=== PATIENT | male | born 1950 | race Caucasian/White ===

== ENCOUNTER 2023-02-01 02:55 | Inpatient (IN) | payer MEDICARE, OTHER ==
[~2023-02-01] VITALS: Ht 152.4 cm; Wt 50.4 kg
[2023-02-01] VITALS (51 sets, daily range): BP systolic 108–169; BP diastolic 21–77
[2023-02-01 03:33] LABS: Hematocrit 33.1 % (41.0-53.0); Hemoglobin 10.7 g/dL (13.5-17.5); Mean Corpuscular Hemoglobin 28.5 pg (28.0-32.0); Mean Corpuscular Hgb Conc. 32.4 g/dL (32.0-36.0); Mean Corpuscular Volume 87.8 fL (80.0-100.0); Red Blood Cells 3.78 10^6/uL (4.5-5.90); Red Cell Distribution Width 13.5 % (11.8-14.3); White Blood Cell 25.1 10^3/uL (4.4-10.8)
[2023-02-01 03:34] LABS: Basophils % (manual) 0 (0.0-2.0); Eosinophils % (manual) 0 (0-7); Metamyelocytes % 0; Myelocytes % 0
[2023-02-01 03:35] LABS: Blast Cells 0; Promyelocytes % 0; Reactive Lymphocytes 0
[2023-02-01 03:50] LABS: Potassium 3.4 mmol/L (3.5-5.1)
[2023-02-01 03:59] LABS: BUN/Creatinine Ratio 18.9 (10.0-20.0); Bilirubin, Total 0.9 mg/dL (0.2-1.0); Total Protein 6.8 g/dL (6.4-8.2)
[2023-02-01 04:11] LABS: Band Neutrophils % (manual) 7; Lymphocytes % (manual) 4 (10.0-50.0); Monocytes % (manual) 4 (0-12)
[2023-02-01] MEDS ORDERED: HYDROmorphone HCL 2 MG/ML VL/or syr IV ONE (04:30)
[2023-02-01] MEDS ORDERED: InsuLIN R (HUMAN) 100 UNITS in SODIUM CHL 0.9% 99 ML IV SCH ×2 (04:30→09:30)
[2023-02-01] MEDS ORDERED: cefTRIAXone 1GM/50ML D5W 50 ML IV ONE ×2 (04:30→04:45)
[2023-02-01] MEDS ORDERED: POTASSIUM CHL 20MEQ/100ML 100 ML IV PRN (04:30)
[2023-02-01] MEDS ORDERED: DEXTROSE (50%) 50ML SYRG IV PRN (04:30)
[2023-02-01] MEDS ORDERED: INSULIN LANTUS (GLARGINE) 1 /0.01ml (100units/ml) SC ONE ×2 (04:30→13:45)
[2023-02-01] MEDS ORDERED: ONDANSETRON HCL 4 MG/2 ML VIAL IV ONE (04:45)
[2023-02-01] MEDS: ACCU-CHEK COMFORT CURVE STRIP VI SCH ×11 (05:00→20:02)
[2023-02-01] MEDS ORDERED: InsuLIN REG 1unit/0.01ml Soln (100units/ml) IV ONE (05:00)
[2023-02-01] MEDS ORDERED: InsuLIN REG 1unit/0.01ml Soln (100units/ml) ONE (05:08)
[2023-02-01 05:13] LABS: BUN/Creatinine Ratio 19.2 (10.0-20.0); Calcium 11.3 mg/dL (8.5-10.1); Potassium 3.4 mmol/L (3.5-5.1)
[2023-02-01] MEDS: SODIUM CHLORIDE 0.9% 1,000 ML IV SCH ×2 (05:25→07:16)
[2023-02-01] MEDS ORDERED: ONDANSETRON HCL 4 MG/2 ML VIAL IV PRN (07:00)
[2023-02-01] MEDS ORDERED: NITROGLYCERIN 0.4 MG SL TAB SL PRN (07:00)
[2023-02-01] MEDS ORDERED: MORPHINE SULFATE INJ 2 MG/ml SYRG IV PRN (07:00)
[2023-02-01] MEDS ORDERED: SODIUM CHLORIDE 0.9% 1,000 ML IV SCH ×2 (08:30→10:30)
[2023-02-01] MEDS ORDERED: POTASSIUM CHL 20MEQ/100ML 100 ML IV ONE (09:00)
[2023-02-01] MEDS: MORPHINE SULFATE INJ 2 MG/ml SYRG IV PRN ×4 (09:43→22:11)
[2023-02-01] MEDS ORDERED: PANTOPRAZOLE 40 MG/10 ML VIAL INJ IV SCH (10:00)
[2023-02-01] MEDS ORDERED: SOD CHL 0.45% 1,000 ML IV SCH (11:15)
[2023-02-01 12:14] LABS: Calcium 10.5 mg/dL (8.5-10.1); Potassium 3.3 mmol/L (3.5-5.1)
[2023-02-01 12:19] LABS: Albumin 2.9 g/dL (3.4-5.0); Bilirubin, Total 0.6 mg/dL (0.2-1.0); Total Protein 6.9 g/dL (6.4-8.2)
[2023-02-01 12:50] LABS: Urine Bacteria NONE SEEN /hpf (None Seen); Urine Blood Negative /uL (Negative); Urine Mucus FEW (None Seen); Urine Specific Gravity 1.014 (1.001-1.035); Urine WBC 8 /hpf (0 - 3)
[2023-02-01] MEDS: POTASSIUM CHL 20MEQ/100ML 100 ML IV SCH ×2 (14:02→16:13)
[2023-02-01] MEDS: InsuLIN REG 1unit/0.01ml Soln (100units/ml) SC SCH ×2 (16:13→20:03)
[2023-02-01] MEDS: SOD CHL 0.45% 1,000 ML IV SCH (17:13)
[2023-02-01 17:23] LABS: Calcium 10.2 mg/dL (8.5-10.1); Potassium 3.8 mmol/L (3.5-5.1)
[2023-02-01 17:32] LABS: BUN/Creatinine Ratio 18.3 (10.0-20.0)
[2023-02-01 22:45] LABS: BUN/Creatinine Ratio 18.6 (10.0-20.0); Calcium 10.1 mg/dL (8.5-10.1); Potassium 3.8 mmol/L (3.5-5.1)
[2023-02-02] VITALS (46 sets, daily range): BP systolic 113–180; BP diastolic 47–94
[2023-02-02] MEDS: ACCU-CHEK COMFORT CURVE STRIP VI SCH ×6 (00:33→20:00)
[2023-02-02] MEDS: InsuLIN REG 1unit/0.01ml Soln (100units/ml) SC SCH ×6 (04:00→20:35)
[2023-02-02 04:17] LABS: Basophils # (auto) 0.1 10 ^3/uL (0-0.2); Basophils % (auto) 0.5 % (0.0-2.0); Eosinophils # (auto) 0.4 10 ^3/uL (0-0.8); Eosinophils % (auto) 2.3 % (0.0-7.0); Hematocrit 28.8 % (41.0-53.0); Hemoglobin 10.2 g/dL (13.5-17.5); Lymphocytes # (auto) 1.4 10 ^3/uL (0.4-5.4); Lymphocytes % (auto) 8.2 % (10.0-50.0); Mean Corpuscular Hemoglobin 28.8 pg (28.0-32.0); Mean Corpuscular Hgb Conc. 35.6 g/dL (32.0-36.0); Monocytes # (auto) 1.1 10 ^3/uL (0-1.3); Monocytes % (auto) 6.7 % (0.0-12.0); Neutrophils # (auto) 14.2 10 ^3/uL (1.6-8.6); Neutrophils % (auto) 82.3 % (37.0-80.0); Red Blood Cells 3.55 10^6/uL (4.5-5.90); Red Cell Distribution Width 13.8 % (11.8-14.3); White Blood Cell 17.2 10^3/uL (4.4-10.8)
[2023-02-02 04:29] LABS: Albumin 2.7 g/dL (3.4-5.0); BUN/Creatinine Ratio 19.3 (10.0-20.0); Calcium 9.9 mg/dL (8.5-10.1); Potassium 3.8 mmol/L (3.5-5.1)
[2023-02-02 04:32] LABS: Bilirubin, Total 0.5 mg/dL (0.2-1.0); Total Protein 5.9 g/dL (6.4-8.2)
[2023-02-02] MEDS: MORPHINE SULFATE INJ 2 MG/ml SYRG IV PRN ×3 (05:16→22:02)
[2023-02-02] MEDS: SOD CHL 0.45% 1,000 ML IV SCH ×2 (05:50→18:43)
[2023-02-02] MEDS: INSULIN LANTUS (GLARGINE) 1 /0.01ml (100units/ml) SC SCH (10:06)
[2023-02-02] MEDS ORDERED: ASPirin 81 mg TAB PO ONE (14:00)
[2023-02-02] MEDS ORDERED: METOPROLOL SUCCINATE XL 50 MG TAB PO ONE (14:00)
[2023-02-02] MEDS: hydrALAZINE HCL 20 MG/ML VL IV PRN (14:28)
[2023-02-02] MEDS: ATORVASTATIN 20 MG TAB PO SCH (21:55)
[2023-02-02] MEDS: HEPARIN SODIUM (PORCINE) 5000 UNITS/ML 1ML VIAL SC SCH (21:58)
[2023-02-03] VITALS (39 sets, daily range): BP systolic 84–186; BP diastolic 35–139
[2023-02-03] MEDS: ACCU-CHEK COMFORT CURVE STRIP VI SCH ×7 (00:05→23:43)
[2023-02-03] MEDS: InsuLIN REG 1unit/0.01ml Soln (100units/ml) SC SCH ×7 (04:00→23:43)
[2023-02-03 04:08] LABS: Basophils # (auto) 0.1 10 ^3/uL (0-0.2); Basophils % (auto) 0.6 % (0.0-2.0); Eosinophils # (auto) 0.4 10 ^3/uL (0-0.8); Eosinophils % (auto) 4.7 % (0.0-7.0); Hematocrit 26.7 % (41.0-53.0); Hemoglobin 9.5 g/dL (13.5-17.5); Lymphocytes # (auto) 1.2 10 ^3/uL (0.4-5.4); Lymphocytes % (auto) 15.3 % (10.0-50.0); Mean Corpuscular Hemoglobin 29.8 pg (28.0-32.0); Mean Corpuscular Hgb Conc. 35.7 g/dL (32.0-36.0); Mean Corpuscular Volume 83.6 fL (80.0-100.0); Monocytes # (auto) 0.7 10 ^3/uL (0-1.3); Monocytes % (auto) 8.7 % (0.0-12.0); Neutrophils # (auto) 5.7 10 ^3/uL (1.6-8.6); Neutrophils % (auto) 70.7 % (37.0-80.0); Red Blood Cells 3.19 10^6/uL (4.5-5.90); Red Cell Distribution Width 13.9 % (11.8-14.3); White Blood Cell 8.1 10^3/uL (4.4-10.8)
[2023-02-03 04:27] LABS: BUN/Creatinine Ratio 18.4 (10.0-20.0); Calcium 9.3 mg/dL (8.5-10.1); Potassium 3.2 mmol/L (3.5-5.1)
[2023-02-03] MEDS: SOD CHL 0.45% 1,000 ML IV SCH (09:24)
[2023-02-03] MEDS: ASPirin 81 mg TAB PO SCH (09:25)
[2023-02-03] MEDS: MORPHINE SULFATE INJ 2 MG/ml SYRG IV PRN ×3 (09:26→23:34)
[2023-02-03] MEDS: HEPARIN SODIUM (PORCINE) 5000 UNITS/ML 1ML VIAL SC SCH ×2 (09:30→21:53)
[2023-02-03] MEDS ORDERED: METOPROLOL SUCCINATE XL 50 MG TAB PO SCH (10:00)
[2023-02-03] MEDS: POTASSIUM CHL 20MEQ/100ML 100 ML IV SCH ×2 (10:53→12:30)
[2023-02-03] MEDS: INSULIN LANTUS (GLARGINE) 1 /0.01ml (100units/ml) SC SCH (10:56)
[2023-02-03] MEDS: hydrALAZINE HCL 20 MG/ML VL IV PRN (14:01)
[2023-02-03] MEDS ORDERED: cloNIDine HCL 0.1 MG TAB PO PRN ×2 (14:45→15:15)
[2023-02-03] MEDS: LACTATED RINGER'S 1,000 ML IV SCH (16:29)
[2023-02-03] MEDS: ATORVASTATIN 20 MG TAB PO SCH (21:21)
[2023-02-04] VITALS (24 sets, daily range): BP systolic 78–167; BP diastolic 37–81
[2023-02-04] MEDS: InsuLIN REG 1unit/0.01ml Soln (100units/ml) SC SCH ×2 (04:00→08:00)
[2023-02-04] MEDS: ACCU-CHEK COMFORT CURVE STRIP VI SCH ×2 (04:16→08:00)
[2023-02-04 04:31] LABS: Basophils # (auto) 0.2 10 ^3/uL (0-0.2); Eosinophils # (auto) 0.3 10 ^3/uL (0-0.8); Eosinophils % (auto) 4.4 % (0.0-7.0); Hematocrit 26.6 % (41.0-53.0); Hemoglobin 9.2 g/dL (13.5-17.5); Lymphocytes # (auto) 1.2 10 ^3/uL (0.4-5.4); Lymphocytes % (auto) 17.8 % (10.0-50.0); Mean Corpuscular Hemoglobin 29.3 pg (28.0-32.0); Mean Corpuscular Hgb Conc. 34.8 g/dL (32.0-36.0); Mean Corpuscular Volume 84.3 fL (80.0-100.0); Monocytes # (auto) 0.7 10 ^3/uL (0-1.3); Monocytes % (auto) 10.9 % (0.0-12.0); Neutrophils # (auto) 4.2 10 ^3/uL (1.6-8.6); Neutrophils % (auto) 63.9 % (37.0-80.0); Red Blood Cells 3.15 10^6/uL (4.5-5.90); White Blood Cell 6.6 10^3/uL (4.4-10.8)
[2023-02-04 04:41] LABS: Potassium 3.7 mmol/L (3.5-5.1)
[2023-02-04 04:47] LABS: BUN/Creatinine Ratio 14.4 (10.0-20.0); Calcium 8.5 mg/dL (8.5-10.1)
[2023-02-04] MEDS: LACTATED RINGER'S 1,000 ML IV SCH (05:13)
[2023-02-04] MEDS: MORPHINE SULFATE INJ 2 MG/ml SYRG IV PRN (05:34)
[2023-02-04] MEDS: ASPirin 81 mg TAB PO SCH (09:50)
[2023-02-04] MEDS: HEPARIN SODIUM (PORCINE) 5000 UNITS/ML 1ML VIAL SC SCH (09:56)
[2023-02-04] MEDS ORDERED: METOPROLOL SUCCINATE XL 50 MG TAB PO SCH (10:00)
[2023-02-04] MEDS: INSULIN LANTUS (GLARGINE) 1 /0.01ml (100units/ml) SC SCH (10:00)
[2023-02-04] MEDS ORDERED: ASPI-325 PO (11:21)
[2023-02-04] MEDS ORDERED: ATOR20TA50 PO (11:21)
[2023-02-04] MEDS ORDERED: METO-6 PO (11:21)
== END 2023-02-04 12:08 | disposition home or self-care (01) | DRG 637 ==
LOC: ER 02:55 → EDBD 02:55 → TELE 06:53 → ICU WEST 08:54
PROVIDERS: ADMIT Nurse Practitioner; ATTEND Internal Medicine Pulmonary Disease
DX: E11.10 Type 2 diabetes mellitus with ketoacidosis without coma (principal); I21.A1 Myocardial infarction type 2; N17.9 Acute kidney failure, unspecified; E86.0 Dehydration; E11.22 Type 2 diabetes mellitus with diabetic chronic kidney disease; E11.51 Type 2 diabetes mellitus with diabetic peripheral angiopathy without gangrene; E11.649 Type 2 diabetes mellitus with hypoglycemia without coma; N18.9 Chronic kidney disease, unspecified; D63.8 Anemia in other chronic diseases classified elsewhere; E87.6 Hypokalemia; I12.9 Hypertensive chronic kidney disease with stage 1 through stage 4 chronic kidney disease, or unspecified chronic kidney disease; I16.0 Hypertensive urgency; Z20.822 Contact with and (suspected) exposure to COVID-19; Z89.611 Acquired absence of right leg above knee; Z89.612 Acquired absence of left leg above knee
CPT/HCPCS: 36415; 36600; 71045; 80048; 80053; 81001; 82010; 82805; 82962; 83690; 83735; 83880; 84484; 85007; 85025; 85027; 87081; 87426; 93005; 93306; 96365; 96367; 96368; 96372; 96375; 99291; C9113; G0378; J0696; J1815; J2405; J3480

== ENCOUNTER 2025-09-29 08:49 | Inpatient (IN) | payer OTHER ==
[~2025-09-29] VITALS: Ht 157.5 cm; Wt 55.7 kg
[2025-09-29] VITALS (17 sets, daily range): BP systolic 115–136; BP diastolic 56–73; PULSE 70–102; RESP 12–21; TEMP 97.9; O2SAT 95–100
[~2025-09-29 08:49] MED LIST: ASPI-325 PO; ATOR20TA50 PO; METO-6 PO
--- NOTE | 2025-09-29 09:01 | ED.PDOC ---
History of present illness HPI Comments 75 y/o M, BIBA, with PMHx of DM presents to the ED for CC of hyperglycemia. Patient states, he has had "high" blood sugar readings accompanied by symptoms of nausea, vomiting, and poor appetite [id number]. Patient relays, to have had similar symptoms in the past with previous DKA episode. Patient further relays, symptoms of "burning" like abdominal pain. Patient denies vision changes, headache, dizziness, frequency, urgency, or excessive thirst. Chief Complaint: Nausea/Vomiting Time Seen by MD: 09:00 Primary Care Provider: CLAUDIA History of present illness: Nurses Notes, Merchandise Flow Manager Notes, Medications, Aleksandr rgies Allergies: Coded Allergies: NO KNOWN ALLERGIES (Unverified , 09/11/21) Home Meds Active Scripts Metoprolol Succinate (Toprol Xl) 50 Mg Tab, 50 MG PO DAILY for 30 Days, #30 TAB Prov:FRANCIS RETANA MD 02/04/23 Atorvastatin Calcium (ATORVASTATIN CALCIUM) 20 Mg Tab, 40 MG PO HS for 30 Days, #30 TAB Prov:FRANCIS RETANA MD 02/04/23 Aspirin (Aspirin Low Dose) 81 Mg Tab, 81 MG PO DAILY for 30 Days, #30 TAB Prov:FRANCIS RETANA MD 02/04/23 Information Source: Patient, Emergency Med Personnel Mode of Arrival: EMS Timing: Weeks Duration: Since onset Prehospital treatment: None Symptoms: Eating poorly History of: Diabetes Associated signs and symptoms: Nausea, Vomiting Past Medical History PAST MEDICAL HISTORY: DM Surgical History: Denies all surgeries Family History Family History: Reviewed,noncontributory to illness Social History Smoker: Non-Smoker Alcohol: Denies ETOH Use Drugs: Denies Drug Use Lives In: Home Constitutional: denies: chills, diaphoresis, fatigue, fever, malaise, sweats, weakness, others EENTM: denies: blurred vision, double vision, ear bleeding, ear discharge, ear drainage, ear pain, ear ringing, eye pain, eye redness, hearing loss, mouth pain, mouth swelling, nasal discharge, nose bleeding, nose congestion, nose pain, photophobia, tearing, throat pain, throat swelling, voice changes, others Respiratory: denies: cough, hemoptysis, orthopnea, SOB at rest, shortness of breath, SOB with excertion, stridor, wheezing, others Cardiovascular: denies: chest pain, dizzy spells, diaphoresis, Dyspnea on exertion, edema, irregular heart beat, left arm pain, lightheadedness, palpitations, PND, syncope, others Gastrointestinal: reports: abdominal pain, nausea, poor appetite, vomiting; denies: abdomen distended, blood streaked bowels, constipated, diarrhea, dysphagia, difficulty swallowing, hematemesis, melena, poor fluid intake, rectal bleeding, rectal pain, others Genitourinary: denies: burning, dysuria, flank pain, frequency, hematuria, incontinence, penile discharge, penile sore, pain, testicle pain, testicle swelling, urgency, others Neurological: denies: dizziness, fainting, headache, left sided numbness, left sided weakness, numbness, paresthesia, pre-existing deficit, right sided numbness, right sided weakness, seizure, speech problems, tingling, tremors, weakness, others Musculoskeletal: denies: back pain, gout, joint pain, joint swelling, muscle pain, muscle stiffness, neck pain, others Integumetry: denies: bruises, change in color, change in hair/nails, dryness, laceration, lesions, lumps, rash, wounds, others Allergic/Immunocompromised: denies: Difficulty Healing, Frequent Infections, Hives, Itching, others Hematologic/Lymphatic: denies: anemia, blood clots, easy bleeding, easy bruising, swollen glands, others Endocrine: denies: excessive hunger, excessive sweating, excessive thirst, excessive urination, flushing, intolerance to cold, intolerance to heat, unexplained weight gain, unexplained weight loss, others Psychiatric: denies: anxiety, bipolar disorder, depression, hopeless, panic disorder, schizophrenia, sleepless, suicidal, others All Other Systems: Reviewed and Negative Physical Exam General Appearance: No Apparent Distress, Normal HEENT: Normal ENT Inspection, Pharynx Normal Neck: Full Range of Motion, Non-Tender, Normal, Normal Inspection Respiratory: Chest Non-Tender, Lungs Clear, No Accessory Muscle Use, No Respiratory Distress, Normal Breath Sounds Cardiovascular: No Edema, No Murmur, No Gallop, Normal Peripheral Pulses, Tachycardia Breast Exam: Deferred Gastrointestinal: No Organomegaly, Non Tender, No Pulsatile Mass, Normal Bowel Sounds, Soft Genitalia: Deferred Pelvic: Deferred Rectal: Deferred Extremities: No calf tenderness, Normal capillary refill, Normal inspection, Normal range of motion, Non-tender, No pedal edema Musculoskeletal : Location: Bilateral Extremity Location: Knee Apperance: Other (KD) Neurologic: Alert, ring attacher II-XII nml as Tested, No Motor Deficits, Normal Affect, Normal Mood, No Sensory Deficits Cerebellar Function: Normal Reflexes: Normal Skin: Dry, Normal Color, Warm Lymphatic: No Adenopathy Was a procedure done? Was a procedure done?: No Differential Diagnosis (DM) Differential Diagnosis: Dehydration, DKA, Gastritis, Hyperglycemia X-Ray, Labs, Meds, VS Vital Signs Date Time Temp Pulse Resp B/P (MAP) Pulse Ox O2 Delivery O2 Flow Rate FiO2 09/29/25 10:00 97.8 102 18 129/56 (80) 97.8 09/29/25 10:00 102 18 Nasal Cannula* 2 28 09/29/25 08:53 98.2 101 20 138/64 99 98.2 Lab Test 09/29/25 10:33 09/29/25 09:39 Range/Units Troponin I High Sensitivity Pending 748 *H </=54 ng/L White Blood Count 10.5 4.4-10.8 10^3/uL Red Blood Count 4.70 4.5-5.90 10^6/uL Hemoglobin 11.6 L 13.5-17.5 g/dL Hematocrit 36.5 L 41.0-53.0 % Mean Corpuscular Volume 77.7 L 80.0-100.0 fL Mean Corpuscular Hemoglobin 24.7 L 28.0-32.0 pg Mean Corpuscular Hemoglobin Concent 31.8 L 32.0-36.0 g/dL Red Cell Distribution Width 19.5 H 11.8-14.3 % Platelet Count 241 140-450 10^3/uL Mean Platelet Volume 7.8 6.9-10.8 fL Neutrophils (%) (Auto) 92.3 H 37.0-80.0 % Lymphocytes (%) (Auto) 2.3 L 10.0-50.0 % Monocytes (%) (Auto) 4.6 0.0-12.0 % Eosinophils (%) (Auto) 0.0 0.0-7.0 % Basophils (%) (Auto) 0.8 0.0-2.0 % Neutrophils # (Auto) 9.7 H 1.6-8.6 10 ^3/uL Lymphocytes # (Auto) 0.2 L 0.4-5.4 10 ^3/uL Monocytes # (Auto) 0.5 0-1.3 10 ^3/uL Eosinophils # (Auto) 0 0-0.8 10 ^3/uL Basophils # (Auto) 0.1 0-0.2 10 ^3/uL Nucleated Red Blood Cells 0.0 % Sodium Level 145 136-145 mmol/L Potassium Level 4.4 3.5-5.1 mmol/L Chloride Level 95 L 98-107 mmol/L Carbon Dioxide Level 22 20-31 mmol/L Anion Gap 28 H 5-15 Blood Urea Nitrogen 117 *H 9-23 mg/dL Creatinine 3.54 H 0.700-1.30 mg/dL Glomerular Filtration Rate Calc 17 >90 mL/min BUN/Creatinine Ratio 33.1 H 10.0-20.0 Serum Glucose 409 *H 74-106 mg/dL Calcium Level 9.5 8.7-10.4 mg/dL Current Medications Medications (Trade) Dose Ordered Sig/Conrado Route Start Time Stop Time Status Last Admin Sodium Chloride 1,000 ml @ 100 mls/hr Q10H ONCE IV 09/29/25 09:30 09/29/25 19:29 09/29/25 10:08 Insulin Human Regular (InsuLIN R) 4 units ONCE ONCE IV 09/29/25 09:30 09/29/25 09:31 DC 09/29/25 10:07 Ondansetron HCl (Zofran) 4 mg ONCE ONCE IV 09/29/25 09:30 09/29/25 09:31 DC 09/29/25 10:06 [place] [address] Ph: [phone] DIAGNOSTIC IMAGING Diagnostic Imaging Report : [id number] Signed PATIENT: NITHIN SUÁREZ ACCT: [id number] UNIT: [id number] : 1950 LOC: ER ROOM / BED: / AGE / SEX: 75 / M ADM STATUS: REG ER SERVICE 2 ORDERING PHYSICIAN: TRACEY LEMON MD PROCEDURE(s): CXRP - CHEST PORTABLE REASON: nausea ORDER NUMBER(s): [id number], ACCESSION NUMBER(s): [id number] CHEST RADIOGRAPH Indication: nausea Technique: Single frontal view of the chest was obtained Comparison: XY CHEST PORTABLE on DOS: 02/01/23, CXR1 on DOS: 08/11/22, CXRP on DOS: 07/24/21 FINDINGS: Lines and Tubes: None Lungs: Developing bibasilar airspace disease Pleura: Small bilateral pleural effusions. No pneumothorax. Cardiomediastinal contours: Cardiomegaly Bones: No acute osseous abnormality. IMPRESSION: 1. Findings suggest developing congestive failure. ATED BY: SUKHJINDER YOUNG Jr., DO DICTATED DATE/TIME: 09/29/25958 SIGNED BY: SUKHJINDER YOUNG Jr., SIGNED DATE/TIME: 09/29/25958 CC: Time of 1ST Reevaluation: 09:30 Reevaluation 1ST: Unchanged Time of 2ND Reevaluation: 11:15 Reevaluation 2ND: Improved Patient Education/Counseling: Diagnosis, Treatment Family Education/Counseling: No Family Present Comments This is a patient who presents with many days of inability to keep anything down by mouth. He is diabetic. He has a history of DKA. Patient is in DKA again. However he is also in renal failure in addition he is in congestive heart failure. This places the patient in the very precarious condition where he needs volume however his heart is unable to create the cardiac output so additional volume we will worsened he has CHF. However diuresis may worsen his renal failure in addition it would not be beneficial for his DKA. I have started the patient on insulin drip. I will have the patient admitted for further evaluation. To balance his volume intake versus output. And control his blood sugar. Patient also has a elevation of troponin. Although this could be due to acute renal failure, it will have to be trended. I will start him on aspirin in the meantime. The he does not have acute EKG changes Total critical care time: Approximately 55 minutes Due to a high probability of clinically significant, life threatening deterioration, the patient required my highest level of preparedness to intervene emergently and I personally spent this critical care time directly and personally managing the patient. This critical care time included obtaining a history; examining the patient; pulse oximetry; ordering and review of studies; arranging urgent treatment with development of a management plan; evaluation of patient's response to treatment; frequent reassessment; and, discussions with other providers. This critical care time was performed to assess and manage the high probability of imminent, life-threatening deterioration that could result in multi-organ failure. It was exclusive of separately billable procedures and treating other patients. Additional Information The following previous visits were reviewed: 02/01/25 Dx: Diabetic Ketoacidosis The following tests were ordered, and results were reviewed by me: TROPONIN X3, CBC, UA, BMP, ACCUCHECK X14, CXY Additional Information was gathered from interviewing the following independent historians: EMS I reviewed and agreed with the following test results read by other providers: CXY I discussed treatment and results with medical personnel and: patient Comprehensive systems review obtained and negative except for what is stated in the HPI. SEPSIS Sepsis Screen Date sepsis recognized/suspect: Sep 29, 2025 Time Sepsis recognized/suspect: 08 Recent Procedure: No On Antibiotic Therapy: No Respiratory Rate >20: No Heart Rate >90: Yes Temp<36 C (96.8 F) or >38.3 C: No SBP <90 or MAP <65 mmHG: No New Acute Mental Status Change: No Is the patient on CPAP, BIPAP,: No Physician Orders Chest Portable (09/29/25 09:23) Urinalysis (09/29/25 09:23) Troponin-I Hs (09/29/25 10:23) Troponin-I Hs (09/29/25 12:23) Accucheck (09/29/25 10:00) Accucheck (09/29/25 11:00) Accucheck (09/29/25 12:00) Accucheck (09/29/25 13:00) Accucheck (09/29/25 14:00) Accucheck (09/29/25 15:00) Accucheck (09/29/25 16:00) Accucheck (09/29/25 17:00) Accucheck (09/29/25 18:00) Accucheck (09/29/25 19:00) Accucheck (09/29/25 20:00) Accucheck (09/29/25 21:00) Accucheck (09/29/25 22:00) Accucheck (09/29/25 23:00) Electrocardigram (09/29/25 09:23) Sodium Chloride 0.9% (09/29/25 09:30) Insert/Manage Urinary Catheter QSHIFT (09/29/25 10:44) Insulin Drip 100 Unit/100ml (Myxredlin 1 (09/29/25 11:15) Glucose Blood (Accu-Chek Comfort Curve T (09/29/25 12:00) D/C All Diabetic Medications (09/29/25 11:13) Insulin Drip Protocol (09/29/25 11:13) Dextrose 50% Syringe (09/29/25 11:15) Insulin Lantus (Glargine) (Lantus) (09/29/25 11:15) Insulin Lantus (Glargine) (Lantus) (09/30/25 10:00) Vital Signs Date Time Temp Pulse Resp B/P (MAP) Pulse Ox O2 Delivery O2 Flow Rate FiO2 09/29/25 10:00 97.8 102 18 129/56 (80) 97.8 09/29/25 10:00 102 18 Nasal Cannula* 2 28 09/29/25 08:53 98.2 101 20 138/64 99 98.2 Laboratory Tests Test 09/29/25 09:39 White Blood Count 10.5 10^3/uL (4.4-10.8) Medications Medications Dose Ordered Sig/Conrado Route Start Time Stop Time Status Last Admin Dose Admin Insulin Human Regular 4 units ONCE ONCE IV 09/29/25 09:30 09/29/25 09:31 DC 09/29/25 10:07 Ondansetron HCl 4 mg ONCE ONCE IV 09/29/25 09:30 09/29/25 09:31 DC 09/29/25 10:06 Sodium Chloride 1,000 ml @ 100 mls/hr Q10H ONCE IV 09/29/25 09:30 09/29/25 19:29 09/29/25 10:08 Departure 1 Departure Time of Disposition: 11:17 Impression: Primary Impression: DKA (diabetic ketoacidosis) Additional Impressions: Acute renal failure Congestive heart failure Failure to thrive Troponin level elevated Disposition: ADMITTED INPATIENT Admit to: ICU Condition: Critical Critical Care Note Critical Care Time?: Yes (55 min-critical care time only) Critical care comment: Total critical care time: Approximately 55 minutes Due to a high probability of clinically significant, life threatening deterioration, the patient required my highest level of preparedness to intervene emergently and I personally spent this critical care time directly and personally managing the patient. This critical care time included obtaining a history; examining the patient; pulse oximetry; ordering and review of studies; arranging urgent treatment with development of a management plan; evaluation of patient's response to treatment; frequent reassessment; and, discussions with other providers. This critical care time was performed to assess and manage the high probability of imminent, life-threatening deterioration that could result in multi-organ failure. It was exclusive of separately billable procedures and treating other patients. Stability Stability form required: No Heart Score Heart Score: Heart Score Response (Comments) Value History N/A 0 EKG N/A 0 Age N/A 0 Risk Factors N/A 0 Troponin N/A 0 Total 0 I personally scribed for TRACEY LEMON MD ([employer]) on 09/29/25 at 09:01. Electronically submitted by Sveta Ugarte ([employer]). I personally scribed for TRACEY LEMON MD ([employer]) on 09/29/25 at 09:38. Electronically submitted by Sveta Ugarte ([employer]). I personally scribed for TRACEY LEMON MD ([employer]) on 09/29/25 at 09:55. Electronically submitted by Sveta Ugarte ([email or web address]). I personally scribed for TRACEY LEMON MD ([employer]) on 09/29/25 at 09:58. Electronically submitted by Sveta Ugarte ([employer]). I personally scribed for TRACEY LEMON MD ([employer]) on 09/29/25 at 10:10. Electronically submitted by Sveta Ugarte ([employer]). TRACEY LEMON MD Sep 29, 2025 09:01
[2025-09-29 09:50] LABS: Hematocrit 36.5 % (41.0-53.0); Hemoglobin 11.6 g/dL (13.5-17.5); Mean Corpuscular Hemoglobin 24.7 pg (28.0-32.0); Mean Corpuscular Volume 77.7 fL (80.0-100.0); Nucleated Red Blood Cells % 0.0 %
[2025-09-29 09:59] LABS: Potassium 4.4 mmol/L (3.5-5.1)
[2025-09-29 10:00] LABS: Anion Gap 28 (5-15); Calcium 9.5 mg/dL (8.7-10.4); Carbon Dioxide 22 mmol/L (20-31)
--- NOTE | 2025-09-29 10:01 | DVH ---
CHEST RADIOGRAPH Indication: nausea Technique: Single frontal view of the chest was obtained Comparison: XY CHEST PORTABLE on DOS: 02/01/23, CXR1 on DOS: 08/11/22, CXRP on DOS: 07/24/21 FINDINGS: Lines and Tubes: None Lungs: Developing bibasilar airspace disease Pleura: Small bilateral pleural effusions. No pneumothorax. Cardiomediastinal contours: Cardiomegaly Bones: No acute osseous abnormality. IMPRESSION: 1. Findings suggest developing congestive failure.
[2025-09-29 10:05] LABS: BUN/Creatinine Ratio 33.1 (10.0-20.0)
[2025-09-29] MEDS: ONDANSETRON HCL 4 MG/2 ML VIAL IV ONE (10:06)
[2025-09-29] MEDS: InsuLIN REG 1unit/0.01ml Soln (100units/ml) IV ONE (10:07)
[2025-09-29 10:08] LABS: Chloride 95 mmol/L (98-107); Sodium 145 mmol/L (136-145)
[2025-09-29] MEDS: SODIUM CHLORIDE 0.9% 1,000 ML IV ONE (10:08)
[2025-09-29 10:09] LABS: Glucose 409 mg/dL (74-106)
[2025-09-29 10:10] LABS: Blood Urea Nitrogen 117 mg/dL (9-23)
[2025-09-29] MEDS ORDERED: DEXTROSE (50%) 50ML SYRG IV PRN ×2 (11:15→12:15)
[2025-09-29] MEDS: ACCU-CHEK COMFORT CURVE STRIP VI SCH (11:47)
[2025-09-29] MEDS: INSULIN LANTUS (GLARGINE) 1 /0.01ml (100units/ml) SC ONE (11:50)
[2025-09-29] MEDS: INSULIN DRIP 100 UNIT/100ML 100 ML IV SCH (11:51)
--- NOTE | 2025-09-29 11:53 | ECG ---
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
[2025-09-29 12:03] LABS: Urine Protein, UAD 1+ (Negative)
[2025-09-29 12:15] LABS: Base Excess 4.7 mmol/L (-2.0-3.0)
--- NOTE | 2025-09-29 12:26 | DVHHP2 ---
History of Present Illness Reason for Visit: Hyperglycemia History of Present Illness 75-year-old male presents to the ED via EMS with complaint of hyperglycemia. He reports persistent elevated blood glucose readings over the past several days associated with nausea, vomiting, poor appetite, and unintentional weight loss for approximately three weeks. He states this symptoms feel similar to prior episodes of DKA. He denies dizziness, syncope, chest pain, palpitations, shortness of breath, fevers, or other acute symptoms. In the ED, initial lab shows a serum glucose of 409 mg/dL, an anion gap of 20, CO2 of 22, creatinine 3.54 with a GFR of 17, and elevated high sensitivity troponins trending from [id number]. Significant past medical history includes PAD status post bilateral AKA, diabetes type 2, hypertension, CKD, anemia of chronic disease. Past Medical History As stated in HPI Past Surgical History Bilateral AKA Past Social History The patient lives at home, denies smoking, alcohol or illicit drugs abuse. Review of Systems Constitutional: Yes: Malaise Gastrointestinal: Nausea, Vomiting Allergies: Coded Allergies: NO KNOWN ALLERGIES (Unverified , 09/11/21) Medications Current Medications Medications Dose Ordered Sig/Conrado Route Start Time Stop Time Status Last Admin Dose Admin Insulin Human (Reg)/Sodium Chloride 100 ml @ 0.5 mls/hr Q24H IV 09/29/25 11:15 09/29/25 11:51 3 MLS/HR Diagnostic Test (Pha) 1 strip Q90MIN 09/29/25 12:00 09/29/25 11:47 1 STRIP Insulin Glargine 15 units DAILY SC 09/30/25 10:00 Dextrose 50 ml Q90MIN IV 09/29/25 13:30 Ondansetron HCl 4 mg Q4HP PRN IV 09/29/25 12:30 UNV Enoxaparin Sodium 40 mg DAILY SC 09/30/25 10:00 UNV Exam Vital Signs Vital Signs Date Time Temp Pulse Resp B/P (MAP) Pulse Ox O2 Delivery O2 Flow Rate FiO2 09/29/25 11:51 90 09/29/25 10:00 97.8 18 129/56 (80) 97.8 09/29/25 10:00 Nasal Cannula* 2 28 09/29/25 08:53 99 General Appearance: Alert, Oriented X3, Cooperative, mild distress HEENT: Atraumatic, PERRLA Respiratory: Clear to auscultation, Normal air movement Cardiovascular: Regular rate, Normal S1, Normal S2 Abdominal: Normal bowel sounds, Soft, No tenderness Extremities: No clubbing, No cyanosis, No edema, Other (Bilateral AKA) Skin: No rashes, No breakdown Neuro: Normal speech Psych/Mental Status: Mental status NL Labs/Xrays Labs Test 09/29/25 12:10 09/29/25 11:20 09/29/25 10:33 09/29/25 09:39 Range/Units Blood Gas Specimen Type Arterial Blood Gas Sample Site Right radial Blood Gas Patient Temperature 37.0 Arterial Blood Date Drawn [id number] Arterial Blood pH 7.427 7.350-7.450 Arterial Blood Partial Pressure CO2 46.3 35.0-48.0 mmHg Arterial Blood Partial Pressure O2 92.7 83.0-108.0 mmHg Arterial Blood HCO3 29.8 H 21.0-28.0 mmol/L Arterial Blood Oxygen Saturation 96.5 94.0-98.0 % Arterial Blood Base Excess 4.7 H -2.0-3.0 mmol/L Arterial Blood Oxyhemoglobin 95.1 94.0-98.0 % Arterial Blood Carboxyhemoglobin 1.0 0.5-1.5 % Arterial Blood Methemoglobin 0.4 0.0-1.5 % Arterial Blood Deoxyhemoglobin 3.5 0.0-5.0 % Arsenio Test Yes Blood Gas Total Hemoglobin 12.10 L 13.5-17.5 g/dL Blood Gas Liter Flow 2.00 Blood Gas Modality Nasal cannula FiO2 % 28.0 Urine Color Light-yellow Yellow Urine Clarity Clear Clear Urine pH 5.0 5.0-9.0 Urine Specific [place] 1.012 1.001-1.035 Urine Protein 1+ H Negative Urine Ketones 1+ H Negative Urine Blood 2+ H Negative /uL Urine Nitrite Negative Negative Urine Bilirubin Negative Negative Urine Urobilinogen Normal Negative mg/dL Urine Leukocyte Esterase Negative Negative /uL Urine RBC 39 0 - 3 /hpf Urine Microscopic WBC 2 0-3 /HPF Urine Squamous Epithelial Cells Few <5 /hpf Urine Bacteria None seen None Seen /hpf Urine Hyaline Casts Few 0 - 2 /lpf Urine Glucose 4+ H Normal mg/dL Troponin I High Sensitivity 1328 *H </=54 ng/L White Blood Count 10.5 4.4-10.8 10^3/uL Red Blood Count 4.70 4.5-5.90 10^6/uL Hemoglobin 11.6 L 13.5-17.5 g/dL Hematocrit 36.5 L 41.0-53.0 % Mean Corpuscular Volume 77.7 L 80.0-100.0 fL Mean Corpuscular Hemoglobin 24.7 L 28.0-32.0 pg Mean Corpuscular Hemoglobin Concent 31.8 L 32.0-36.0 g/dL Red Cell Distribution Width 19.5 H 11.8-14.3 % Platelet Count 241 140-450 10^3/uL Mean Platelet Volume 7.8 6.9-10.8 fL Neutrophils (%) (Auto) 92.3 H 37.0-80.0 % Lymphocytes (%) (Auto) 2.3 L 10.0-50.0 % Monocytes (%) (Auto) 4.6 0.0-12.0 % Eosinophils (%) (Auto) 0.0 0.0-7.0 % Basophils (%) (Auto) 0.8 0.0-2.0 % Neutrophils # (Auto) 9.7 H 1.6-8.6 10 ^3/uL Lymphocytes # (Auto) 0.2 L 0.4-5.4 10 ^3/uL Monocytes # (Auto) 0.5 0-1.3 10 ^3/uL Eosinophils # (Auto) 0 0-0.8 10 ^3/uL Basophils # (Auto) 0.1 0-0.2 10 ^3/uL Nucleated Red Blood Cells 0.0 % Sodium Level 145 136-145 mmol/L Potassium Level 4.4 3.5-5.1 mmol/L Chloride Level 95 L 98-107 mmol/L Carbon Dioxide Level 22 20-31 mmol/L Anion Gap 28 H 5-15 Blood Urea Nitrogen 117 *H 9-23 mg/dL Creatinine 3.54 H 0.700-1.30 mg/dL Glomerular Filtration Rate Calc 17 >90 mL/min BUN/Creatinine Ratio 33.1 H 10.0-20.0 Serum Glucose 409 *H 74-106 mg/dL Calcium Level 9.5 8.7-10.4 mg/dL PROCEDURE(s): CXRP - CHEST PORTABLE REASON: nausea ORDER NUMBER(s): [id number], ACCESSION NUMBER(s): [id number] CHEST RADIOGRAPH Indication: nausea Technique: Single frontal view of the chest was obtained Comparison: XY CHEST PORTABLE on DOS: 02/01/23, CXR1 on DOS: 08/11/22, CXRP on DOS: 07/24/21 FINDINGS: Lines and Tubes: None Lungs: Developing bibasilar airspace disease Pleura: Small bilateral pleural effusions. No pneumothorax. Cardiomediastinal contours: Cardiomegaly Bones: No acute osseous abnormality. IMPRESSION: 1. Findings suggest developing congestive failure. SEPSIS Sepsis Screen Date sepsis recognized/suspect: Sep 29, 2025 Time Sepsis recognized/suspect: 103 Recent Procedure: No On Antibiotic Therapy: No Respiratory Rate >20: No Heart Rate >90: Yes Temp<36 C (96.8 F) or >38.3 C: No SBP <90 or MAP <65 mmHG: No New Acute Mental Status Change: No Is the patient on CPAP, BIPAP,: No Physician Orders Chest Portable (09/29/25 09:23) Troponin-I Hs (09/29/25 12:23) Accucheck (09/29/25 10:00) Accucheck (09/29/25 11:00) Accucheck (09/29/25 12:00) Accucheck (09/29/25 13:00) Accucheck (09/29/25 14:00) Accucheck (09/29/25 15:00) Accucheck (09/29/25 16:00) Accucheck (09/29/25 17:00) Accucheck (09/29/25 18:00) Accucheck (09/29/25 19:00) Accucheck (09/29/25 20:00) Accucheck (09/29/25 21:00) Accucheck (09/29/25 22:00) Accucheck (09/29/25 23:00) Insert/Manage Urinary Catheter QSHIFT (09/29/25 10:44) Insulin Drip 100 Unit/100ml (Myxredlin 1 (09/29/25 11:15) Glucose Blood (Accu-Chek Comfort Curve T (09/29/25 12:00) D/C All Diabetic Medications (09/29/25 11:13) Insulin Drip Protocol (09/29/25 11:13) Insulin Lantus (Glargine) (Lantus) (09/30/25 10:00) B-Type Natriuretic Peptide (09/29/25 11:56) Beta-Hydroxybutyrate (09/29/25 11:56) Basic Metabolic Panel (09/29/25 18:00) Basic Metabolic Panel (09/30/25 00:00) Basic Metabolic Panel (09/30/25 06:00) Basic Metabolic Panel (09/30/25 12:00) Basic Metabolic Panel (09/30/25 18:00) Abg W/ Co-Ox (09/29/25 11:56) Dextrose 50% Syringe (09/29/25 13:30) Admit (09/29/25 12:20) Code Status (09/29/25 12:20) Renal Standard(2gna,3gk,Lopho) (09/29/25 Lunch) Ondansetron Hcl (Zofran) (09/29/25 12:30) Enoxaparin Sodium (Lovenox) (09/30/25 10:00) Fall Risk Precautions In Place QSHIFT (09/29/25 12:20) Complete Blood Count (09/30/25 04:00) Comprehensive Metabolic Panel (09/30/25 04:00) Condition: Serious (09/29/25 12:20) Electrocardigram (09/29/25 12:20) Lipid Panel (09/29/25 12:20) Hemoglobin A1c (09/29/25 12:20) Thyroid Stimulating Hormone (09/29/25 12:20) Vital Signs Date Time Temp Pulse Resp B/P (MAP) Pulse Ox O2 Delivery O2 Flow Rate FiO2 09/29/25 11:51 90 09/29/25 10:00 97.8 102 18 129/56 (80) 97.8 09/29/25 10:00 102 18 Nasal Cannula* 2 28 09/29/25 08:53 98.2 101 20 138/64 99 98.2 Laboratory Tests Test 09/29/25 09:39 White Blood Count 10.5 10^3/uL (4.4-10.8) Medications Medications Dose Ordered Sig/Conrado Route Start Time Stop Time Status Last Admin Dose Admin Aspirin 162 mg ONCE ONCE PO 09/29/25 11:30 09/29/25 11:31 DC 09/29/25 11:48 162 MG Diagnostic Test (Pha) 1 strip Q90MIN 09/29/25 12:00 09/29/25 11:47 1 STRIP Insulin Glargine 15 units ONCE ONCE SC 09/29/25 11:15 09/29/25 11:31 DC 09/29/25 11:50 15 UNITS Insulin Human (Reg)/Sodium Chloride 100 ml @ 0.5 mls/hr Q24H IV 09/29/25 11:15 09/29/25 11:51 3 MLS/HR Insulin Human Regular 4 units ONCE ONCE IV 09/29/25 09:30 09/29/25 09:31 DC 09/29/25 10:07 4 UNITS Ondansetron HCl 4 mg ONCE ONCE IV 09/29/25 09:30 09/29/25 09:31 DC 09/29/25 10:06 4 MG Sodium Chloride 1,000 ml @ 100 mls/hr Q10H ONCE IV 09/29/25 09:30 09/29/25 11:16 DC 09/29/25 10:08 100 MLS/HR Assessment/Plan Assessment/Plan # DKA # DM 2, with hyperglycemia Admit to ICU DKA protocol --insulin drip BMP q.6h # LEXA on CKD stage 5 # Anemia of chronic disease Nephrology consult for evaluation of worsening kidney function IVF --monitor for overload Villavicencio cath # 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%) # NSTEMI likely type 2 due to DKA/Acute kidney failure Cardiomegaly on cxray Cardiology consult for evaluation of possible worsening HF ASA, Stattins, Toprol Echo Daily wt/ Strict intake and output # hypertension Continue with metoprolol succinate Monitor BP # hx of PAD s/p bilateral AKA DVT prophylaxis Medical plan discussed with patient Plan discussed with: Patient My Orders Orders - PAKO LEE Procedure Category Date Status Time B-Type Natriuretic LAB 09/29/25 Logged Peptide 11:56 Beta-Hydroxybutyrate LAB 09/29/25 Logged 11:56 Basic Metabolic Panel LAB 09/29/25 Logged 18:00 Basic Metabolic Panel LAB 09/30/25 Verified 00:00 Basic Metabolic Panel LAB 09/30/25 Verified 06:00 Basic Metabolic Panel LAB 09/30/25 Verified 12:00 Basic Metabolic Panel LAB 09/30/25 Verified 18:00 Abg W/ Co-Ox RT 09/29/25 Logged 11:56 Admit ADMIT 09/29/25 Transmitted 12:20 Code Status CODE 09/29/25 Transmitted 12:20 Renal DIET 09/29/25 Transmitted Standard(2gna,3gk,Lopho) Lunch Ondansetron Hcl PHA 09/29/25 Logged (Zofran) 12:30 Enoxaparin Sodium PHA 09/30/25 Logged (Lovenox) 10:00 Fall Risk Precautions NIURKA 09/29/[address] 12:20 Complete Blood Count LAB 09/30/25 Verified 04:00 Comprehensive LAB 09/30/25 Verified Metabolic Panel 04:00 Condition: Serious NIURKA 09/29/25 Transmitted 12:20 Electrocardigram EKG 09/29/25 Logged 12:20 Lipid Panel LAB 09/29/25 Transmitted 12:20 Hemoglobin A1c LAB 09/29/25 Transmitted 12:20 Thyroid Stimulating LAB 09/29/25 Transmitted Hormone 12:20 Date of Service: Sep 29, 2025 Billing Provider: PAKO LEE Common Visit Codes: 69620-[id number] INP/OBS CARE (HIGH) PAKO LEEP Sep 29, 2025 12:26
[2025-09-29] MEDS ORDERED: ONDANSETRON HCL 4 MG/2 ML VIAL IV PRN (12:30)
[2025-09-29 13:14] LABS: Chloride 100 mmol/L (98-107); Potassium 4.0 mmol/L (3.5-5.1)
[2025-09-29 13:15] LABS: Anion Gap 16 (5-15); Calcium 9.3 mg/dL (8.7-10.4)
[2025-09-29] MEDS: SODIUM CHLORIDE 0.9% 1,000 ML IV SCH (13:15)
[2025-09-29 13:20] LABS: BUN/Creatinine Ratio 31.4 (10.0-20.0); Triglycerides 109 mg/dL (< 150)
[2025-09-29] MEDS: DEXTROSE (50%) 50ML SYRG IV SCH (13:30)
[2025-09-29 14:07] LABS: Cholesterol 241 mg/dL (< 200); HDL Cholesterol 62 mg/dL (40-59)
[2025-09-29 14:11] LABS: Carbon Dioxide 31 mmol/L (20-31); Glucose 294 mg/dL (74-106); Sodium 147 mmol/L (136-145)
[2025-09-29 14:13] LABS: Blood Urea Nitrogen 111 mg/dL (9-23)
[2025-09-29] MEDS: LACTATED RINGER'S 1,000 ML IV SCH (14:15)
--- NOTE | 2025-09-29 14:56 | ECG ---
[facility] Test Date: 2025-09-29 Test Time: 14:55:08 Pat Name: NITHIN SUÁREZ Department: ED Room: [address] [place] [address] Gender: M Manager Float: OJ : 1950 Requested By: PAKO LEE Order Number: [id number] Reading MD: Pascual Cordova Measurements Intervals [place] Rate: 104 P: 74 NH: 146 QRS: 50 QRSD: 102 T: 230 QT: 392 QTc: 516 Interpretive Statements Sinus tachycardia Ventricular bigeminy Nonspecific repol abnormality, diffuse leads Electronically Signed On 09-29-2025 18:32:36 PST by Pascual Cordova Please click the below link to view image of tracing.
--- NOTE | 2025-09-29 15:15 | DVH ---
INDICATION: Acute kidney injury TECHNIQUE: Multiple real-time sonographic images of the kidneys and bladder were obtained. COMPARISON: None FINDINGS: The right kidney measures 10.4 cm in length, which is normal in size. There is normal echogenicity of the right kidney. There are echogenic foci in the right kidney with no hydronephrosis. 1 measures 0.4 cm No hydronephrosis. There is some fluid adjacent to the right kidney. The left kidney measures 9.7 cm in length, which is normal in size. There is normal echogenicity of the left kidney. No hydronephrosis. No large intraluminal masses are seen in the bladder. Villavicencio catheter in the bladder in the bladder is empty. IMPRESSION: 1. 10.4 cm long right kidney. Left kidney measures 9.7 cm. 2. Right-sided nephrolithiasis no hydronephrosis. 3. Villavicencio catheter in the bladder in the bladder is empty. 4. Bilateral pleural effusions. 5. Ascites is noted in the right upper quadrant. Anechoic structure with debris versus fluid-filled stomach.
--- NOTE | 2025-09-29 15:41 | DVHSR ---
APPROVED REPORT EXAM: Two-dimensional and M-mode echocardiogram with Doppler and color Doppler. Blood Pressure: 129/56 mmHg INDICATION Evaluation of possible worsening heart failure NSTEMI RISK FACTORS Height: 5'2", Weight: 130 DIMENSIONS LVDd (3.8-5.7cm) LA (2D) 4.0 (1.9-4.0cm) Aortic Root (2.0-3.7cm) EF (%) 20.0 (55-70%) Rt. Atrium 4.4 (1.9-4.0cm) Asc. Aorta cm Mitral Valve Mitral Mitral Stenosis E wave 1.07m/s MV Mean GR. mmHg A wave 0.67m/s MV Peak GR. mmHg E/A ratio 1.6 2D MVA cm2 DECEL Time 117ms PRESS 1/2 Time ms Aortic Valve Aortic Valve Aortic Stenosis V1 0.68m/s AO Mean GR. 2mmHg V2 1.10m/s AO Peak GR. 5mmHg LVOT Diameter 1.9 (1.8-2.4cm) Doppler FELICITY 1.75cm2 Pulmonic Valve V2 0.92m/s Tricuspid Valve TR Velocity 3.58m/s RVSP 66mmHg Other Information Quality : Technically Limited Rhythm : Technically limited study due to body habitus. Conclusion Technically good study. Sinus rhythm. Biatrial and biventricular enlargement. Mild mitral annular calcification. Mild aortic sclerosis. Limited acoustic windows. There is icin-bw-[id number] calcification of the right coronary cusp. There appears to be at minimum a mild degree of stenosis. Thickening of the anterior and posterior mitral leaflets. Left ventricular function is diminished. EF is about 25% with global hypokinesis. Akinesis of the inferior lateral wall. Decreased RV function. Cortnbgc-tl-bdsipd tricuspid insufficiency. Right ventricular systolic pressure of 65-70 mmHg consistent with severe pulmonary hypertension. Severe mitral insufficiency noted. No pericardial effusion masses or vegetations discernible.
[2025-09-29] MEDS: D5W/LACTATED RINGERS 1,000 ML IV SCH (17:00)
--- NOTE | 2025-09-29 17:38 | DVHINCON2 ---
Date Seen: Sep 29, 2025 Referring Physician STORM Preciado Reason for Consultation Evaluation of heart failure History of Present Illness This is a 75-year-old male patient who presents to emergency room with chief complaint of nausea and vomiting for one week. He also reports associated shortness of breath. He comes to the emergency room for further evaluation and was found to have elevated blood glucose levels. Cardiology has been consulted at this time for evaluation of congestive heart failure. Initial twelve lead electrocardiogram reveals normal sinus rhythm with nonspecific ST segment changes to anterolateral leads. Initial troponin level of 748ng/L with up trend and current peak level of 3110ng/L. The patient denies any chest pain at time of assessment, but does mention shortness of breath. He is not in any visible distress during assessment. Significant past medical history includes peripheral arterial disease status post bilateral [id number] amputations, hypertension, pulmonary embolism (on Eliquis), diabetes mellitus, chronic kidney disease, and chronic anemia. The patient denies seeing a conveyor belt repairer in the outpatient setting and reports he has never had any kind of cardiac workup including a stress test or coronary angiogram. Past Medical History Past medical history reviewed. No other significant than mentioned above. Past Surgical History Bilateral [id number] amputations Family History: Thrombosis G8 FATHER, Onset:Unknown Family History Family history reviewed. Social History Denies the use of tobacco, alcohol or illicit drugs. Allergies: Coded Allergies: NO KNOWN ALLERGIES (Unverified , 09/11/21) Home Meds Active Scripts Metoprolol Succinate (Toprol Xl) 50 Mg Tab, 50 MG PO DAILY for 30 Days, #30 TAB Prov:FRANCIS RETANA MD 02/04/23 Atorvastatin Calcium (ATORVASTATIN CALCIUM) 20 Mg Tab, 40 MG PO HS for 30 Days, #30 TAB Prov:FRANCIS RETANA MD 02/04/23 Aspirin (Aspirin Low Dose) 81 Mg Tab, 81 MG PO DAILY for 30 Days, #30 TAB Prov:FRNACIS RETANA MD 02/04/23 Home Meds Home medications reviewed. Current Medications Current Medications Medications (Trade) Dose Ordered Sig/Conrado Route PRN Reason Start Time Stop Time Status Last Admin Insulin Human (Reg)/Sodium Chloride 100 ml @ 0.5 mls/hr Q24H IV 09/29/25 11:15 09/29/25 11:51 Diagnostic Test (Pha) (Accu-Chek Comfort Curve T) 1 strip Q90MIN 09/29/25 12:00 09/29/25 16:30 Dextrose 50 ml PRN PRN IV BG LESS Than 70 AND CALL MD 09/29/25 11:15 09/29/25 12:10 DC Insulin Glargine (Lantus) 15 units DAILY SC 09/30/25 10:00 Dextrose 50 ml Q90MIN PRN IV BG LESS Than 70 AND CALL MD 09/29/25 12:15 09/29/25 12:10 DC Dextrose 50 ml Q90MIN IV 09/29/25 13:30 Ondansetron HCl (Zofran) 4 mg Q4HP PRN IV NAUSEA / VOMITING 09/29/25 12:30 Hold Enoxaparin Sodium (Lovenox) 40 mg DAILY SC 09/30/25 10:00 UNV Aspirin (Ecotrin Enteric Coated Tablet) 81 mg DAILY PO 09/30/25 10:00 Metoprolol Succinate (Toprol Xl) 50 mg DAILY PO 09/30/25 10:00 Heparin Sodium (Porcine) 5,000 units Q12HR SC 09/29/25 22:00 Sodium Chloride 1,000 ml @ 60 mls/hr [id number] IV 09/29/25 13:15 09/29/25 14:04 DC 09/29/25 13:15 Lactated Ringer's 1,000 ml @ 100 mls/hr Q10H IV 09/29/25 14:15 09/29/25 17:04 DC 09/29/25 14:15 Dextrose/Lactated Ringer's 1,000 ml @ 75 mls/hr [id number] IV 09/29/25 17:00 Review of Systems Constitutional: No symptom reported Ears, Nose, & Throat: No symptom reported Eyes: No symptom reported Neurological: No symptoms reported Pulmonary/Respiratory: Shortness of breath Cardiovascular: No symptom reported Gastrointestinal: Nausea and vomiting Genitourinary: No symptom reported Musculoskeletal: No symptom reported Skin: No symptom reported Psychiatric: No symptom reported Endocrine: No symptom reported Hematologic/Lymphatic: No symptom reported Vital Signs Vital Signs Date Time Temp Pulse Resp B/P (MAP) Pulse Ox O2 Delivery O2 Flow Rate FiO2 09/29/25 16:00 88 22 118/69 (85) 09/29/25 10:00 97.8 97.8 09/29/25 10:00 Nasal Cannula* 2 28 09/29/25 08:53 99 Physical Exam General Appearance: Cooperative. Well-developed. Well-nourished. No acute distress. Pulmonary/Respiratory: Clear, bilateral breaths sounds. Cardiovascular/Chest: Regular rate and rhythm. Peripheral Pulses: 2+ Radial (R). 2+ Radial (L). Abdominal Exam: Normal bowel sounds. Ankle Exam: Negative ankle edema Lower extremities: Negative lower extremity edema Neuro/Mental Status: A/OX4, coherent. Thoughts/Psych: Normal thought pattern. Appropriate mood and affect. Good judgment and insight. Appearance: No acute distress. Skin Exam: Normal inspection. Normal color. Warm and dry. Bilateral [id number] amputation noted Labs/Diagnostic Data Labs Test 09/29/25 17:27 09/29/25 16:31 09/29/25 12:45 09/29/25 12:10 Range/Units POC Glucose 140 H 70-106 mg/dl Troponin I High Sensitivity 3110 *H </=54 ng/L Triglycerides Level 109 < 150 mg/dL Cholesterol Level 241 H < 200 mg/dL LDL Cholesterol 171 H < 100 mg/dL HDL Cholesterol 62 H 40-59 mg/dL Thyroid Stimulating Hormone (TSH) 10.33 H 0.55-4.78 uIU/mL Blood Gas Specimen Type Arterial Blood Gas Sample Site Right radial Blood Gas Patient Temperature 37.0 Arterial Blood Date Drawn [id number] Arterial Blood pH 7.427 7.350-7.450 Arterial Blood Partial Pressure CO2 46.3 35.0-48.0 mmHg Arterial Blood Partial Pressure O2 92.7 83.0-108.0 mmHg Arterial Blood HCO3 29.8 H 21.0-28.0 mmol/L Arterial Blood Oxygen Saturation 96.5 94.0-98.0 % Arterial Blood Base Excess 4.7 H -2.0-3.0 mmol/L Arterial Blood Oxyhemoglobin 95.1 94.0-98.0 % Arterial Blood Carboxyhemoglobin 1.0 0.5-1.5 % Arterial Blood Methemoglobin 0.4 0.0-1.5 % Arterial Blood Deoxyhemoglobin 3.5 0.0-5.0 % Arsenio Test Yes Blood Gas Total Hemoglobin 12.10 L 13.5-17.5 g/dL Blood Gas Liter Flow 2.00 Blood Gas Modality Nasal cannula FiO2 % 28.0 Test 09/29/25 11:20 09/29/25 09:39 Range/Units Urine Color Light-yellow Yellow Urine Clarity Clear Clear Urine pH 5.0 5.0-9.0 Urine Specific [place] 1.012 1.001-1.035 Urine Protein 1+ H Negative Urine Ketones 1+ H Negative Urine Blood 2+ H Negative /uL Urine Nitrite Negative Negative Urine Bilirubin Negative Negative Urine Urobilinogen Normal Negative mg/dL Urine Leukocyte Esterase Negative Negative /uL Urine RBC 39 0 - 3 /hpf Urine Microscopic WBC 2 0-3 /HPF Urine Squamous Epithelial Cells Few <5 /hpf Urine Bacteria None seen None Seen /hpf Urine Hyaline Casts Few 0 - 2 /lpf Urine Creatinine 60.50 30.0-125.0 mg/dL Urine Sodium 16 L 40-220 mmol/L Urine Glucose 4+ H Normal mg/dL White Blood Count 10.5 4.4-10.8 10^3/uL Red Blood Count 4.70 4.5-5.90 10^6/uL Hemoglobin 11.6 L 13.5-17.5 g/dL Hematocrit 36.5 L 41.0-53.0 % Mean Corpuscular Volume 77.7 L 80.0-100.0 fL Mean Corpuscular Hemoglobin 24.7 L 28.0-32.0 pg Mean Corpuscular Hemoglobin Concent 31.8 L 32.0-36.0 g/dL Red Cell Distribution Width 19.5 H 11.8-14.3 % Platelet Count 241 140-450 10^3/uL Mean Platelet Volume 7.8 6.9-10.8 fL Neutrophils (%) (Auto) 92.3 H 37.0-80.0 % Lymphocytes (%) (Auto) 2.3 L 10.0-50.0 % Monocytes (%) (Auto) 4.6 0.0-12.0 % Eosinophils (%) (Auto) 0.0 0.0-7.0 % Basophils (%) (Auto) 0.8 0.0-2.0 % Neutrophils # (Auto) 9.7 H 1.6-8.6 10 ^3/uL Lymphocytes # (Auto) 0.2 L 0.4-5.4 10 ^3/uL Monocytes # (Auto) 0.5 0-1.3 10 ^3/uL Eosinophils # (Auto) 0 0-0.8 10 ^3/uL Basophils # (Auto) 0.1 0-0.2 10 ^3/uL Nucleated Red Blood Cells 0.0 % Hemoglobin A1c 10.7 H <5.7 % A1C B-Type Natriuretic Peptide 4870.07 0-100 pg/mL Assessment NSTEMI, rule out coronary artery disease Diabetic ketoacidosis Acute on chronic decompensated HFrEF, NYHA class III Peripheral arterial disease status post bilateral [id number]-[id number] amputations Hypertension History pulmonary embolism (on Eliquis) Severe pulmonary hypertension Chronic kidney disease Chronic anemia Plan/Recommendation We will continue with the following plan/recommendations (Dr. Cordova): Case discussed with . A transthoracic echocardiogram reveals an EF of 25% with global hypokinesis and akinesis of the inferolateral wall. Given twelve lead electrocardiogram changes, abnormal wall motion on transthoracic echocardiogram, comorbidities, and significantly elevated troponin level, NSTEMI type 1 is highly likely. The patient may benefit from coronary angiogram with left heart catheterization. The procedure was discussed with the patient in full detail including risks and benefits. Risks include but are not limited to bleeding, contrast-induced nephropathy, coronary dissection, stroke, and even . Given patient's poor renal function, the patient is concerned about worsening renal function. Had an extensive conversation with the patient and his regarding possibility of further renal damage which may lead to hemodialysis. At this time, the patient and his would like to discuss if he should proceed with coronary angiogram. If patient is willing to undergo coronary angiogram, we will schedule him at soonest availability. In the meantime continue with medical management. Initiate guideline directed medical therapy for CHF as renal function permits (hold ARB/ARNI/ACEi, MRA and SGLT2i given poor renal function). Initiate strict intake and output, daily weights, fluid restriction and low-sodium diet. Continue single antiplatelet therapy and lipid-lowering agent. Patient states he will notify nurse when he makes his decision regarding coronary angiogram. Trend troponin levels. Continue with close cardiac surveillance and notify cardiology team immediately for any ECG changes. Thank you for allowing us to care for this patient. Please call with any questions or concerns. Critical care time spent: 44 minutes This medical document was created using an electronic medical record system with voice recognition software and computerized dictation system. Although this document has been carefully reviewed, there might still be some phonetic and typographical errors. Occasional wrong-word or ``sound-alike substitutions may have occurred due to the inherent limitations of voice recognition software. These areas are purely typographical due to imperfections of the software programs and do not reflect any compromise in the patient's medical care. Please read the chart carefully and recognize, using context, where these substitutions have occurred. Plan discussed with: Patient NYHA Physical activity limitations: Class3(Marked) ordinary (activity causes symtoms) Date of Service: Sep 29, 2025 Billing Provider: HUAN MERCHANT Cardiology Common Codes: 36106-[id number] INP/OBS CARE (High) Cardiology Consultation Codes: [id number] CONSULT <45MIN HUAN MERCHANT Sep 29, 2025 17:38
[2025-09-29 17:44] LABS: Chloride 104 mmol/L (98-107); Potassium 4.0 mmol/L (3.5-5.1)
[2025-09-29 17:45] LABS: Anion Gap 13 (5-15); Carbon Dioxide 30 mmol/L (20-31)
[2025-09-29 17:46] LABS: Calcium 9.2 mg/dL (8.7-10.4)
[2025-09-29 17:51] LABS: BUN/Creatinine Ratio 29.7 (10.0-20.0)
[2025-09-29 18:54] LABS: Glucose 113 mg/dL (74-106); Sodium 147 mmol/L (136-145)
[2025-09-29 18:57] LABS: Blood Urea Nitrogen 101 mg/dL (9-23)
[2025-09-29] MEDS: ATORVASTATIN 20 MG TAB PO SCH (22:34)
[2025-09-29] MEDS: HEPARIN SODIUM (PORCINE) 5000 UNITS/ML 1ML VIAL SC SCH (22:35)
[2025-09-30] VITALS (46 sets, daily range): BP systolic 112–140; BP diastolic 49–89; PULSE 66–107; RESP 10–25; TEMP 97.6–98.4; O2SAT 87–100
[2025-09-30 00:16] LABS: Chloride 104 mmol/L (98-107); Potassium 4.2 mmol/L (3.5-5.1)
[2025-09-30 00:17] LABS: Anion Gap 14 (5-15); Calcium 9.1 mg/dL (8.7-10.4); Carbon Dioxide 30 mmol/L (20-31)
[2025-09-30 00:19] LABS: Sodium 148 mmol/L (136-145)
[2025-09-30 00:22] LABS: BUN/Creatinine Ratio 34.1 (10.0-20.0)
[2025-09-30 00:24] LABS: Glucose 108 mg/dL (74-106)
[2025-09-30 00:25] LABS: Blood Urea Nitrogen 116 mg/dL (9-23)
[2025-09-30] MEDS ORDERED: DEXTROSE (50%) 50ML SYRG IV PRN (01:00)
[2025-09-30] MEDS: InsuLIN REG 1unit/0.01ml Soln (100units/ml) SC SCH (04:07)
[2025-09-30] MEDS: ACCU-CHEK COMFORT CURVE STRIP VI SCH (04:09)
[2025-09-30 04:36] LABS: Hematocrit 31.9 % (41.0-53.0); Hemoglobin 10.0 g/dL (13.5-17.5); Mean Corpuscular Hemoglobin 24.2 pg (28.0-32.0); Mean Corpuscular Volume 76.9 fL (80.0-100.0); Nucleated Red Blood Cells % 0.0 %
[2025-09-30 04:50] LABS: Alanine Aminotransferase 26 U/L (7-40); Albumin 3.4 g/dL (3.2-4.8); Anion Gap 11 (5-15); BUN/Creatinine Ratio 30.9 (10.0-20.0); Bilirubin, Total 1.2 mg/dL (0.2-1.0); Carbon Dioxide 30 mmol/L (20-31); Chloride 107 mmol/L (98-107); Potassium 4.2 mmol/L (3.5-5.1); Total Protein 6.6 g/dL (5.7-8.2)
[2025-09-30 04:54] LABS: Alkaline Phosphatase 138 U/L (46-116); Calcium 8.6 mg/dL (8.7-10.4); Glucose 144 mg/dL (74-106); Magnesium 2.9 mg/dL (1.6-2.6); Sodium 148 mmol/L (136-145)
[2025-09-30 04:55] LABS: Blood Urea Nitrogen 103 mg/dL (9-23)
[2025-09-30] MEDS: METOPROLOL SUCCINATE XL 50 MG TAB PO SCH (10:00)
[2025-09-30] MEDS ORDERED: ENOXAPARIN SOD 40 MG/0.4 ML SYRINGE SC SCH (10:00)
[2025-09-30] MEDS: ASPirin-EC 81 mg tab PO SCH (10:09)
[2025-09-30] MEDS: INSULIN LANTUS (GLARGINE) 1 /0.01ml (100units/ml) SC SCH (10:12)
--- NOTE | 2025-09-30 10:20 | DVHINCON2 ---
Date of service: Sep 30, 2025 Referring Physician Yas Preciado, nurse practitioner Reason for Consultation Acute kidney injury History of Present Illness Patient is 75-year-old male with past medical history significant for diabetes mellitus, hypertension, Congestive heart failure, peripheral arterial disease and bilateral above knee amputation is admitted for epigastric pain nausea vomiting and shortness of breath. On admission patient found to have elevated BUN creatinine nephrology is consulted for acute kidney injury Past Medical History diabetes mellitus, hypertension, Congestive heart failure, peripheral arterial disease Past Surgical History bilateral Below knee amputation Allergies: Coded Allergies: NO KNOWN ALLERGIES (Unverified , 09/11/21) Home Meds Active Scripts Metoprolol Succinate (Toprol Xl) 50 Mg Tab, 50 MG PO DAILY for 30 Days, #30 TAB Prov:FRANCIS RETANA MD 02/04/23 Atorvastatin Calcium (ATORVASTATIN CALCIUM) 20 Mg Tab, 40 MG PO HS for 30 Days, #30 TAB Prov:FRANCIS RETANA MD 02/04/23 Aspirin (Aspirin Low Dose) 81 Mg Tab, 81 MG PO DAILY for 30 Days, #30 TAB Prov:FRANCIS RETANA MD 02/04/23 Current Medications Current Medications Medications (Trade) Dose Ordered Sig/Conrado Route PRN Reason Start Time Stop Time Status Last Admin Insulin Glargine (Lantus) 15 units DAILY SC 09/30/25 10:00 09/30/25 10:12 Enoxaparin Sodium (Lovenox) 40 mg DAILY SC 09/30/25 10:00 UNV Aspirin (Ecotrin Enteric Coated Tablet) 81 mg DAILY PO 09/30/25 10:00 09/30/25 10:09 Metoprolol Succinate (Toprol Xl) 50 mg DAILY PO 09/30/25 10:00 Heparin Sodium (Porcine) 5,000 units Q12HR SC 09/29/25 22:00 09/30/25 10:11 Dextrose/Lactated Ringer's 1,000 ml @ 75 mls/hr [id number] IV 09/29/25 17:00 09/30/25 10:26 DC 09/29/25 17:00 Atorvastatin Calcium (Lipitor) 40 mg HS PO 09/29/25 22:00 09/29/25 22:34 Diagnostic Test (Pha) (Accu-Chek Comfort Curve T) 1 strip IQ4HR 09/30/25 04:00 09/30/25 12:00 Insulin Human Regular (InsuLIN R) IQ4HR SC 09/30/25 04:00 09/30/25 08:00 Dextrose 50 ml UD PRN IV Blood Sugar LESS THAN 60 09/30/25 01:00 Dopamine HCl/ Dextrose 250 ml @ 4.425 mls/ hr Q24H IV 09/30/25 10:30 09/30/25 14:43 DC 09/30/25 12:16 Dextrose 1,000 ml @ 50 mls/hr Q20H IV 09/30/25 10:30 09/30/25 10:30 DC Dextrose 1,000 ml @ 70 mls/hr [id number] IV 09/30/25 10:30 09/30/25 12:13 Bumetanide (Bumex Injection) 1 mg BIDD IV 09/30/25 10:30 09/30/25 12:21 Albuterol (Ventolin Medneb) 2.5 mg Q4HR NEB 09/30/25 14:00 09/30/25 13:30 Ipratropium [place] (Atrovent Medneb) 0.5 mg Q4HR NEB 09/30/25 14:00 09/30/25 13:30 Dopamine HCl/ Dextrose 250 ml @ 2.213 mls/ hr Q24H IV 09/30/25 14:45 UNV Family History: Thrombosis G8 FATHER, Onset:Unknown Review of Systems All 12 item review of systems reviewed with the patient nonsignificant except what is mentioned in the history of present illness H&P Exam Vital Signs/I&O Vital Sign Date Time Temp Pulse Resp B/P (MAP) Pulse Ox O2 Delivery O2 Flow Rate FiO2 09/30/25 14:33 94 Nasal Cannula* 3 32 09/30/25 13:41 106 20 09/30/25 13:00 133/71 (91) 09/30/25 12:00 98.0 98.0 Intake and Output 09/29/25 09/30/25 19:00 07:00 Intake Total 203 ml 750 ml Output Total 500 ml Balance 203 ml 250 ml IV Total 203 ml 750 ml Output Urine Total 500 ml Physical Exam O2 nasal cannula Lungs bibasilar crackles Cardiac exam regular rate and rhythm GI soft nontender normal Extremity bilateral below knee amputation neuro nonfocal Labs/Diagnostic Data Labs/Diagnostic Data Laboratory Tests Test 09/30/25 13:47 09/30/25 12:29 09/30/25 10:48 09/30/25 10:22 Range/Units Troponin I High Sensitivity 1243 *H 1590 *H </=54 ng/L POC Glucose 103 70-106 mg/dl Iron Level 20 L 65-175 ug/dL Total Iron Binding Capacity 363 250-425 ug/dL Percent Iron Saturation 5.5 L 20-55 % Ferritin 17.0 L 22-322 ng/mL Beta-Hydroxybutyric Acid 0.213 < 0.4 mmol/L Free Thyroxine (T4) Calculated 1.03 0.89-1.76 ng/dL Free Triiodothyronine (T3) pg/mL 1.58 L 2.3-4.2 pg/mL Total Triiodothyronine (TT3) 0.49 L 0.60-1.81 ng/mL Blood Gas Specimen Type Arterial Blood Gas Sample Site Right brachial Blood Gas Patient Temperature 37.0 Arterial Blood Date Drawn [id number] Arterial Blood pH 7.416 7.350-7.450 Arterial Blood Partial Pressure CO2 47.6 35.0-48.0 mmHg Arterial Blood Partial Pressure O2 78.5 L 83.0-108.0 mmHg Arterial Blood HCO3 29.9 H 21.0-28.0 mmol/L Arterial Blood Oxygen Saturation 95.3 94.0-98.0 % Arterial Blood Base Excess 4.6 H -2.0-3.0 mmol/L Arterial Blood Oxyhemoglobin 94.5 94.0-98.0 % Arterial Blood Carboxyhemoglobin 0.5 0.5-1.5 % Arterial Blood Methemoglobin 0.3 0.0-1.5 % Arterial Blood Deoxyhemoglobin 4.7 0.0-5.0 % Arsenio Test Yes Blood Gas Total Hemoglobin 11.30 L 13.5-17.5 g/dL Blood Gas Liter Flow 3.00 Blood Gas Modality Nasal cannula FiO2 % 32.0 Test 09/30/25 08:24 09/30/25 04:00 09/30/25 03:46 09/30/25 00:09 Range/Units POC Glucose 152 H 159 H 132 H 70-106 mg/dl White Blood Count 13.9 #H 4.4-10.8 10^3/uL Red Blood Count 4.15 L 4.5-5.90 10^6/uL Hemoglobin 10.0 L 13.5-17.5 g/dL Hematocrit 31.9 #L 41.0-53.0 % Mean Corpuscular Volume 76.9 L 80.0-100.0 fL Mean Corpuscular Hemoglobin 24.2 L 28.0-32.0 pg Mean Corpuscular Hemoglobin Concent 31.5 L 32.0-36.0 g/dL Red Cell Distribution Width 19.2 H 11.8-14.3 % Platelet Count 199 140-450 10^3/uL Mean Platelet Volume 7.9 6.9-10.8 fL Neutrophils (%) (Auto) 87.2 H 37.0-80.0 % Lymphocytes (%) (Auto) 3.8 L 10.0-50.0 % Monocytes (%) (Auto) 8.6 0.0-12.0 % Eosinophils (%) (Auto) 0.2 0.0-7.0 % Basophils (%) (Auto) 0.2 0.0-2.0 % Neutrophils # (Auto) 12.1 H 1.6-8.6 10 ^3/uL Lymphocytes # (Auto) 0.5 0.4-5.4 10 ^3/uL Monocytes # (Auto) 1.2 0-1.3 10 ^3/uL Eosinophils # (Auto) 0 0-0.8 10 ^3/uL Basophils # (Auto) 0 0-0.2 10 ^3/uL Nucleated Red Blood Cells 0.0 % Sodium Level 148 H 136-145 mmol/L Potassium Level 4.2 3.5-5.1 mmol/L Chloride Level 107 98-107 mmol/L Carbon Dioxide Level 30 20-31 mmol/L Anion Gap 11 5-15 Blood Urea Nitrogen 103 #*H 9-23 mg/dL Creatinine 3.33 H 0.700-1.30 mg/dL Glomerular Filtration Rate Calc 18 >90 mL/min BUN/Creatinine Ratio 30.9 H 10.0-20.0 Serum Glucose 144 H 74-106 mg/dL Calcium Level 8.6 L 8.7-10.4 mg/dL Magnesium Level 2.9 H 1.6-2.6 mg/dL Total Bilirubin 1.2 H 0.2-1.0 mg/dL Aspartate Amino Transferase (AST) 22 13-40 U/L Alanine Aminotransferase (ALT) 26 7-40 U/L Alkaline Phosphatase 138 H 46-116 U/L Total Protein 6.6 5.7-8.2 g/dL Albumin 3.4 3.2-4.8 g/dL Test 09/29/25 22:48 09/29/25 22:40 09/29/25 21:28 09/29/25 20:46 Range/Units Sodium Level 148 H 136-145 mmol/L Potassium Level 4.2 3.5-5.1 mmol/L Chloride Level 104 98-107 mmol/L Carbon Dioxide Level 30 20-31 mmol/L Anion Gap 14 5-15 Blood Urea Nitrogen 116 #*H 9-23 mg/dL Creatinine 3.40 H 0.700-1.30 mg/dL Glomerular Filtration Rate Calc 18 >90 mL/min BUN/Creatinine Ratio 34.1 H 10.0-20.0 Serum Glucose 108 H 74-106 mg/dL Calcium Level 9.1 8.7-10.4 mg/dL Troponin I High Sensitivity 3596 *H 3924 *H </=54 ng/L POC Glucose 114 H 115 H 70-106 mg/dl Test 09/29/25 17:58 09/29/25 17:27 09/29/25 16:31 09/29/25 15:03 Range/Units POC Glucose 103 140 H 207 H 70-106 mg/dl Sodium Level 147 H 136-145 mmol/L Potassium Level 4.0 3.5-5.1 mmol/L Chloride Level 104 98-107 mmol/L Carbon Dioxide Level 30 20-31 mmol/L Anion Gap 13 5-15 Blood Urea Nitrogen 101 #*H 9-23 mg/dL Creatinine 3.40 H 0.700-1.30 mg/dL Glomerular Filtration Rate Calc 18 >90 mL/min BUN/Creatinine Ratio 29.7 H 10.0-20.0 Serum Glucose 113 #H 74-106 mg/dL Calcium Level 9.2 8.7-10.4 mg/dL Troponin I High Sensitivity 3737 *H </=54 ng/L Beta-Hydroxybutyric Acid 0.449 H < 0.4 mmol/L Test 09/29/25 13:15 09/29/25 12:45 09/29/25 12:10 09/29/25 11:20 Range/Units POC Glucose 271 H 70-106 mg/dl Sodium Level 147 H 136-145 mmol/L Potassium Level 4.0 3.5-5.1 mmol/L Chloride Level 100 98-107 mmol/L Carbon Dioxide Level 31 20-31 mmol/L Anion Gap 16 H 5-15 Blood Urea Nitrogen 111 *H 9-23 mg/dL Creatinine 3.53 H 0.700-1.30 mg/dL Glomerular Filtration Rate Calc 17 >90 mL/min BUN/Creatinine Ratio 31.4 H 10.0-20.0 Serum Glucose 294 #H 74-106 mg/dL Calcium Level 9.3 8.7-10.4 mg/dL Troponin I High Sensitivity 3110 *H </=54 ng/L Triglycerides Level 109 < 150 mg/dL Cholesterol Level 241 H < 200 mg/dL LDL Cholesterol 171 H < 100 mg/dL HDL Cholesterol 62 H 40-59 mg/dL Beta-Hydroxybutyric Acid 2.809 H < 0.4 mmol/L Thyroid Stimulating Hormone (TSH) 10.33 H 0.55-4.78 uIU/mL Blood Gas Specimen Type Arterial Blood Gas Sample Site Right radial Blood Gas Patient Temperature 37.0 Arterial Blood Date Drawn [id number] Arterial Blood pH 7.427 7.350-7.450 Arterial Blood Partial Pressure CO2 46.3 35.0-48.0 mmHg Arterial Blood Partial Pressure O2 92.7 83.0-108.0 mmHg Arterial Blood HCO3 29.8 H 21.0-28.0 mmol/L Arterial Blood Oxygen Saturation 96.5 94.0-98.0 % Arterial Blood Base Excess 4.7 H -2.0-3.0 mmol/L Arterial Blood Oxyhemoglobin 95.1 94.0-98.0 % Arterial Blood Carboxyhemoglobin 1.0 0.5-1.5 % Arterial Blood Methemoglobin 0.4 0.0-1.5 % Arterial Blood Deoxyhemoglobin 3.5 0.0-5.0 % Arsenio Test Yes Blood Gas Total Hemoglobin 12.10 L 13.5-17.5 g/dL Blood Gas Liter Flow 2.00 Blood Gas Modality Nasal cannula FiO2 % 28.0 Urine Color Light-yellow Yellow Urine Clarity Clear Clear Urine pH 5.0 5.0-9.0 Urine Specific [place] 1.012 1.001-1.035 Urine Protein 1+ H Negative Urine Ketones 1+ H Negative Urine Blood 2+ H Negative /uL Urine Nitrite Negative Negative Urine Bilirubin Negative Negative Urine Urobilinogen Normal Negative mg/dL Urine Leukocyte Esterase Negative Negative /uL Urine RBC 39 0 - 3 /hpf Urine Microscopic WBC 2 0-3 /HPF Urine Squamous Epithelial Cells Few <5 /hpf Urine Bacteria None seen None Seen /hpf Urine Hyaline Casts Few 0 - 2 /lpf Urine Creatinine 60.50 30.0-125.0 mg/dL Urine Sodium 16 L 40-220 mmol/L Urine Glucose 4+ H Normal mg/dL Test 09/29/25 10:33 09/29/25 09:39 Range/Units Troponin I High Sensitivity 1328 *H 748 *H </=54 ng/L White Blood Count 10.5 4.4-10.8 10^3/uL Red Blood Count 4.70 4.5-5.90 10^6/uL Hemoglobin 11.6 L 13.5-17.5 g/dL Hematocrit 36.5 L 41.0-53.0 % Mean Corpuscular Volume 77.7 L 80.0-100.0 fL Mean Corpuscular Hemoglobin 24.7 L 28.0-32.0 pg Mean Corpuscular Hemoglobin Concent 31.8 L 32.0-36.0 g/dL Red Cell Distribution Width 19.5 H 11.8-14.3 % Platelet Count 241 140-450 10^3/uL Mean Platelet Volume 7.8 6.9-10.8 fL Neutrophils (%) (Auto) 92.3 H 37.0-80.0 % Lymphocytes (%) (Auto) 2.3 L 10.0-50.0 % Monocytes (%) (Auto) 4.6 0.0-12.0 % Eosinophils (%) (Auto) 0.0 0.0-7.0 % Basophils (%) (Auto) 0.8 0.0-2.0 % Neutrophils # (Auto) 9.7 H 1.6-8.6 10 ^3/uL Lymphocytes # (Auto) 0.2 L 0.4-5.4 10 ^3/uL Monocytes # (Auto) 0.5 0-1.3 10 ^3/uL Eosinophils # (Auto) 0 0-0.8 10 ^3/uL Basophils # (Auto) 0.1 0-0.2 10 ^3/uL Nucleated Red Blood Cells 0.0 % Sodium Level 145 136-145 mmol/L Potassium Level 4.4 3.5-5.1 mmol/L Chloride Level 95 L 98-107 mmol/L Carbon Dioxide Level 22 20-31 mmol/L Anion Gap 28 H 5-15 Blood Urea Nitrogen 117 *H 9-23 mg/dL Creatinine 3.54 H 0.700-1.30 mg/dL Glomerular Filtration Rate Calc 17 >90 mL/min BUN/Creatinine Ratio 33.1 H 10.0-20.0 Serum Glucose 409 *H 74-106 mg/dL Hemoglobin A1c 10.7 H <5.7 % A1C Calcium Level 9.5 8.7-10.4 mg/dL B-Type Natriuretic Peptide 4870.07 0-100 pg/mL Microbiology Date/Time Source Procedure Growth Status 09/29/25 20:30 Nose MRSA Screen - Final Complete Assessment Acute kidney injury superimposed Chronic Kidney Disease secondary hemodynamic mediated, feNa < 1% Congestive heart failure exacerbation NSTEMI Acute respiratory failure, O2 supplement Diabetes mellitus type 2, controlled Diabetic ketoacidosis Nonobstructing kidney stone Hypertension Peripheral arterial disease Bilateral below knee amputation Anemia of chronic kidney disease Hypernatremia due to dehydration Recommendations Closely monitor fluid and electrolytes Avoid nephrotoxic medications Strict I&Os Kidney ultrasound reported nonobstructing kidney stone IVF D5W at 70 mL per hour Insulin sliding scale Low-dose dopamine Bumex 1 mg IV b.i.d. KCL replacement Cardiology consult We will continue to follow Patient seen and examined by myself. I discussed my plan of care with the patient and primary nurse at the bedside I would like to thank Yas for the consult, will continue to follow Plan discussed with: Patient JEN JAIMES MD Sep 30, 2025 10:20
[2025-09-30] MEDS ORDERED: D5W 5% 1,000 ML IV SCH (10:30)
[2025-09-30 10:32] LABS: Base Excess 4.6 mmol/L (-2.0-3.0)
[2025-09-30 11:40] LABS: Total Iron Binding Capacity 363.0 ug/dL (250-425)
[2025-09-30 11:41] LABS: Iron 20.0 ug/dL (65-175)
[2025-09-30 11:43] LABS: Free T3 1.58 pg/mL (2.3-4.2)
[2025-09-30 11:44] LABS: Free T4 (Free Thyroxine) 1.03 ng/dL (0.89-1.76)
[2025-09-30] MEDS: D5W 5% 1,000 ML IV SCH (12:13)
[2025-09-30] MEDS: DOPamine 1600MCG/ML D5W 250 ML IV SCH ×2 (12:16→16:01)
[2025-09-30] MEDS: BUMETANIDE 1mg/4ml VIAL (0.25mg/ml) IV SCH (12:21)
[2025-09-30] MEDS: ALBUTEROL SULF 2.5 MG/0.5ML(0.5%) NEB SOLN NEB SCH (13:30)
[2025-09-30] MEDS: IPRATROPIUM BROM 0.5 MG/2.5ML INH SOL NEB SCH (13:30)
--- NOTE | 2025-09-30 13:58 | DVHPNRES ---
Progress Note Date Seen: Sep 30, 2025 Resident Creating Document: CLIFF BRUCE RESIDENT Has the PT tested + for MRSA If YES, has PT been informed?: No Medical Necessity Reason Pt with a Central, PICC or Fol: Yes The following are medically ne: Valverde Catheter Reason for valverde catheter: Strict I&O Subjective Review of Systems 75-year-old male presents to the ED via EMS with complaint of hyperglycemia. He reports persistent elevated blood glucose readings over the past several days associated with nausea, vomiting, poor appetite, and unintentional weight loss for approximately three weeks. He states this symptoms feel similar to prior episodes of DKA. He denies dizziness, syncope, chest pain, palpitations, shortness of breath, fevers, or other acute symptoms. In the ED, initial lab shows a serum glucose of 409 mg/dL, an anion gap of 20, CO2 of 22, creatinine 3.54 with a GFR of 17, and elevated high sensitivity troponins trending from [id number]. Significant past medical history includes PAD status post bilateral AKA, diabetes type 2, hypertension, CKD, anemia of chronic disease. Past Medical History * Type 2 diabetes mellitus, uncontrolled (HbA1c 10.7%) * Chronic kidney disease (baseline Cr ~3.2) * LEXA on CKD * Peripheral arterial disease s/p bilateral above-knee amputations * Hypertension * HFrEF (prior EF 4550%), now EF 25% * Chronic anemia of CKD/iron deficiency * Pulmonary embolism (prior) * Severe pulmonary hypertension (RVSP 6570 mmHg) * Cavitary lung lesion (remote) Past Surgical History * Bilateral above-knee amputations Past Social History * Former smoker: 20 years, quit 5 years ago * Quit alcohol 15 years ago * Lives with family * No illicit drug use 09/30/25 * Patient downgraded from ICU to TELE. * On 3 L nasal cannula, FiO2 3032%, saturating 59528%, no work of breathing. * Nausea/vomiting improving, but weight loss suspected to be chronic ? GI consult placed today. * Troponins continue to trend upward and now downtrending without chest pain; cardiology following for NSTEMI type 1 vs type 2 demand ischemia and CHF exacerbation. * Echocardiogram (yesterday): EF 25%, global hypokinesis, moderatesevere RV dysfunction, severe pulmonary hypertension (RVSP 6570 mmHg). * LEXA persists: Cr 3.33 (baseline ~3.28), UOP 0.35 mL/kg/hr. * Hypernatremia (148) improving slowly with D5W per nephrology. * EKG: Sinus rhythm with nonspecific anterior/inferior/lateral repolarization abnormalities; QT prolonged ? Zofran avoided. * Started DuoNeb Q6H, chest physiotherapy, chest X-ray ordered. * GI consulted for chronic nausea, vomiting, weight loss. ROS * General: Fatigue, poor appetite, weight loss; denies fever, chills. * HEENT: Denies headache, visual changes. * CV: Denies chest pain or palpitations. * Respiratory: Shortness of breath improving, mild wheeze. * GI: Nausea/vomiting, decreased intake, no abdominal pain. * : Decreased urine output. * Endocrine: Hyperglycemia symptoms improving. * Neuro: No dizziness, no deficits. * Skin: Wounds as noted on left stump and left hip * Psych: No anxiety/depression. Objective vital signs Vital Sign Date Time Temp Pulse Resp B/P (MAP) Pulse Ox O2 Delivery O2 Flow Rate FiO2 09/30/25 13:31 100 18 94 09/30/25 13:00 133/71 (91) 09/30/25 12:00 98.0 98.0 09/30/25 12:00 Nasal Cannula* 3 32 Total Intake and Output 09/29/25 09/29/25 09/30/25 15:00 23:00 07:00 Intake Total 3 ml 425 ml 525 ml Output Total 500 ml Balance 3 ml 425 ml 25 ml medications Current Medications Medications Dose Ordered Sig/Conrado Route Start Time Stop Time Status Last Admin Dose Admin Insulin Glargine 15 units DAILY SC 09/30/25 10:00 09/30/25 10:12 15 UNITS Ondansetron HCl 4 mg Q4HP PRN IV 09/29/25 12:30 Hold Enoxaparin Sodium 40 mg DAILY SC 09/30/25 10:00 UNV Aspirin 81 mg DAILY PO 09/30/25 10:00 09/30/25 10:09 81 MG Metoprolol Succinate 50 mg DAILY PO 09/30/25 10:00 Heparin Sodium (Porcine) 5,000 units Q12HR SC 09/29/25 22:00 09/30/25 10:11 5,000 UNITS Atorvastatin Calcium 40 mg HS PO 09/29/25 22:00 09/29/25 22:34 40 MG Diagnostic Test (Pha) 1 strip IQ4HR 09/30/25 04:00 09/30/25 12:00 1 STRIP Insulin Human Regular IQ4HR SC 09/30/25 04:00 09/30/25 08:00 2 UNITS Dextrose 50 ml UD PRN IV 09/30/25 01:00 Dopamine HCl/ Dextrose 250 ml @ 4.425 mls/ hr Q24H IV 09/30/25 10:30 09/30/25 12:16 4.425 MLS/HR Dextrose 1,000 ml @ 70 mls/hr [id number] IV 09/30/25 10:30 09/30/25 12:13 70 MLS/HR Bumetanide 1 mg BIDD IV 09/30/25 10:30 09/30/25 12:21 1 MG Albuterol 2.5 mg Q4HR NEB 09/30/25 14:00 09/30/25 13:30 2.5 MG Ipratropium Baldwin 0.5 mg Q4HR NEB 09/30/25 14:00 09/30/25 13:30 0.5 MG Examination * General: Awake, alert, oriented 3, comfortable. * HEENT: Moist mucosa; no JVD; PERRLA. * Neck: Supple, no lymphadenopathy. * Cardiovascular: Regular rhythm; no murmurs; cap refill <3 sec; no edema (BKA). * Respiratory: Mild crackles and wheezing; good air movement; no accessory use. * GI: Abdomen soft, nondistended, nontender; bowel sounds present. * : Valverde catheter; low output. * Skin: Left hip grade 1 superficial ulcer; left stump small healing wound. * Extremities: Bilateral AKAs; no edema. * Neuro: Nonfocal; follows commands. * Psych: Appropriate. laboratory and microbiology Laboratory Tests 09/30/25 03:46 Test 09/30/25 03:46 Range/Units Serum Glucose 144 H 74-106 mg/dL Problem List/Assessment/Plan Problem List/Assessment/Plan 1. NEUROLOGY Assessment * No sedation * No delirium * No focal deficits Plan * Neuro checks q4h * Avoid sedatives * Maintain normal oxygenation and glucose 2. CARDIOVASCULAR A. Acute on chronic systolic HF (HFrEF), EF 25%, NYHA Class IIIACUTE DECOMPENSATION Differentials: Ischemic cardiomyopathy, Tachyarrhythmia, Volume overload, Myocardial injury Plan: * Continue metoprolol succinate 50 mg daily * Avoid MYNOR/ARB/ARNI/SGLT2 due to LEXA and hypernatremia * Fluid restriction 1.5 L/day * Strict I/Os and daily weights * Consider cautious diuresis only if nephrology approves * Cardiology following B. Elevated troponins NSTEMI Type 1 vs Type 2 demand ischemia * Troponin rising to 3924 now downtrending * EKG: Sinus rhythm with repolarization abnormalities * No chest pain Plan: * Continue aspirin 81 mg, heparin 5000 units SC Q12h, atorvastatin 40 mg po hs * Telemetry monitoring * Repeat troponin trending * Cardiology recommends coronary angiogram + LHC once renal status stable C. Severe pulmonary hypertension (RVSP 6570 mmHg) Plan: * Maintain oxygenation * Avoid fluid overload * (left-sided HF likely) Peripheral arterial disease s/p bilateral above-knee amputations Hypertension Continue metoprolol succinate 50 mg daily 3. RESPIRATORY SYSTEM Assessment * Pleural effusions due to CHF Exercabation * Mild hypoxemia Plan * Continue 3 L NC, wean as tolerated * Continue DuoNeb Q6H * Chest physiotherapy * Daily pulse oximetry * Follow-up CXR 4. GASTROINTESTINAL Assessment * Chronic nausea/vomiting * Weight loss several months * Risk for gastroparesis vs malignancy vs chronic GI dysmotility Plan * GI consult placed today * Avoid Zofran due to QT prolongation * Renal diet * Monitor for bowel movement 5. GENITOURINARY * Valverde catheter in place * Low UOP (0.35 mL/kg/hr) Plan: * Continue Valverde for strict I/Os * Monitor UA and cultures * Avoid nephrotoxic medications 6. RENAL (NEPHROLOGY) Acute Kidney Injury due to VMN with superimposed CKD (Stage 45), hemodynamically mediated, Low urinary sodium AG METABOLIC ACIDOSIS RESOLVED hypernatremia Improving metabolic alkalosis Right sided Nephrolithiasis non obstructive Plan: * Nephrology following * Continue D5W and LR 75 mL/hr per nephrology * Avoid MYNOR inhibitors, ARBs, NSAIDs, Continue Bumex 1mg IV BIDD, Urine protein / creatinine ratio ordered * Daily BMP * Strict I/Os * Renal-dose medications 7. INFECTIOUS DISEASE Assessment * WBC 13.9 ( leukocytosis) * No fever * UA negative for UTI * No clear source Differentials: * Stress leukocytosis * Pneumonia (effusions) Plan: * Blood cultures 2, SPUTUM Culture ordered. * Start antibiotics ONLY if infectious source identified or clinical deterioration 8. ENDOCRINE A. DKA RESOLVED uncontrolled T2DM (A1c 10.7%) * AG closed * B-hydroxybutyrate decreasing (0.449 - 0.213) * Insulin drip off since 09/29 Plan: * Continue Lantus 15 units daily * Continue correctional insulin * Glucose goal [id number] B. Hypothyroidism (subclinical) Plan: * Recheck TSH after acute illness * May consider low-dose levothyroxine outpatient 9. HEMATOLOGY Iron deficiency anemia + anemia of chronic disease Plan: * Hold IV iron until infection ruled out * Monitor CBC daily * Transfuse Hgb <7 MUSCULOSKELETAL / SKIN / WOUNDS * Bilateral BKA * Left hip grade 1 ulcer * Left stump small superficial wound healing Plan: * [employer] daily * Offloading * Zinc oxide barrier cream 10. PSYCHIATRY * Patient calm, cooperative * No acute psychiatric symptoms Plan: * Supportive care * Sleep hygiene 11. NUTRITION * Renal-friendly, carbohydrate-controlled diet * Calorie counts * Consult nutrition if intake remains poor 12. LINES / TUBES * Valverde catheter (in place) * No central line * No PICC * No arterial line * No dialysis catheter 13. PROPHYLAXIS * DVT: Heparin 5000 units SQ q12h * GI: pantoprazole 40 PO * Fall & skin precautions * Pressure ulcer prevention 14. PT SOCIAL WORK * PT/OT evaluation ordered * Social work involved for long-term care planning CRITICAL CARE TIME A total of 83 minutes of critical care time was spent today in the evaluation, management, data review, coordination of care, and direct bedside care of this critically ill patient, excluding procedures. CODE STATUS Full Code. Greater than 20 minutes spent discussing code status and goals of care with patient and family. Family at bedside; plan discussed with Dr. Blas. Case discussed in detail with the attending physician, including the clinical presentation, diagnostic workup, and comprehensive management plan. The patient was present for the discussion and demonstrated understanding of his condition and the proposed plan. Plan discussed with: Patient My Orders My Orders Orders - CLIFF BRUCE RESIDENT Procedure Category Date Status Time Abg W/ Co-Ox RT 09/30/25 Logged 09:54 Troponin-I Hs LAB 09/30/25 Logged 11:00 Troponin-I Hs LAB 09/30/25 Logged 13:00 Thyroxine (T4) LAB 09/30/25 In Process 10:03 Albuterol Medneb PHA 09/30/25 In Process (Ventolin Medneb) 14:00 Ipratropium Medneb PHA 09/30/25 In Process (Atrovent Medneb) 14:00 Date of Service: Sep 30, 2025 Billing Provider: ANDREW BLAS MD Common Visit Codes: 02336-[id number] CARE 30-74 MIN, 61358-[id number] CARE-EACH +30MIN CLIFF BRUCE RESIDENT Sep 30, 2025 13:58 ANDREW BLAS MD Oct 01, 2025 15:07
[2025-09-30] MEDS ORDERED: ONDANSETRON HCL 4 MG/2 ML VIAL IV PRN (16:30)
--- NOTE | 2025-09-30 18:07 | DVHPN2 ---
Consult Progress Note Date Seen: Sep 30, 2025 Subjective Review of Systems: CVS:Normal, RESPIRATORY:Normal, NEURO:Normal Other Systems: Denies any cardiac symptoms Objective vital signs Vital Sign Date Time Temp Pulse Resp B/P (MAP) Pulse Ox O2 Delivery O2 Flow Rate FiO2 09/30/25 17:00 97.8 66 14 127/61 (83) 97 97.8 09/30/25 15:08 3.0 09/30/25 14:33 Nasal Cannula* 32 Total Intake and Output 09/29/25 09/29/25 09/30/25 15:00 23:00 07:00 Intake Total 3 ml 425 ml 525 ml Output Total 500 ml Balance 3 ml 425 ml 25 ml medications Current Medications Medications Dose Ordered Sig/Conrado Route Start Time Stop Time Status Last Admin Dose Admin Insulin Glargine 15 units DAILY SC 09/30/25 10:00 09/30/25 10:12 15 UNITS Ondansetron HCl 4 mg Q4HP PRN IV 09/29/25 12:30 Cancel Enoxaparin Sodium 40 mg DAILY SC 09/30/25 10:00 UNV Aspirin 81 mg DAILY PO 09/30/25 10:00 09/30/25 10:09 81 MG Metoprolol Succinate 50 mg DAILY PO 09/30/25 10:00 Heparin Sodium (Porcine) 5,000 units Q12HR SC 09/29/25 22:00 09/30/25 10:11 5,000 UNITS Atorvastatin Calcium 40 mg HS PO 09/29/25 22:00 09/29/25 22:34 40 MG Diagnostic Test (Pha) 1 strip IQ4HR 09/30/25 04:00 09/30/25 16:01 1 STRIP Insulin Human Regular IQ4HR SC 09/30/25 04:00 09/30/25 08:00 2 UNITS Dextrose 50 ml UD PRN IV 09/30/25 01:00 Dextrose 1,000 ml @ 70 mls/hr [id number] IV 09/30/25 10:30 09/30/25 12:13 70 MLS/HR Bumetanide 1 mg BIDD IV 09/30/25 10:30 09/30/25 12:21 1 MG Dopamine HCl/ Dextrose 250 ml @ 2.213 mls/ hr Q24H IV 09/30/25 14:45 09/30/25 16:01 2.213 MLS/HR Albuterol 2.5 mg Q6HWA PRN NEB 09/30/25 16:30 Ipratropium Isom 0.5 mg Q6HWA PRN NEB 09/30/25 16:30 Examination: LUNGS:Normal, CVS:Normal, NEURO:Normal laboratory and microbiology Laboratory Tests 09/30/25 03:46 Test 09/30/25 03:46 Range/Units Serum Glucose 144 H 74-106 mg/dL Problem List/Assessment/Plan Problem List/Assessment/Plan NSTEMI, questionable type I Acute on chronic decompensated HFrEF, NYHA class III Peripheral arterial disease status post bilateral [id number] amputations Diabetic ketoacidosis Hypertension History pulmonary embolism (on Eliquis) Severe pulmonary hypertension Chronic kidney disease Chronic anemia Plan/Recommendation (Dr. Cordova) A transthoracic echocardiogram reveals an EF of 25% with global hypokinesis and akinesis of the inferolateral wall. Given twelve lead electrocardiogram changes, abnormal wall motion on transthoracic echocardiogram, comorbidities, and significantly elevated troponin level, NSTEMI type 1 is highly suspected. A coronary angiogram with left heart catheterization was offered. The patient has not made any informed decision as he is awaiting his 's input. Attempted to call at bedside multiple times with no answer. We will attempt at a later time. In the meantime, continue guideline directed medical therapy for CHF as renal function permits (hold ARB/ARNI/ACEi, MRA and SGLT2i given poor renal function), strict intake and output, daily weights, fluid restriction and low- sodium diet. Continue single-antiplatelet therapy and lipid-lowering agent. Continue with close cardiac surveillance and notify cardiology team immediately for any ECG changes. Thank you for allowing us to care for this patient. Please call with any questions or concerns. This medical document was created using an electronic medical record system with voice recognition software and computerized dictation system. Although this document has been carefully reviewed, there might still be some phonetic and typographical errors. Occasional wrong-word or ``sound-alike substitutions may have occurred due to the inherent limitations of voice recognition software. These areas are purely typographical due to imperfections of the software programs and do not reflect any compromise in the patient's medical care. Please read the chart carefully and recognize, using context, where these substitutions have occurred. Plan discussed with: Patient, Other Date of Service: Sep 30, 2025 Billing Provider: POOJA SALAZAR Cardiology Common Codes: [id number] HOSP CARE(High POOJA SALAZAR Sep 30, 2025 18:07
[2025-09-30] MEDS: ALBUTEROL SULF 2.5 MG/0.5ML(0.5%) NEB SOLN NEB PRN (18:14)
[2025-09-30] MEDS: IPRATROPIUM BROM 0.5 MG/2.5ML INH SOL NEB PRN (18:14)
[2025-10-01] VITALS (15 sets, daily range): BP systolic 126–135; BP diastolic 65–84; PULSE 84–102; RESP 14–20; TEMP 97.9–98.8; O2SAT 90–99
[2025-10-01 06:58] LABS: Hemoglobin 10.6 g/dL (13.5-17.5); Nucleated Red Blood Cells % 0.0 %
[2025-10-01 07:01] LABS: Hematocrit 33.5 % (41.0-53.0); Mean Corpuscular Hemoglobin 24.3 pg (28.0-32.0); Mean Corpuscular Volume 76.9 fL (80.0-100.0)
[2025-10-01 07:19] LABS: Alanine Aminotransferase 24 U/L (7-40); Albumin 3.8 g/dL (3.2-4.8); Anion Gap 9 (5-15); BUN/Creatinine Ratio 28.5 (10.0-20.0); Calcium 8.8 mg/dL (8.7-10.4); Carbon Dioxide 30 mmol/L (20-31); Chloride 106 mmol/L (98-107); Glucose 88 mg/dL (74-106); Potassium 3.6 mmol/L (3.5-5.1); Sodium 145 mmol/L (136-145); Total Protein 7.0 g/dL (5.7-8.2)
[2025-10-01 07:20] LABS: Alkaline Phosphatase 138 U/L (46-116); Magnesium 2.6 mg/dL (1.6-2.6)
[2025-10-01 07:23] LABS: Blood Urea Nitrogen 89 mg/dL (9-23)
[2025-10-01 07:24] LABS: Bilirubin, Total 1.2 mg/dL (0.2-1.0)
--- NOTE | 2025-10-01 09:31 | DVH ---
CHEST RADIOGRAPH Indication: CHF exercabation with pulmonary odema Technique: Single frontal view of the chest was obtained Comparison: XY CHEST PORTABLE on DOS: 09/29/25, XY CHEST PORTABLE on DOS: 02/01/23, CXR1 on DOS: 08/11/22, CXRP on DOS: 07/24/21, XY CHEST PORTABLE on DOS: 09/29/25 FINDINGS: Lines and Tubes: None Lungs: Developing bibasilar airspace disease Pleura: Small bilateral pleural effusions. No pneumothorax. Cardiomediastinal contours: Cardiomegaly Bones: No acute osseous abnormality. IMPRESSION: 1. Findings suggest developing congestive failure.
--- NOTE | 2025-10-01 09:47 | DVHPNRES ---
Progress Note Date Seen: Oct 01, 2025 Resident Creating Document: CLIFF BRUCE RESIDENT Has the PT tested + for MRSA If YES, has PT been informed?: No Medical Necessity Reason Pt with a Central, PICC or Fol: Yes The following are medically ne: Valverde Catheter Reason for valverde catheter: Strict I&O Subjective Review of Systems 75-year-old male presents to the ED via EMS with complaint of hyperglycemia. He reports persistent elevated blood glucose readings over the past several days associated with nausea, vomiting, poor appetite, and unintentional weight loss for approximately three weeks. He states this symptoms feel similar to prior episodes of DKA. He denies dizziness, syncope, chest pain, palpitations, shortness of breath, fevers, or other acute symptoms. In the ED, initial lab shows a serum glucose of 409 mg/dL, an anion gap of 20, CO2 of 22, creatinine 3.54 with a GFR of 17, and elevated high sensitivity troponins trending from [id number]. Significant past medical history includes PAD status post bilateral AKA, diabetes type 2, hypertension, CKD, anemia of chronic disease. Past Medical History * Type 2 diabetes mellitus, uncontrolled (HbA1c 10.7%) * Chronic kidney disease (baseline Cr ~3.2) * LEXA on CKD * Peripheral arterial disease s/p bilateral above-knee amputations * Hypertension * HFrEF (prior EF 4550%), now EF 25% * Chronic anemia of CKD/iron deficiency * Pulmonary embolism (prior) * Severe pulmonary hypertension (RVSP 6570 mmHg) * Cavitary lung lesion (remote) Past Surgical History * Bilateral above-knee amputations Past Social History * Former smoker: 20 years, quit 5 years ago * Quit alcohol 15 years ago * Lives with family * No illicit drug use 09/30/25 * Patient downgraded from ICU to TELE. * On 3 L nasal cannula, FiO2 3032%, saturating 21676%, no work of breathing. * Nausea/vomiting improving, but weight loss suspected to be chronic ? GI consult placed today. * Troponins continue to trend upward and now downtrending without chest pain; cardiology following for NSTEMI type 1 vs type 2 demand ischemia and CHF exacerbation. * Echocardiogram (yesterday): EF 25%, global hypokinesis, moderatesevere RV dysfunction, severe pulmonary hypertension (RVSP 6570 mmHg). * LEXA persists: Cr 3.33 (baseline ~3.28), UOP 0.35 mL/kg/hr. * Hypernatremia (148) improving slowly with D5W per nephrology. * EKG: Sinus rhythm with nonspecific anterior/inferior/lateral repolarization abnormalities; QT prolonged ? Zofran avoided. * Started DuoNeb Q6H, chest physiotherapy, chest X-ray ordered. * GI consulted for chronic nausea, vomiting, weight loss. 10/01/25 This 75-year-old male with history of CKD stage 45, acute on chronic systolic heart failure (EF 25%), severe pulmonary hypertension, PAD s/p bilateral above- knee amputations, T2DM (A1c 10.7%), recent DKA (resolved), history of PE, and poor PO intake continues to report severe anorexia, unable to tolerate solids, only tolerated a peach today. He denies chest pain. Mild shortness of breath persists. He has had fluctuating tachycardia (max 151 bpm), mild hypoxia (SpO2 9097% on 2 L NC), and worsening pulmonary congestion on chest X-ray compared to 09/29. WBC count continues to improve. He remains afebrile.The patient and the Family has now given informed consent for coronary angiography with left heart catheterization scheduled for tomorrow because the procedure is tomorrow morning, D5W is being continued at 60 mL/hr for procedure. Fluid plan will be re-evaluated post-procedure depending on renal function and volume status. GI consult is still pending for persistent nausea, poor intake, and weight loss. Objective vital signs Vital Sign Date Time Temp Pulse Resp B/P (MAP) Pulse Ox O2 Delivery O2 Flow Rate FiO2 10/01/25 06:43 92 Nasal Cannula* 2 28 10/01/25 06:42 98 18 10/01/25 06:31 131/65 10/01/25 05:32 98.2 98.2 Total Intake and Output 09/30/25 09/30/25 10/01/25 15:00 23:00 07:00 Intake Total 170 ml 0 ml 944.343 ml Output Total 400 ml 850 ml Balance 170 ml -400 ml 94.343 ml medications Current Medications Medications Dose Ordered Sig/Conrado Route Start Time Stop Time Status Last Admin Dose Admin Insulin Glargine 15 units DAILY SC 09/30/25 10:00 09/30/25 10:12 15 UNITS Ondansetron HCl 4 mg Q4HP PRN IV 09/29/25 12:30 Cancel Enoxaparin Sodium 40 mg DAILY SC 09/30/25 10:00 UNV Aspirin 81 mg DAILY PO 09/30/25 10:00 09/30/25 10:09 81 MG Metoprolol Succinate 50 mg DAILY PO 09/30/25 10:00 Heparin Sodium (Porcine) 5,000 units Q12HR SC 09/29/25 22:00 09/30/25 22:10 5,000 UNITS Atorvastatin Calcium 40 mg HS PO 09/29/25 22:00 09/30/25 22:14 40 MG Dextrose 1,000 ml @ 70 mls/hr [id number] IV 09/30/25 10:30 10/01/25 00:48 70 MLS/HR Bumetanide 1 mg BIDD IV 09/30/25 10:30 10/01/25 06:31 1 MG Dopamine HCl/ Dextrose 250 ml @ 2.213 mls/ hr Q24H IV 09/30/25 14:45 09/30/25 16:01 2.213 MLS/HR Albuterol 2.5 mg Q6HWA PRN NEB 09/30/25 16:30 10/01/25 06:41 2.5 MG Ipratropium [place] 0.5 mg Q6HWA PRN NEB 09/30/25 16:30 10/01/25 06:41 0.5 MG Diagnostic Test (Pha) 1 strip ACHS 10/01/25 11:30 UNV Insulin Human Regular ACHS SC 10/01/25 11:30 UNV Dextrose 50 ml UD PRN IV 10/01/25 09:30 UNV Examination * General: Cachectic, alert, frail, cooperative. * HEENT: Moist mucosa; no JVD. * Cardiac: Tachycardic; regular rhythm; cap refill <3 sec. * Resp: Crackles bilaterally; decreased bases; mild tachypnea. * GI: Soft, NT, ND; no bowel movement. * : Valverde catheter; good urine output. * Neuro: A&O3; no deficits. * Skin: No new ulcers; BKA stumps intact. * Extremities: Bilateral AKAs; no edema. laboratory and microbiology Laboratory Tests 10/01/25 05:07 Test 10/01/25 05:07 Range/Units Serum Glucose 88 74-106 mg/dL Microbiology Date/Time Source Procedure Growth Status 09/29/25 20:30 Nose MRSA Screen - Final Complete Problem List/Assessment/Plan Problem List/Assessment/Plan 1. NEUROLOGY Assessment * No sedation * No delirium * No focal deficits Plan * Avoid sedatives * Maintain normal oxygenation and glucose 2. CARDIOVASCULAR A. Acute on chronic systolic HF (HFrEF), EF 25%, NYHA Class IIIACUTE DECOMPENSATION Differentials: Ischemic cardiomyopathy, Tachyarrhythmia, Volume overload, Myocardial injury Plan: * Continue Bumex 1 mg IV BID * Continue metoprolol succinate 50 mg daily * Avoid MYNOR/ARB/ARNI/SGLT2 due to LEXA and hypernatremia * Fluid restriction 1.5 L/day * Strict I/Os and daily weights * Cardiology following B. Elevated troponins NSTEMI Type 1 vs Type 2 demand ischemia * Troponin rising to 3924 now downtrending * EKG: Sinus rhythm with repolarization abnormalities * No chest pain Plan: * [facility] scheduled for tomorrow * Continue aspirin 81 mg, heparin 5000 units SC Q12h, atorvastatin 40 mg po hs * Telemetry monitoring * Repeat troponin trending C. Severe pulmonary hypertension (RVSP 6570 mmHg) Plan: * Maintain oxygenation * Avoid fluid overload * (left-sided HF likely) Peripheral arterial disease s/p bilateral above-knee amputations Hypertension Continue metoprolol succinate 50 mg daily 3. RESPIRATORY SYSTEM Assessment * Pleural effusions due to CHF Exercabation * Mild hypoxemia Plan * Continue 2 L NC, target SpO2 > 94%, wean as tolerated * Continue DuoNeb Q6H * Chest physiotherapy * Daily pulse oximetry * Follow-up CXR 4. GASTROINTESTINAL Assessment * Chronic nausea/vomiting * Weight loss several months * Risk for gastroparesis vs malignancy vs chronic GI dysmotility Plan * * GI consult pending * Avoid Zofran due to QT prolongation * Renal/diabetic diet diet * Monitor for bowel movement 5. GENITOURINARY * Valverde catheter in place * UOP adequate (0.98 mL/kg/hr) Plan: * Continue Valverde for strict I/Os * Monitor UA and cultures * Avoid nephrotoxic medications 6. RENAL (NEPHROLOGY) Acute Kidney Injury due to VMN with superimposed CKD (Stage 45), hemodynamically mediated, Low urinary sodium AG METABOLIC ACIDOSIS RESOLVED hypernatremia Improving metabolic alkalosis Right sided Nephrolithiasis non obstructive Plan: * Nephrology following * Continue D5W and LR 60 mL/hr per nephrology * Continue dopamine 0.99 * Avoid MYNOR inhibitors, ARBs, NSAIDs, Continue Bumex 1mg IV BIDD * Daily BMP * Strict I/Os * Renal-dose medications * Reassess renal function post-LHC 7. INFECTIOUS DISEASE Assessment * WBC 13.9 ( leukocytosis) * No fever * UA negative for UTI * No clear source Differentials: * Stress leukocytosis * Pneumonia (effusions) Plan: * Blood cultures 2, SPUTUM Culture ordered. * WBC improving (12.9) * Start antibiotics ONLY if infectious source identified or clinical deterioration 8. ENDOCRINE A. DKA RESOLVED uncontrolled T2DM (A1c 10.7%) * AG closed * B-hydroxybutyrate decreasing (0.449 - 0.213) * Insulin drip off since 09/29 Plan: * Continue Lantus 15 units daily * Continue correctional insulin * Glucose goal 138402 B. Hypothyroidism Plan: * Continue levothyroxine 100 mcg daily 9. HEMATOLOGY Iron deficiency anemia + anemia of chronic disease Plan: * Hold IV iron until infection ruled out * Monitor CBC daily * Transfuse Hgb <7 MUSCULOSKELETAL / SKIN / WOUNDS s/p bilateral above-knee amputations * Left hip grade 1 ulcer * Left stump small superficial wound healing Plan: * bottom turning lathe turner daily * Offloading * Zinc oxide barrier cream 10. PSYCHIATRY * Patient calm, cooperative * No acute psychiatric symptoms Plan: * Supportive care * Sleep hygiene 11. NUTRITION * Renal-friendly, carbohydrate-controlled diet * Calorie counts * Consult nutrition if intake remains poor 12. LINES / TUBES * Valverde catheter (in place) * No central line * No PICC * No arterial line * No dialysis catheter 13. PROPHYLAXIS * DVT: Heparin 5000 units SQ q12h * GI: pantoprazole 40 PO * Fall & skin precautions * Pressure ulcer prevention 14. PT SOCIAL WORK * PT/OT evaluation ordered * Social work involved for long-term care planning CODE STATUS Full Code. Greater than 20 minutes spent discussing code status and goals of care with patient and family. Family at bedside; plan discussed with Dr. Blas. Case discussed in detail with the attending physician, including the clinical presentation, diagnostic workup, and comprehensive management plan. The patient was present for the discussion and demonstrated understanding of his condition and the proposed plan. Plan discussed with: Patient, Spouse My Orders My Orders Orders - CLIFF BRUCE RESIDENT Procedure Category Date Status Time Abg W/ Co-Ox RT 09/30/25 Logged 09:54 Albuterol Medneb PHA 09/30/25 In Process (Ventolin Medneb) 16:30 Ipratropium Medneb PHA 09/30/25 In Process (Atrovent Medneb) 16:30 Chest Xray 1 View XY 10/01/25 Resulted 04:00 * Gi Dvh Inbound Sales Consultant CONS 09/30/25 Transmitted 16:16 Chest Percussion Tx RT 09/30/25 Logged Initi 16:43 Respiratory Culture DANIA 09/30/25 Uncollected W/ Gs 16:44 Blood Culture DANIA 09/30/25 Uncollected 16:44 * Dietary Consult CONS 09/30/25 Transmitted 17:55 Apply Z-Guard NIURKA 09/30/25 In Process 10:23 Cover Wound With Foam NIURKA 09/30/25 In Process Dressing 10:23 Glucose Blood PHA 10/01/25 Logged (Accu-Chek Comfort 11:30 Insulin R (Human) PHA 10/01/25 Logged (Insulin R) 11:30 Dextrose 50% Syringe PHA 10/01/25 Logged 09:30 Date of Service: Oct 01, 2025 Billing Provider: ANDREW BLAS MD Common Visit Codes: [id number] INP/OBS CARE(HIGH) Secondary Visit Codes: [id number] CARE PLAN 30 MINUTES CLIFF BRUCE RESIDENT Oct 01, 2025 09:47 ANDREW BLAS MD Oct 02, 2025 15:37
[2025-10-01] MEDS ORDERED: D5W 5% 1,000 ML IV SCH (10:15)
[2025-10-01] MEDS: D5W 5% 1,000 ML IV SCH ×2 (11:30→16:34)
--- NOTE | 2025-10-01 11:45 | DVHPN2 ---
Progress Note Date Seen: Oct 01, 2025 Has the PT tested + for MRSA If YES, has PT been informed?: No Medical Necessity Reason Pt with a Central, PICC or Fol: Yes The following are medically ne: Valverde Catheter Reason for valverde catheter: Strict I&O Subjective Review of Systems: RESPIRATORY:Abnormal Other Systems: Patient seen and examined by myself today in follow-up Objective vital signs Vital Sign Date Time Temp Pulse Resp B/P (MAP) Pulse Ox O2 Delivery O2 Flow Rate FiO2 10/01/25 10:46 91 134/74 10/01/25 10:00 90 Nasal Cannula 4.0 10/01/25 10:00 36 10/01/25 09:00 98.5 14 98.5 Total Intake and Output 09/30/25 09/30/25 10/01/25 15:00 23:00 07:00 Intake Total 170 ml 0 ml 944.343 ml Output Total 400 ml 850 ml Balance 170 ml -400 ml 94.343 ml medications Current Medications Medications Dose Ordered Sig/Conrado Route Start Time Stop Time Status Last Admin Dose Admin Insulin Glargine 15 units DAILY SC 09/30/25 10:00 10/01/25 10:47 15 UNITS Ondansetron HCl 4 mg Q4HP PRN IV 09/29/25 12:30 Cancel Enoxaparin Sodium 40 mg DAILY SC 09/30/25 10:00 UNV Aspirin 81 mg DAILY PO 09/30/25 10:00 10/01/25 10:46 81 MG Metoprolol Succinate 50 mg DAILY PO 09/30/25 10:00 10/01/25 10:46 50 MG Heparin Sodium (Porcine) 5,000 units Q12HR SC 09/29/25 22:00 10/01/25 10:47 5,000 UNITS Atorvastatin Calcium 40 mg HS PO 09/29/25 22:00 09/30/25 22:14 40 MG Bumetanide 1 mg BIDD IV 09/30/25 10:30 10/01/25 06:31 1 MG Dopamine HCl/ Dextrose 250 ml @ 2.213 mls/ hr Q24H IV 09/30/25 14:45 09/30/25 16:01 2.213 MLS/HR Albuterol 2.5 mg Q6HWA PRN NEB 09/30/25 16:30 10/01/25 06:41 2.5 MG Ipratropium [place] 0.5 mg Q6HWA PRN NEB 09/30/25 16:30 10/01/25 06:41 0.5 MG Diagnostic Test (Pha) 1 strip ACHS 10/01/25 11:30 UNV Insulin Human Regular ACHS SC 10/01/25 11:30 UNV Dextrose 50 ml UD PRN IV 10/01/25 09:30 UNV Dextrose 1,000 ml @ 60 mls/hr [id number] IV 10/01/25 11:15 10/02/25 11:15 UNV Levothyroxine Sodium 100 mcg QAM@0600 PO 10/02/25 06:00 UNV Examination: LUNGS:Normal, CVS:Normal, MSK:Abnormal laboratory and microbiology Laboratory Tests 10/01/25 05:07 Test 10/01/25 05:07 Range/Units Serum Glucose 88 74-106 mg/dL Microbiology Date/Time Source Procedure Growth Status 09/29/25 20:30 Nose MRSA Screen - Final Complete Problem List/Assessment/Plan Problem List/Assessment/Plan Acute kidney injury superimposed Chronic Kidney Disease secondary hemodynamic mediated, feNa < 1% Congestive heart failure exacerbation NSTEMI Acute respiratory failure, O2 supplement Diabetes mellitus type 2, controlled Diabetic ketoacidosis Nonobstructing kidney stone Hypertension Peripheral arterial disease Bilateral below knee amputation Anemia of chronic kidney disease Hypernatremia due to dehydration Recommendations Kidney function slightly improving Increased urine output Strict I&Os Kidney ultrasound reported nonobstructing kidney stone IVF D5W at 60 mL per hour Insulin sliding scale Low-dose dopamine Bumex 1 mg IV b.i.d. KCL replacement Cardiology consult We will continue to follow Plan discussed with: Patient, Other (Nurse) My Orders My Orders Orders - JEN JAIMES MD Procedure Category Date Status Time Dopamine 1600mcg/Ml PHA 09/30/25 In Process D5W 14:45 JEN JAIMES MD Oct 01, 2025 11:45
--- NOTE | 2025-10-01 12:12 | DVHPN2 ---
Consult Progress Note Date Seen: Oct 01, 2025 Subjective Review of Systems: CVS:Normal, RESPIRATORY:Normal, NEURO:Normal Objective vital signs Vital Sign Date Time Temp Pulse Resp B/P (MAP) Pulse Ox O2 Delivery O2 Flow Rate FiO2 10/01/25 10:46 91 134/74 10/01/25 10:00 90 Nasal Cannula 4.0 10/01/25 10:00 36 10/01/25 09:00 98.5 14 98.5 Total Intake and Output 09/30/25 09/30/25 10/01/25 15:00 23:00 07:00 Intake Total 170 ml 0 ml 944.343 ml Output Total 400 ml 850 ml Balance 170 ml -400 ml 94.343 ml medications Current Medications Medications Dose Ordered Sig/Conrado Route Start Time Stop Time Status Last Admin Dose Admin Insulin Glargine 15 units DAILY SC 09/30/25 10:00 10/01/25 10:47 15 UNITS Ondansetron HCl 4 mg Q4HP PRN IV 09/29/25 12:30 Cancel Enoxaparin Sodium 40 mg DAILY SC 09/30/25 10:00 UNV Aspirin 81 mg DAILY PO 09/30/25 10:00 10/01/25 10:46 81 MG Metoprolol Succinate 50 mg DAILY PO 09/30/25 10:00 10/01/25 10:46 50 MG Heparin Sodium (Porcine) 5,000 units Q12HR SC 09/29/25 22:00 10/01/25 10:47 5,000 UNITS Atorvastatin Calcium 40 mg HS PO 09/29/25 22:00 09/30/25 22:14 40 MG Bumetanide 1 mg BIDD IV 09/30/25 10:30 10/01/25 06:31 1 MG Dopamine HCl/ Dextrose 250 ml @ 2.213 mls/ hr Q24H IV 09/30/25 14:45 09/30/25 16:01 2.213 MLS/HR Albuterol 2.5 mg Q6HWA PRN NEB 09/30/25 16:30 10/01/25 06:41 2.5 MG Ipratropium [place] 0.5 mg Q6HWA PRN NEB 09/30/25 16:30 10/01/25 06:41 0.5 MG Diagnostic Test (Pha) 1 strip ACHS 10/01/25 11:30 UNV Insulin Human Regular ACHS SC 10/01/25 11:30 UNV Dextrose 50 ml UD PRN IV 10/01/25 09:30 UNV Dextrose 1,000 ml @ 60 mls/hr [id number] IV 10/01/25 11:15 10/02/25 11:15 UNV Levothyroxine Sodium 100 mcg QAM@0600 PO 10/02/25 06:00 UNV Examination: LUNGS:Normal, CVS:Normal, NEURO:Normal laboratory and microbiology Laboratory Tests 10/01/25 05:07 Test 10/01/25 05:07 Range/Units Serum Glucose 88 74-106 mg/dL Problem List/Assessment/Plan Problem List/Assessment/Plan NSTEMI, questionable type I Acute on chronic decompensated HFrEF, NYHA class III Peripheral arterial disease status post bilateral [id number] amputations Diabetic ketoacidosis Hypertension History pulmonary embolism (on Eliquis) Severe pulmonary hypertension Chronic kidney disease Chronic anemia Plan/Recommendation (Dr. Cordova) A transthoracic echocardiogram reveals an EF of 25% with global hypokinesis and akinesis of the inferolateral wall. Given twelve lead electrocardiogram changes, abnormal wall motion on transthoracic echocardiogram, comorbidities, and significantly elevated troponin level, NSTEMI type 1 is highly suspected. A coronary angiogram with left heart catheterization was offered. The patient agrees for intervention knowing all risks and benefits including the risk for ETHAN and possible need of hemodialysis. Nephrology team on board. In the meantime, continue guideline directed medical therapy for CHF as renal function permits (hold ARB/ARNI/ACEi, MRA and SGLT2i given poor renal function), strict intake and output, daily weights, fluid restriction and low-sodium diet. Continue single-antiplatelet therapy and lipid-lowering agent. Continue with close cardiac surveillance and notify cardiology team immediately for any ECG changes. Thank you for allowing us to care for this patient. Please call with any questions or concerns. This medical document was created using an electronic medical record system with voice recognition software and computerized dictation system. Although this document has been carefully reviewed, there might still be some phonetic and typographical errors. Occasional wrong-word or ``sound-alike substitutions may have occurred due to the inherent limitations of voice recognition software. These areas are purely typographical due to imperfections of the software programs and do not reflect any compromise in the patient's medical care. Please read the chart carefully and recognize, using context, where these substitutions have occurred. Plan discussed with: Patient, Other Date of Service: Oct 01, 2025 Billing Provider: POOJA SALAZAR Cardiology Common Codes: [id number] CARE(High POOJA SALAZAR Oct 01, 2025 12:12
[2025-10-01] MEDS: ACCU-CHEK COMFORT CURVE STRIP VI SCH (12:28)
[2025-10-01] MEDS: InsuLIN REG 1unit/0.01ml Soln (100units/ml) SC SCH (12:29)
--- NOTE | 2025-10-01 17:55 | DVHCONRES ---
Date Seen: Oct 01, 2025 Resident Creating Document: JULIAN ROTHMAN RESIDENT History of Present Illness 75-year-old male who is hospital course has been prolonged secondary to acute on chronic systolic heart failure exacerbation, EF 25%, NSTEMI, severe pulmonary hypertension, nausea and vomiting and LEXA superimposed on CKD Patient seen and examined. Reports chronic nausea and vomiting, loss of appetite and early satiety. He reports having EGD/colonoscopy almost 10 years back. Does not know the findings. Patient is planned to undergo left heart catheterization. Family History: Thrombosis G8 FATHER, Onset:Unknown Allergies: Coded Allergies: NO KNOWN ALLERGIES (Unverified , 09/11/21) Home Meds Active Scripts Metoprolol Succinate (Toprol Xl) 50 Mg Tab, 50 MG PO DAILY for 30 Days, #30 TAB Prov:FRANCIS RETANA MD 02/04/23 Atorvastatin Calcium (ATORVASTATIN CALCIUM) 20 Mg Tab, 40 MG PO HS for 30 Days, #30 TAB Prov:FRANCIS RETANA MD 02/04/23 Aspirin (Aspirin Low Dose) 81 Mg Tab, 81 MG PO DAILY for 30 Days, #30 TAB Prov:FRANCIS RETANA MD 02/04/23 Current Medications Current Medications Medications (Trade) Dose Ordered Sig/Conrado Route PRN Reason Start Time Stop Time Status Last Admin Diagnostic Test (Pha) (Accu-Chek Comfort Curve T) 1 strip ACHS 10/01/25 11:30 10/01/25 17:28 Insulin Human Regular (InsuLIN R) ACHS SC 10/01/25 11:30 10/01/25 12:29 Dextrose 50 ml UD PRN IV Blood Sugar LESS THAN 60 10/01/25 09:30 Dextrose 1,000 ml @ 40 mls/hr Q24H IV 10/01/25 10:15 10/01/25 10:28 DC Dextrose 1,000 ml @ 60 mls/hr [id number] IV 10/01/25 11:15 10/01/25 15:24 DC 10/01/25 11:30 Levothyroxine Sodium (Synthroid Tablet) 100 mcg QAM@0600 PO 10/02/25 06:00 Dextrose 1,000 ml @ 60 mls/hr [id number] IV 10/01/25 15:30 10/02/25 15:15 10/01/25 16:34 Vital Signs Vital Signs Date Time Temp Pulse Resp B/P (MAP) Pulse Ox O2 Delivery O2 Flow Rate FiO2 10/01/25 17:36 132/79 10/01/25 12:47 98.6 90 16 94 98.6 10/01/25 12:29 Nasal Cannula 4.0 10/01/25 12:29 36 Physical Exam Thin frail-appearing elderly male lying in the bed comfortably, well conversational General: Thin, afebrile, palor, mucosae are moist Cardiovascular: Regular S1 and S2. No murmurs, gallops or rubs. No JVD elevation. No pedal edema Respiratory: Decreased breath sounds, heard on auscultation, Abdomen: Soft, nontender, nondistended, normoactive bowel sounds, no rebound tenderness, no organomegaly, no masses Genitourinary: Deferred MSK/skin: Mobilizes 4 limbs. Skin is dry and warm Labs/Diagnostic Data Labs Test 10/01/25 17:25 10/01/25 05:07 09/30/25 15:55 09/30/25 10:48 Range/Units POC Glucose 116 H 70-106 mg/dl White Blood Count 12.9 H 4.4-10.8 10^3/uL Red Blood Count 4.36 L 4.5-5.90 10^6/uL Hemoglobin 10.6 L 13.5-17.5 g/dL Hematocrit 33.5 L 41.0-53.0 % Mean Corpuscular Volume 76.9 L 80.0-100.0 fL Mean Corpuscular Hemoglobin 24.3 L 28.0-32.0 pg Mean Corpuscular Hemoglobin Concent 31.6 L 32.0-36.0 g/dL Red Cell Distribution Width 19.1 H 11.8-14.3 % Platelet Count 196 140-450 10^3/uL Mean Platelet Volume 8.0 6.9-10.8 fL Neutrophils (%) (Auto) 85.1 H 37.0-80.0 % Lymphocytes (%) (Auto) 4.2 L 10.0-50.0 % Monocytes (%) (Auto) 9.6 0.0-12.0 % Eosinophils (%) (Auto) 0.7 0.0-7.0 % Basophils (%) (Auto) 0.4 0.0-2.0 % Neutrophils # (Auto) 11.0 H 1.6-8.6 10 ^3/uL Lymphocytes # (Auto) 0.5 0.4-5.4 10 ^3/uL Monocytes # (Auto) 1.2 0-1.3 10 ^3/uL Eosinophils # (Auto) 0.1 0-0.8 10 ^3/uL Basophils # (Auto) 0.1 0-0.2 10 ^3/uL Nucleated Red Blood Cells 0.0 % Sodium Level 145 136-145 mmol/L Potassium Level 3.6 3.5-5.1 mmol/L Chloride Level 106 98-107 mmol/L Carbon Dioxide Level 30 20-31 mmol/L Anion Gap 9 5-15 Blood Urea Nitrogen 89 #*H 9-23 mg/dL Creatinine 3.12 H 0.700-1.30 mg/dL Glomerular Filtration Rate Calc 20 >90 mL/min BUN/Creatinine Ratio 28.5 H 10.0-20.0 Serum Glucose 88 74-106 mg/dL Calcium Level 8.8 8.7-10.4 mg/dL Phosphorus Level 4.4 2.4-5.1 mg/dL Magnesium Level 2.6 1.6-2.6 mg/dL Total Bilirubin 1.2 H 0.2-1.0 mg/dL Aspartate Amino Transferase (AST) 20 13-40 U/L Alanine Aminotransferase (ALT) 24 7-40 U/L Alkaline Phosphatase 138 H 46-116 U/L Total Protein 7.0 5.7-8.2 g/dL Albumin 3.8 3.2-4.8 g/dL Troponin I High Sensitivity 1064 *H </=54 ng/L Iron Level 20 L 65-175 ug/dL Total Iron Binding Capacity 363 250-425 ug/dL Percent Iron Saturation 5.5 L 20-55 % Ferritin 17.0 L 22-322 ng/mL Beta-Hydroxybutyric Acid 0.213 < 0.4 mmol/L Free Thyroxine (T4) Calculated 1.03 0.89-1.76 ng/dL Thyroxine (T4) 6.5 4.5-12.0 ug/dL Free Triiodothyronine (T3) pg/mL 1.58 L 2.3-4.2 pg/mL Total Triiodothyronine (TT3) 0.49 L 0.60-1.81 ng/mL Test 09/30/25 10:22 09/29/25 12:45 09/29/25 11:20 09/29/25 09:39 Range/Units Blood Gas Specimen Type Arterial Blood Gas Sample Site Right brachial Blood Gas Patient Temperature 37.0 Arterial Blood Date Drawn [id number] Arterial Blood pH 7.416 7.350-7.450 Arterial Blood Partial Pressure CO2 47.6 35.0-48.0 mmHg Arterial Blood Partial Pressure O2 78.5 L 83.0-108.0 mmHg Arterial Blood HCO3 29.9 H 21.0-28.0 mmol/L Arterial Blood Oxygen Saturation 95.3 94.0-98.0 % Arterial Blood Base Excess 4.6 H -2.0-3.0 mmol/L Arterial Blood Oxyhemoglobin 94.5 94.0-98.0 % Arterial Blood Carboxyhemoglobin 0.5 0.5-1.5 % Arterial Blood Methemoglobin 0.3 0.0-1.5 % Arterial Blood Deoxyhemoglobin 4.7 0.0-5.0 % Arsenio Test Yes Blood Gas Total Hemoglobin 11.30 L 13.5-17.5 g/dL Blood Gas Liter Flow 3.00 Blood Gas Modality Nasal cannula FiO2 % 32.0 Triglycerides Level 109 < 150 mg/dL Cholesterol Level 241 H < 200 mg/dL LDL Cholesterol 171 H < 100 mg/dL HDL Cholesterol 62 H 40-59 mg/dL Thyroid Stimulating Hormone (TSH) 10.33 H 0.55-4.78 uIU/mL Urine Color Light-yellow Yellow Urine Clarity Clear Clear Urine pH 5.0 5.0-9.0 Urine Specific [place] 1.012 1.001-1.035 Urine Protein 1+ H Negative Urine Ketones 1+ H Negative Urine Blood 2+ H Negative /uL Urine Nitrite Negative Negative Urine Bilirubin Negative Negative Urine Urobilinogen Normal Negative mg/dL Urine Leukocyte Esterase Negative Negative /uL Urine RBC 39 0 - 3 /hpf Urine Microscopic WBC 2 0-3 /HPF Urine Squamous Epithelial Cells Few <5 /hpf Urine Bacteria None seen None Seen /hpf Urine Hyaline Casts Few 0 - 2 /lpf Urine Creatinine 60.50 30.0-125.0 mg/dL Urine Sodium 16 L 40-220 mmol/L Urine Glucose 4+ H Normal mg/dL Hemoglobin A1c 10.7 H <5.7 % A1C B-Type Natriuretic Peptide 4870.07 0-100 pg/mL Microbiology Date/Time Source Procedure Growth Status 09/29/25 20:30 Nose MRSA Screen - Final Complete Assessment Early satiety, chronic nausea and vomiting Unintentional weight loss / rule out malignancy Anemia likely iron-deficiency Acute on chronic systolic CHF exacerbation-EF 25% Rule out ischemic cardiomyopathy NSTEMI type 1 versus type 2 Severe pulmonary hypertension Acute kidney injury superimposed on CKD Diabetic ketoacidosis resolving Plan: Recommendation: Dr. Rivera Given the NSTEMI and acute kidney injury, patient is not a suitable candidate for any GI intervention at this time. He will benefit from upper and lower endoscopy once medically stabilized. Patient is supposed to undergo left heart catheterization 10/02. We will continue to follow up. BUN/creatinine improving, nephrology recommendations appreciated Recommend IV iron supplementation, 1 dose ordered. Iron profile shows iron- deficiency anemia Follow up with CT abdomen and pelvis without contrast Avoid NSAIDs Recommend high-protein ensure We will continue to follow up Thank you for consulting GI Plan discussed with Dr. Rivera Plan discussed with: Patient, Spouse (Over the phone) JULIAN ROTHMAN RESIDENT Oct 01, 2025 17:55
[2025-10-01] MEDS ORDERED: IRON SUCROSE COMPLEX 110 ML IV ONE (18:00)
[2025-10-01] MEDS: IRON SUCROSE COMPLEX 110 ML IV ONE (20:26)
[2025-10-02] VITALS (20 sets, daily range): BP systolic 117–147; BP diastolic 67–91; PULSE 77–91; RESP 12–22; TEMP 97–99.3; O2SAT 86–98
[2025-10-02 05:39] LABS: Hemoglobin 9.7 g/dL (13.5-17.5)
[2025-10-02 05:41] LABS: Hematocrit 29.8 % (41.0-53.0); Mean Corpuscular Hemoglobin 24.7 pg (28.0-32.0); Mean Corpuscular Volume 76.1 fL (80.0-100.0); Nucleated Red Blood Cells % 0.1 %
[2025-10-02 05:52] LABS: INR 1.14 (0.9-1.15); Partial Thromboplastin Time 31.4 SEC (24.5-34.5); Prothrombin Time 11.9 sec (9.3-11.8)
[2025-10-02] MEDS: LEVOTHYROXINE SODIUM 100 MCG TAB PO SCH (06:00)
[2025-10-02 07:04] LABS: Anion Gap 14 (5-15); Carbon Dioxide 27 mmol/L (20-31); Chloride 104 mmol/L (98-107); Potassium 3.7 mmol/L (3.5-5.1); Sodium 145 mmol/L (136-145)
[2025-10-02 07:08] LABS: Calcium 8.2 mg/dL (8.7-10.4)
[2025-10-02 07:10] LABS: Glucose 109 mg/dL (74-106); Magnesium 2.2 mg/dL (1.6-2.6)
[2025-10-02 07:32] LABS: BUN/Creatinine Ratio 31.2 (10.0-20.0); Blood Urea Nitrogen 84 mg/dL (9-23)
--- NOTE | 2025-10-02 09:07 | DVH ---
EXAM: CT CT AB PEL WO CON-NO ORAL OR IV HISTORY: Nausea vomiting, low appetite and weight loss Comparison Study: None Exam Date: 10/02/2025 08:21 AM Radiation Dose Information: CT Dose: CTDI volume is 5.6 mGy. Dose-length product is 369 mGy*cm Technique: Multidetector CT of the abdomen and pelvis was performed. Imaging was performed without IV contrast. Axial, coronal and sagittal multiplanar reformats were obtained from the axial data set by the technologist. Findings: Lack of intravenous contrast compromises evaluation of perfusion and for isodense lesions. Lower chest: Moderate bilateral pleural effusions, [id number]. Liver: Unremarkable. Biliary system: Unremarkable Spleen: Unremarkable. Pancreas: Unremarkable. Adrenals: Unremarkable. Kidneys and ureters: No hydronephrosis Bowel: No obstruction. Scattered colonic diverticula. Appendix not visualized. Bladder: Villavicencio catheter in place, with Incompletely decompressed bladder. Reproductive organs: Prostatomegaly, with protrusion into the bladder base. Lymph nodes: Unremarkable. Peritoneum: Unremarkable Vessels: Severe atherosclerosis. Patency is not evaluated on this noncontrast study. Bones and soft tissue: No aggressive osseous lesion. Right hip fixation hardware. Nodular soft thickening in the anterior abdominal wall. IMPRESSION: Severe atherosclerotic disease with diffuse calcifications. Patency of the vessels evaluated on this noncontrast study. Severe prostatomegaly. Villavicencio catheter within the bladder with incompletely decompressed bladder. Correlate for catheter malfunction. Nodular soft tissue thickening in the anterior abdominal wall. Recommend direct inspection. Moderate bilateral pleural effusions.
--- NOTE | 2025-10-02 09:17 | DVHPNRES ---
Progress Note Date Seen: Oct 02, 2025 Resident Creating Document: CLIFF BRUCE RESIDENT Has the PT tested + for MRSA If YES, has PT been informed?: No Medical Necessity Reason Pt with a Central, PICC or Fol: Yes The following are medically ne: Valverde Catheter Reason for valverde catheter: Strict I&O Subjective Review of Systems 75-year-old male presents to the ED via EMS with complaint of hyperglycemia. He reports persistent elevated blood glucose readings over the past several days associated with nausea, vomiting, poor appetite, and unintentional weight loss for approximately three weeks. He states this symptoms feel similar to prior episodes of DKA. He denies dizziness, syncope, chest pain, palpitations, shortness of breath, fevers, or other acute symptoms. In the ED, initial lab shows a serum glucose of 409 mg/dL, an anion gap of 20, CO2 of 22, creatinine 3.54 with a GFR of 17, and elevated high sensitivity troponins trending from 748-1328. Significant past medical history includes PAD status post bilateral AKA, diabetes type 2, hypertension, CKD, anemia of chronic disease. Past Medical History * Type 2 diabetes mellitus, uncontrolled (HbA1c 10.7%) * Chronic kidney disease (baseline Cr ~3.2) * LEXA on CKD * Peripheral arterial disease s/p bilateral above-knee amputations * Hypertension * HFrEF (prior EF 4550%), now EF 25% * Chronic anemia of CKD/iron deficiency * Pulmonary embolism (prior) * Severe pulmonary hypertension (RVSP 6570 mmHg) * Cavitary lung lesion (remote) Past Surgical History * Bilateral above-knee amputations Past Social History * Former smoker: 20 years, quit 5 years ago * Quit alcohol 15 years ago * Lives with family * No illicit drug use 09/30/25 * Patient downgraded from ICU to TELE. * On 3 L nasal cannula, FiO2 3032%, saturating 80013%, no work of breathing. * Nausea/vomiting improving, but weight loss suspected to be chronic ? GI consult placed today. * Troponins continue to trend upward and now downtrending without chest pain; cardiology following for NSTEMI type 1 vs type 2 demand ischemia and CHF exacerbation. * Echocardiogram (yesterday): EF 25%, global hypokinesis, moderatesevere RV dysfunction, severe pulmonary hypertension (RVSP 6570 mmHg). * LEXA persists: Cr 3.33 (baseline ~3.28), UOP 0.35 mL/kg/hr. * Hypernatremia (148) improving slowly with D5W per nephrology. * EKG: Sinus rhythm with nonspecific anterior/inferior/lateral repolarization abnormalities; QT prolonged ? Zofran avoided. * Started DuoNeb Q6H, chest physiotherapy, chest X-ray ordered. * GI consulted for chronic nausea, vomiting, weight loss. 10/01/25 This 75-year-old male with history of CKD stage 45, acute on chronic systolic heart failure (EF 25%), severe pulmonary hypertension, PAD s/p bilateral above- knee amputations, T2DM (A1c 10.7%), recent DKA (resolved), history of PE, and poor PO intake continues to report severe anorexia, unable to tolerate solids, only tolerated a peach today. He denies chest pain. Mild shortness of breath persists. He has had fluctuating tachycardia (max 151 bpm), mild hypoxia (SpO2 9097% on 2 L NC), and worsening pulmonary congestion on chest X-ray compared to 09/29. WBC count continues to improve. He remains afebrile.The patient and the Family has now given informed consent for coronary angiography with left heart catheterization scheduled for tomorrow because the procedure is tomorrow morning, D5W is being continued at 60 mL/hr for procedure. Fluid plan will be re-evaluated post-procedure depending on renal function and volume status. GI consult is still pending for persistent nausea, poor intake, and weight loss. 10/02/25 The patient undergoing coronary angiography with left heart catheterization today. Hypoxia episode today: While on 3 L NC, SpO2 transiently dropped to 70s. He was placed on 4 L NC, now stabilizing between 8890%. RR remains 1420. GI was consulted yesterday and plans EGD + colonoscopy once medically optimized. They also recommend Ensure High Protein TID for nutritional supplementation. Valverde catheter continues leaking despite replacement; bladder scan shows 8 mL consistent with severe BPH causing leakage around the catheter. Urology medications Flomax + Finasteride ordered. D5W discontinued due to adequate sodium correction and worsening pulmonary congestion. Patient started on PO liquids + renal diabetic cardiac low sodium diet. Abdominal CT (non-contrast) reveals: * Severe atherosclerotic disease * Severe prostatomegaly * Valverde catheter in bladder but incompletely decompressing bladder. * Nodular soft tissue thickening anterior abdominal wall (due to prior insulin injection sites) * Moderate bilateral pleural effusions Objective vital signs Vital Sign Date Time Temp Pulse Resp B/P (MAP) Pulse Ox O2 Delivery O2 Flow Rate FiO2 10/02/25 06:45 147/81 10/02/25 06:42 81 16 96 10/02/25 06:32 Nasal Cannula 4.0 10/02/25 06:32 36 10/02/25 05:17 98.0 98.0 Total Intake and Output 10/01/25 10/01/25 10/02/25 15:00 23:00 07:00 Intake Total 350 ml 1796.56 ml 746.556 ml Output Total 400 ml 400 ml Balance 350 ml 1396.56 ml 346.556 ml medications Current Medications Medications Dose Ordered Sig/Conrado Route Start Time Stop Time Status Last Admin Dose Admin Insulin Glargine 15 units DAILY SC 09/30/25 10:00 10/01/25 10:47 15 UNITS Ondansetron HCl 4 mg Q4HP PRN IV 09/29/25 12:30 Cancel Enoxaparin Sodium 40 mg DAILY SC 09/30/25 10:00 UNV Aspirin 81 mg DAILY PO 09/30/25 10:00 10/01/25 10:46 81 MG Metoprolol Succinate 50 mg DAILY PO 09/30/25 10:00 10/01/25 10:46 50 MG Heparin Sodium (Porcine) 5,000 units Q12HR SC 09/29/25 22:00 10/01/25 21:39 5,000 UNITS Atorvastatin Calcium 40 mg HS PO 09/29/25 22:00 10/01/25 21:40 40 MG Bumetanide 1 mg BIDD IV 09/30/25 10:30 10/02/25 06:45 1 MG Dopamine HCl/ Dextrose 250 ml @ 2.213 mls/ hr Q24H IV 09/30/25 14:45 09/30/25 16:01 2.213 MLS/HR Diagnostic Test (Pha) 1 strip ACHS 10/01/25 11:30 10/02/25 06:45 1 STRIP Insulin Human Regular ACHS SC 10/01/25 11:30 10/01/25 12:29 2 UNITS Dextrose 50 ml UD PRN IV 10/01/25 09:30 Levothyroxine Sodium 100 mcg QAM@0600 PO 10/02/25 06:00 Dextrose 1,000 ml @ 60 mls/hr [id number] IV 10/01/25 15:30 10/02/25 15:15 10/01/25 16:34 60 MLS/HR Enteral Nutritional Formula 240 ml TIDWM PO 10/02/25 17:00 Albuterol 2.5 mg Q6HWA [facility] 10/02/25 12:00 Ipratropium [place] 0.5 mg Q6HWA [facility] 10/02/25 12:00 Examination * General: Frail, alert, mild respiratory distress * HEENT: Moist mucosa * Neck: No JVD * Cardiac: Tachycardic, regular rhythm * Resp: Crackles bilaterally; mild tachypnea * Abdomen: Soft, NT, ND * : Valverde present, leaking; BPH suspected * Neuro: A&O3 * Skin: Nodular thickening at abdominal wall injection sites; no cellulitis * Extremities: Bilateral AKAs laboratory and microbiology Laboratory Tests 10/02/25 05:11 Test 10/02/25 05:11 Range/Units Serum Glucose 109 H 74-106 mg/dL Microbiology Date/Time Source Procedure Growth Status 09/29/25 20:30 Nose MRSA Screen - Final Complete Problem List/Assessment/Plan Problem List/Assessment/Plan 1. NEUROLOGY Assessment * No sedation * No delirium * No focal deficits Plan * Avoid sedatives * Maintain normal oxygenation and glucose 2. CARDIOVASCULAR A. Acute on chronic systolic HF (HFrEF), EF 25%, NYHA Class IIIACUTE DECOMPENSATION Differentials: Ischemic cardiomyopathy, Tachyarrhythmia, Volume overload, Myocardial injury Plan: * Continue Bumex 1 mg IV BID * Continue metoprolol succinate 50 mg daily * Avoid MYNOR/ARB/ARNI/SGLT2 due to LEXA and hypernatremia * Fluid restriction 1.5 L/day * Repeat CXR tomorrow * Strict I/Os and daily weights * Cardiology following B. Elevated troponins NSTEMI Type 1 vs Type 2 demand ischemia * Troponin rising to 3924 now downtrending * EKG: Sinus rhythm with repolarization abnormalities * No chest pain Plan: * [facility] scheduled for today. * Continue aspirin 81 mg, heparin 5000 units SC Q12h, atorvastatin 40 mg po hs * Telemetry monitoring * Repeat troponin trending C. Severe pulmonary hypertension (RVSP 6570 mmHg) Plan: * Maintain oxygenation * Avoid fluid overload * (left-sided HF likely) Peripheral arterial disease s/p bilateral above-knee amputations Hypertension Continue metoprolol succinate 50 mg daily 3. RESPIRATORY SYSTEM Assessment * Pleural effusions due to CHF Exercabation * Mild hypoxemia Plan * Continue 4 L NC, target SpO2 > 94%, wean as tolerated * Continue DuoNeb Q6H * Chest physiotherapy * Daily pulse oximetry * Follow-up CXR 4. GASTROINTESTINAL Assessment * Chronic nausea/vomiting * Weight loss several months * Risk for gastroparesis vs malignancy vs chronic GI dysmotility Plan * GI planning EGD + colonoscopy once stable * Continue Ensure High Protein TID * PO clear liquids, renal diabetic , cardiac, low Na diet * Continue bowel regimen (no BM today) * * GI consult pending * Avoid Zofran due to QT prolongation * Monitor for bowel movement 5. GENITOURINARY Severe BPH causing catheter malfunction and retention * Leak around catheter; bladder scan 8 mL Plan: * Continue Valverde for strict I/Os * Monitor UA and cultures * Start Flomax + Finasteride * Avoid nephrotoxic medications 6. RENAL (NEPHROLOGY) Acute Kidney Injury due to VMN with superimposed CKD (Stage 45), hemodynamically mediated, Low urinary sodium:- improving AG METABOLIC ACIDOSIS RESOLVED hypernatremia Improving metabolic alkalosis Right sided Nephrolithiasis non obstructive Plan: * Nephrology following * Stop D5W * Hold fluids worsening pulmonary edema * Continue dopamine 0.99 * Avoid MYNOR inhibitors, ARBs, NSAIDs, Continue Bumex 1mg IV BIDD * Daily BMP * Strict I/Os * Renal-dose medications * Reassess renal function post-LHC 7. INFECTIOUS DISEASE Assessment * WBC 13.9 ( leukocytosis) * No fever * UA negative for UTI * No clear source Differentials: * Stress leukocytosis * Pneumonia (effusions) MRSA :- NEGATIVE Plan: * Blood cultures 2, SPUTUM Culture ordered. * WBC improving (12.9) * Start antibiotics ONLY if infectious source identified or clinical deterioration 8. ENDOCRINE A. DKA RESOLVED uncontrolled T2DM (A1c 10.7%) * AG closed * B-hydroxybutyrate decreasing (0.449 - 0.213) * Insulin drip off since 09/29 Plan: * Continue Lantus 15 units daily * Continue correctional insulin * Glucose goal [id number] B. Hypothyroidism Plan: * Continue levothyroxine 100 mcg daily 9. HEMATOLOGY Iron deficiency anemia + anemia of chronic disease Plan: * IV iron * Monitor CBC daily * Transfuse Hgb <7 MUSCULOSKELETAL / SKIN / WOUNDS s/p bilateral above-knee amputations * Left hip grade 1 ulcer * Left stump small superficial wound healing Plan: * oyster cultivator daily * Offloading * Zinc oxide barrier cream 10. PSYCHIATRY * Patient calm, cooperative * No acute psychiatric symptoms Plan: * Supportive care * Sleep hygiene 11. NUTRITION * Renal-friendly, cardiac, carbohydrate-controlled diet * Calorie counts * Consult nutrition if intake remains poor 12. LINES / TUBES * Valverde catheter (in place) * No central line * No PICC * No arterial line * No dialysis catheter 13. PROPHYLAXIS * DVT: Heparin 5000 units SQ q12h * GI: pantoprazole 40 PO * Fall & skin precautions * Pressure ulcer prevention 14. PT SOCIAL WORK * PT/OT evaluation ordered * Social work involved for long-term care planning CODE STATUS Full Code. Greater than 20 minutes spent discussing code status and goals of care with patient and family. Family at bedside; plan discussed with Dr. Blas. Case discussed in detail with the attending physician, including the clinical presentation, diagnostic workup, and comprehensive management plan. The patient was present for the discussion and demonstrated understanding of his condition and the proposed plan. Plan discussed with: Patient, Spouse, Other (RN) My Orders My Orders Orders - CLIFF BRUCE RESIDENT Procedure Category Date Status Time Glucose Blood PHA 10/01/25 In Process (Accu-Chek Comfort 11:30 Insulin R (Human) PHA 10/01/25 In Process (Insulin R) 11:30 Dextrose 50% Syringe PHA 10/01/25 In Process 09:30 Levothyroxine Tablet PHA 10/02/25 In Process (Synthroid Tablet) 06:00 D5w 5% (Dextrose 5%) PHA 10/01/25 In Process 15:30 Electrocardigram EKG 10/02/25 Logged 03:22 Albuterol Medneb PHA 10/02/25 In Process (Ventolin Medneb) 12:00 Ipratropium Medneb PHA 10/02/25 In Process (Atrovent Medneb) 12:00 Dietary Evaluation Review Comments: Nutrition Recommendation: 1) Nephro-thalia 1 tab daily, Musa 1 pk daily 2) Monitor PO intake, lab values, weight trend, and I/O Expected Outcomes/Goals: Wound to improve Intake to meet >75% estimated needs FU 3-5 days Date of Service: Oct 02, 2025 Billing Provider: ANDREW BLAS MD Common Visit Codes: 43256-[id number] INP/OBS CARE(HIGH) Secondary Visit Codes: 59235-[id number] CARE PLAN 30 MINUTES CLIFF BRUCE RESIDENT Oct 02, 2025 09:17 ANDREW BLAS MD Oct 03, 2025 11:27
--- NOTE | 2025-10-02 11:10 | DVHPN2 ---
Progress Note Date Seen: Oct 02, 2025 Has the PT tested + for MRSA If YES, has PT been informed?: No Medical Necessity Reason Pt with a Central, PICC or Fol: Yes The following are medically ne: Valverde Catheter Reason for valverde catheter: Strict I&O Subjective Review of Systems: RESPIRATORY:Abnormal Other Systems: Patient seen and examined by myself today in follow-up Objective vital signs Vital Sign Date Time Temp Pulse Resp B/P (MAP) Pulse Ox O2 Delivery O2 Flow Rate FiO2 10/02/25 09:48 90 144/87 10/02/25 09:00 98.0 22 91 98.0 10/02/25 08:00 Nasal Cannula* 4 36 Total Intake and Output 10/01/25 10/01/25 10/02/25 15:00 23:00 07:00 Intake Total 350 ml 1796.56 ml 746.556 ml Output Total 400 ml 400 ml Balance 350 ml 1396.56 ml 346.556 ml medications Current Medications Medications Dose Ordered Sig/Conrado Route Start Time Stop Time Status Last Admin Dose Admin Insulin Glargine 15 units DAILY SC 09/30/25 10:00 10/01/25 10:47 15 UNITS Ondansetron HCl 4 mg Q4HP PRN IV 09/29/25 12:30 Cancel Enoxaparin Sodium 40 mg DAILY SC 09/30/25 10:00 UNV Aspirin 81 mg DAILY PO 09/30/25 10:00 10/02/25 09:48 81 MG Metoprolol Succinate 50 mg DAILY PO 09/30/25 10:00 10/02/25 09:48 50 MG Heparin Sodium (Porcine) 5,000 units Q12HR SC 09/29/25 22:00 10/02/25 09:52 5,000 UNITS Atorvastatin Calcium 40 mg HS PO 09/29/25 22:00 10/01/25 21:40 40 MG Bumetanide 1 mg BIDD IV 09/30/25 10:30 10/02/25 06:45 1 MG Dopamine HCl/ Dextrose 250 ml @ 2.213 mls/ hr Q24H IV 09/30/25 14:45 09/30/25 16:01 2.213 MLS/HR Diagnostic Test (Pha) 1 strip ACHS 10/01/25 11:30 10/02/25 06:45 1 STRIP Insulin Human Regular ACHS SC 10/01/25 11:30 10/01/25 12:29 2 UNITS Dextrose 50 ml UD PRN IV 10/01/25 09:30 Levothyroxine Sodium 100 mcg QAM@0600 PO 10/02/25 06:00 Dextrose 1,000 ml @ 60 mls/hr [id number] IV 10/01/25 15:30 10/02/25 15:15 10/01/25 16:34 60 MLS/HR Enteral Nutritional Formula 240 ml TIDWM PO 10/02/25 17:00 Albuterol 2.5 mg Q6HWA [facility] 10/02/25 12:00 Ipratropium [place] 0.5 mg Q6HWA [facility] 10/02/25 12:00 Examination: LUNGS:Normal, CVS:Normal, MSK:Abnormal laboratory and microbiology Laboratory Tests 10/02/25 05:11 Test 10/02/25 05:11 Range/Units Serum Glucose 109 H 74-106 mg/dL Microbiology Date/Time Source Procedure Growth Status 09/29/25 20:30 Nose MRSA Screen - Final Complete Problem List/Assessment/Plan Problem List/Assessment/Plan Acute kidney injury superimposed Chronic Kidney Disease secondary hemodynamic mediated, feNa < 1% Acute respiratory failure, O2 supplement Congestive heart failure exacerbation NSTEMI Diabetes mellitus type 2, controlled Diabetic ketoacidosis Nonobstructing kidney stone Hypertension Peripheral arterial disease Bilateral below knee amputation Anemia of chronic kidney disease Hypernatremia due to dehydration Recommendations Kidney function slightly improving Increased urine output Strict I&Os Kidney ultrasound reported nonobstructing kidney stone Insulin sliding scale Low-dose dopamine Bumex 1 mg IV b.i.d. KCL replacement Cardiology consult We will continue to follow Plan discussed with: Patient Dietary Evaluation Review Comments: Nutrition Recommendation: 1) Nephro-thalia 1 tab daily, Musa 1 pk daily 2) Monitor PO intake, lab values, weight trend, and I/O Expected Outcomes/Goals: Wound to improve Intake to meet >75% estimated needs FU 3-5 days JEN JAIMES MD Oct 02, 2025 11:10
[2025-10-02] MEDS: ALBUTEROL SULF 2.5 MG/0.5ML(0.5%) NEB SOLN NEB SCH (11:29)
[2025-10-02] MEDS: IPRATROPIUM BROM 0.5 MG/2.5ML INH SOL NEB SCH (11:29)
[2025-10-02] MEDS: HEPARIN SODIUM (PORCINE) 5000 UNITS/ML 1ML VIAL ONE (14:38)
[2025-10-02] MEDS: MIDAZOLAM HCL 2MG/2ML 2ml VIAL (1mg/ml) ONE (14:39)
[2025-10-02] MEDS: fentaNYL CITRATE 100 MCG/2 ML VL ONE (14:40)
[2025-10-02] MEDS: ANGIOMAX 250 MG VIAL IV ONE (14:40)
[2025-10-02] MEDS: LIDOCAINE 2%HCL (LOCAL ANESTH.) INJ 20ML MDV ONE (14:40)
[2025-10-02] MEDS: VERAPAMIL 2.5MG/ML INJ 2ML VIAL IV ONE (14:40)
[2025-10-02] MEDS: SODIUM CHL 0.9% 0 ML ONE (14:41)
--- NOTE | 2025-10-02 16:20 | DVHOP2 ---
Operative Report - 2 Report Details Date: 10/02/25 Preop Diagnosis: ACUTE CORONARY SYNDROME Postop Diagnosis: THREE-VESSEL SIGNIFICANT NOTED PULMONARY DISEASE Surgeon: Estefanía Giordano MD Anesthesiologist: Moderate sedation Anesthesia: Local Consent: The patient was informed of the risks and benefits of the procedure. These include but are not limited to complications of anesthesia, postoperative infection, incomplete relief of symptoms, recurrence of symptoms, damage to blood vessels, nerves and tendons, deep venous thrombosis, pulmonary embolism and possible need for repeat surgery in the future. Complications: NONE APPARENT Estimated Blood Loss: 10 CC Findings: HEMODYNAMICS AORTIC OPENING PRESSURE: ANGIOGRAPHIC FINDINGS; Dominance: Right Left main coronary artery (LM): There was no significant stenosis. Gives rise to LAD and LCX. There is FRANCISCO three flow Left anterior descending coronary artery (LAD): Heavily calcified vessel with diffuse disease. There is 80% calcific stenosis proximally of the bifurcation of 1st diagonal. Distal segments has multifocal calcific stenoses. Diagonal branches are diffusely diseased and small coronaries. There is FRANCISCO three flow Left circumflex coronary artery (LCX): Calcified vessel. There is 95% calcified stenosis of ostial 1st obtuse marginal gives rise to two branches that are diffusely diseased. OM2 has sequential significant stenosis mid to distal segments. There was FRANCISCO three flow Right coronary artery (RCA): Dominant coronary that is heavily calcified. There is significant calcific 80% stenosis proximal to mid segment. rPLV and are rPDA coronaries are diffusely diseased. There is TIMI3 flow Summary: - significant [place] three-vessel coronary artery disease involving heavily calcified LAD, left circumflex and RCA - normal left ventricle end-diastolic pressure - right radial arteriotomy hemostasis wire TR vent Recommendations: - cardiac surgery consultation for evaluation for candidacy for Coronary bypass grafting - the patient is not found to be a surgical candidate it would be a high-risk and possibly MCS (Impella assisted) intervention - hold PT wire went to inhibitor while pending CT surgery consultation - continue aspirin and low-dose statin Indications for Surgery: Acute coronary syndrome (ACS) Name of Procedure Performed Left heart catheterization Selective left and right coronary angiography Interpretation of the angiographic images Procedure Details Procedure Details: Informed consent was obtained. Patient was brought to laboratory director and prepped and draped in standard sterile fashion. 1% lidocaine was injected to the right wrist. Right radial artery was accessed and a six [place] arterial sheath was placed. Next a six [place] J R4 diagnostic catheter was used to engage the right coronary system and final angiographic images were obtained. Six [place] JL three point diagnostic catheter was then used to engage left coronary system and started gradually and preserved. Left ventricular was access wire diagnostic catheter and pressures were measured. After all catheter and wires were removed hemostasis of right radial artery was achieved using TR band Condition Fair Disposition Still a Patient Date of Service: Oct 02, 2025 Billing Provider: ESTEFANÍA GIORDANO MD Cardiology Common Codes: 84439-VJPFOXQ INP/OBS CARE (High) Cardiology Procedure Codes: 09363-BCRA HEART CATH W/INTRA INJ ESTEFANÍA GIORDANO MD Oct 02, 2025 16:20
[2025-10-02] MEDS: Ensure HIGH Protein Chocolate 8oz Bottle PO SCH (17:00)
--- NOTE | 2025-10-02 17:09 | DVHPN2 ---
Progress Note Date Seen: Oct 02, 2025 Resident Creating Document: JULIAN ROTHMAN RESIDENT Has the PT tested + for MRSA If YES, has PT been informed?: No Medical Necessity Reason Pt with a Central, PICC or Fol: Yes The following are medically ne: Avlverde Catheter Reason for valverde catheter: Strict I&O Subjective Review of Systems 75-year-old male who is hospital course has been prolonged secondary to acute on chronic systolic heart failure exacerbation, EF 25%, NSTEMI, severe pulmonary hypertension, nausea and vomiting and LEXA superimposed on CKD Reports chronic nausea and vomiting, loss of appetite and early satiety. He reports having EGD/colonoscopy almost 10 years back. Does not know the findings. Patient is planned to undergo left heart catheterization. Patient reports: No new complaints Changes from previous H/P or p: No Changes Objective vital signs Vital Sign Date Time Temp Pulse Resp B/P (MAP) Pulse Ox O2 Delivery O2 Flow Rate FiO2 10/02/25 13:01 98.2 84 20 117/91 (100) 93 98.2 10/02/25 10:00 Nasal Cannula 4.0 10/02/25 10:00 36 Total Intake and Output 10/01/25 10/01/25 10/02/25 15:00 23:00 07:00 Intake Total 350 ml 1796.56 ml 746.556 ml Output Total 400 ml 400 ml Balance 350 ml 1396.56 ml 346.556 ml medications Current Medications Medications Dose Ordered Sig/Conrado Route Start Time Stop Time Status Last Admin Dose Admin Insulin Glargine 15 units DAILY SC 09/30/25 10:00 10/01/25 10:47 15 UNITS Ondansetron HCl 4 mg Q4HP PRN IV 09/29/25 12:30 Cancel Enoxaparin Sodium 40 mg DAILY SC 09/30/25 10:00 UNV Aspirin 81 mg DAILY PO 09/30/25 10:00 10/02/25 09:48 81 MG Metoprolol Succinate 50 mg DAILY PO 09/30/25 10:00 10/02/25 09:48 50 MG Heparin Sodium (Porcine) 5,000 units Q12HR SC 09/29/25 22:00 10/02/25 09:52 5,000 UNITS Atorvastatin Calcium 40 mg HS PO 09/29/25 22:00 10/01/25 21:40 40 MG Bumetanide 1 mg BIDD IV 09/30/25 10:30 10/02/25 06:45 1 MG Dopamine HCl/ Dextrose 250 ml @ 2.213 mls/ hr Q24H IV 09/30/25 14:45 09/30/25 16:01 2.213 MLS/HR Diagnostic Test (Pha) 1 strip ACHS 10/01/25 11:30 10/02/25 11:10 1 STRIP Insulin Human Regular ACHS SC 10/01/25 11:30 10/01/25 12:29 2 UNITS Dextrose 50 ml UD PRN IV 10/01/25 09:30 Levothyroxine Sodium 100 mcg QAM@0600 PO 10/02/25 06:00 Enteral Nutritional Formula 240 ml TIDWM PO 10/02/25 17:00 Albuterol 2.5 mg Q6HWA NEB 10/02/25 12:00 10/02/25 11:29 2.5 MG Ipratropium [place] 0.5 mg Q6HWA NEB 10/02/25 12:00 10/02/25 11:29 0.5 MG Tamsulosin HCl 0.4 mg QPM PO 10/02/25 18:00 Finasteride 5 mg DAILY PO 10/03/25 10:00 Examination Thin frail-appearing elderly male lying in the bed comfortably, well conversational General: Thin, afebrile, palor, mucosae are moist Cardiovascular: Regular S1 and S2. No murmurs, gallops or rubs. No JVD elevation. No pedal edema Respiratory: Decreased breath sounds, heard on auscultation, Abdomen: Soft, nontender, nondistended, normoactive bowel sounds, no rebound tenderness, no organomegaly, no masses Genitourinary: Deferred MSK/skin: Mobilizes 4 limbs. Skin is dry and warm laboratory and microbiology Laboratory Tests 10/02/25 05:11 Test 10/02/25 05:11 Range/Units Serum Glucose 109 H 74-106 mg/dL Microbiology Date/Time Source Procedure Growth Status 09/29/25 20:30 Nose MRSA Screen - Final Complete Labs and/or images reviewed: Labs reviewed by me, Image(s) reviewed by me Problem List/Assessment/Plan Problem List/Assessment/Plan Early satiety, chronic nausea and vomiting Unintentional weight loss / rule out malignancy Anemia likely iron-deficiency Acute on chronic systolic CHF exacerbation-EF 25% Rule out ischemic cardiomyopathy NSTEMI type 1 versus type 2 Severe pulmonary hypertension Acute kidney injury superimposed on CKD Diabetic ketoacidosis resolving Severe prostatomegaly Plan: Recommendation: Dr. Rivera Patient undergoing left heart catheterization today. Given the NSTEMI and acute kidney injury, patient is not a suitable candidate for any GI intervention at this time. He will benefit from upper and lower endoscopy once medically stabilized. We will continue to follow up. BUN/creatinine improving, nephrology recommendations appreciated Recommend IV iron supplementation, 10/01 and 10/02 Iron profile shows iron- deficiency anemia CT abdomen without contrast shows prostatomegaly severe, severe atherosclerotic disease with diffuse calcification. Nodular soft tissue thickening and anterior abdominal wall. Moderate bilateral pleural effusion. Avoid NSAIDs Recommend high-protein ensure We will continue to follow up Thank you for consulting GI Plan discussed with Dr. Rivera Plan discussed with: Patient My Orders My Orders Orders - JULIAN ROTHMAN Procedure Category Date Status Time Nutritional PHA 10/02/25 In Process Supplements (Ensure 17:00 Ct Ab Pel Wo Con-No CT 10/02/25 Resulted Oral Or Iv 18:01 Dietary Evaluation Review Comments: Nutrition Recommendation: 1) Nephro-thalia 1 tab daily, Musa 1 pk daily 2) Monitor PO intake, lab values, weight trend, and I/O Expected Outcomes/Goals: Wound to improve Intake to meet >75% estimated needs FU 3-5 days JULIAN ROTHMAN RESIDENT Oct 02, 2025 17:09
[2025-10-02] MEDS: TAMSULOSIN HYDROCHLORIDE 0.4 MG CAP PO SCH (18:39)
[2025-10-02] MEDS: ACETAMINOPHEN 325 MG TAB PO PRN (22:45)
[2025-10-03] VITALS (18 sets, daily range): BP systolic 124–149; BP diastolic 65–83; PULSE 79–91; RESP 16–20; TEMP 97.6–99.1; O2SAT 90–96
[2025-10-03 06:13] LABS: Hematocrit 30.5 % (41.0-53.0); Hemoglobin 9.8 g/dL (13.5-17.5); Mean Corpuscular Hemoglobin 24.4 pg (28.0-32.0); Mean Corpuscular Volume 76.3 fL (80.0-100.0); Nucleated Red Blood Cells % 0.0 %
[2025-10-03 06:27] LABS: Alanine Aminotransferase 20 U/L (7-40); Albumin 3.5 g/dL (3.2-4.8); Anion Gap 11 (5-15); BUN/Creatinine Ratio 27.3 (10.0-20.0); Bilirubin, Total 1.0 mg/dL (0.2-1.0); Carbon Dioxide 29 mmol/L (20-31); Chloride 105 mmol/L (98-107); Glucose 91 mg/dL (74-106); Magnesium 2.2 mg/dL (1.6-2.6); Potassium 3.7 mmol/L (3.5-5.1); Sodium 145 mmol/L (136-145); Total Protein 6.5 g/dL (5.7-8.2)
[2025-10-03 06:28] LABS: Alkaline Phosphatase 140 U/L (46-116); Blood Urea Nitrogen 78 mg/dL (9-23); Calcium 8.4 mg/dL (8.7-10.4)
[2025-10-03 06:55] LABS: Base Excess 3.2 mmol/L (-2.0-3.0)
[2025-10-03] MEDS: FINASTERIDE 5 MG TAB PO SCH (09:09)
--- NOTE | 2025-10-03 09:36 | DVHPNRES ---
Progress Note Date Seen: Oct 03, 2025 Resident Creating Document: CLIFF BRUCE RESIDENT Has the PT tested + for MRSA If YES, has PT been informed?: No Medical Necessity Reason Pt with a Central, PICC or Fol: Yes The following are medically ne: Valverde Catheter Reason for valverde catheter: Strict I&O Subjective Review of Systems 75-year-old male presents to the ED via EMS with complaint of hyperglycemia. He reports persistent elevated blood glucose readings over the past several days associated with nausea, vomiting, poor appetite, and unintentional weight loss for approximately three weeks. He states this symptoms feel similar to prior episodes of DKA. He denies dizziness, syncope, chest pain, palpitations, shortness of breath, fevers, or other acute symptoms. In the ED, initial lab shows a serum glucose of 409 mg/dL, an anion gap of 20, CO2 of 22, creatinine 3.54 with a GFR of 17, and elevated high sensitivity troponins trending from [id number]. Significant past medical history includes PAD status post bilateral AKA, diabetes type 2, hypertension, CKD, anemia of chronic disease. Past Medical History * Type 2 diabetes mellitus, uncontrolled (HbA1c 10.7%) * Chronic kidney disease (baseline Cr ~3.2) * LEXA on CKD * Peripheral arterial disease s/p bilateral above-knee amputations * Hypertension * HFrEF (prior EF 4550%), now EF 25% * Chronic anemia of CKD/iron deficiency * Pulmonary embolism (prior) * Severe pulmonary hypertension (RVSP 6570 mmHg) * Cavitary lung lesion (remote) Past Surgical History * Bilateral above-knee amputations Past Social History * Former smoker: 20 years, quit 5 years ago * Quit alcohol 15 years ago * Lives with family * No illicit drug use 09/30/25 * Patient downgraded from ICU to TELE. * On 3 L nasal cannula, FiO2 3032%, saturating 83269%, no work of breathing. * Nausea/vomiting improving, but weight loss suspected to be chronic ? GI consult placed today. * Troponins continue to trend upward and now downtrending without chest pain; cardiology following for NSTEMI type 1 vs type 2 demand ischemia and CHF exacerbation. * Echocardiogram (yesterday): EF 25%, global hypokinesis, moderatesevere RV dysfunction, severe pulmonary hypertension (RVSP 6570 mmHg). * LEXA persists: Cr 3.33 (baseline ~3.28), UOP 0.35 mL/kg/hr. * Hypernatremia (148) improving slowly with D5W per nephrology. * EKG: Sinus rhythm with nonspecific anterior/inferior/lateral repolarization abnormalities; QT prolonged ? Zofran avoided. * Started DuoNeb Q6H, chest physiotherapy, chest X-ray ordered. * GI consulted for chronic nausea, vomiting, weight loss. 10/01/25 This 75-year-old male with history of CKD stage 45, acute on chronic systolic heart failure (EF 25%), severe pulmonary hypertension, PAD s/p bilateral above- knee amputations, T2DM (A1c 10.7%), recent DKA (resolved), history of PE, and poor PO intake continues to report severe anorexia, unable to tolerate solids, only tolerated a peach today. He denies chest pain. Mild shortness of breath persists. He has had fluctuating tachycardia (max 151 bpm), mild hypoxia (SpO2 9097% on 2 L NC), and worsening pulmonary congestion on chest X-ray compared to 09/29. WBC count continues to improve. He remains afebrile.The patient and the Family has now given informed consent for coronary angiography with left heart catheterization scheduled for tomorrow because the procedure is tomorrow morning, D5W is being continued at 60 mL/hr for procedure. Fluid plan will be re-evaluated post-procedure depending on renal function and volume status. GI consult is still pending for persistent nausea, poor intake, and weight loss. 10/02/25 The patient undergoing coronary angiography with left heart catheterization today. Hypoxia episode today: While on 3 L NC, SpO2 transiently dropped to 70s. He was placed on 4 L NC, now stabilizing between 8890%. RR remains 1420. GI was consulted yesterday and plans EGD + colonoscopy once medically optimized. They also recommend Ensure High Protein TID for nutritional supplementation. Valverde catheter continues leaking despite replacement; bladder scan shows 8 mL consistent with severe BPH causing leakage around the catheter. Urology medications Flomax + Finasteride ordered. D5W discontinued due to adequate sodium correction and worsening pulmonary congestion. Patient started on PO liquids + renal diabetic cardiac low sodium diet. Abdominal CT (non-contrast) reveals: * Severe atherosclerotic disease * Severe prostatomegaly * Valverde catheter in bladder but incompletely decompressing bladder. * Nodular soft tissue thickening anterior abdominal wall (due to prior insulin injection sites) * Moderate bilateral pleural effusions 10/03/25 Overnight, he developed worsening hypoxia requiring BiPAP, with transient improvement. Today, oxygen needs remain elevated, and he is currently on an Oxymizer at 8 L/min because of fluctuating saturations 8691%. He denies chest pain but reports persistent weakness, fatigue, poor appetite, and inability to tolerate solid foods. No bowel movement reported for several days. Mild abdominal discomfort without vomiting. He is hemodynamically stable but remains volume positive. The patient underwent left & right coronary angiography yesterday, revealing severe triple-vessel disease with heavily calcified lesions: * LAD ~80% stenosis * Left circumflex ~95% stenosis * RCA ~80% stenosis * Severe calcifications, poor PCI candidacy Cardiology recommends: * CT surgery evaluation for CABG * But patient is NOT an ideal surgical candidate due to frailty, CKD, HFrEF, severe comorbidities * May require mechanical circulatory support (Impella/MCS) * Hold P2Y12 inhibitors until CT surgery decision A higher-level transfer to [place] was initiated and is still pending. Valverde catheter continues to leak despite repositioning and replacement, consistent with severe BPH. No BM today. Abdominal X-ray ordered to rule out obstruction. If normal start Miralax and continue GI plan. Objective vital signs Vital Sign Date Time Temp Pulse Resp B/P (MAP) Pulse Ox O2 Delivery O2 Flow Rate FiO2 10/03/25 09:09 91 131/83 10/03/25 09:00 98.3 17 90 98.3 10/03/25 06:18 Nasal Cannula* 4 36 Total Intake and Output 10/02/25 10/02/25 10/03/25 15:00 23:00 07:00 Intake Total 360 ml 100 ml Output Total 550 ml 200 ml Balance -190 ml -100 ml medications Current Medications Medications Dose Ordered Sig/Conrado Route Start Time Stop Time Status Last Admin Dose Admin Insulin Glargine 15 units DAILY SC 09/30/25 10:00 10/03/25 09:10 15 UNITS Ondansetron HCl 4 mg Q4HP PRN IV 09/29/25 12:30 Cancel Enoxaparin Sodium 40 mg DAILY SC 09/30/25 10:00 UNV Aspirin 81 mg DAILY PO 09/30/25 10:00 10/03/25 09:09 81 MG Metoprolol Succinate 50 mg DAILY PO 09/30/25 10:00 10/03/25 09:09 50 MG Heparin Sodium (Porcine) 5,000 units Q12HR SC 09/29/25 22:00 10/03/25 09:10 5,000 UNITS Atorvastatin Calcium 40 mg HS PO 09/29/25 22:00 10/02/25 21:08 40 MG Bumetanide 1 mg BIDD IV 09/30/25 10:30 10/03/25 06:28 1 MG Dopamine HCl/ Dextrose 250 ml @ 2.213 mls/ hr Q24H IV 09/30/25 14:45 09/30/25 16:01 2.213 MLS/HR Diagnostic Test (Pha) 1 strip ACHS 10/01/25 11:30 10/03/25 06:28 1 STRIP Insulin Human Regular ACHS SC 10/01/25 11:30 10/02/25 21:12 3 UNITS Dextrose 50 ml UD PRN IV 10/01/25 09:30 Levothyroxine Sodium 100 mcg QAM@0600 PO 10/02/25 06:00 10/03/25 06:28 100 MCG Enteral Nutritional Formula 240 ml TIDWM PO 10/02/25 17:00 Albuterol 2.5 mg Q6HWA [facility] 10/02/25 12:00 10/03/25 06:18 2.5 MG Ipratropium [place] 0.5 mg Q6HWA [facility] 10/02/25 12:00 10/03/25 06:18 0.5 MG Tamsulosin HCl 0.4 mg QPM PO 10/02/25 18:00 10/02/25 18:39 0.4 MG Finasteride 5 mg DAILY PO 10/03/25 10:00 10/03/25 09:09 5 MG Acetaminophen 650 mg Q6HP PRN PO 10/02/25 20:45 10/02/25 22:45 650 MG Examination * General: Ill-appearing, fatigued, mild respiratory distress * HEENT: Moist mucosa * Neck: No JVD * Heart: Tachycardic, regular, no murmurs * Lungs: Crackles bilaterally; diminished at bases * Abdomen: Soft, non-tender, no distention; hypoactive bowel sounds * : Valverde catheter leaking; BPH * Skin: Insulin-related subcutaneous nodules in abdomen * Neuro: A&O3; no focal deficits * Extremities: Bilateral AKAs laboratory and microbiology Laboratory Tests 10/03/25 04:45 Test 10/03/25 04:45 Range/Units Serum Glucose 91 74-106 mg/dL Microbiology Date/Time Source Procedure Growth Status 09/29/25 20:30 Nose MRSA Screen - Final Complete Problem List/Assessment/Plan Problem List/Assessment/Plan 1. NEUROLOGY Assessment * No sedation * No delirium * No focal deficits Plan * Avoid sedatives * Maintain normal oxygenation and glucose 2. CARDIOVASCULAR A. Acute on chronic systolic HF (HFrEF), EF 25%, NYHA Class IIIACUTE DECOMPENSATION Differentials: Ischemic cardiomyopathy, Tachyarrhythmia, Volume overload, Myocardial injury Plan: * Continue Bumex 1 mg IV BID * Continue metoprolol succinate 50 mg daily * Avoid MYNOR/ARB/ARNI/SGLT2 due to LEXA and hypernatremia * Fluid restriction 1.5 L/day * Repeat CXR tomorrow * Strict I/Os and daily weights * Cardiology following B. Elevated troponins NSTEMI Type 1 vs Type 2 demand ischemia Severe triple-vessel coronary artery disease (LAD 80%, LCx 95%, RCA 80%) * Troponin rising to 3924 now downtrending * EKG: Sinus rhythm with repolarization abnormalities * No chest pain * High surgical risk for CABG * CT surgery consult pending * Needs advanced cardiac center ([place]) * Hold P2Y12 until surgical decision Plan: * Continue Aspirin 81 mg * Continue Atorvastatin 40 mg * Maintain Metoprolol * Await CT surgery evaluation * Transfer request to [place] continue escalation Continue heparin 5000 units SC Q12h, atorvastatin 40 mg po hs * Telemetry monitoring * Repeat troponin trending C. Severe pulmonary hypertension (RVSP 6570 mmHg) Plan: * Maintain oxygenation * Avoid fluid overload * (left-sided HF likely) Peripheral arterial disease s/p bilateral above-knee amputations Hypertension Continue metoprolol succinate 50 mg daily 3. RESPIRATORY SYSTEM Assessment * Pleural effusions due to CHF Exercabation * Acute hypoxic respiratory failure * RLL atelectasis * Mild hypoxemia Plan * Continue Oxymizer 8 L * BiPAP PRN if SpO2 < 88% or RR > 22 * Continue DuoNeb Q6H * Chest physiotherapy * Daily pulse oximetry * Follow-up CXR 4. GASTROINTESTINAL Assessment * Chronic nausea/vomiting * Weight loss several months * Risk for gastroparesis vs malignancy vs chronic GI dysmotility * Severe constipation * No BM for several days Plan * GI planning EGD + colonoscopy once stable * Abdominal X-ray today * If NO obstruction. Start Miralax BID * If obstruction suspected hold laxatives * Continue Ensure High Protein TID * PO clear liquids, renal diabetic , cardiac, low Na diet * * GI consult pending * Avoid Zofran due to QT prolongation * Monitor for bowel movement 5. GENITOURINARY Severe BPH causing catheter malfunction and retention * Leak around catheter; bladder scan 8 mL Plan: * Continue Valverde for strict I/Os * Monitor UA and cultures * Start Flomax + Finasteride * Avoid nephrotoxic medications 6. RENAL (NEPHROLOGY) Acute Kidney Injury due to VMN with superimposed CKD (Stage 45), hemodynamically mediated, Low urinary sodium:- improving AG METABOLIC ACIDOSIS RESOLVED hypernatremia Improving metabolic alkalosis Right sided Nephrolithiasis non obstructive Plan: * Nephrology following * Hold fluids worsening pulmonary edema * Continue dopamine 0.99 * Avoid MYNOR inhibitors, ARBs, NSAIDs, Continue Bumex 1mg IV BIDD * Daily BMP * Strict I/Os * Renal-dose medications * Reassess renal function post-LHC 7. INFECTIOUS DISEASE Assessment * WBC 13.9 ( leukocytosis) * No fever * UA negative for UTI * No clear source Differentials: * Stress leukocytosis * Pneumonia (effusions) MRSA :- NEGATIVE Plan: * Blood cultures 2, SPUTUM Culture ordered. * WBC improving (12.9) * Start antibiotics ONLY if infectious source identified or clinical deterioration 8. ENDOCRINE A. DKA RESOLVED uncontrolled T2DM (A1c 10.7%) * AG closed * B-hydroxybutyrate decreasing (0.449 - 0.213) * Insulin drip off since 09/29 Plan: * Continue Lantus 15 units daily * Continue correctional insulin * Glucose goal [id number] B. Hypothyroidism Plan: * Continue levothyroxine 100 mcg daily 9. 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 PSYCHIATRY * Patient calm, cooperative * No acute psychiatric symptoms Plan: * Supportive care * Sleep hygiene 11. NUTRITION * Renal-friendly, cardiac, carbohydrate-controlled diet * Calorie counts * Consult nutrition placed today. 12. LINES / TUBES * Valverde catheter (in place) * No central line * No PICC * No arterial line * No dialysis catheter 13. PROPHYLAXIS * DVT: Heparin 5000 units SQ q12h * GI: pantoprazole 40 PO * Fall & skin precautions * Pressure ulcer prevention 14. PT SOCIAL WORK * PT/OT evaluation ordered * Social work involved for transfer to [facility] For higher level of care. CRITICAL CARE TIME A total of 83 minutes of critical care time was spent today in the evaluation, management, data review, coordination of care, and direct bedside care of this critically ill patient, excluding procedures. CODE STATUS Full Code. Greater than 20 minutes spent discussing code status and goals of care with patient and family. Family at bedside; plan discussed with Dr. Willard. Case discussed in detail with the attending physician , including the clinical presentation, diagnostic workup, and comprehensive management plan. The patient was present for the discussion and demonstrated understanding of his condition and the proposed plan. Plan discussed with: Spouse, Other (RN) My Orders My Orders Orders - CLIFF BRUCE RESIDENT Procedure Category Date Status Time Abg W/ Co-Ox RT 10/03/25 Logged 04:00 Chest Xray 1 View XY 10/03/25 Logged 09:26 Dietary Evaluation Review Comments: Nutrition Recommendation: 1) Nephro-thalia 1 tab daily, Musa 1 pk daily 2) Monitor PO intake, lab values, weight trend, and I/O Expected Outcomes/Goals: Wound to improve Intake to meet >75% estimated needs FU 3-5 days CLIFF BRUCE RESIDENT Oct 03, 2025 09:36
--- NOTE | 2025-10-03 10:12 | DVH ---
EXAM DESCRIPTION: Chest 1 View CLINICAL HISTORY: CHF Exercabation COMPARISON: XY CHEST XRAY 1 VIEW on DOS: 10/01/25, XY CHEST PORTABLE on DOS: 09/29/25, XY CHEST PORTABLE on DOS: 02/01/23, CXR1 on DOS: 08/11/22, CXRP on DOS: 07/24/21 FINDINGS and IMPRESSION: Lines, tubes, and support devices: None. Lungs / Pleura: Right lower lobe atelectasis. Pulmonary edema. Large right and possible small left pleural effusions. No pneumothorax. Mediastinum: Redemonstrated enlarged cardiomediastinal silhouette. Osseous structures / Soft tissues: No acute findings.
--- NOTE | 2025-10-03 11:25 | DVHPN2 ---
Progress Note Date Seen: Oct 03, 2025 Has the PT tested + for MRSA If YES, has PT been informed?: No Medical Necessity Reason Pt with a Central, PICC or Fol: Yes The following are medically ne: Valverde Catheter Reason for valverde catheter: Bladder Retention/Obstruc, Strict I&O Subjective Patient reports: Feels better Objective vital signs Vital Sign Date Time Temp Pulse Resp B/P (MAP) Pulse Ox O2 Delivery O2 Flow Rate FiO2 10/03/25 10:00 92 Oxymizer 8 N/A 10/03/25 09:09 91 131/83 10/03/25 09:00 98.3 17 98.3 Total Intake and Output 10/02/25 10/02/25 10/03/25 15:00 23:00 07:00 Intake Total 360 ml 100 ml Output Total 550 ml 200 ml Balance -190 ml -100 ml medications Current Medications Medications Dose Ordered Sig/Conrado Route Start Time Stop Time Status Last Admin Dose Admin Insulin Glargine 15 units DAILY SC 09/30/25 10:00 10/03/25 09:10 15 UNITS Ondansetron HCl 4 mg Q4HP PRN IV 09/29/25 12:30 Cancel Enoxaparin Sodium 40 mg DAILY SC 09/30/25 10:00 UNV Aspirin 81 mg DAILY PO 09/30/25 10:00 10/03/25 09:09 81 MG Metoprolol Succinate 50 mg DAILY PO 09/30/25 10:00 10/03/25 09:09 50 MG Heparin Sodium (Porcine) 5,000 units Q12HR SC 09/29/25 22:00 10/03/25 09:10 5,000 UNITS Atorvastatin Calcium 40 mg HS PO 09/29/25 22:00 10/02/25 21:08 40 MG Bumetanide 1 mg BIDD IV 09/30/25 10:30 10/03/25 06:28 1 MG Dopamine HCl/ Dextrose 250 ml @ 2.213 mls/ hr Q24H IV 09/30/25 14:45 09/30/25 16:01 2.213 MLS/HR Diagnostic Test (Pha) 1 strip ACHS 10/01/25 11:30 10/03/25 06:28 1 STRIP Insulin Human Regular ACHS SC 10/01/25 11:30 10/02/25 21:12 3 UNITS Dextrose 50 ml UD PRN IV 10/01/25 09:30 Levothyroxine Sodium 100 mcg QAM@0600 PO 10/02/25 06:00 10/03/25 06:28 100 MCG Albuterol 2.5 mg Q6HWA [facility] 10/02/25 12:00 10/03/25 06:18 2.5 MG Ipratropium [place] 0.5 mg Q6HWA [facility] 10/02/25 12:00 10/03/25 06:18 0.5 MG Tamsulosin HCl 0.4 mg QPM PO 10/02/25 18:00 10/02/25 18:39 0.4 MG Finasteride 5 mg DAILY PO 10/03/25 10:00 10/03/25 09:09 5 MG Acetaminophen 650 mg Q6HP PRN PO 10/02/25 20:45 10/02/25 22:45 650 MG Enteral Nutritional Formula 240 ml TIDWM PO 10/03/25 18:00 Examination: GENERAL:Abnormal, LUNGS:Abnormal, CVS:Abnormal laboratory and microbiology Laboratory Tests 10/03/25 04:45 Test 10/03/25 04:45 Range/Units Serum Glucose 91 74-106 mg/dL Microbiology Date/Time Source Procedure Growth Status 09/29/25 20:30 Nose MRSA Screen - Final Complete Problem List/Assessment/Plan Problem List/Assessment/Plan Acute kidney injury superimposed Chronic Kidney Disease secondary hemodynamic mediated, feNa < 1% Acute respiratory failure, O2 supplement Congestive heart failure exacerbation NSTEMI s/p [facility] 10/02 shows multivessel disease Diabetes mellitus type 2 Nonobstructing kidney stone Hypertension Peripheral arterial disease Bilateral below knee amputation Anemia of chronic kidney disease Recommendations slight cr elevation suspect this is contrast replaced Strict I&Os Kidney ultrasound reported nonobstructing kidney stone, large prostate, keep valverde. leaking around valverde reported despite replacement however given large size prostate and challenge of placement will hold off on increasing valverde size Low-dose dopamine Bumex 1 mg IV b.i.d. KCL replacement Cardiology consult post cath recs CABG eval pending transfer Plan discussed with: Patient Dietary Evaluation Review Comments: Nutrition Recommendation: 1) Nephro-thalia 1 tab daily, Musa 1 pk daily 2) Monitor PO intake, lab values, weight trend, and I/O Expected Outcomes/Goals: Wound to improve Intake to meet >75% estimated needs FU 3-5 days KIMBERLY LEES MD Oct 03, 2025 11:25
[2025-10-03] MEDS: IRON SUCROSE COMPLEX 110 ML IV ONE (12:00)
--- NOTE | 2025-10-03 12:09 | DVHPN2 ---
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 Patient denies any cardiac symptoms at time of assessment Patient is on 8 L Oxymizer Objective vital signs Vital Sign Date Time Temp Pulse Resp B/P (MAP) Pulse Ox O2 Delivery O2 Flow Rate FiO2 10/03/25 10:00 92 Oxymizer 8 N/A 10/03/25 09:09 91 131/83 10/03/25 09:00 98.3 17 98.3 Total Intake and Output 10/02/25 10/02/25 10/03/25 15:00 23:00 07:00 Intake Total 360 ml 100 ml Output Total 550 ml 200 ml Balance -190 ml -100 ml medications Current Medications Medications Dose Ordered Sig/Conrado Route Start Time Stop Time Status Last Admin Dose Admin Insulin Glargine 15 units DAILY SC 09/30/25 10:00 10/03/25 09:10 15 UNITS Ondansetron HCl 4 mg Q4HP PRN IV 09/29/25 12:30 Cancel Enoxaparin Sodium 40 mg DAILY SC 09/30/25 10:00 UNV Aspirin 81 mg DAILY PO 09/30/25 10:00 10/03/25 09:09 81 MG Metoprolol Succinate 50 mg DAILY PO 09/30/25 10:00 10/03/25 09:09 50 MG Heparin Sodium (Porcine) 5,000 units Q12HR SC 09/29/25 22:00 10/03/25 09:10 5,000 UNITS Atorvastatin Calcium 40 mg HS PO 09/29/25 22:00 10/02/25 21:08 40 MG Bumetanide 1 mg BIDD IV 09/30/25 10:30 10/03/25 06:28 1 MG Dopamine HCl/ Dextrose 250 ml @ 2.213 mls/ hr Q24H IV 09/30/25 14:45 09/30/25 16:01 2.213 MLS/HR Diagnostic Test (Pha) 1 strip ACHS 10/01/25 11:30 10/03/25 11:30 1 STRIP Insulin Human Regular ACHS SC 10/01/25 11:30 10/03/25 11:56 2 UNITS Dextrose 50 ml UD PRN IV 10/01/25 09:30 Levothyroxine Sodium 100 mcg QAM@0600 PO 10/02/25 06:00 10/03/25 06:28 100 MCG Albuterol 2.5 mg Q6HWA [facility] 10/02/25 12:00 10/03/25 06:18 2.5 MG Ipratropium [place] 0.5 mg Q6HWA [facility] 10/02/25 12:00 10/03/25 06:18 0.5 MG Tamsulosin HCl 0.4 mg QPM PO 10/02/25 18:00 10/02/25 18:39 0.4 MG Finasteride 5 mg DAILY PO 10/03/25 10:00 10/03/25 09:09 5 MG Acetaminophen 650 mg Q6HP PRN PO 10/02/25 20:45 10/02/25 22:45 650 MG Enteral Nutritional Formula 240 ml TIDWM PO 10/03/25 18:00 Examination: GENERAL:Abnormal, LUNGS:Abnormal (8 L Oxymizer), CVS:Normal, NEURO:Normal laboratory and microbiology Laboratory Tests 10/03/25 04:45 Test 10/03/25 04:45 Range/Units Serum Glucose 91 74-106 mg/dL Problem List/Assessment/Plan Problem List/Assessment/Plan NSTEMI with three vessel coronary artery disease Acute on chronic decompensated HFrEF, NYHA class III Peripheral arterial disease status post bilateral [id number] amputations Diabetic ketoacidosis Hypertension History pulmonary embolism (on Eliquis) Severe pulmonary hypertension Chronic kidney disease Chronic anemia Plan/Recommendation (Dr. Cordova): The patient underwent a coronary angiogram with left heart catheterization which revealed significant three-vessel coronary artery disease. We will recommend for patient to be transferred to higher level of care for evaluation of CABG versus high-risk PCI. A transthoracic echocardiogram reveals an EF of 25% with global hypokinesis and akinesis of the inferolateral wall. Continue guideline directed medical therapy for CHF as renal function permits (hold ARB/ARNI/ACEi, MRA and SGLT2i given poor renal function), strict intake and output, daily weights, fluid restriction and low-sodium diet. Continue single-antiplatelet therapy and lipid-lowering agent. Continue with close cardiac surveillance and notify cardiology team immediately for any ECG changes. Thank you for allowing us to care for this patient. Please call with any questions or concerns. This medical document was created using an electronic medical record system with voice recognition software and computerized dictation system. Although this document has been carefully reviewed, there might still be some phonetic and typographical errors. Occasional wrong-word or ``sound-alike substitutions may have occurred due to the inherent limitations of voice recognition software. These areas are purely typographical due to imperfections of the software programs and do not reflect any compromise in the patient's medical care. Please read the chart carefully and recognize, using context, where these substitutions have occurred. Plan discussed with: Patient Dietary Evaluation Review Comments: Nutrition Recommendation: 1) Nephro-thalia 1 tab daily, Musa 1 pk daily 2) Monitor PO intake, lab values, weight trend, and I/O Expected Outcomes/Goals: Wound to improve Intake to meet >75% estimated needs FU 3-5 days Date of Service: Oct 03, 2025 Billing Provider: HUAN MERCHANT Common Visit Codes: [id number] INP/OBS CARE(HIGH) HUAN MERCHANT Oct 03, 2025 12:09
--- NOTE | 2025-10-03 14:15 | DVHPN2 ---
Progress Note Date Seen: Oct 03, 2025 Resident Creating Document: JULIAN ROTHMAN RESIDENT Has the PT tested + for MRSA If YES, has PT been informed?: No Medical Necessity Reason Pt with a Central, PICC or Fol: Yes The following are medically ne: Valverde Catheter Reason for valverde catheter: Bladder Retention/Obstruc, Strict I&O Subjective Review of Systems 75-year-old male who is hospital course has been prolonged secondary to acute on chronic systolic heart failure exacerbation, EF 25%, NSTEMI, severe pulmonary hypertension, nausea and vomiting and LEXA superimposed on CKD Reports chronic nausea and vomiting, loss of appetite and early satiety. He reports having EGD/colonoscopy almost 10 years back. Does not know the findings. not passing gas or bm, normoacive, f/u with kub Objective vital signs Vital Sign Date Time Temp Pulse Resp B/P (MAP) Pulse Ox O2 Delivery O2 Flow Rate FiO2 10/03/25 13:48 79 16 142/80 96 8.0 10/03/25 13:06 Oxymizer N/A 10/03/25 12:40 97.7 97.7 Total Intake and Output 10/02/25 10/02/25 10/03/25 15:00 23:00 07:00 Intake Total 360 ml 100 ml Output Total 550 ml 200 ml Balance -190 ml -100 ml medications Current Medications Medications Dose Ordered Sig/Conrado Route Start Time Stop Time Status Last Admin Dose Admin Insulin Glargine 15 units DAILY SC 09/30/25 10:00 10/03/25 09:10 15 UNITS Ondansetron HCl 4 mg Q4HP PRN IV 09/29/25 12:30 Cancel Enoxaparin Sodium 40 mg DAILY SC 09/30/25 10:00 UNV Aspirin 81 mg DAILY PO 09/30/25 10:00 10/03/25 09:09 81 MG Metoprolol Succinate 50 mg DAILY PO 09/30/25 10:00 10/03/25 09:09 50 MG Heparin Sodium (Porcine) 5,000 units Q12HR SC 09/29/25 22:00 10/03/25 09:10 5,000 UNITS Atorvastatin Calcium 40 mg HS PO 09/29/25 22:00 10/02/25 21:08 40 MG Bumetanide 1 mg BIDD IV 09/30/25 10:30 10/03/25 06:28 1 MG Dopamine HCl/ Dextrose 250 ml @ 2.213 mls/ hr Q24H IV 09/30/25 14:45 09/30/25 16:01 2.213 MLS/HR Diagnostic Test (Pha) 1 strip ACHS 10/01/25 11:30 10/03/25 11:30 1 STRIP Insulin Human Regular ACHS SC 10/01/25 11:30 10/03/25 11:56 2 UNITS Dextrose 50 ml UD PRN IV 10/01/25 09:30 Levothyroxine Sodium 100 mcg QAM@0600 PO 10/02/25 06:00 10/03/25 06:28 100 MCG Albuterol 2.5 mg Q6HWA NEB 10/02/25 12:00 10/03/25 13:06 2.5 MG Ipratropium [place] 0.5 mg Q6HWA NEB 10/02/25 12:00 10/03/25 13:06 0.5 MG Tamsulosin HCl 0.4 mg QPM PO 10/02/25 18:00 10/02/25 18:39 0.4 MG Finasteride 5 mg DAILY PO 10/03/25 10:00 10/03/25 09:09 5 MG Acetaminophen 650 mg Q6HP PRN PO 10/02/25 20:45 10/02/25 22:45 650 MG Enteral Nutritional Formula 240 ml TIDWM PO 10/03/25 18:00 Examination Thin frail-appearing elderly male lying in the bed comfortably, well conversational General: Thin, afebrile, palor, mucosae are moist Cardiovascular: Regular S1 and S2. No murmurs, gallops or rubs. No JVD elevation. No pedal edema Respiratory: Decreased breath sounds, heard on auscultation, Abdomen: Soft, nontender, nondistended, normoactive bowel sounds, no rebound tenderness, no organomegaly, no masses Genitourinary: Deferred MSK/skin: Mobilizes 4 limbs. Skin is dry and warm laboratory and microbiology Laboratory Tests 10/03/25 04:45 Test 10/03/25 04:45 Range/Units Serum Glucose 91 74-106 mg/dL Microbiology Date/Time Source Procedure Growth Status 10/02/25 06:37 Sputum Gram Stain - Final Resulted 10/02/25 06:37 Sputum Respiratory Culture - Preliminary Resulted 09/29/25 20:30 Nose MRSA Screen - Final Complete Labs and/or images reviewed: Labs reviewed by me, Image(s) reviewed by me Problem List/Assessment/Plan Problem List/Assessment/Plan Early satiety, chronic nausea and vomiting Unintentional weight loss / rule out malignancy Anemia likely iron-deficiency Acute on chronic systolic CHF exacerbation-EF 25% Rule out ischemic cardiomyopathy NSTEMI type 1 versus type 2 Severe pulmonary hypertension Acute kidney injury superimposed on CKD Diabetic ketoacidosis resolving Severe prostatomegaly Plan: Recommendation: Dr. Rivera Patient has triple vessel significant CAD. Patient is not a suitable candidate for any GI intervention at this time. He will benefit from upper and lower endoscopy once medically stabilized. We will continue to follow up. F/U with KUB, cl liq diet BUN/creatinine improving, nephrology recommendations appreciated Recommend IV iron supplementation, 10/01 and 10/02 Iron profile shows iron- deficiency anemia CT abdomen without contrast shows prostatomegaly severe, severe atherosclerotic disease with diffuse calcification. Nodular soft tissue thickening and anterior abdominal wall. Moderate bilateral pleural effusion. Avoid NSAIDs Recommend high-protein drinks We will continue to follow up Thank you for consulting GI Plan discussed with Dr. Rivera Plan discussed with: Patient Dietary Evaluation Review Comments: Nutrition Recommendation: 1) Nephro-thalia 1 tab daily, Musa 1 pk daily 2) Monitor PO intake, lab values, weight trend, and I/O Expected Outcomes/Goals: Wound to improve Intake to meet >75% estimated needs FU 3-5 days JULIAN ROTHMAN RESIDENT Oct 03, 2025 14:15
--- NOTE | 2025-10-03 14:46 | DVH ---
Date: 10/03/2025 02:00 PM Examination: XY KUB ABDOMEN SINGLE VIEW History: EVALUATE FOR SBO Comparison: None TECHNIQUE: Frontal views of the abdomen was obtained. FINDINGS: Bowel gas pattern is unremarkable. The lung bases are unremarkable. No acute osseous abnormality identified. IMPRESSION: Nonobstructive bowel gas pattern.
[2025-10-03] MEDS ORDERED: Ensure HIGH Protein Chocolate 8oz Bottle PO SCH (18:00)
[2025-10-04] VITALS (15 sets, daily range): BP systolic 137–147; BP diastolic 62–82; PULSE 75–95; RESP 18–20; TEMP 97.6–99.1; O2SAT 90–100
[2025-10-04] MEDS: HYDROcodone-ACET 5/325MG TAB PO ONE (00:47)
[2025-10-04 05:43] LABS: Nucleated Red Blood Cells % 0.1 %
[2025-10-04 05:47] LABS: Hematocrit 30.0 % (41.0-53.0); Hemoglobin 9.8 g/dL (13.5-17.5); Mean Corpuscular Hemoglobin 24.8 pg (28.0-32.0); Mean Corpuscular Volume 76.3 fL (80.0-100.0)
[2025-10-04 05:58] LABS: Anion Gap 10 (5-15); Carbon Dioxide 30 mmol/L (20-31); Chloride 102 mmol/L (98-107); Potassium 3.8 mmol/L (3.5-5.1); Sodium 142 mmol/L (136-145)
[2025-10-04 06:00] LABS: Calcium 8.5 mg/dL (8.7-10.4)
[2025-10-04 06:05] LABS: BUN/Creatinine Ratio 27.2 (10.0-20.0); Glucose 92 mg/dL (74-106)
[2025-10-04 06:09] LABS: Blood Urea Nitrogen 83 mg/dL (9-23)
--- NOTE | 2025-10-04 08:32 | DVHPNRES ---
Progress Note Date Seen: Oct 04, 2025 Resident Creating Document: CLIFF BRUCE RESIDENT Has the PT tested + for MRSA If YES, has PT been informed?: No Medical Necessity Reason Pt with a Central, PICC or Fol: Yes The following are medically ne: Valverde Catheter Reason for valverde catheter: Bladder Retention/Obstruc, Strict I&O Subjective Review of Systems 75-year-old male presents to the ED via EMS with complaint of hyperglycemia. He reports persistent elevated blood glucose readings over the past several days associated with nausea, vomiting, poor appetite, and unintentional weight loss for approximately three weeks. He states this symptoms feel similar to prior episodes of DKA. He denies dizziness, syncope, chest pain, palpitations, shortness of breath, fevers, or other acute symptoms. In the ED, initial lab shows a serum glucose of 409 mg/dL, an anion gap of 20, CO2 of 22, creatinine 3.54 with a GFR of 17, and elevated high sensitivity troponins trending from 748-1328. Significant past medical history includes PAD status post bilateral AKA, diabetes type 2, hypertension, CKD, anemia of chronic disease. Past Medical History * Type 2 diabetes mellitus, uncontrolled (HbA1c 10.7%) * Chronic kidney disease (baseline Cr ~3.2) * LEXA on CKD * Peripheral arterial disease s/p bilateral above-knee amputations * Hypertension * HFrEF (prior EF 4550%), now EF 25% * Chronic anemia of CKD/iron deficiency * Pulmonary embolism (prior) * Severe pulmonary hypertension (RVSP 6570 mmHg) * Cavitary lung lesion (remote) Past Surgical History * Bilateral above-knee amputations Past Social History * Former smoker: 20 years, quit 5 years ago * Quit alcohol 15 years ago * Lives with family * No illicit drug use 09/30/25 * Patient downgraded from ICU to TELE. * On 3 L nasal cannula, FiO2 3032%, saturating 25435%, no work of breathing. * Nausea/vomiting improving, but weight loss suspected to be chronic ? GI consult placed today. * Troponins continue to trend upward and now downtrending without chest pain; cardiology following for NSTEMI type 1 vs type 2 demand ischemia and CHF exacerbation. * Echocardiogram (yesterday): EF 25%, global hypokinesis, moderatesevere RV dysfunction, severe pulmonary hypertension (RVSP 6570 mmHg). * LEXA persists: Cr 3.33 (baseline ~3.28), UOP 0.35 mL/kg/hr. * Hypernatremia (148) improving slowly with D5W per nephrology. * EKG: Sinus rhythm with nonspecific anterior/inferior/lateral repolarization abnormalities; QT prolonged ? Zofran avoided. * Started DuoNeb Q6H, chest physiotherapy, chest X-ray ordered. * GI consulted for chronic nausea, vomiting, weight loss. 10/01/25 This 75-year-old male with history of CKD stage 45, acute on chronic systolic heart failure (EF 25%), severe pulmonary hypertension, PAD s/p bilateral above- knee amputations, T2DM (A1c 10.7%), recent DKA (resolved), history of PE, and poor PO intake continues to report severe anorexia, unable to tolerate solids, only tolerated a peach today. He denies chest pain. Mild shortness of breath persists. He has had fluctuating tachycardia (max 151 bpm), mild hypoxia (SpO2 9097% on 2 L NC), and worsening pulmonary congestion on chest X-ray compared to 09/29. WBC count continues to improve. He remains afebrile.The patient and the Family has now given informed consent for coronary angiography with left heart catheterization scheduled for tomorrow because the procedure is tomorrow morning, D5W is being continued at 60 mL/hr for procedure. Fluid plan will be re-evaluated post-procedure depending on renal function and volume status. GI consult is still pending for persistent nausea, poor intake, and weight loss. 10/02/25 The patient undergoing coronary angiography with left heart catheterization today. Hypoxia episode today: While on 3 L NC, SpO2 transiently dropped to 70s. He was placed on 4 L NC, now stabilizing between 8890%. RR remains 1420. GI was consulted yesterday and plans EGD + colonoscopy once medically optimized. They also recommend Ensure High Protein TID for nutritional supplementation. Valverde catheter continues leaking despite replacement; bladder scan shows 8 mL consistent with severe BPH causing leakage around the catheter. Urology medications Flomax + Finasteride ordered. D5W discontinued due to adequate sodium correction and worsening pulmonary congestion. Patient started on PO liquids + renal diabetic cardiac low sodium diet. Abdominal CT (non-contrast) reveals: * Severe atherosclerotic disease * Severe prostatomegaly * Valverde catheter in bladder but incompletely decompressing bladder. * Nodular soft tissue thickening anterior abdominal wall (due to prior insulin injection sites) * Moderate bilateral pleural effusions 10/03/25 Overnight, he developed worsening hypoxia requiring BiPAP, with transient improvement. Today, oxygen needs remain elevated, and he is currently on an Oxymizer at 8 L/min because of fluctuating saturations 8691%. He denies chest pain but reports persistent weakness, fatigue, poor appetite, and inability to tolerate solid foods. No bowel movement reported for several days. Mild abdominal discomfort without vomiting. He is hemodynamically stable but remains volume positive. The patient underwent left & right coronary angiography yesterday, revealing severe triple-vessel disease with heavily calcified lesions: * LAD ~80% stenosis * Left circumflex ~95% stenosis * RCA ~80% stenosis * Severe calcifications, poor PCI candidacy Cardiology recommends: * CT surgery evaluation for CABG * But patient is NOT an ideal surgical candidate due to frailty, CKD, HFrEF, severe comorbidities * May require mechanical circulatory support (Impella/MCS) * Hold P2Y12 inhibitors until CT surgery decision A higher-level transfer to [place] was initiated and is still pending. Valverde catheter continues to leak despite repositioning and replacement, consistent with severe BPH. No BM today. Abdominal X-ray ordered to rule out obstruction. If normal start Miralax and continue GI plan. 10/04/25 Overnight: * On full-face BiPAP (FiO2 60%). * When he removed BiPAP, sats dropped to 70%; placed back on BiPAP with sats 8892%. This morning: * Transitioned to Oximizer, now requiring 15 L/min, saturating 8890%. * Complains of dyspnea, chest tightness, and generalized weakness. * No bowel movement since last Tuesday. * Valverde catheter leaking around the urethra; poor drainage due to severe prostatomegaly. Procedures Today: * Bilateral thoracentesis performed due to worsening respiratory distress and pleural effusions: * Left pleural space: 1.0 L removed. * Right pleural space: 2.0 L removed. Family updated. Antibiotics: * Sputum culture showing moderate gram-positive cocci in chains and pairs. * Started ceftriaxone 1 g IV daily today. Imaging: * Abdominal X-ray: Non-obstructive bowel gas pattern. * Plan: Miralax started. * Still pending transfer to [place] for higher level of cardiac surgical evaluation (CABG vs MCS). Overall Status Today: * Continues in acute hypoxic respiratory failure requiring high-flow/oximizer support. * Positive fluid balance +900 mL with very low urine output (0.1 mL/kg/hr) concerning for cardiorenal syndrome and worsening CKD. * BNP previously elevated (4,800s). * Hemoglobin downtrending to 9.8 g/dL. * Creatinine increased to 3.05 (from 2.86). * Persistent severe constipation. Todays Plan * Continue high-flow O2 via Oximizer; BiPAP PRN for hypoxia. * Monitor post-thoracentesis; send pleural fluid studies. * Continue ceftriaxone for suspected bacterial pneumonia. * Strict I/O, daily weights; evaluate diuretic strategy after thoracentesis (Bumex previously). * Address Valverde malfunction; consider urology consult. * Continue Miralax bowel regimen. * Follow GI recommendations for EGD/colonoscopy once medically stable. * Continue transfer process to [place] for CABG vs MCS evaluation. * Monitor renal function closely. Objective vital signs Vital Sign Date Time Temp Pulse Resp B/P (MAP) Pulse Ox O2 Delivery O2 Flow Rate FiO2 10/04/25 07:49 95 20 90 10/04/25 06:47 Oxymizer 12.0 10/04/25 06:47 N/A 10/04/25 06:35 140/60 10/04/25 05:00 97.7 97.7 Total Intake and Output 10/03/25 10/03/25 10/04/25 15:00 23:00 07:00 Intake Total 700 ml 450 ml Output Total 100 ml 150 ml Balance 600 ml 300 ml medications Current Medications Medications Dose Ordered Sig/Conrado Route Start Time Stop Time Status Last Admin Dose Admin Insulin Glargine 15 units DAILY SC 09/30/25 10:00 10/03/25 09:10 15 UNITS Ondansetron HCl 4 mg Q4HP PRN IV 09/29/25 12:30 Cancel Enoxaparin Sodium 40 mg DAILY SC 09/30/25 10:00 UNV Aspirin 81 mg DAILY PO 09/30/25 10:00 10/03/25 09:09 81 MG Metoprolol Succinate 50 mg DAILY PO 09/30/25 10:00 10/03/25 09:09 50 MG Heparin Sodium (Porcine) 5,000 units Q12HR SC 09/29/25 22:00 10/03/25 21:48 5,000 UNITS Atorvastatin Calcium 40 mg HS PO 09/29/25 22:00 10/03/25 21:43 40 MG Bumetanide 1 mg BIDD IV 09/30/25 10:30 10/04/25 06:35 1 MG Dopamine HCl/ Dextrose 250 ml @ 2.213 mls/ hr Q24H IV 09/30/25 14:45 10/03/25 16:17 2.213 MLS/HR Diagnostic Test (Pha) 1 strip ACHS 10/01/25 11:30 10/04/25 06:35 1 STRIP Insulin Human Regular ACHS SC 10/01/25 11:30 10/03/25 11:56 2 UNITS Dextrose 50 ml UD PRN IV 10/01/25 09:30 Levothyroxine Sodium 100 mcg QAM@0600 PO 10/02/25 06:00 10/04/25 06:35 100 MCG Albuterol 2.5 mg Q6HWA NEB 10/02/25 12:00 10/04/25 06:47 2.5 MG Ipratropium [place] 0.5 mg Q6HWA NEB 10/02/25 12:00 10/04/25 06:47 0.5 MG Tamsulosin HCl 0.4 mg QPM PO 10/02/25 18:00 10/03/25 18:02 0.4 MG Finasteride 5 mg DAILY PO 10/03/25 10:00 10/03/25 09:09 5 MG Acetaminophen 650 mg Q6HP PRN PO 10/02/25 20:45 10/02/25 22:45 650 MG Polyethylene Glycol 17 gm DAILYPRN PRN PO 10/04/25 06:00 Examination * General: Frail, ill-appearing male in mild respiratory distress. * Neuro: A&O 3, follows commands. No focal deficits. * HEENT: Mucous membranes dry. * Cardiac: Regular rhythm, no murmurs, mild JVD. * Respiratory: Bilateral crackles/rales; diminished breath sounds at bases; post-thoracentesis improvement. * Abdomen: Soft, NT, ND. No guarding/rebound. * : Valverde in place, leaking around catheter. * Extremities: Bilateral AKAs. No edema in remaining limbs. * Skin: Chronic insulin injection nodules along abdominal wall. * Psych: Calm, cooperative. laboratory and microbiology Laboratory Tests 10/04/25 05:00 Test 10/04/25 05:00 Range/Units Serum Glucose 92 74-106 mg/dL Microbiology Date/Time Source Procedure Growth Status 10/02/25 06:37 Sputum Gram Stain - Final Resulted 10/02/25 06:37 Sputum Respiratory Culture - Preliminary Resulted 09/29/25 20:30 Nose MRSA Screen - Final Complete Problem List/Assessment/Plan Problem List/Assessment/Plan 1. NEUROLOGY Assessment * No sedation * No delirium * No focal deficits Plan * Avoid sedatives * Maintain normal oxygenation and glucose 2. CARDIOVASCULAR A. Acute on chronic systolic HF (HFrEF), EF 25%, NYHA Class IIIACUTE DECOMPENSATION Differentials: Ischemic cardiomyopathy, Tachyarrhythmia, Volume overload, Myocardial injury Plan: * Continue Bumex 1 mg IV BID * Continue metoprolol succinate 50 mg daily * Avoid MYNOR/ARB/ARNI/SGLT2 due to LEXA and hypernatremia * Fluid restriction 1.5 L/day * Repeat CXR tomorrow * Strict I/Os and daily weights * Cardiology following B. Elevated troponins NSTEMI Type 1 vs Type 2 demand ischemia Severe triple-vessel coronary artery disease (LAD 80%, LCx 95%, RCA 80%) * Troponin rising to 3924 now downtrending * EKG: Sinus rhythm with repolarization abnormalities * No chest pain * High surgical risk for CABG * CT surgery consult pending * Needs advanced cardiac center ([place]) * Await transfer to [place] for CABG vs Impella evaluation. * Hold P2Y12 until surgical decision Plan: * Continue Aspirin 81 mg * Continue Atorvastatin 40 mg * Maintain Metoprolol * Await CT surgery evaluation * Transfer request to [place]. continue escalation Continue heparin 5000 units SC Q12h, atorvastatin 40 mg po hs * Telemetry monitoring * Repeat troponin trending C. Severe pulmonary hypertension (RVSP 6570 mmHg) Plan: * Maintain oxygenation * Avoid fluid overload * (left-sided HF likely) Peripheral arterial disease s/p bilateral above-knee amputations Hypertension Continue metoprolol succinate 50 mg daily 3. RESPIRATORY SYSTEM Assessment * Pleural effusions due to CHF Exercabation * Acute hypoxic respiratory failure * RLL atelectasis * Mild hypoxemia High oxygen requirement (BiPAP overnight, now Oximizer 15 L). ABG shows persistent hypoxemia. Underwent bilateral thoracentesis today (1 L left, 2 L right). Plan * Continue Oxymizer, target SpO2 > 90%. * BiPAP PRN if SpO2 < 88% or RR > 22 * Continue DuoNeb Q6H * Chest physiotherapy * Daily pulse oximetry * Follow-up CXR 4. GASTROINTESTINAL Assessment * Chronic nausea/vomiting * Weight loss several months * Risk for gastroparesis vs malignancy vs chronic GI dysmotility * Severe constipation * No BM for several days Plan * GI planning EGD + colonoscopy once stable Abdominal X-ray is non-obstructive. * Start Miralax daily. * Add senna if no BM in 24 hours. * Continue Ensure High Protein TID * PO clear liquids, renal diabetic , cardiac, low Na diet * * GI consult pending * Avoid Zofran due to QT prolongation * Monitor for bowel movement 5. GENITOURINARY * BPH with urinary obstruction * Chronic Valverde with malfunction * Acute urinary retention * Leak around catheter; bladder scan 8 mL Plan: * Continue Valverde for strict I/Os * Monitor UA and cultures * Start Flomax + Finasteride * Avoid nephrotoxic medications 6. RENAL (NEPHROLOGY) Acute Kidney Injury due to VMN with superimposed CKD (Stage 45), hemodynamically mediated, Low urinary sodium:- improving Cardiorenal syndrome AG METABOLIC ACIDOSIS RESOLVED hypernatremia Improving metabolic alkalosis Right sided Nephrolithiasis non obstructive Plan: * Nephrology following * Hold fluids worsening pulmonary edema * Continue dopamine 0.99 * Avoid MYNOR inhibitors, ARBs, NSAIDs, Continue Bumex 1mg IV BIDD * Daily BMP * Strict I/Os * Renal-dose medications * Reassess renal function post-C 7. INFECTIOUS DISEASE Assessment * Suspected bacterial pneumonia * Gram-positive cocci on sputum * Pneumonia (effusions) MRSA :- NEGATIVE Plan: * Blood cultures 2, Continue ceftriaxone 1 g IV daily. * Follow sputum and pleural cultures. * Monitor WBC, fever curve. * WBC improving (12.9) * Start antibiotics ONLY if infectious source identified or clinical deterioration 8. ENDOCRINE A. DKA RESOLVED uncontrolled T2DM (A1c 10.7%) * AG closed * B-hydroxybutyrate decreasing (0.449 - 0.213) * Insulin drip off since 09/29 Plan: * Continue Lantus 15 units daily * Continue correctional insulin * Glucose goal [id number] B. Hypothyroidism Plan: * Continue levothyroxine 100 mcg daily 9. HEMATOLOGY Iron deficiency anemia + anemia of chronic disease Plan: * IV iron * Monitor CBC daily * Transfuse Hgb <7 MUSCULOSKELETAL / SKIN / WOUNDS s/p bilateral above-knee amputations * Left hip grade 1 ulcer * Left stump small superficial wound healing Plan: * multimedia educational specialist daily * Offloading * Zinc oxide barrier cream 10. PSYCHIATRY * Patient calm, cooperative * No acute psychiatric symptoms Plan: * Supportive care * Sleep hygiene 11. NUTRITION * Renal-friendly, cardiac, carbohydrate-controlled diet * Calorie counts * Consult nutrition placed today. 12. LINES / TUBES * Valverde catheter (in place) * No central line * No PICC * No arterial line * No dialysis catheter 13. PROPHYLAXIS * DVT: Heparin 5000 units SQ q12h * GI: pantoprazole 40 PO * Fall & skin precautions * Pressure ulcer prevention 14. PT SOCIAL WORK * PT/OT evaluation ordered * Social work involved for transfer to [facility] For higher level of care. CRITICAL CARE TIME A total of 83 minutes of critical care time was spent today in the evaluation, management, data review, coordination of care, and direct bedside care of this critically ill patient, excluding procedures. CODE STATUS Full Code. Greater than 20 minutes spent discussing code status and goals of care with patient and family. Family at bedside; plan discussed with Dr. Willard. Case discussed in detail with the attending physician , including the clinical presentation, diagnostic workup, and comprehensive management plan. The patient was present for the discussion and demonstrated understanding of his condition and the proposed plan. Plan discussed with: Patient, Spouse, Other (RN) My Orders My Orders Orders - CLIFF BRUCE RESIDENT Procedure Category Date Status Time Chest Xray 1 View XY 10/03/25 Resulted 09:26 Kub Abdomen Single XY 10/03/25 Resulted View 10:38 * Dietary Consult CONS 10/03/25 Transmitted 12:27 Polyethylene Glycol PHA 10/04/25 In Process 17g Powder (Miralax 06:00 Dietary Evaluation Review Comments: Nutrition Recommendation: 1) Nephro-thalia 1 tab daily, Musa 1 pk daily 2) Monitor PO intake, lab values, weight trend, and I/O Expected Outcomes/Goals: Wound to improve Intake to meet >75% estimated needs FU 3-5 days CLIFF BRUCE RESIDENT Oct 04, 2025 08:32
[2025-10-04] MEDS ORDERED: DOXYCYCLINE 100MG/100ML 100 ML IV SCH (10:00)
--- NOTE | 2025-10-04 11:01 | DVHPN2 ---
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 Objective vital signs Vital Sign Date Time Temp Pulse Resp B/P (MAP) Pulse Ox O2 Delivery O2 Flow Rate FiO2 10/04/25 10:00 89 139/82 10/04/25 07:49 20 90 10/04/25 06:47 Oxymizer 12.0 10/04/25 06:47 N/A 10/04/25 05:00 97.7 97.7 Total Intake and Output 10/03/25 10/03/25 10/04/25 15:00 23:00 07:00 Intake Total 700 ml 450 ml Output Total 100 ml 150 ml Balance 600 ml 300 ml medications Current Medications Medications Dose Ordered Sig/Conrado Route Start Time Stop Time Status Last Admin Dose Admin Insulin Glargine 15 units DAILY SC 09/30/25 10:00 10/03/25 09:10 15 UNITS Ondansetron HCl 4 mg Q4HP PRN IV 09/29/25 12:30 Cancel Enoxaparin Sodium 40 mg DAILY SC 09/30/25 10:00 UNV Aspirin 81 mg DAILY PO 09/30/25 10:00 10/04/25 10:00 81 MG Metoprolol Succinate 50 mg DAILY PO 09/30/25 10:00 10/04/25 10:00 50 MG Heparin Sodium (Porcine) 5,000 units Q12HR SC 09/29/25 22:00 10/04/25 10:12 5,000 UNITS Atorvastatin Calcium 40 mg HS PO 09/29/25 22:00 10/03/25 21:43 40 MG Bumetanide 1 mg BIDD IV 09/30/25 10:30 10/04/25 06:35 1 MG Dopamine HCl/ Dextrose 250 ml @ 2.213 mls/ hr Q24H IV 09/30/25 14:45 10/03/25 16:17 2.213 MLS/HR Diagnostic Test (Pha) 1 strip ACHS 10/01/25 11:30 10/04/25 06:35 1 STRIP Insulin Human Regular ACHS SC 10/01/25 11:30 10/03/25 11:56 2 UNITS Dextrose 50 ml UD PRN IV 10/01/25 09:30 Levothyroxine Sodium 100 mcg QAM@0600 PO 10/02/25 06:00 10/04/25 06:35 100 MCG Albuterol 2.5 mg Q6HWA NEB 10/02/25 12:00 10/04/25 06:47 2.5 MG Ipratropium [place] 0.5 mg Q6HWA NEB 10/02/25 12:00 10/04/25 06:47 0.5 MG Tamsulosin HCl 0.4 mg QPM PO 10/02/25 18:00 10/03/25 18:02 0.4 MG Finasteride 5 mg DAILY PO 10/03/25 10:00 10/04/25 10:00 5 MG Acetaminophen 650 mg Q6HP PRN PO 10/02/25 20:45 10/02/25 22:45 650 MG Polyethylene Glycol 17 gm DAILYPRN PRN PO 10/04/25 06:00 Ceftriaxone Sodium 50 ml @ 100 mls/hr DAILY@09 IV 10/04/25 09:00 10/04/25 09:00 100 MLS/HR Doxycycline Hyclate 100 ml @ 50 mls/hr Q12HR IV 10/04/25 10:00 Examination: GENERAL:Abnormal, LUNGS:Abnormal (Patient is now on 15 L Oxymizer; diminished lung sounds), CVS:Normal, NEURO:Normal laboratory and microbiology Laboratory Tests 10/04/25 05:00 Test 10/04/25 05:00 Range/Units Serum Glucose 92 74-106 mg/dL Problem List/Assessment/Plan Problem List/Assessment/Plan NSTEMI with three vessel coronary artery disease Acute on chronic decompensated HFrEF, NYHA class III Peripheral arterial disease status post bilateral [id number] amputations Diabetic ketoacidosis Hypertension History pulmonary embolism (on Eliquis) Severe pulmonary hypertension Chronic kidney disease Chronic anemia Plan/Recommendation (Dr. Cordova): The patient underwent a coronary angiogram with left heart catheterization on 10/02/25 which revealed significant three-vessel coronary artery disease. We will recommend for patient to be transferred to higher level of care for evaluation of CABG versus high-risk PCI. A transthoracic echocardiogram reveals an EF of 25% with global hypokinesis and akinesis of the inferolateral wall. Continue guideline directed medical therapy for CHF as renal function permits (hold ARB/ARNI/ACEi, MRA and SGLT2i given poor renal function), strict intake and output, daily weights, fluid restriction and low-sodium diet. Continue single-antiplatelet therapy and lipid-lowering agent. Continue with close cardiac surveillance and notify cardiology team immediately for any ECG changes. Thank you for allowing us to care for this patient. Please call with any questions or concerns. This medical document was created using an electronic medical record system with voice recognition software and computerized dictation system. Although this document has been carefully reviewed, there might still be some phonetic and typographical errors. Occasional wrong-word or ``sound-alike substitutions may have occurred due to the inherent limitations of voice recognition software. These areas are purely typographical due to imperfections of the software programs and do not reflect any compromise in the patient's medical care. Please read the chart carefully and recognize, using context, where these substitutions have occurred. Plan discussed with: Patient, Spouse Dietary Evaluation Review Comments: Nutrition Recommendation: 1) Nephro-thalia 1 tab daily, Musa 1 pk daily 2) Monitor PO intake, lab values, weight trend, and I/O Expected Outcomes/Goals: Wound to improve Intake to meet >75% estimated needs FU 3-5 days Date of Service: Oct 04, 2025 Billing Provider: HUAN MERCHANT Common Visit Codes: [id number] INP/OBS CARE(HIGH) HUAN MERCHANT Oct 04, 2025 11:01
[2025-10-04 13:25] LABS: Base Excess 2.2 mmol/L (-2.0-3.0)
--- NOTE | 2025-10-04 14:07 | DVH ---
CHEST RADIOGRAPH Indication: [place]orses[place] SOB Technique: XY CHEST XRAY 1 VIEW COMPARISON: None FINDINGS: The cardiac silhouette is enlarged. The lungs demonstrate bilateral patchy airspace opacities. The pulmonary vasculature is prominent. Small bilateral pleural effusions. There is no pneumothorax. IMPRESSION: Cardiomegaly with pulmonary vascular congestion and bilateral patchy airspace opacities. Small bilateral pleural effusions.
--- NOTE | 2025-10-04 14:14 | DVHPN2 ---
Progress Note Date Seen: Oct 04, 2025 Resident Creating Document: JULIAN ROTHMAN RESIDENT Has the PT tested + for MRSA If YES, has PT been informed?: No Medical Necessity Reason Pt with a Central, PICC or Fol: Yes The following are medically ne: Valverde Catheter Reason for valverde catheter: Bladder Retention/Obstruc, Strict I&O Subjective Review of Systems 75-year-old male who is hospital course has been prolonged secondary to acute on chronic systolic heart failure exacerbation, EF 25%, NSTEMI, severe pulmonary hypertension, nausea and vomiting and LEXA superimposed on CKD Reports chronic nausea and vomiting, loss of appetite and early satiety. He reports having EGD/colonoscopy almost 10 years back. Does not know the findings. 10/03--not passing gas or bm, normoacive, f/u with kub 10/04-passing gas. No bowel movement. On BiPAP. KUB shows nonobstructive bowel gas pattern. Objective vital signs Vital Sign Date Time Temp Pulse Resp B/P (MAP) Pulse Ox O2 Delivery O2 Flow Rate FiO2 10/04/25 11:45 91 92 Facial BiPAP Mask 50 10/04/25 10:00 139/82 10/04/25 09:00 98.1 19 98.1 10/04/25 06:47 12.0 Total Intake and Output 10/03/25 10/03/25 10/04/25 15:00 23:00 07:00 Intake Total 700 ml 450 ml Output Total 100 ml 150 ml Balance 600 ml 300 ml medications Current Medications Medications Dose Ordered Sig/Conrado Route Start Time Stop Time Status Last Admin Dose Admin Insulin Glargine 15 units DAILY SC 09/30/25 10:00 10/03/25 09:10 15 UNITS Ondansetron HCl 4 mg Q4HP PRN IV 09/29/25 12:30 Cancel Enoxaparin Sodium 40 mg DAILY SC 09/30/25 10:00 UNV Aspirin 81 mg DAILY PO 09/30/25 10:00 10/04/25 10:00 81 MG Metoprolol Succinate 50 mg DAILY PO 09/30/25 10:00 10/04/25 10:00 50 MG Heparin Sodium (Porcine) 5,000 units Q12HR SC 09/29/25 22:00 10/04/25 10:12 5,000 UNITS Atorvastatin Calcium 40 mg HS PO 09/29/25 22:00 10/03/25 21:43 40 MG Bumetanide 1 mg BIDD IV 09/30/25 10:30 10/04/25 06:35 1 MG Dopamine HCl/ Dextrose 250 ml @ 2.213 mls/ hr Q24H IV 09/30/25 14:45 10/03/25 16:17 2.213 MLS/HR Diagnostic Test (Pha) 1 strip ACHS 10/01/25 11:30 10/04/25 11:30 1 STRIP Insulin Human Regular ACHS SC 10/01/25 11:30 10/04/25 11:30 2 UNITS Dextrose 50 ml UD PRN IV 10/01/25 09:30 Levothyroxine Sodium 100 mcg QAM@0600 PO 10/02/25 06:00 10/04/25 06:35 100 MCG Albuterol 2.5 mg Q6HWA NEB 10/02/25 12:00 10/04/25 11:48 2.5 MG Ipratropium [place] 0.5 mg Q6HWA NEB 10/02/25 12:00 10/04/25 11:48 0.5 MG Tamsulosin HCl 0.4 mg QPM PO 10/02/25 18:00 10/03/25 18:02 0.4 MG Finasteride 5 mg DAILY PO 10/03/25 10:00 10/04/25 10:00 5 MG Acetaminophen 650 mg Q6HP PRN PO 10/02/25 20:45 10/02/25 22:45 650 MG Polyethylene Glycol 17 gm DAILYPRN PRN PO 10/04/25 06:00 Ceftriaxone Sodium 50 ml @ 100 mls/hr DAILY@09 IV 10/04/25 09:00 10/04/25 09:00 100 MLS/HR Examination Thin frail-appearing elderly male lying in the bed comfortabl General: Thin, afebrile, palor, mucosae are moist Cardiovascular: Regular S1 and S2. No murmurs, gallops or rubs. No JVD elevation. No pedal edema Respiratory: Decreased breath sounds, heard on auscultation, on BiPAP. Abdomen: Soft, nontender, nondistended, normoactive bowel sounds, no rebound tenderness, no organomegaly, no masses Genitourinary: Deferred laboratory and microbiology Laboratory Tests 10/04/25 05:00 Test 10/04/25 05:00 Range/Units Serum Glucose 92 74-106 mg/dL Microbiology Date/Time Source Procedure Growth Status 10/02/25 06:37 Sputum Gram Stain - Final Resulted 10/02/25 06:37 Sputum Respiratory Culture - Preliminary Resulted 09/29/25 20:30 Nose MRSA Screen - Final Complete Labs and/or images reviewed: Labs reviewed by me, Image(s) reviewed by me Problem List/Assessment/Plan Problem List/Assessment/Plan Early satiety, chronic nausea and vomiting Unintentional weight loss / rule out malignancy Anemia likely iron-deficiency Acute on chronic systolic CHF exacerbation-EF 25% Rule out ischemic cardiomyopathy NSTEMI type 1 versus type 2 Severe pulmonary hypertension Acute kidney injury superimposed on CKD Diabetic ketoacidosis resolving Severe prostatomegaly Plan: Recommendation: Dr. Rivera Patient has triple vessel significant CAD. Patient is not a suitable candidate for any GI intervention at this time. He will benefit from upper and lower endoscopy once medically stabilized. We will continue to follow up. KUB showing nonobstructive bowel, advanced diet as tolerated. BUN/creatinine improving, nephrology recommendations appreciated Recommend IV iron supplementation, 10/01 and 10/02 Iron profile shows iron- deficiency anemia CT abdomen without contrast shows prostatomegaly severe, severe atherosclerotic disease with diffuse calcification. Nodular soft tissue thickening and anterior abdominal wall. Moderate bilateral pleural effusion. Avoid NSAIDs Recommend high-protein drinks We will continue to follow up Thank you for consulting GI Plan discussed with Dr. Rivera Plan discussed with: Patient My Orders My Orders Orders - JULIAN ROTHMAN Procedure Category Date Status Time Clear Liq Diet DIET 10/03/25 Verified Dinner Dietary Evaluation Review Comments: Nutrition Recommendation: 1) Nephro-thalia 1 tab daily, Musa 1 pk daily 2) Monitor PO intake, lab values, weight trend, and I/O Expected Outcomes/Goals: Wound to improve Intake to meet >75% estimated needs FU 3-5 days JULIAN ROTHMAN Oct 04, 2025 14:14
--- NOTE | 2025-10-04 15:50 | DVHNC2 ---
Procedure - Procedure- Right sided Thoracentesis ultrasound guided Indication- Pleural effusions Procedure in detail Consent was obtained and timeout performed per protocol. The patient was placed in the sitting position and ultrasound SonoSite was used to localize pleural fluid. ChloraPrep was used to clean the operative field and Lidocaine for local analgesia. Thoracentesis catheter was advanced over the needle, attached to the suction bottle and approximately 2.5 liters of fluid was drained from the right pleural space. At the end of the procedure, the catheter was removed and dressing applied. Samples obtained for diagnostic testing. Chest-x ray ordered. No complications HOLLI MELÉNDEZ MD Oct 04, 2025 15:50
--- NOTE | 2025-10-04 15:51 | DVHNC2 ---
Procedure - Procedure- Left sided Thoracentesis ultrasound guided Indication- Pleural effusions Procedure in detail Consent was obtained and timeout performed per protocol. The patient was placed in the sitting position and ultrasound SonoSite was used to localize pleural fluid. ChloraPrep was used to clean the operative field and Lidocaine for local analgesia. Thoracentesis catheter was advanced over the needle, attached to the suction bottle and approximately 900 cc of fluid was drained from the left pleural space. At the end of the procedure, the catheter was removed and dressing applied. Samples obtained for diagnostic testing. Chest-x ray ordered. No complications HOLLI MELÉNDEZ MD Oct 04, 2025 15:51
[2025-10-04 16:28] LABS: Hepatitis B Surface Antigen Negative (Negative); Hepatitis C Antibody Negative (Negative)
--- NOTE | 2025-10-04 16:33 | DVHPN2 ---
Progress Note Date Seen: Oct 04, 2025 Has the PT tested + for MRSA If YES, has PT been informed?: No Medical Necessity Reason Pt with a Central, PICC or Fol: Yes The following are medically ne: Valverde Catheter Reason for valverde catheter: Bladder Retention/Obstruc, Strict I&O Subjective Changes from previous H/P or p: No Changes Objective vital signs Vital Sign Date Time Temp Pulse Resp B/P (MAP) Pulse Ox O2 Delivery O2 Flow Rate FiO2 10/04/25 14:14 100 Oxymizer 8 N/A 10/04/25 13:00 97.9 89 20 147/81 (103) 97.9 Total Intake and Output 10/03/25 10/03/25 10/04/25 15:00 23:00 07:00 Intake Total 700 ml 450 ml Output Total 100 ml 150 ml Balance 600 ml 300 ml medications Current Medications Medications Dose Ordered Sig/Conrado Route Start Time Stop Time Status Last Admin Dose Admin Insulin Glargine 15 units DAILY SC 09/30/25 10:00 10/03/25 09:10 15 UNITS Ondansetron HCl 4 mg Q4HP PRN IV 09/29/25 12:30 Cancel Enoxaparin Sodium 40 mg DAILY SC 09/30/25 10:00 UNV Aspirin 81 mg DAILY PO 09/30/25 10:00 10/04/25 10:00 81 MG Metoprolol Succinate 50 mg DAILY PO 09/30/25 10:00 10/04/25 10:00 50 MG Heparin Sodium (Porcine) 5,000 units Q12HR SC 09/29/25 22:00 10/04/25 10:12 5,000 UNITS Atorvastatin Calcium 40 mg HS PO 09/29/25 22:00 10/03/25 21:43 40 MG Bumetanide 1 mg BIDD IV 09/30/25 10:30 10/04/25 06:35 1 MG Dopamine HCl/ Dextrose 250 ml @ 2.213 mls/ hr Q24H IV 09/30/25 14:45 10/03/25 16:17 2.213 MLS/HR Diagnostic Test (Pha) 1 strip ACHS 10/01/25 11:30 10/04/25 11:30 1 STRIP Insulin Human Regular ACHS SC 10/01/25 11:30 10/04/25 11:30 2 UNITS Dextrose 50 ml UD PRN IV 10/01/25 09:30 Levothyroxine Sodium 100 mcg QAM@0600 PO 10/02/25 06:00 10/04/25 06:35 100 MCG Albuterol 2.5 mg Q6HWA NEB 10/02/25 12:00 10/04/25 11:48 2.5 MG Ipratropium [place] 0.5 mg Q6HWA NEB 10/02/25 12:00 10/04/25 11:48 0.5 MG Tamsulosin HCl 0.4 mg QPM PO 10/02/25 18:00 10/03/25 18:02 0.4 MG Finasteride 5 mg DAILY PO 10/03/25 10:00 10/04/25 10:00 5 MG Acetaminophen 650 mg Q6HP PRN PO 10/02/25 20:45 10/02/25 22:45 650 MG Polyethylene Glycol 17 gm DAILYPRN PRN PO 10/04/25 06:00 Ceftriaxone Sodium 50 ml @ 100 mls/hr DAILY@09 IV 10/04/25 09:00 10/04/25 09:00 100 MLS/HR Pantoprazole Sodium 40 mg DAILY@0600 PO 10/05/25 06:00 Examination: GENERAL:Abnormal, LUNGS:Abnormal, CVS:Abnormal laboratory and microbiology Laboratory Tests 10/04/25 05:00 Test 10/04/25 05:00 Range/Units Serum Glucose 92 74-106 mg/dL Microbiology Date/Time Source Procedure Growth Status 10/02/25 06:37 Sputum Gram Stain - Final Resulted 10/02/25 06:37 Sputum Respiratory Culture - Preliminary Resulted 09/29/25 20:30 Nose MRSA Screen - Final Complete Problem List/Assessment/Plan Problem List/Assessment/Plan Acute kidney injury superimposed Chronic Kidney Disease secondary hemodynamic mediated, feNa < 1% Acute respiratory failure, O2 supplement Congestive heart failure exacerbation NSTEMI s/p [facility] 10/02 shows multivessel disease Diabetes mellitus type 2 Nonobstructing kidney stone Hypertension Peripheral arterial disease Bilateral below knee amputation Anemia of chronic kidney disease Recommendations slight cr elevation suspect this is due to contrast Strict I&Os Kidney ultrasound reported nonobstructing kidney stone, large prostate, keep valverde. leaking around valverde reported despite replacement however given large size prostate and challenge of placement will hold off on increasing valverde size Low-dose dopamine Bumex 1 mg IV b.i.d. KCL replacement Cardiology consult post cath recs CABG eval pending transfer Plan discussed with: Patient Dietary Evaluation Review Comments: Nutrition Recommendation: 1) Nephro-thalia 1 tab daily, Musa 1 pk daily 2) Monitor PO intake, lab values, weight trend, and I/O Expected Outcomes/Goals: Wound to improve Intake to meet >75% estimated needs FU 3-5 days KIMBERLY LEES MD Oct 04, 2025 16:33
[2025-10-04] MEDS: MELATONIN 5 MG TAB PO ONE (21:25)
[2025-10-04] MEDS: MELATONIN 5 MG TAB ONE (21:37)
[2025-10-05] VITALS (14 sets, daily range): BP systolic 100–171; BP diastolic 51–84; PULSE 72–94; RESP 16–20; TEMP 97.4–99.1; O2SAT 93–100
[2025-10-05 06:02] LABS: Hematocrit 30.1 % (41.0-53.0); Hemoglobin 9.4 g/dL (13.5-17.5); Mean Corpuscular Hemoglobin 24.0 pg (28.0-32.0); Mean Corpuscular Volume 76.7 fL (80.0-100.0); Nucleated Red Blood Cells % 0.0 %
[2025-10-05 06:23] LABS: Anion Gap 14 (5-15); Carbon Dioxide 24 mmol/L (20-31); Chloride 100 mmol/L (98-107); Potassium 4.3 mmol/L (3.5-5.1); Sodium 138 mmol/L (136-145)
[2025-10-05 06:25] LABS: Calcium 8.1 mg/dL (8.7-10.4)
[2025-10-05 06:29] LABS: BUN/Creatinine Ratio 22.5 (10.0-20.0); Magnesium 2.4 mg/dL (1.6-2.6)
[2025-10-05] MEDS: PANTOPRAZOLE 40 MG TAB PO SCH (06:35)
[2025-10-05 06:40] LABS: Glucose 236 mg/dL (74-106)
[2025-10-05 06:42] LABS: Blood Urea Nitrogen 82 mg/dL (9-23)
--- NOTE | 2025-10-05 08:54 | DVHPNRES ---
Progress Note Date Seen: Oct 05, 2025 Resident Creating Document: ROHINI BHAKTA RESIDENT Has the PT tested + for MRSA If YES, has PT been informed?: No Medical Necessity Reason Pt with a Central, PICC or Fol: Yes The following are medically ne: Valverde Catheter Reason for valverde catheter: Bladder Retention/Obstruc, Strict I&O Subjective Review of Systems 75-year-old male presents to the ED via EMS with complaint of hyperglycemia. He reports persistent elevated blood glucose readings over the past several days associated with nausea, vomiting, poor appetite, and unintentional weight loss for approximately three weeks. He states this symptoms feel similar to prior episodes of DKA. He denies dizziness, syncope, chest pain, palpitations, shortness of breath, fevers, or other acute symptoms. In the ED, initial lab shows a serum glucose of 409 mg/dL, an anion gap of 20, CO2 of 22, creatinine 3.54 with a GFR of 17, and elevated high sensitivity troponins trending from [id number]. Significant past medical history includes PAD status post bilateral AKA, diabetes type 2, hypertension, CKD, anemia of chronic disease. Past Medical History * Type 2 diabetes mellitus, uncontrolled (HbA1c 10.7%) * Chronic kidney disease (baseline Cr ~3.2) * LEXA on CKD * Peripheral arterial disease s/p bilateral above-knee amputations * Hypertension * HFrEF (prior EF 4550%), now EF 25% * Chronic anemia of CKD/iron deficiency * Pulmonary embolism (prior) * Severe pulmonary hypertension (RVSP 6570 mmHg) * Cavitary lung lesion (remote) Past Surgical History * Bilateral above-knee amputations Past Social History * Former smoker: 20 years, quit 5 years ago * Quit alcohol 15 years ago * Lives with family * No illicit drug use 09/30/25 * Patient downgraded from ICU to TELE. * On 3 L nasal cannula, FiO2 3032%, saturating 79030%, no work of breathing. * Nausea/vomiting improving, but weight loss suspected to be chronic ? GI consult placed today. * Troponins continue to trend upward and now downtrending without chest pain; cardiology following for NSTEMI type 1 vs type 2 demand ischemia and CHF exacerbation. * Echocardiogram (yesterday): EF 25%, global hypokinesis, moderatesevere RV dysfunction, severe pulmonary hypertension (RVSP 6570 mmHg). * LEXA persists: Cr 3.33 (baseline ~3.28), UOP 0.35 mL/kg/hr. * Hypernatremia (148) improving slowly with D5W per nephrology. * EKG: Sinus rhythm with nonspecific anterior/inferior/lateral repolarization abnormalities; QT prolonged ? Zofran avoided. * Started DuoNeb Q6H, chest physiotherapy, chest X-ray ordered. * GI consulted for chronic nausea, vomiting, weight loss. 10/01/25 This 75-year-old male with history of CKD stage 45, acute on chronic systolic heart failure (EF 25%), severe pulmonary hypertension, PAD s/p bilateral above- knee amputations, T2DM (A1c 10.7%), recent DKA (resolved), history of PE, and poor PO intake continues to report severe anorexia, unable to tolerate solids, only tolerated a peach today. He denies chest pain. Mild shortness of breath persists. He has had fluctuating tachycardia (max 151 bpm), mild hypoxia (SpO2 9097% on 2 L NC), and worsening pulmonary congestion on chest X-ray compared to 09/29. WBC count continues to improve. He remains afebrile.The patient and the Family has now given informed consent for coronary angiography with left heart catheterization scheduled for tomorrow because the procedure is tomorrow morning, D5W is being continued at 60 mL/hr for procedure. Fluid plan will be re-evaluated post-procedure depending on renal function and volume status. GI consult is still pending for persistent nausea, poor intake, and weight loss. 10/02/25 The patient undergoing coronary angiography with left heart catheterization today. Hypoxia episode today: While on 3 L NC, SpO2 transiently dropped to 70s. He was placed on 4 L NC, now stabilizing between 8890%. RR remains 1420. GI was consulted yesterday and plans EGD + colonoscopy once medically optimized. They also recommend Ensure High Protein TID for nutritional supplementation. Valverde catheter continues leaking despite replacement; bladder scan shows 8 mL consistent with severe BPH causing leakage around the catheter. Urology medications Flomax + Finasteride ordered. D5W discontinued due to adequate sodium correction and worsening pulmonary congestion. Patient started on PO liquids + renal diabetic cardiac low sodium diet. Abdominal CT (non-contrast) reveals: * Severe atherosclerotic disease * Severe prostatomegaly * Valverde catheter in bladder but incompletely decompressing bladder. * Nodular soft tissue thickening anterior abdominal wall (due to prior insulin injection sites) * Moderate bilateral pleural effusions 10/03/25 Overnight, he developed worsening hypoxia requiring BiPAP, with transient improvement. Today, oxygen needs remain elevated, and he is currently on an Oxymizer at 8 L/min because of fluctuating saturations 8691%. He denies chest pain but reports persistent weakness, fatigue, poor appetite, and inability to tolerate solid foods. No bowel movement reported for several days. Mild abdominal discomfort without vomiting. He is hemodynamically stable but remains volume positive. The patient underwent left & right coronary angiography yesterday, revealing severe triple-vessel disease with heavily calcified lesions: * LAD ~80% stenosis * Left circumflex ~95% stenosis * RCA ~80% stenosis * Severe calcifications, poor PCI candidacy Cardiology recommends: * CT surgery evaluation for CABG * But patient is NOT an ideal surgical candidate due to frailty, CKD, HFrEF, severe comorbidities * May require mechanical circulatory support (Impella/MCS) * Hold P2Y12 inhibitors until CT surgery decision A higher-level transfer to [place] was initiated and is still pending. Valverde catheter continues to leak despite repositioning and replacement, consistent with severe BPH. No BM today. Abdominal X-ray ordered to rule out obstruction. If normal start Miralax and continue GI plan. 10/04/25 Overnight: * On full-face BiPAP (FiO2 60%). * When he removed BiPAP, sats dropped to 70%; placed back on BiPAP with sats 8892%. This morning: * Transitioned to Oximizer, now requiring 15 L/min, saturating 8890%. * Complains of dyspnea, chest tightness, and generalized weakness. * No bowel movement since last Tuesday. * Valverde catheter leaking around the urethra; poor drainage due to severe prostatomegaly. Procedures Today: * Bilateral thoracentesis performed due to worsening respiratory distress and pleural effusions: * Left pleural space: 1.0 L removed. * Right pleural space: 2.0 L removed. Family updated. Antibiotics: * Sputum culture showing moderate gram-positive cocci in chains and pairs. * Started ceftriaxone 1 g IV daily today. Imaging: * Abdominal X-ray: Non-obstructive bowel gas pattern. * Plan: Miralax started. * Still pending transfer to [place] for higher level of cardiac surgical evaluation (CABG vs MCS). Overall Status Today: * Continues in acute hypoxic respiratory failure requiring high-flow/oximizer support. * Positive fluid balance +900 mL with very low urine output (0.1 mL/kg/hr) concerning for cardiorenal syndrome and worsening CKD. * BNP previously elevated (4,800s). * Hemoglobin downtrending to 9.8 g/dL. * Creatinine increased to 3.05 (from 2.86). * Persistent severe constipation. Todays Plan * Continue high-flow O2 via Oximizer; BiPAP PRN for hypoxia. * Monitor post-thoracentesis; send pleural fluid studies. * Continue ceftriaxone for suspected bacterial pneumonia. * Strict I/O, daily weights; evaluate diuretic strategy after thoracentesis (Bumex previously). * Address Valverde malfunction; consider urology consult. * Continue Miralax bowel regimen. * Follow GI recommendations for EGD/colonoscopy once medically stable. * Continue transfer process to [place] for CABG vs MCS evaluation. * Monitor renal function closely. 10/05 25: Patient seen and examined at bedside, continue current medical treatment. Objective vital signs Vital Sign Date Time Temp Pulse Resp B/P (MAP) Pulse Ox O2 Delivery O2 Flow Rate FiO2 10/05/25 06:35 171/84 10/05/25 06:30 77 18 93 10/05/25 06:30 Nasal Cannula* 4 36 10/05/25 05:00 97.4 97.4 Total Intake and Output 10/04/25 10/04/25 10/05/25 15:00 23:00 07:00 Intake Total 50 ml 500 ml 350 ml Output Total 200 ml 150 ml Balance 50 ml 300 ml 200 ml medications Current Medications Medications Dose Ordered Sig/Conrado Route Start Time Stop Time Status Last Admin Dose Admin Insulin Glargine 15 units DAILY SC 09/30/25 10:00 10/03/25 09:10 15 UNITS Ondansetron HCl 4 mg Q4HP PRN IV 09/29/25 12:30 Cancel Enoxaparin Sodium 40 mg DAILY SC 09/30/25 10:00 UNV Aspirin 81 mg DAILY PO 09/30/25 10:00 10/04/25 10:00 81 MG Metoprolol Succinate 50 mg DAILY PO 09/30/25 10:00 10/04/25 10:00 50 MG Heparin Sodium (Porcine) 5,000 units Q12HR SC 09/29/25 22:00 10/04/25 21:18 5,000 UNITS Atorvastatin Calcium 40 mg HS PO 09/29/25 22:00 10/04/25 21:25 40 MG Bumetanide 1 mg BIDD IV 09/30/25 10:30 10/05/25 06:35 1 MG Dopamine HCl/ Dextrose 250 ml @ 2.213 mls/ hr Q24H IV 09/30/25 14:45 10/04/25 14:45 2.213 MLS/HR Diagnostic Test (Pha) 1 strip ACHS 10/01/25 11:30 10/05/25 06:36 1 STRIP Insulin Human Regular ACHS SC 10/01/25 11:30 10/05/25 06:39 6 UNITS Dextrose 50 ml UD PRN IV 10/01/25 09:30 Levothyroxine Sodium 100 mcg QAM@0600 PO 10/02/25 06:00 10/05/25 06:35 100 MCG Albuterol 2.5 mg Q6HWA NEB 10/02/25 12:00 10/05/25 06:29 2.5 MG Ipratropium [place] 0.5 mg Q6HWA NEB 10/02/25 12:00 10/05/25 06:29 0.5 MG Tamsulosin HCl 0.4 mg QPM PO 10/02/25 18:00 10/04/25 17:42 0.4 MG Finasteride 5 mg DAILY PO 10/03/25 10:00 10/04/25 10:00 5 MG Acetaminophen 650 mg Q6HP PRN PO 10/02/25 20:45 10/04/25 17:42 650 MG Polyethylene Glycol 17 gm DAILYPRN PRN PO 10/04/25 06:00 Ceftriaxone Sodium 50 ml @ 100 mls/hr DAILY@09 IV 10/04/25 09:00 10/04/25 09:00 100 MLS/HR Pantoprazole Sodium 40 mg DAILY@0600 PO 10/05/25 06:00 10/05/25 06:35 40 MG Examination * General: Frail, ill-appearing male in mild respiratory distress. * Neuro: A&O 3, follows commands. No focal deficits. * HEENT: Mucous membranes dry. * Cardiac: Regular rhythm, no murmurs, mild JVD. * Respiratory: Bilateral crackles/rales; diminished breath sounds at bases; post-thoracentesis improvement. * Abdomen: Soft, NT, ND. No guarding/rebound. * : Valverde in place, leaking around catheter. * Extremities: Bilateral AKAs. No edema in remaining limbs. * Skin: Chronic insulin injection nodules along abdominal wall. * Psych: Calm, cooperative. laboratory and microbiology Laboratory Tests 10/05/25 05:13 Test 10/05/25 05:13 Range/Units Serum Glucose 236 #H 74-106 mg/dL Microbiology Date/Time Source Procedure Growth Status 10/02/25 06:37 Sputum Gram Stain - Final Resulted 10/02/25 06:37 Sputum Respiratory Culture - Preliminary Resulted 09/29/25 20:30 Nose MRSA Screen - Final Complete Problem List/Assessment/Plan Problem List/Assessment/Plan 1. NEUROLOGY Assessment * No sedation * No delirium * No focal deficits Plan * Avoid sedatives * Maintain normal oxygenation and glucose 2. CARDIOVASCULAR A. Acute on chronic systolic HF (HFrEF), EF 25%, NYHA Class IIIACUTE DECOMPENSATION Differentials: Ischemic cardiomyopathy, Tachyarrhythmia, Volume overload, Myocardial injury Plan: * Continue Bumex 1 mg IV BID * Continue metoprolol succinate 50 mg daily * Avoid MYNOR/ARB/ARNI/SGLT2 due to LEXA and hypernatremia * Fluid restriction 1.5 L/day * Repeat CXR tomorrow * Strict I/Os and daily weights * Cardiology following B. Elevated troponins NSTEMI Type 1 vs Type 2 demand ischemia Severe triple-vessel coronary artery disease (LAD 80%, LCx 95%, RCA 80%) * Troponin rising to 3924 now downtrending * EKG: Sinus rhythm with repolarization abnormalities * No chest pain * High surgical risk for CABG * CT surgery consult pending * Needs advanced cardiac center ([place]) * Await transfer to [place] for CABG vs Impella evaluation. * Hold P2Y12 until surgical decision Plan: * Continue Aspirin 81 mg * Continue Atorvastatin 40 mg * Maintain Metoprolol * Await CT surgery evaluation * Transfer request to [place]. continue escalation Continue heparin 5000 units SC Q12h, atorvastatin 40 mg po hs * Telemetry monitoring * Repeat troponin trending C. Severe pulmonary hypertension (RVSP 6570 mmHg) Plan: * Maintain oxygenation * Avoid fluid overload * (left-sided HF likely) Peripheral arterial disease s/p bilateral above-knee amputations Hypertension Continue metoprolol succinate 50 mg daily 3. RESPIRATORY SYSTEM Assessment * Pleural effusions due to CHF Exercabation * Acute hypoxic respiratory failure * RLL atelectasis * Mild hypoxemia High oxygen requirement (BiPAP overnight, now Oximizer 15 L). ABG shows persistent hypoxemia. Underwent bilateral thoracentesis today (1 L left, 2 L right). Plan * Continue Oxymizer, target SpO2 > 90%. * BiPAP PRN if SpO2 < 88% or RR > 22 * Continue DuoNeb Q6H * Chest physiotherapy * Daily pulse oximetry * Follow-up CXR 4. GASTROINTESTINAL Assessment * Chronic nausea/vomiting * Weight loss several months * Risk for gastroparesis vs malignancy vs chronic GI dysmotility * Severe constipation * No BM for several days Plan * GI planning EGD + colonoscopy once stable Abdominal X-ray is non-obstructive. * Start Miralax daily. * Add senna if no BM in 24 hours. * Continue Ensure High Protein TID * PO clear liquids, renal diabetic , cardiac, low Na diet * * GI consult pending * Avoid Zofran due to QT prolongation * Monitor for bowel movement 5. GENITOURINARY * BPH with urinary obstruction * Chronic Valverde with malfunction * Acute urinary retention * Leak around catheter; bladder scan 8 mL Plan: * Continue Valverde for strict I/Os * Monitor UA and cultures * Start Flomax + Finasteride * Avoid nephrotoxic medications 6. RENAL (NEPHROLOGY) Acute Kidney Injury due to VMN with superimposed CKD (Stage 45), hemodynamically mediated, Low urinary sodium:- improving Cardiorenal syndrome AG METABOLIC ACIDOSIS RESOLVED hypernatremia Improving metabolic alkalosis Right sided Nephrolithiasis non obstructive Plan: * Nephrology following * Hold fluids worsening pulmonary edema * Continue dopamine 0.99 * Avoid MYNOR inhibitors, ARBs, NSAIDs, Continue Bumex 1mg IV BIDD * Daily BMP * Strict I/Os * Renal-dose medications * Reassess renal function post-C 7. INFECTIOUS DISEASE Assessment * Suspected bacterial pneumonia * Gram-positive cocci on sputum * Pneumonia (effusions) MRSA :- NEGATIVE Plan: * Blood cultures 2, Continue ceftriaxone 1 g IV daily. * Follow sputum and pleural cultures. * Monitor WBC, fever curve. * WBC improving (12.9) * Start antibiotics ONLY if infectious source identified or clinical deterioration 8. ENDOCRINE A. DKA RESOLVED uncontrolled T2DM (A1c 10.7%) * AG closed * B-hydroxybutyrate decreasing (0.449 - 0.213) * Insulin drip off since 09/29 Plan: * Continue Lantus 15 units daily * Continue correctional insulin * Glucose goal [id number] B. Hypothyroidism Plan: * Continue levothyroxine 100 mcg daily 9. 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 PSYCHIATRY * Patient calm, cooperative * No acute psychiatric symptoms Plan: * Supportive care * Sleep hygiene 11. NUTRITION * Renal-friendly, cardiac, carbohydrate-controlled diet * Calorie counts * Consult nutrition placed today. 12. LINES / TUBES * Valverde catheter (in place) * No central line * No PICC * No arterial line * No dialysis catheter 13. PROPHYLAXIS * DVT: Heparin 5000 units SQ q12h * GI: pantoprazole 40 PO * Fall & skin precautions * Pressure ulcer prevention 14. PT SOCIAL WORK * PT/OT evaluation ordered * Social work involved for transfer to [facility] For higher level of care. CRITICAL CARE TIME A total of 83 minutes of critical care time was spent today in the evaluation, management, data review, coordination of care, and direct bedside care of this critically ill patient, excluding procedures. CODE STATUS Full Code. Greater than 20 minutes spent discussing code status and goals of care with patient and family. Family at bedside; plan discussed with Dr. Willard. Case discussed in detail with the attending physician , Plan discussed with: Patient Dietary Evaluation Review Comments: Nutrition Recommendation: 1) Nephro-thalia 1 tab daily, Musa 1 pk daily 2) Monitor PO intake, lab values, weight trend, and I/O Expected Outcomes/Goals: Wound to improve Intake to meet >75% estimated needs FU 3-5 days ROHINI BHAKTA RESIDENT Oct 05, 2025 08:53
--- NOTE | 2025-10-05 12:57 | DVHPN2 ---
Progress Note Date Seen: Oct 05, 2025 Has the PT tested + for MRSA If YES, has PT been informed?: No Medical Necessity Reason Pt with a Central, PICC or Fol: Yes The following are medically ne: Valverde Catheter Reason for valverde catheter: Bladder Retention/Obstruc, Strict I&O Objective vital signs Vital Sign Date Time Temp Pulse Resp B/P (MAP) Pulse Ox O2 Delivery O2 Flow Rate FiO2 10/05/25 11:53 84 16 97 10/05/25 11:45 Nasal Cannula* 4 36 10/05/25 09:40 144/65 10/05/25 09:00 99.1 99.1 Total Intake and Output 10/04/25 10/04/25 10/05/25 15:00 23:00 07:00 Intake Total 50 ml 500 ml 350 ml Output Total 200 ml 150 ml Balance 50 ml 300 ml 200 ml medications Current Medications Medications Dose Ordered Sig/Conrado Route Start Time Stop Time Status Last Admin Dose Admin Insulin Glargine 15 units DAILY SC 09/30/25 10:00 10/05/25 09:46 15 UNITS Ondansetron HCl 4 mg Q4HP PRN IV 09/29/25 12:30 Cancel Enoxaparin Sodium 40 mg DAILY SC 09/30/25 10:00 UNV Aspirin 81 mg DAILY PO 09/30/25 10:00 10/05/25 09:39 81 MG Metoprolol Succinate 50 mg DAILY PO 09/30/25 10:00 10/05/25 09:40 50 MG Heparin Sodium (Porcine) 5,000 units Q12HR SC 09/29/25 22:00 10/05/25 09:41 5,000 UNITS Atorvastatin Calcium 40 mg HS PO 09/29/25 22:00 10/04/25 21:25 40 MG Bumetanide 1 mg BIDD IV 09/30/25 10:30 10/05/25 06:35 1 MG Dopamine HCl/ Dextrose 250 ml @ 2.213 mls/ hr Q24H IV 09/30/25 14:45 10/04/25 14:45 2.213 MLS/HR Diagnostic Test (Pha) 1 strip ACHS 10/01/25 11:30 10/05/25 11:50 1 STRIP Insulin Human Regular ACHS SC 10/01/25 11:30 10/05/25 11:30 187 UNITS Dextrose 50 ml UD PRN IV 10/01/25 09:30 Levothyroxine Sodium 100 mcg QAM@0600 PO 10/02/25 06:00 10/05/25 06:35 100 MCG Albuterol 2.5 mg Q6HWA NEB 10/02/25 12:00 10/05/25 11:45 2.5 MG Ipratropium [place] 0.5 mg Q6HWA NEB 10/02/25 12:00 10/05/25 11:45 0.5 MG Tamsulosin HCl 0.4 mg QPM PO 10/02/25 18:00 10/04/25 17:42 0.4 MG Finasteride 5 mg DAILY PO 10/03/25 10:00 10/05/25 09:39 5 MG Acetaminophen 650 mg Q6HP PRN PO 10/02/25 20:45 10/04/25 17:42 650 MG Polyethylene Glycol 17 gm DAILYPRN PRN PO 10/04/25 06:00 Ceftriaxone Sodium 50 ml @ 100 mls/hr DAILY@09 IV 10/04/25 09:00 10/05/25 09:39 100 MLS/HR Pantoprazole Sodium 40 mg DAILY@0600 PO 10/05/25 06:00 10/05/25 06:35 40 MG Examination: GENERAL:Abnormal, LUNGS:Abnormal, CVS:Abnormal, SKIN:Normal, :Abnormal laboratory and microbiology Laboratory Tests 10/05/25 05:13 Test 10/05/25 05:13 Range/Units Serum Glucose 236 #H 74-106 mg/dL Microbiology Date/Time Source Procedure Growth Status 10/04/25 13:46 Thoracic Fluid Gram Stain Pending Resulted 10/04/25 13:46 Thoracic Fluid Aerobic Culture - Preliminary No growth Resulted 10/02/25 06:37 Sputum Gram Stain - Final Complete 10/02/25 06:37 Sputum Respiratory Culture - Final Complete 09/29/25 20:30 Nose MRSA Screen - Final Complete Problem List/Assessment/Plan Problem List/Assessment/Plan Acute kidney injury superimposed Chronic Kidney Disease secondary hemodynamic mediated, feNa < 1% Acute respiratory failure, O2 supplement Congestive heart failure exacerbation NSTEMI s/p [facility] 10/02 shows multivessel disease Diabetes mellitus type 2 Nonobstructing kidney stone Hypertension Peripheral arterial disease Bilateral below knee amputation Anemia of chronic kidney disease Recommendations slight cr elevation suspect this is due to contrast Strict I&Os Kidney ultrasound reported nonobstructing kidney stone, large prostate, keep valverde. leaking around valverde reported despite replacement however given large size prostate and challenge of placement will hold off on increasing valverde size Low-dose dopamine Bumex 1 mg IV b.i.d.-> reduce to once per day KCL replacement Cardiology consult post cath recs CABG eval pending transfer Plan discussed with: Patient Dietary Evaluation Review Comments: Nutrition Recommendation: 1) Nephro-thalia 1 tab daily, Musa 1 pk daily 2) Monitor PO intake, lab values, weight trend, and I/O Expected Outcomes/Goals: Wound to improve Intake to meet >75% estimated needs FU 3-5 days KIMBERLY LEES MD Oct 05, 2025 12:57
[2025-10-05] MEDS: POLYETHYLENE GLYCOL 17 GM PWDR PO PRN (16:14)
[2025-10-06] VITALS (18 sets, daily range): BP systolic 107–137; BP diastolic 58–80; PULSE 78–94; RESP 14–20; TEMP 97.7–98.6; O2SAT 94–100
[2025-10-06 05:46] LABS: Chloride 98 mmol/L (98-107); Potassium 4.9 mmol/L (3.5-5.1); Sodium 137 mmol/L (136-145)
[2025-10-06 05:47] LABS: Anion Gap 13 (5-15); Carbon Dioxide 26 mmol/L (20-31); Hematocrit 31.4 % (41.0-53.0); Hemoglobin 10.0 g/dL (13.5-17.5); Mean Corpuscular Hemoglobin 24.2 pg (28.0-32.0); Mean Corpuscular Volume 75.9 fL (80.0-100.0); Nucleated Red Blood Cells % 0.1 %
[2025-10-06 05:49] LABS: Calcium 8.4 mg/dL (8.7-10.4)
[2025-10-06 05:53] LABS: BUN/Creatinine Ratio 20.1 (10.0-20.0)
[2025-10-06 06:04] LABS: Glucose 184 mg/dL (74-106)
[2025-10-06 06:06] LABS: Blood Urea Nitrogen 92 mg/dL (9-23)
--- NOTE | 2025-10-06 10:43 | DVHPN2 ---
Progress Note Date Seen: Oct 06, 2025 Has the PT tested + for MRSA If YES, has PT been informed?: No Medical Necessity Reason Pt with a Central, PICC or Fol: Yes The following are medically ne: Valverde Catheter Reason for valverde catheter: Bladder Retention/Obstruc, Strict I&O Objective vital signs Vital Sign Date Time Temp Pulse Resp B/P (MAP) Pulse Ox O2 Delivery O2 Flow Rate FiO2 10/06/25 09:13 92 137/69 10/06/25 09:00 98.5 20 95 98.5 10/05/25 20:00 Nasal Cannula* 4 36 Total Intake and Output 10/05/25 10/05/25 10/06/25 15:00 23:00 07:00 Intake Total 286 ml 681 ml 450 ml Output Total 75 ml 300 ml Balance 286 ml 606 ml 150 ml medications Current Medications Medications Dose Ordered Sig/Conrado Route Start Time Stop Time Status Last Admin Dose Admin Insulin Glargine 15 units DAILY SC 09/30/25 10:00 10/05/25 09:46 15 UNITS Ondansetron HCl 4 mg Q4HP PRN IV 09/29/25 12:30 Cancel Enoxaparin Sodium 40 mg DAILY SC 09/30/25 10:00 UNV Aspirin 81 mg DAILY PO 09/30/25 10:00 10/06/25 09:14 81 MG Metoprolol Succinate 50 mg DAILY PO 09/30/25 10:00 10/06/25 09:13 50 MG Heparin Sodium (Porcine) 5,000 units Q12HR SC 09/29/25 22:00 10/06/25 09:14 5,000 UNITS Atorvastatin Calcium 40 mg HS PO 09/29/25 22:00 10/05/25 21:25 40 MG Dopamine HCl/ Dextrose 250 ml @ 2.213 mls/ hr Q24H IV 09/30/25 14:45 10/05/25 16:36 2.213 MLS/HR Diagnostic Test (Pha) 1 strip ACHS 10/01/25 11:30 10/06/25 06:01 1 STRIP Insulin Human Regular ACHS SC 10/01/25 11:30 10/06/25 06:02 4 UNITS Dextrose 50 ml UD PRN IV 10/01/25 09:30 Levothyroxine Sodium 100 mcg QAM@0600 PO 10/02/25 06:00 10/06/25 05:21 100 MCG Albuterol 2.5 mg Q6HWA NEB 10/02/25 12:00 10/06/25 06:01 2.5 MG Ipratropium Ackley 0.5 mg Q6HWA NEB 10/02/25 12:00 10/06/25 06:01 0.5 MG Tamsulosin HCl 0.4 mg QPM PO 10/02/25 18:00 10/05/25 17:55 0.4 MG Finasteride 5 mg DAILY PO 10/03/25 10:00 10/06/25 09:13 5 MG Acetaminophen 650 mg Q6HP PRN PO 10/02/25 20:45 10/04/25 17:42 650 MG Polyethylene Glycol 17 gm DAILYPRN PRN PO 10/04/25 06:00 10/05/25 16:14 17 GM Ceftriaxone Sodium 50 ml @ 100 mls/hr DAILY@09 IV 10/04/25 09:00 10/06/25 09:12 100 MLS/HR Pantoprazole Sodium 40 mg DAILY@0600 PO 10/05/25 06:00 10/06/25 05:21 40 MG Bumetanide 1 mg DAILY IV 10/06/25 10:00 Examination: GENERAL:Abnormal, LUNGS:Abnormal, CVS:Abnormal laboratory and microbiology Laboratory Tests 10/06/25 04:36 Test 10/06/25 04:36 Range/Units Serum Glucose 184 H 74-106 mg/dL Microbiology Date/Time Source Procedure Growth Status 10/04/25 13:46 Thoracic Fluid Gram Stain - Final Resulted 10/04/25 13:46 Thoracic Fluid Aerobic Culture - Preliminary No growth Resulted 10/02/25 06:37 Sputum Gram Stain - Final Complete 10/02/25 06:37 Sputum Respiratory Culture - Final Complete 09/29/25 20:30 Nose MRSA Screen - Final Complete Problem List/Assessment/Plan Problem List/Assessment/Plan Acute kidney injury hemodynamic + contrast induced injury CKD Acute respiratory failure, O2 supplement Congestive heart failure exacerbation NSTEMI s/p [facility] 10/02 shows multivessel disease Diabetes mellitus type 2 Nonobstructing kidney stone Hypertension Peripheral arterial disease Bilateral below knee amputation Anemia of chronic kidney disease Recommendations renal function continues to worsen, low threshold to start dialysis CXR to determine volume status Strict I&Os Kidney ultrasound reported nonobstructing kidney stone, large prostate, keep valverde. leaking around valverde reported despite replacement however given large size prostate and challenge of placement will hold off on increasing valverde size Low-dose dopamine Bumex 1 mg IV b.i.d. Cardiology consult post cath recs CABG eval pending transfer Plan discussed with: Patient My Orders My Orders Orders - KIMBERLY LEES MD Procedure Category Date Status Time Bumetanide Injection PHA 10/06/25 In Process (Bumex Injection) 10:00 Chest Portable XY 10/06/25 Verified 10:40 Basic Metabolic Panel LAB 10/07/25 Verified 04:00 Dietary Evaluation Review Comments: Nutrition Recommendation: 1) Nephro-thalia 1 tab daily, Musa 1 pk daily 2) Monitor PO intake, lab values, weight trend, and I/O Expected Outcomes/Goals: Wound to improve Intake to meet >75% estimated needs FU 3-5 days KIMBERLY LEES MD Oct 06, 2025 10:43
[2025-10-06] MEDS: BUMETANIDE 1mg/4ml VIAL (0.25mg/ml) IV SCH (10:55)
--- NOTE | 2025-10-06 12:09 | DVH ---
CHEST RADIOGRAPH Indication: chf Technique: Single frontal view of the chest was obtained Comparison: XY CHEST XRAY 1 VIEW on DOS: 10/04/25, XY CHEST XRAY 1 VIEW on DOS: 10/03/25, XY CHEST XRAY 1 VIEW on DOS: 10/01/25 FINDINGS: Lines and Tubes: None Lungs: Increased cardio vascular congestion with increasing right pleural effusion. Pleura: No effusion. No pneumothorax. Cardiomediastinal contours: Cardiomegaly Bones: No acute osseous abnormality. IMPRESSION: 1. Findings suggest worsening congestive failure.
--- NOTE | 2025-10-06 12:11 | ECG ---
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
[2025-10-06] MEDS ORDERED: POLYETHYLENE GLYCOL 17 GM PWDR PO PRN (14:00)
--- NOTE | 2025-10-06 14:00 | DVHPNRES ---
Progress Note Date Seen: Oct 06, 2025 Resident Creating Document: CLIFF BRUCE RESIDENT Has the PT tested + for MRSA If YES, has PT been informed?: No Medical Necessity Reason Pt with a Central, PICC or Fol: Yes The following are medically ne: Valverde Catheter Reason for valverde catheter: Bladder Retention/Obstruc, Strict I&O Subjective Review of Systems 75-year-old male presents to the ED via EMS with complaint of hyperglycemia. He reports persistent elevated blood glucose readings over the past several days associated with nausea, vomiting, poor appetite, and unintentional weight loss for approximately three weeks. He states this symptoms feel similar to prior episodes of DKA. He denies dizziness, syncope, chest pain, palpitations, shortness of breath, fevers, or other acute symptoms. In the ED, initial lab shows a serum glucose of 409 mg/dL, an anion gap of 20, CO2 of 22, creatinine 3.54 with a GFR of 17, and elevated high sensitivity troponins trending from [id number]. Significant past medical history includes PAD status post bilateral AKA, diabetes type 2, hypertension, CKD, anemia of chronic disease. Past Medical History * Type 2 diabetes mellitus, uncontrolled (HbA1c 10.7%) * Chronic kidney disease (baseline Cr ~3.2) * LEXA on CKD * Peripheral arterial disease s/p bilateral above-knee amputations * Hypertension * HFrEF (prior EF 4550%), now EF 25% * Chronic anemia of CKD/iron deficiency * Pulmonary embolism (prior) * Severe pulmonary hypertension (RVSP 6570 mmHg) * Cavitary lung lesion (remote) Past Surgical History * Bilateral above-knee amputations Past Social History * Former smoker: 20 years, quit 5 years ago * Quit alcohol 15 years ago * Lives with family * No illicit drug use 09/30/25 * Patient downgraded from ICU to TELE. * On 3 L nasal cannula, FiO2 3032%, saturating 93104%, no work of breathing. * Nausea/vomiting improving, but weight loss suspected to be chronic ? GI consult placed today. * Troponins continue to trend upward and now downtrending without chest pain; cardiology following for NSTEMI type 1 vs type 2 demand ischemia and CHF exacerbation. * Echocardiogram (yesterday): EF 25%, global hypokinesis, moderatesevere RV dysfunction, severe pulmonary hypertension (RVSP 6570 mmHg). * LEXA persists: Cr 3.33 (baseline ~3.28), UOP 0.35 mL/kg/hr. * Hypernatremia (148) improving slowly with D5W per nephrology. * EKG: Sinus rhythm with nonspecific anterior/inferior/lateral repolarization abnormalities; QT prolonged ? Zofran avoided. * Started DuoNeb Q6H, chest physiotherapy, chest X-ray ordered. * GI consulted for chronic nausea, vomiting, weight loss. 10/01/25 This 75-year-old male with history of CKD stage 45, acute on chronic systolic heart failure (EF 25%), severe pulmonary hypertension, PAD s/p bilateral above- knee amputations, T2DM (A1c 10.7%), recent DKA (resolved), history of PE, and poor PO intake continues to report severe anorexia, unable to tolerate solids, only tolerated a peach today. He denies chest pain. Mild shortness of breath persists. He has had fluctuating tachycardia (max 151 bpm), mild hypoxia (SpO2 9097% on 2 L NC), and worsening pulmonary congestion on chest X-ray compared to 09/29. WBC count continues to improve. He remains afebrile.The patient and the Family has now given informed consent for coronary angiography with left heart catheterization scheduled for tomorrow because the procedure is tomorrow morning, D5W is being continued at 60 mL/hr for procedure. Fluid plan will be re-evaluated post-procedure depending on renal function and volume status. GI consult is still pending for persistent nausea, poor intake, and weight loss. 10/02/25 The patient undergoing coronary angiography with left heart catheterization today. Hypoxia episode today: While on 3 L NC, SpO2 transiently dropped to 70s. He was placed on 4 L NC, now stabilizing between 8890%. RR remains 1420. GI was consulted yesterday and plans EGD + colonoscopy once medically optimized. They also recommend Ensure High Protein TID for nutritional supplementation. Valverde catheter continues leaking despite replacement; bladder scan shows 8 mL consistent with severe BPH causing leakage around the catheter. Urology medications Flomax + Finasteride ordered. D5W discontinued due to adequate sodium correction and worsening pulmonary congestion. Patient started on PO liquids + renal diabetic cardiac low sodium diet. Abdominal CT (non-contrast) reveals: * Severe atherosclerotic disease * Severe prostatomegaly * Valverde catheter in bladder but incompletely decompressing bladder. * Nodular soft tissue thickening anterior abdominal wall (due to prior insulin injection sites) * Moderate bilateral pleural effusions 10/03/25 Overnight, he developed worsening hypoxia requiring BiPAP, with transient improvement. Today, oxygen needs remain elevated, and he is currently on an Oxymizer at 8 L/min because of fluctuating saturations 8691%. He denies chest pain but reports persistent weakness, fatigue, poor appetite, and inability to tolerate solid foods. No bowel movement reported for several days. Mild abdominal discomfort without vomiting. He is hemodynamically stable but remains volume positive. The patient underwent left & right coronary angiography yesterday, revealing severe triple-vessel disease with heavily calcified lesions: * LAD ~80% stenosis * Left circumflex ~95% stenosis * RCA ~80% stenosis * Severe calcifications, poor PCI candidacy Cardiology recommends: * CT surgery evaluation for CABG * But patient is NOT an ideal surgical candidate due to frailty, CKD, HFrEF, severe comorbidities * May require mechanical circulatory support (Impella/MCS) * Hold P2Y12 inhibitors until CT surgery decision A higher-level transfer to [facility] was initiated and is still pending. Valverde catheter continues to leak despite repositioning and replacement, consistent with severe BPH. No BM today. Abdominal X-ray ordered to rule out obstruction. If normal start Miralax and continue GI plan. 10/04/25 Overnight: * On full-face BiPAP (FiO2 60%). * When he removed BiPAP, sats dropped to 70%; placed back on BiPAP with sats 8892%. This morning: * Transitioned to Oximizer, now requiring 15 L/min, saturating 8890%. * Complains of dyspnea, chest tightness, and generalized weakness. * No bowel movement since last Tuesday. * Valverde catheter leaking around the urethra; poor drainage due to severe prostatomegaly. Procedures Today: * Bilateral thoracentesis performed due to worsening respiratory distress and pleural effusions: * Left pleural space: 1.0 L removed. * Right pleural space: 2.0 L removed. Family updated. Antibiotics: * Sputum culture showing moderate gram-positive cocci in chains and pairs. * Started ceftriaxone 1 g IV daily today. Imaging: * Abdominal X-ray: Non-obstructive bowel gas pattern. * Plan: Miralax started. * Still pending transfer to [facility] for higher level of cardiac surgical evaluation (CABG vs MCS). Overall Status Today: * Continues in acute hypoxic respiratory failure requiring high-flow/oximizer support. * Positive fluid balance +900 mL with very low urine output (0.1 mL/kg/hr) concerning for cardiorenal syndrome and worsening CKD. * BNP previously elevated (4,800s). * Hemoglobin downtrending to 9.8 g/dL. * Creatinine increased to 3.05 (from 2.86). * Persistent severe constipation. Todays Plan * Continue high-flow O2 via Oximizer; BiPAP PRN for hypoxia. * Monitor post-thoracentesis; send pleural fluid studies. * Continue ceftriaxone for suspected bacterial pneumonia. * Strict I/O, daily weights; evaluate diuretic strategy after thoracentesis (Bumex previously). * Address Valverde malfunction; consider urology consult. * Continue Miralax bowel regimen. * Follow GI recommendations for EGD/colonoscopy once medically stable. * Continue transfer process to [facility] for CABG vs MCS evaluation. * Monitor renal function closely. 10/05 25: Patient seen and examined at bedside, continue current medical treatment. 10/06/25 Overnight, the patient remained hemodynamically stable. He denies chest pain, dizziness, nausea, vomiting, or acute distress. He endorses generalized fatigue and diminished appetite but no active shortness of breath at rest. He remains on 3 L NC, saturating 97%, titrated down to 2 L NC. No respiratory distress observed this morning. He reports no bowel movement for several days, so bowel regimen intensified today. Valverde output continues to be low at 375 mL in 24 hrs, though valverde remains in place without major leakage today. * SpO2 65731% on 3 L titrated to 2 L NC (FiO2 32%) * I/O: Intake 1417 mL, Output 375 mL +1042 mL * UOP: 0.29 mL/kg/hr (oliguric) * CXR: Worsening pulmonary congestion ? CHF exacerbation Summary of Todays Changes: * LEXA progressing Cr 4.57 * Worsening fluid overload with oliguria positive balance +1042 mL * CHF exacerbation on CXR * Miralax increased to BID + Colace BID * NC 3 titrated to 2 L * Continue Bumex IV 1 mg BID, dopamine support * Transfer to [facility] still pending due to bed availability * Continue oxygen titration * Continue transfer process for CABG/MCS evaluation Constitutional: Fatigue +; no fever HEENT: No headache, no vision changes Cardiac: No chest pain; dyspnea minimal at rest Resp: No acute SOB; diminished breath sounds GI: No BM for days; no abdominal pain : Low urine output; no hematuria Neuro: Alert, oriented Endocrine: Hyperglycemia improving Skin: No new lesions MSK: Chronic pain baseline Objective vital signs Vital Sign Date Time Temp Pulse Resp B/P (MAP) Pulse Ox O2 Delivery O2 Flow Rate FiO2 10/06/25 13:06 78 20 96 3.0 32 10/06/25 12:34 Nasal Cannula* 10/06/25 10:55 128/86 10/06/25 09:00 98.5 98.5 Total Intake and Output 10/05/25 10/05/25 10/06/25 15:00 23:00 07:00 Intake Total 286 ml 681 ml 450 ml Output Total 75 ml 300 ml Balance 286 ml 606 ml 150 ml medications Current Medications Medications Dose Ordered Sig/Conrado Route Start Time Stop Time Status Last Admin Dose Admin Insulin Glargine 15 units DAILY SC 09/30/25 10:00 10/06/25 11:05 15 UNITS Ondansetron HCl 4 mg Q4HP PRN IV 09/29/25 12:30 Cancel Enoxaparin Sodium 40 mg DAILY SC 09/30/25 10:00 UNV Aspirin 81 mg DAILY PO 09/30/25 10:00 10/06/25 09:14 81 MG Metoprolol Succinate 50 mg DAILY PO 09/30/25 10:00 10/06/25 09:13 50 MG Heparin Sodium (Porcine) 5,000 units Q12HR SC 09/29/25 22:00 10/06/25 09:14 5,000 UNITS Atorvastatin Calcium 40 mg HS PO 09/29/25 22:00 10/05/25 21:25 40 MG Dopamine HCl/ Dextrose 250 ml @ 2.213 mls/ hr Q24H IV 09/30/25 14:45 10/05/25 16:36 2.213 MLS/HR Diagnostic Test (Pha) 1 strip ACHS 10/01/25 11:30 10/06/25 11:05 1 STRIP Insulin Human Regular ACHS SC 10/01/25 11:30 10/06/25 11:05 6 UNITS Dextrose 50 ml UD PRN IV 10/01/25 09:30 Levothyroxine Sodium 100 mcg QAM@0600 PO 10/02/25 06:00 10/06/25 05:21 100 MCG Albuterol 2.5 mg Q6HWA NEB 10/02/25 12:00 10/06/25 12:32 2.5 MG Ipratropium [place] 0.5 mg Q6HWA NEB 10/02/25 12:00 10/06/25 12:32 0.5 MG Tamsulosin HCl 0.4 mg QPM PO 10/02/25 18:00 10/05/25 17:55 0.4 MG Finasteride 5 mg DAILY PO 10/03/25 10:00 10/06/25 09:13 5 MG Acetaminophen 650 mg Q6HP PRN PO 10/02/25 20:45 10/04/25 17:42 650 MG Ceftriaxone Sodium 50 ml @ 100 mls/hr DAILY@09 IV 10/04/25 09:00 10/06/25 09:12 100 MLS/HR Pantoprazole Sodium 40 mg DAILY@0600 PO 10/05/25 06:00 10/06/25 05:21 40 MG Bumetanide 1 mg DAILY IV 10/06/25 10:00 10/06/25 10:55 1 MG Polyethylene Glycol 17 gm BIDP PRN PO 10/06/25 14:00 UNV Docusate Sodium 100 mg BIDPRN PRN PO 10/06/25 14:00 UNV Examination General: Chronically ill-appearing elderly male, no acute distress Neuro: A&O3, follows commands HEENT: Moist mucosa, no JVD Cardiac: RRR, no murmurs; peripheral pulses 2+ Respiratory: Diminished breath sounds bilaterally; no wheezing or rales; stable work of breathing Abdomen: Soft, non-tender : Valverde catheter in place; low output Extremities: Bilateral above-knee amputations; no edema Skin: Warm, dry Psych: Calm, cooperative laboratory and microbiology Laboratory Tests 10/06/25 04:36 Test 10/06/25 04:36 Range/Units Serum Glucose 184 H 74-106 mg/dL Microbiology Date/Time Source Procedure Growth Status 10/04/25 13:46 Thoracic Fluid Gram Stain - Final Resulted 10/04/25 13:46 Thoracic Fluid Aerobic Culture - Preliminary No growth Resulted 10/02/25 06:37 Sputum Gram Stain - Final Complete 10/02/25 06:37 Sputum Respiratory Culture - Final Complete 09/29/25 20:30 Nose MRSA Screen - Final Complete Problem List/Assessment/Plan Problem List/Assessment/Plan 1. NEUROLOGY Assessment * No sedation * No delirium * No focal deficits Plan * Avoid sedatives * Maintain normal oxygenation and glucose 2. CARDIOVASCULAR A. Acute on chronic systolic HF (HFrEF), EF 25%, NYHA Class IIIACUTE DECOMPENSATION Differentials: Ischemic cardiomyopathy, Tachyarrhythmia, Volume overload, Myocardial injury Plan: * Continue Bumex 1 mg IV BID * Continue metoprolol succinate 50 mg daily * Avoid MYNOR/ARB/ARNI/SGLT2 due to LEXA and hypernatremia * Fluid restriction 1.5 L/day * Repeat CXR tomorrow * Strict I/Os and daily weights * Cardiology following B. Elevated troponins NSTEMI Type 1 vs Type 2 demand ischemia Severe triple-vessel coronary artery disease (LAD 80%, LCx 95%, RCA 80%) * Troponin rising to 3924 now downtrending * EKG: Sinus rhythm with repolarization abnormalities * No chest pain * High surgical risk for CABG * CT surgery consult pending * Needs advanced cardiac center ([facility]) * Await transfer to [facility] for CABG vs Impella evaluation. * Hold P2Y12 until surgical decision Plan: * Continue Aspirin 81 mg * Continue Atorvastatin 40 mg * Maintain Metoprolol * Await CT surgery evaluation * Transfer request to [facility]. continue escalation Continue heparin 5000 units SC Q12h, atorvastatin 40 mg po hs * Telemetry monitoring * Repeat troponin trending C. Severe pulmonary hypertension (RVSP 6570 mmHg) Plan: * Maintain oxygenation * Avoid fluid overload * (left-sided HF likely) Peripheral arterial disease s/p bilateral above-knee amputations Hypertension Continue metoprolol succinate 50 mg daily 3. RESPIRATORY SYSTEM Assessment * Pleural effusions due to CHF Exercabation * Acute hypoxic respiratory failure * RLL atelectasis * Mild hypoxemia High oxygen requirement (BiPAP overnight, now Oximizer 15 L). ABG shows persistent hypoxemia. Underwent bilateral thoracentesis today (1 L left, 2 L right). Plan * Continue 3 L NC, wean as tolerated, target SpO2 > 90%. * BiPAP PRN if SpO2 < 88% or RR > 22 * Continue DuoNeb Q6H * Chest physiotherapy * Daily pulse oximetry * Follow-up CXR 4. GASTROINTESTINAL Assessment * Chronic nausea/vomiting * Weight loss several months * Risk for gastroparesis vs malignancy vs chronic GI dysmotility * Severe constipation * No BM for several days Plan * GI planning EGD + colonoscopy once stable Abdominal X-ray is non-obstructive. * Start Miralax, docusate daily. * Add senna if no BM in 24 hours. * Continue Ensure High Protein TID * PO clear liquids, renal diabetic , cardiac, low Na diet * * GI consult pending * Avoid Zofran due to QT prolongation * Monitor for bowel movement 5. GENITOURINARY * BPH with urinary obstruction * Chronic Valverde with malfunction * Acute urinary retention * Leak around catheter; bladder scan 8 mL Plan: * Continue Valverde for strict I/Os * Monitor UA and cultures * Start Flomax + Finasteride * Avoid nephrotoxic medications 6. RENAL (NEPHROLOGY) Acute Kidney Injury due to VMN with superimposed CKD (Stage 45), hemodynamically mediated, Low urinary sodium:- improving Contrast-induced nephropathy Cardiorenal syndrome AG METABOLIC ACIDOSIS RESOLVED hypernatremia Improving metabolic alkalosis Right sided Nephrolithiasis non obstructive Plan: * Nephrology following * Hold fluids worsening pulmonary edema * Continue dopamine 0.99 * Avoid MYNOR inhibitors, ARBs, NSAIDs, Continue Bumex 1mg IV BIDD * Daily BMP * Strict I/Os * Renal-dose medications Low threshold for urgent dialysis * Reassess renal function post-C 7. INFECTIOUS DISEASE Assessment * Suspected bacterial pneumonia * Gram-positive cocci on sputum * Pneumonia (effusions) MRSA :- NEGATIVE Plan: * Blood cultures 2, Continue ceftriaxone 1 g IV daily. * Follow sputum cultures pleural cultures negative. * Monitor WBC, fever curve. * WBC improving (12.9) * Start antibiotics ONLY if infectious source identified or clinical deterioration 8. ENDOCRINE A. DKA RESOLVED uncontrolled T2DM (A1c 10.7%) * AG closed * B-hydroxybutyrate decreasing (0.449 - 0.213) * Insulin drip off since 09/29 Plan: * Continue Lantus 15 units daily * Continue correctional insulin * Glucose goal [id number] B. Hypothyroidism Plan: * Continue levothyroxine 100 mcg daily 9. HEMATOLOGY Iron deficiency anemia + anemia of chronic disease Plan: * IV iron * Monitor CBC daily * Transfuse Hgb <7 MUSCULOSKELETAL / SKIN / WOUNDS s/p bilateral above-knee amputations * Left hip grade 1 ulcer * Left stump small superficial wound healing Plan: * doubler helper daily * Offloading * Zinc oxide barrier cream 10. PSYCHIATRY * Patient calm, cooperative * No acute psychiatric symptoms Plan: * Supportive care * Sleep hygiene 11. NUTRITION * Renal-friendly, cardiac, carbohydrate-controlled diet * Calorie counts * Consult nutrition placed today. 12. LINES / TUBES * Valverde catheter (in place) * No central line * No PICC * No arterial line * No dialysis catheter 13. PROPHYLAXIS * DVT: Heparin 5000 units SQ q12h * GI: pantoprazole 40 PO * Fall & skin precautions * Pressure ulcer prevention 14. PT SOCIAL WORK * PT/OT evaluation ordered * Social work involved for transfer to [facility] For higher level of care. CRITICAL CARE TIME A total of 83 minutes of critical care time was spent today in the evaluation, management, data review, coordination of care, and direct bedside care of this critically ill patient, excluding procedures. CODE STATUS Full Code. Greater than 20 minutes spent discussing code status and goals of care with patient and family. Family at bedside; plan discussed with Dr. Willard. Case discussed in detail with the attending physician , including the clinical presentation, diagnostic workup, and comprehensive management plan. The patient was present for the discussion and demonstrated understanding of his condition and the proposed plan. Plan discussed with: Patient, Spouse My Orders My Orders Orders - CLIFF BRUCE RESIDENT Procedure Category Date Status Time Renal DIET 10/06/25 Transmitted Standard(2gna,3gk,Lopho) Lunch Polyethylene Glycol PHA 10/06/25 Logged 17g Powder (Miralax 14:00 Docusate Sodium PHA 10/06/25 Logged Capsule (Colace 14:00 Complete Blood Count LAB 10/07/25 Verified 04:00 Magnesium LAB 10/07/25 Verified 04:00 Dietary Evaluation Review Comments: Nutrition Recommendation: 1) Nephro-thalia 1 tab daily, Musa 1 pk daily 2) Monitor PO intake, lab values, weight trend, and I/O Expected Outcomes/Goals: Wound to improve Intake to meet >75% estimated needs FU 3-5 days CLIFF BRUCE RESIDENT Oct 06, 2025 14:00
[2025-10-06] MEDS: HYDROcodone-ACET 5/325MG TAB PO ONE (15:15)
--- NOTE | 2025-10-06 22:29 | DVHPN2 ---
Progress Note - Dictate Date Seen: Oct 06, 2025 Has the PT tested + for MRSA If YES, has PT been informed?: No Medical Necessity Reason Pt with a Central, PICC or Fol: Yes The following are medically ne: Valverde Catheter Reason for valverde catheter: Bladder Retention/Obstruc, Strict I&O Subjective No new complaints, patient is stable and talking on the phone Patient complains of fatigue and generalized decreased appetite Patient is on 3 L nasal cannula saturating 97% No bowel movement for several days vital signs Vital Sign Date Time Temp Pulse Resp B/P (MAP) Pulse Ox O2 Delivery O2 Flow Rate FiO2 10/06/25 21:00 97.7 83 15 107/67 (80) 94 97.7 10/06/25 19:04 Nasal Cannula 2.0 10/06/25 19:04 28 Total Intake and Output 10/05/25 10/05/25 10/06/25 15:00 23:00 07:00 Intake Total 286 ml 681 ml 450 ml Output Total 75 ml 300 ml Balance 286 ml 606 ml 150 ml medications Current Medications Medications Dose Ordered Sig/Conrado Route Start Time Stop Time Status Last Admin Dose Admin Insulin Glargine 15 units DAILY SC 09/30/25 10:00 10/06/25 11:05 15 UNITS Ondansetron HCl 4 mg Q4HP PRN IV 09/29/25 12:30 Cancel Enoxaparin Sodium 40 mg DAILY SC 09/30/25 10:00 UNV Aspirin 81 mg DAILY PO 09/30/25 10:00 10/06/25 09:14 81 MG Metoprolol Succinate 50 mg DAILY PO 09/30/25 10:00 10/06/25 09:13 50 MG Heparin Sodium (Porcine) 5,000 units Q12HR SC 09/29/25 22:00 10/06/25 09:14 5,000 UNITS Atorvastatin Calcium 40 mg HS PO 09/29/25 22:00 10/05/25 21:25 40 MG Dopamine HCl/ Dextrose 250 ml @ 2.213 mls/ hr Q24H IV 09/30/25 14:45 10/06/25 17:13 2.213 MLS/HR Diagnostic Test (Pha) 1 strip ACHS 10/01/25 11:30 10/06/25 17:22 1 STRIP Insulin Human Regular ACHS SC 10/01/25 11:30 10/06/25 17:22 4 UNITS Dextrose 50 ml UD PRN IV 10/01/25 09:30 Levothyroxine Sodium 100 mcg QAM@0600 PO 10/02/25 06:00 10/06/25 05:21 100 MCG Albuterol 2.5 mg Q6HWA NEB 10/02/25 12:00 10/06/25 19:04 2.5 MG Ipratropium [place] 0.5 mg Q6HWA NEB 10/02/25 12:00 10/06/25 19:04 0.5 MG Tamsulosin HCl 0.4 mg QPM PO 10/02/25 18:00 10/06/25 17:19 0.4 MG Finasteride 5 mg DAILY PO 10/03/25 10:00 10/06/25 09:13 5 MG Acetaminophen 650 mg Q6HP PRN PO 10/02/25 20:45 Hold 10/04/25 17:42 650 MG Ceftriaxone Sodium 50 ml @ 100 mls/hr DAILY@09 IV 10/04/25 09:00 10/06/25 09:12 100 MLS/HR Pantoprazole Sodium 40 mg DAILY@0600 PO 10/05/25 06:00 10/06/25 05:21 40 MG Bumetanide 1 mg DAILY IV 10/06/25 10:00 10/06/25 10:55 1 MG Polyethylene Glycol 17 gm BIDP PRN PO 10/06/25 14:00 Docusate Sodium 100 mg BIDPRN PRN PO 10/06/25 14:00 Acetaminophen/ Hydrocodone Bitart 1 tab Q12HR PRN PO 10/06/25 17:30 objective Thin frail-appearing elderly male lying in the bed comfortabl General: Thin, afebrile, palor, mucosae are moist Cardiovascular: Regular S1 and S2. No murmurs, gallops or rubs. No JVD elevation. No pedal edema Respiratory: Decreased breath sounds, heard on auscultation, on BiPAP. Abdomen: Soft, nontender, nondistended, normoactive bowel sounds, no rebound tenderness, no organomegaly, no masses laboratory and microbiology Laboratory Tests 10/06/25 04:36 Test 10/06/25 04:36 Range/Units Serum Glucose 184 H 74-106 mg/dL Problems(with codes): (1) Microcytic anemia (2) DKA (diabetic ketoacidosis) (3) Failure to thrive (4) Acute renal failure (5) Demand ischemia (6) Congestive heart failure (7) Troponin level elevated Prognosis PLAN Patient has triple vessel significant CAD. Patient is not a suitable candidate for any GI intervention at this time. He will benefit from upper and lower endoscopy once medically stabilized. We will continue to follow up. KUB showing nonobstructive bowel, advanced diet as tolerated. BUN/creatinine improving, nephrology recommendations appreciated Recommend IV iron supplementation, 10/01 and 10/02 Iron profile shows iron- deficiency anemia CT abdomen without contrast shows prostatomegaly severe, severe atherosclerotic disease with diffuse calcification. Nodular soft tissue thickening and anterior abdominal wall. Moderate bilateral pleural effusion. Avoid NSAIDs Recommend high-protein drinks Intensified bowel regimen for constipation Check CEA level Dietary Evaluation Review Comments: Nutrition Recommendation: 1) Nephro-thalia 1 tab daily, Musa 1 pk daily 2) Monitor PO intake, lab values, weight trend, and I/O Expected Outcomes/Goals: Wound to improve Intake to meet >75% estimated needs FU 3-5 days Plan discussed with: Patient BLUE ZAMORA MD Oct 06, 2025 22:29
[2025-10-07] VITALS (17 sets, daily range): BP systolic 110–149; BP diastolic 57–91; PULSE 78–95; RESP 14–18; TEMP 97.6–98.9; O2SAT 93–100
[2025-10-07 05:18] LABS: Hematocrit 30.7 % (41.0-53.0); Nucleated Red Blood Cells % 0.0 %
[2025-10-07 05:20] LABS: Hemoglobin 10.1 g/dL (13.5-17.5); Mean Corpuscular Hemoglobin 24.9 pg (28.0-32.0); Mean Corpuscular Volume 75.9 fL (80.0-100.0)
[2025-10-07 05:31] LABS: Potassium 4.9 mmol/L (3.5-5.1)
[2025-10-07 05:32] LABS: Anion Gap 10 (5-15); Carbon Dioxide 27 mmol/L (20-31)
[2025-10-07 05:34] LABS: Calcium 8.5 mg/dL (8.7-10.4); Chloride 97 mmol/L (98-107); Sodium 134 mmol/L (136-145)
[2025-10-07 05:37] LABS: BUN/Creatinine Ratio 20.3 (10.0-20.0)
[2025-10-07 05:38] LABS: Magnesium 2.5 mg/dL (1.6-2.6)
[2025-10-07 05:49] LABS: Glucose 151 mg/dL (74-106)
[2025-10-07 05:50] LABS: Blood Urea Nitrogen 98 mg/dL (9-23)
[2025-10-07] MEDS: HYDROcodone-ACET 5/325MG TAB PO PRN (10:28)
--- NOTE | 2025-10-07 10:35 | DVHPN2 ---
Progress Note Date Seen: Oct 07, 2025 Has the PT tested + for MRSA If YES, has PT been informed?: No Medical Necessity Reason Pt with a Central, PICC or Fol: Yes The following are medically ne: Valverde Catheter Reason for valverde catheter: Bladder Retention/Obstruc, Strict I&O Subjective Patient reports: No new complaints Other Systems: Patient seen and examined by myself today in follow-up Objective vital signs Vital Sign Date Time Temp Pulse Resp B/P (MAP) Pulse Ox O2 Delivery O2 Flow Rate FiO2 10/07/25 10:01 132/70 10/07/25 10:01 91 10/07/25 09:00 98.3 17 95 98.3 10/07/25 06:22 Nasal Cannula 2.0 10/07/25 06:22 28 Total Intake and Output 10/06/25 10/06/25 10/07/25 15:00 23:00 07:00 Intake Total 410 ml 125 ml 630 ml Output Total 900 ml Balance 410 ml 125 ml -270 ml medications Current Medications Medications Dose Ordered Sig/Conrado Route Start Time Stop Time Status Last Admin Dose Admin Insulin Glargine 15 units DAILY SC 09/30/25 10:00 10/07/25 10:04 15 UNITS Ondansetron HCl 4 mg Q4HP PRN IV 09/29/25 12:30 Cancel Enoxaparin Sodium 40 mg DAILY SC 09/30/25 10:00 UNV Aspirin 81 mg DAILY PO 09/30/25 10:00 10/07/25 10:01 81 MG Metoprolol Succinate 50 mg DAILY PO 09/30/25 10:00 10/07/25 10:01 50 MG Heparin Sodium (Porcine) 5,000 units Q12HR SC 09/29/25 22:00 10/07/25 10:03 5,000 UNITS Atorvastatin Calcium 40 mg HS PO 09/29/25 22:00 10/06/25 22:42 40 MG Dopamine HCl/ Dextrose 250 ml @ 2.213 mls/ hr Q24H IV 09/30/25 14:45 10/06/25 17:13 2.213 MLS/HR Diagnostic Test (Pha) 1 strip ACHS 10/01/25 11:30 10/07/25 06:19 1 STRIP Insulin Human Regular ACHS SC 10/01/25 11:30 10/07/25 06:20 3 UNITS Dextrose 50 ml UD PRN IV 10/01/25 09:30 Levothyroxine Sodium 100 mcg QAM@0600 PO 10/02/25 06:00 10/07/25 05:38 100 MCG Albuterol 2.5 mg Q6HWA NEB 10/02/25 12:00 10/07/25 06:16 2.5 MG Ipratropium [place] 0.5 mg Q6HWA NEB 10/02/25 12:00 10/07/25 06:16 0.5 MG Tamsulosin HCl 0.4 mg QPM PO 10/02/25 18:00 10/06/25 17:19 0.4 MG Finasteride 5 mg DAILY PO 10/03/25 10:00 10/07/25 10:01 5 MG Acetaminophen 650 mg Q6HP PRN PO 10/02/25 20:45 Hold 10/04/25 17:42 650 MG Ceftriaxone Sodium 50 ml @ 100 mls/hr DAILY@09 IV 10/04/25 09:00 10/07/25 10:01 100 MLS/HR Pantoprazole Sodium 40 mg DAILY@0600 PO 10/05/25 06:00 10/07/25 05:38 40 MG Bumetanide 1 mg DAILY IV 10/06/25 10:00 10/07/25 10:01 1 MG Polyethylene Glycol 17 gm BIDP PRN PO 10/06/25 14:00 Docusate Sodium 100 mg BIDPRN PRN PO 10/06/25 14:00 Acetaminophen/ Hydrocodone Bitart 1 tab Q12HR PRN PO 10/06/25 17:30 10/07/25 10:28 1 TAB Examination: LUNGS:Normal, CVS:Normal, MSK:Abnormal laboratory and microbiology Laboratory Tests 10/07/25 04:42 Test 10/07/25 04:42 Range/Units Serum Glucose 151 H 74-106 mg/dL Microbiology Date/Time Source Procedure Growth Status 10/04/25 13:46 Thoracic Fluid Gram Stain - Final Resulted 10/04/25 13:46 Thoracic Fluid Aerobic Culture - Preliminary No growth Resulted 10/02/25 06:37 Sputum Gram Stain - Final Complete 10/02/25 06:37 Sputum Respiratory Culture - Final Complete 09/29/25 20:30 Nose MRSA Screen - Final Complete Problem List/Assessment/Plan Problem List/Assessment/Plan Acute kidney injury superimposed Chronic Kidney Disease secondary hemodynamic mediated, feNa < 1% Acute respiratory failure, O2 supplement Congestive heart failure exacerbation NSTEMI Diabetes mellitus type 2, controlled Diabetic ketoacidosis Nonobstructing kidney stone Hypertension Peripheral arterial disease Bilateral below knee amputation Anemia of chronic kidney disease Hyponatremia due to excess H2O Recommendations Kidney function stabilize Chronic Kidney Disease stage 5 Increased urine output Consents for tunneled IJ hemodialysis catheter and hemodialysis Hemodialysis after catheter placement Strict I&Os Kidney ultrasound reported nonobstructing kidney stone Insulin sliding scale Fluid restriction Low-dose dopamine Bumex 1 mg IV daily KCL replacement Cardiology consult We will continue to follow Plan discussed with: Patient Dietary Evaluation Review Comments: Nutrition Recommendation: 1) Nephro-thalia 1 tab daily, Musa 1 pk daily 2) Monitor PO intake, lab values, weight trend, and I/O Expected Outcomes/Goals: Wound to improve Intake to meet >75% estimated needs FU 3-5 days JNE JAIMES MD Oct 07, 2025 10:35
--- NOTE | 2025-10-07 16:02 | DVHPNRES ---
Progress Note Date Seen: Oct 07, 2025 Resident Creating Document: [facility] BRU[facility] RESIDENT Has the PT tested + for MRSA If YES, has PT been informed?: No Medical Necessity Reason Pt with a Central, PICC or Fol: Yes The following are medically ne: Valverde Catheter Reason for valverde catheter: Bladder Retention/Obstruc, Strict I&O Subjective Review of Systems 75-year-old male presents to the ED via EMS with complaint of hyperglycemia. He reports persistent elevated blood glucose readings over the past several days associated with nausea, vomiting, poor appetite, and unintentional weight loss for approximately three weeks. He states this symptoms feel similar to prior episodes of DKA. He denies dizziness, syncope, chest pain, palpitations, shortness of breath, fevers, or other acute symptoms. In the ED, initial lab shows a serum glucose of 409 mg/dL, an anion gap of 20, CO2 of 22, creatinine 3.54 with a GFR of 17, and elevated high sensitivity troponins trending from 748-1328. Significant past medical history includes PAD status post bilateral AKA, diabetes type 2, hypertension, CKD, anemia of chronic disease. Past Medical History * Type 2 diabetes mellitus, uncontrolled (HbA1c 10.7%) * Chronic kidney disease (baseline Cr ~3.2) * LEXA on CKD * Peripheral arterial disease s/p bilateral above-knee amputations * Hypertension * HFrEF (prior EF 4550%), now EF 25% * Chronic anemia of CKD/iron deficiency * Pulmonary embolism (prior) * Severe pulmonary hypertension (RVSP 6570 mmHg) * Cavitary lung lesion (remote) Past Surgical History * Bilateral above-knee amputations Past Social History * Former smoker: 20 years, quit 5 years ago * Quit alcohol 15 years ago * Lives with family * No illicit drug use 09/30/25 * Patient downgraded from ICU to TELE. * On 3 L nasal cannula, FiO2 3032%, saturating 52219%, no work of breathing. * Nausea/vomiting improving, but weight loss suspected to be chronic ? GI consult placed today. * Troponins continue to trend upward and now downtrending without chest pain; cardiology following for NSTEMI type 1 vs type 2 demand ischemia and CHF exacerbation. * Echocardiogram (yesterday): EF 25%, global hypokinesis, moderatesevere RV dysfunction, severe pulmonary hypertension (RVSP 6570 mmHg). * LEXA persists: Cr 3.33 (baseline ~3.28), UOP 0.35 mL/kg/hr. * Hypernatremia (148) improving slowly with D5W per nephrology. * EKG: Sinus rhythm with nonspecific anterior/inferior/lateral repolarization abnormalities; QT prolonged ? Zofran avoided. * Started DuoNeb Q6H, chest physiotherapy, chest X-ray ordered. * GI consulted for chronic nausea, vomiting, weight loss. 10/01/25 This 75-year-old male with history of CKD stage 45, acute on chronic systolic heart failure (EF 25%), severe pulmonary hypertension, PAD s/p bilateral above- knee amputations, T2DM (A1c 10.7%), recent DKA (resolved), history of PE, and poor PO intake continues to report severe anorexia, unable to tolerate solids, only tolerated a peach today. He denies chest pain. Mild shortness of breath persists. He has had fluctuating tachycardia (max 151 bpm), mild hypoxia (SpO2 9097% on 2 L NC), and worsening pulmonary congestion on chest X-ray compared to 09/29. WBC count continues to improve. He remains afebrile.The patient and the Family has now given informed consent for coronary angiography with left heart catheterization scheduled for tomorrow because the procedure is tomorrow morning, D5W is being continued at 60 mL/hr for procedure. Fluid plan will be re-evaluated post-procedure depending on renal function and volume status. GI consult is still pending for persistent nausea, poor intake, and weight loss. 10/02/25 The patient undergoing coronary angiography with left heart catheterization today. Hypoxia episode today: While on 3 L NC, SpO2 transiently dropped to 70s. He was placed on 4 L NC, now stabilizing between 8890%. RR remains 1420. GI was consulted yesterday and plans EGD + colonoscopy once medically optimized. They also recommend Ensure High Protein TID for nutritional supplementation. Valverde catheter continues leaking despite replacement; bladder scan shows 8 mL consistent with severe BPH causing leakage around the catheter. Urology medications Flomax + Finasteride ordered. D5W discontinued due to adequate sodium correction and worsening pulmonary congestion. Patient started on PO liquids + renal diabetic cardiac low sodium diet. Abdominal CT (non-contrast) reveals: * Severe atherosclerotic disease * Severe prostatomegaly * Valverde catheter in bladder but incompletely decompressing bladder. * Nodular soft tissue thickening anterior abdominal wall (due to prior insulin injection sites) * Moderate bilateral pleural effusions 10/03/25 Overnight, he developed worsening hypoxia requiring BiPAP, with transient improvement. Today, oxygen needs remain elevated, and he is currently on an Oxymizer at 8 L/min because of fluctuating saturations 8691%. He denies chest pain but reports persistent weakness, fatigue, poor appetite, and inability to tolerate solid foods. No bowel movement reported for several days. Mild abdominal discomfort without vomiting. He is hemodynamically stable but remains volume positive. The patient underwent left & right coronary angiography yesterday, revealing severe triple-vessel disease with heavily calcified lesions: * LAD ~80% stenosis * Left circumflex ~95% stenosis * RCA ~80% stenosis * Severe calcifications, poor PCI candidacy Cardiology recommends: * CT surgery evaluation for CABG * But patient is NOT an ideal surgical candidate due to frailty, CKD, HFrEF, severe comorbidities * May require mechanical circulatory support (Impella/MCS) * Hold P2Y12 inhibitors until CT surgery decision A higher-level transfer to [facility] was initiated and is still pending. Valverde catheter continues to leak despite repositioning and replacement, consistent with severe BPH. No BM today. Abdominal X-ray ordered to rule out obstruction. If normal start Miralax and continue GI plan. 10/04/25 Overnight: * On full-face BiPAP (FiO2 60%). * When he removed BiPAP, sats dropped to 70%; placed back on BiPAP with sats 8892%. This morning: * Transitioned to Oximizer, now requiring 15 L/min, saturating 8890%. * Complains of dyspnea, chest tightness, and generalized weakness. * No bowel movement since last Tuesday. * Valverde catheter leaking around the urethra; poor drainage due to severe prostatomegaly. Procedures Today: * Bilateral thoracentesis performed due to worsening respiratory distress and pleural effusions: * Left pleural space: 1.0 L removed. * Right pleural space: 2.0 L removed. Family updated. Antibiotics: * Sputum culture showing moderate gram-positive cocci in chains and pairs. * Started ceftriaxone 1 g IV daily today. Imaging: * Abdominal X-ray: Non-obstructive bowel gas pattern. * Plan: Miralax started. * Still pending transfer to [facility] for higher level of cardiac surgical evaluation (CABG vs MCS). Overall Status Today: * Continues in acute hypoxic respiratory failure requiring high-flow/oximizer support. * Positive fluid balance +900 mL with very low urine output (0.1 mL/kg/hr) concerning for cardiorenal syndrome and worsening CKD. * BNP previously elevated (4,800s). * Hemoglobin downtrending to 9.8 g/dL. * Creatinine increased to 3.05 (from 2.86). * Persistent severe constipation. Todays Plan * Continue high-flow O2 via Oximizer; BiPAP PRN for hypoxia. * Monitor post-thoracentesis; send pleural fluid studies. * Continue ceftriaxone for suspected bacterial pneumonia. * Strict I/O, daily weights; evaluate diuretic strategy after thoracentesis (Bumex previously). * Address Valverde malfunction; consider urology consult. * Continue Miralax bowel regimen. * Follow GI recommendations for EGD/colonoscopy once medically stable. * Continue transfer process to [facility] for CABG vs MCS evaluation. * Monitor renal function closely. 10/05 25: Patient seen and examined at bedside, continue current medical treatment. 10/06/25 Overnight, the patient remained hemodynamically stable. He denies chest pain, dizziness, nausea, vomiting, or acute distress. He endorses generalized fatigue and diminished appetite but no active shortness of breath at rest. He remains on 3 L NC, saturating 97%, titrated down to 2 L NC. No respiratory distress observed this morning. He reports no bowel movement for several days, so bowel regimen intensified today. Valverde output continues to be low at 375 mL in 24 hrs, though valverde remains in place without major leakage today. * SpO2 46195% on 3 L titrated to 2 L NC (FiO2 32%) * I/O: Intake 1417 mL, Output 375 mL +1042 mL * UOP: 0.29 mL/kg/hr (oliguric) * CXR: Worsening pulmonary congestion ? CHF exacerbation Summary of Todays Changes: * LEXA progressing Cr 4.57 * Worsening fluid overload with oliguria positive balance +1042 mL * CHF exacerbation on CXR * Miralax increased to BID + Colace BID * NC 3 titrated to 2 L * Continue Bumex IV 1 mg BID, dopamine support * Transfer to [facility] still pending due to bed availability * Continue oxygen titration * Continue transfer process for CABG/MCS evaluation 10/07/25 * The patient reports ongoing fatigue but no chest pain, palpitations, dizziness, or syncope. * Breathing comfortably on 2 L nasal cannula with FiO? 28%; saturations 72440%. * No respiratory distress noted today. * Denies abdominal pain, nausea, vomiting. * No bowel movement yet - bowel regimen intensified. * Valverde remains in place with improved containment, low but adequate tracking of urine output. * Remains hemodynamically stable on low-dose dopamine infusion. * Nephrology evaluated . patient consented for tunneled IJ hemodialysis catheter. * Hemodialysis planned after catheter placement due to rising creatinine (now 4.83), worsening GFR (12), low UOP. Antibiotics: Ceftriaxone discontinued yesterday; doxycycline PO started for suspected atypical / gram-positive pneumonia based on sputum Gram stain. * Oxygenation stable on NC 2 L. * Hyponatremia yesterday improved with fluid restriction. * Stable Hgb around 10. * Transfer to [facility] remains pending due to bed availability. Objective vital signs Vital Sign Date Time Temp Pulse Resp B/P (MAP) Pulse Ox O2 Delivery O2 Flow Rate FiO2 10/07/25 11: 78 14 100 10/07/25 10:01 132/70 10/07/25 09:00 98.3 98.3 10/07/25 06:22 Nasal Cannula 2.0 10/07/25 06:22 28 Total Intake and Output 10/06/25 10/06/25 10/07/25 14:59 22:59 06:59 Intake Total 410 ml 125 ml 630 ml Output Total 900 ml Balance 410 ml 125 ml -270 ml medications Current Medications Medications Dose Ordered Sig/Conrado Route Start Time Stop Time Status Last Admin Dose Admin Insulin Glargine 15 units DAILY SC 09/30/25 10:00 10/07/25 10:04 15 UNITS Ondansetron HCl 4 mg Q4HP PRN IV 09/29/25 12:30 Cancel Enoxaparin Sodium 40 mg DAILY SC 09/30/25 10:00 UNV Aspirin 81 mg DAILY PO 09/30/25 10:00 10/07/25 10:01 81 MG Metoprolol Succinate 50 mg DAILY PO 09/30/25 10:00 10/07/25 10:01 50 MG Heparin Sodium (Porcine) 5,000 units Q12HR SC 09/29/25 22:00 10/07/25 10:03 5,000 UNITS Atorvastatin Calcium 40 mg HS PO 09/29/25 22:00 10/06/25 22:42 40 MG Dopamine HCl/ Dextrose 250 ml @ 2.213 mls/ hr Q24H IV 09/30/25 14:45 10/06/25 17:13 2.213 MLS/HR Diagnostic Test (Pha) 1 strip ACHS 10/01/25 11:30 10/07/25 12:09 1 STRIP Insulin Human Regular ACHS SC 10/01/25 11:30 10/07/25 12:57 2 UNITS Dextrose 50 ml UD PRN IV 10/01/25 09:30 Levothyroxine Sodium 100 mcg QAM@0600 PO 10/02/25 06:00 10/07/25 05:38 100 MCG Albuterol 2.5 mg Q6HWA NEB 10/02/25 12:00 10/07/25 11:17 2.5 MG Ipratropium [place] 0.5 mg Q6HWA NEB 10/02/25 12:00 10/07/25 11:17 0.5 MG Tamsulosin HCl 0.4 mg QPM PO 10/02/25 18:00 10/06/25 17:19 0.4 MG Finasteride 5 mg DAILY PO 10/03/25 10:00 10/07/25 10:01 5 MG Acetaminophen 650 mg Q6HP PRN PO 10/02/25 20:45 Hold 10/04/25 17:42 650 MG Ceftriaxone Sodium 50 ml @ 100 mls/hr DAILY@09 IV 10/04/25 09:00 10/07/25 10:01 100 MLS/HR Pantoprazole Sodium 40 mg DAILY@0600 PO 10/05/25 06:00 10/07/25 05:38 40 MG Bumetanide 1 mg DAILY IV 10/06/25 10:00 10/07/25 10:01 1 MG Polyethylene Glycol 17 gm BIDP PRN PO 10/06/25 14:00 Docusate Sodium 100 mg BIDPRN PRN PO 10/06/25 14:00 Acetaminophen/ Hydrocodone Bitart 1 tab Q12HR PRN PO 10/06/25 17:30 10/07/25 10:28 1 TAB Examination General: Elderly male, awake, alert, cooperative. Neuro: A&O3; no focal deficits. HEENT: MMM; no JVD. CV: RRR; no murmurs; good peripheral pulses. Resp: Clear to auscultation anteriorly; diminished at bases; no distress on 2 L NC. Abdomen: Soft, NT, ND; no guarding. : Valverde present, draining; no suprapubic tenderness. Extremities: Bilateral AKA; no edema. Skin: Warm, dry. laboratory and microbiology Laboratory Tests 10/07/25 04:42 Test 10/07/25 04:42 Range/Units Serum Glucose 151 H 74-106 mg/dL Microbiology Date/Time Source Procedure Growth Status 10/04/25 13:46 Thoracic Fluid Gram Stain - Final Resulted 10/04/25 13:46 Thoracic Fluid Aerobic Culture - Preliminary No growth Resulted 10/02/25 06:37 Sputum Gram Stain - Final Complete 10/02/25 06:37 Sputum Respiratory Culture - Final Complete 09/29/25 20:30 Nose MRSA Screen - Final Complete Problem List/Assessment/Plan Problem List/Assessment/Plan 1. NEUROLOGY Assessment * No sedation * No delirium * No focal deficits Plan * Avoid sedatives * Maintain normal oxygenation and glucose 2. CARDIOVASCULAR A. Acute on chronic systolic HF (HFrEF), EF 25%, NYHA Class IIIACUTE DECOMPENSATION Differentials: Ischemic cardiomyopathy, Tachyarrhythmia, Volume overload, Myocardial injury Plan: * Continue Bumex 1 mg IV BID * Continue metoprolol succinate 50 mg daily * Avoid MYNOR/ARB/ARNI/SGLT2 due to LEXA and hypernatremia * Fluid restriction 1.5 L/day * Repeat CXR tomorrow * Strict I/Os and daily weights * Cardiology following B. Elevated troponins NSTEMI Type 1 vs Type 2 demand ischemia Severe triple-vessel coronary artery disease (LAD 80%, LCx 95%, RCA 80%) Hyperlipidemia * Troponin rising to 3924 now downtrending * EKG: Sinus rhythm with repolarization abnormalities * No chest pain * High surgical risk for CABG * CT surgery consult pending * Needs advanced cardiac center ([facility]) * Await transfer to [facility] for CABG vs Impella evaluation. * Hold P2Y12 until surgical decision Plan: * Continue Aspirin 81 mg * Continue Atorvastatin 40 mg * Maintain Metoprolol * Await CT surgery evaluation * Transfer request to [facility]. continue escalation Continue heparin 5000 units SC Q12h, atorvastatin 40 mg po hs * Telemetry monitoring * Repeat troponin trending C. Severe pulmonary hypertension (RVSP 6570 mmHg) Plan: * Maintain oxygenation * Avoid fluid overload * (left-sided HF likely) Peripheral arterial disease s/p bilateral above-knee amputations Hypertension Continue metoprolol succinate 50 mg daily 3. RESPIRATORY SYSTEM Assessment * Pleural effusions due to CHF Exercabation * Acute hypoxic respiratory failure * RLL atelectasis * Mild hypoxemia High oxygen requirement (BiPAP overnight, now Oximizer 15 L). ABG shows persistent hypoxemia. Underwent bilateral thoracentesis today (1 L left, 2 L right). Plan * Continue 2 L NC, wean as tolerated, target SpO2 > 90%. * BiPAP PRN if SpO2 < 88% or RR > 22 * Continue DuoNeb Q6H * Chest physiotherapy * Daily pulse oximetry * Follow-up CXR 4. GASTROINTESTINAL Assessment * Chronic nausea/vomiting * Weight loss several months * Risk for gastroparesis vs malignancy vs chronic GI dysmotility * Severe constipation * No BM for several days Plan * GI planning EGD + colonoscopy once stable Abdominal X-ray is non-obstructive. * Start Miralax, docusate daily. * Add senna if no BM in 24 hours. * Continue Ensure High Protein TID * PO clear liquids, renal diabetic , cardiac, low Na diet * * GI consult pending * Avoid Zofran due to QT prolongation * Monitor for bowel movement 5. GENITOURINARY * BPH with urinary obstruction * Chronic Valverde with malfunction * Acute urinary retention * Leak around catheter; bladder scan 8 mL Plan: * Continue Valverde for strict I/Os * Monitor UA and cultures * Start Flomax + Finasteride * Avoid nephrotoxic medications 6. RENAL (NEPHROLOGY) Acute Kidney Injury due to VMN with superimposed CKD (Stage 45), hemodynamically mediated, Low urinary sodium:- improving Contrast-induced nephropathy Cardiorenal syndrome AG METABOLIC ACIDOSIS RESOLVED hypernatremia Improving metabolic alkalosis Right sided Nephrolithiasis non obstructive Hyponatremia Plan: * Nephrology following * Continue fluid restriction * Continue dopamine 0.99 * Avoid MYNOR inhibitors, ARBs, NSAIDs, Continue Bumex 1mg IV daily * Daily BMP * Strict I/Os * Renal-dose medications * Tunneled IJ HD catheter placement consent obtained * Start hemodialysis once catheter placed 7. INFECTIOUS DISEASE Assessment * bacterial pneumonia * Gram-positive cocci on sputum * Pneumonia (effusions) MRSA :- NEGATIVE Plan: * Blood cultures 2, * Ceftriaxone discontinued yesterday * Start doxycycline PO * Follow sputum cultures pleural cultures negative. * Monitor WBC, fever curve. * WBC improving (12.9) * Start antibiotics ONLY if infectious source identified or clinical deterioration 8. ENDOCRINE A. DKA RESOLVED uncontrolled T2DM (A1c 10.7%) * AG closed * B-hydroxybutyrate decreasing (0.449 - 0.213) * Insulin drip off since 09/29 Plan: * Continue Lantus 15 units daily * Continue correctional insulin * Glucose goal [id number] B. Hypothyroidism Plan: * Continue levothyroxine 100 mcg daily 9. HEMATOLOGY Iron deficiency anemia + anemia of chronic disease Plan: * IV iron * Monitor CBC daily * Transfuse Hgb <7 MUSCULOSKELETAL / SKIN / WOUNDS s/p bilateral above-knee amputations * Left hip grade 1 ulcer * Left stump small superficial wound healing Plan: * forensic investigator daily * Offloading * Zinc oxide barrier cream 10. PSYCHIATRY * Patient calm, cooperative * No acute psychiatric symptoms Plan: * Supportive care * Sleep hygiene 11. NUTRITION * Renal-friendly, cardiac, carbohydrate-controlled diet * Calorie counts * Consult nutrition placed today. 12. LINES / TUBES * Valverde catheter (in place) * No central line * No PICC * No arterial line * No dialysis catheter 13. PROPHYLAXIS * DVT: Heparin 5000 units SQ q12h * GI: pantoprazole 40 PO * Fall & skin precautions * Pressure ulcer prevention 14. PT SOCIAL WORK * PT/OT evaluation ordered * Social work involved for [facility] to [facility] For higher level of care. CRITICAL CARE TIME A total of 83 minutes of critical care time was spent today in the evaluation, management, data review, coordination of care, and direct bedside care of this critically ill patient, excluding procedures. CODE STATUS Full Code. Greater than 20 minutes spent discussing code status and goals of care with patient and family. Family at bedside; plan discussed with Dr. Willard. Case discussed in detail with the attending physician , including the clinical presentation, diagnostic workup, and comprehensive management plan. The patient was present for the discussion and demonstrated understanding of his condition and the proposed plan. Plan discussed with: Patient, Spouse, Other (RN) My Orders My Orders Orders - CLIFF BRUCE RESIDENT Procedure Category Date Status Time Hydrocodone-Acet PHA 10/06/25 In Process 5/325mg Tab ([place] 17:30 Dietary Evaluation Review Comments: Nutrition Recommendation: 1) Nephro-thalia 1 tab daily, Musa 1 pk daily 2) Monitor PO intake, lab values, weight trend, and I/O Expected Outcomes/Goals: Wound to improve Intake to meet >75% estimated needs FU 3-5 days CLIFF BRUCE RESIDENT Oct 07, 2025 16:02
--- NOTE | 2025-10-07 17:15 | DVHPN2 ---
Consult Progress Note Date Seen: Oct 07, 2025 Subjective Review of Systems: CVS:Normal, RESPIRATORY:Normal, NEURO:Normal Objective vital signs Vital Sign Date Time Temp Pulse Resp B/P (MAP) Pulse Ox O2 Delivery O2 Flow Rate FiO2 10/07/25 11:25 78 14 100 10/07/25 10:01 132/70 10/07/25 09:00 98.3 98.3 10/07/25 06:22 Nasal Cannula 2.0 10/07/25 06:22 28 Total Intake and Output 10/06/25 10/06/25 10/07/25 15:00 23:00 07:00 Intake Total 410 ml 125 ml 630 ml Output Total 900 ml Balance 410 ml 125 ml -270 ml medications Current Medications Medications Dose Ordered Sig/Conrado Route Start Time Stop Time Status Last Admin Dose Admin Insulin Glargine 15 units DAILY SC 09/30/25 10:00 10/07/25 10:04 15 UNITS Ondansetron HCl 4 mg Q4HP PRN IV 09/29/25 12:30 Cancel Enoxaparin Sodium 40 mg DAILY SC 09/30/25 10:00 UNV Aspirin 81 mg DAILY PO 09/30/25 10:00 10/07/25 10:01 81 MG Metoprolol Succinate 50 mg DAILY PO 09/30/25 10:00 10/07/25 10:01 50 MG Heparin Sodium (Porcine) 5,000 units Q12HR SC 09/29/25 22:00 10/07/25 10:03 5,000 UNITS Atorvastatin Calcium 40 mg HS PO 09/29/25 22:00 10/06/25 22:42 40 MG Dopamine HCl/ Dextrose 250 ml @ 2.213 mls/ hr Q24H IV 09/30/25 14:45 10/06/25 17:13 2.213 MLS/HR Diagnostic Test (Pha) 1 strip ACHS 10/01/25 11:30 10/07/25 12:09 1 STRIP Insulin Human Regular ACHS SC 10/01/25 11:30 10/07/25 12:57 2 UNITS Dextrose 50 ml UD PRN IV 10/01/25 09:30 Levothyroxine Sodium 100 mcg QAM@0600 PO 10/02/25 06:00 10/07/25 05:38 100 MCG Albuterol 2.5 mg Q6HWA NEB 10/02/25 12:00 10/07/25 11:17 2.5 MG Ipratropium [place] 0.5 mg Q6HWA NEB 10/02/25 12:00 10/07/25 11:17 0.5 MG Tamsulosin HCl 0.4 mg QPM PO 10/02/25 18:00 10/06/25 17:19 0.4 MG Finasteride 5 mg DAILY PO 10/03/25 10:00 10/07/25 10:01 5 MG Acetaminophen 650 mg Q6HP PRN PO 10/02/25 20:45 Hold 10/04/25 17:42 650 MG Pantoprazole Sodium 40 mg DAILY@0600 PO 10/05/25 06:00 10/07/25 05:38 40 MG Bumetanide 1 mg DAILY IV 10/06/25 10:00 10/07/25 10:01 1 MG Polyethylene Glycol 17 gm BIDP PRN PO 10/06/25 14:00 Docusate Sodium 100 mg BIDPRN PRN PO 10/06/25 14:00 Acetaminophen/ Hydrocodone Bitart 1 tab Q12HR PRN PO 10/06/25 17:30 10/07/25 10:28 1 TAB Doxycycline Monohydrate 100 mg Q12HR PO 10/07/25 22:00 Examination: LUNGS:Normal, CVS:Normal, NEURO:Normal laboratory and microbiology Laboratory Tests 10/07/25 04:42 Test 10/07/25 04:42 Range/Units Serum Glucose 151 H 74-106 mg/dL Problem List/Assessment/Plan Problem List/Assessment/Plan NSTEMI, questionable type I Acute on chronic decompensated HFrEF, NYHA class III Peripheral arterial disease status post bilateral [id number] amputations Diabetic ketoacidosis Hypertension History pulmonary embolism (on Eliquis) Severe pulmonary hypertension Chronic kidney disease Chronic anemia Plan/Recommendation (Dr. Cordova) The patient underwent a coronary angiogram with left heart catheterization on 10/02/25 which revealed significant three-vessel coronary artery disease. Continue transfer to higher level of care for evaluation of CABG versus high- risk PCI. A transthoracic echocardiogram reveals an EF of 25% with global hypokinesis and akinesis of the inferolateral wall. Continue guideline directed medical therapy for CHF as renal function permits (hold ARB/ARNI/ACEi, MRA and SGLT2i given poor renal function), strict intake and output, daily weights, fluid restriction and low-sodium diet. Continue single-antiplatelet therapy with ASA (avoid plavix) and lipid-lowering agent. Continue DVT/VTE prophylaxis. Continue with close cardiac surveillance and notify cardiology team immediately for any ECG changes. Cardiology will be on the case as needed basis for further recommendations or change in status. Please notify accordingly. Thank you for allowing us to care for this patient. This medical document was created using an electronic medical record system with voice recognition software and computerized dictation system. Although this document has been carefully reviewed, there might still be some phonetic and typographical errors. Occasional wrong-word or ``sound-alike substitutions may have occurred due to the inherent limitations of voice recognition software. These areas are purely typographical due to imperfections of the software programs and do not reflect any compromise in the patient's medical care. Please read the chart carefully and recognize, using context, where these substitutions have occurred. Plan discussed with: Patient, Other Dietary Evaluation Review Comments: Nutrition Recommendation: 1) Nephro-thalia 1 tab daily, Musa 1 pk daily 2) Monitor PO intake, lab values, weight trend, and I/O Expected Outcomes/Goals: Wound to improve Intake to meet >75% estimated needs FU 3-5 days Date of Service: Oct 07, 2025 Billing Provider: POOJA SALAZAR Cardiology Common Codes: [id number](High POOJA SALAZAR Oct 07, 2025 17:15
[2025-10-07] MEDS: DOXYCYCLINE 100 MG TAB/CAP PO SCH (21:20)
[2025-10-07] MEDS: DOCUSATE SOD 100 MG CAP PO PRN (21:34)
[2025-10-08] VITALS (16 sets, daily range): BP systolic 111–143; BP diastolic 58–88; PULSE 82–95; RESP 14–18; TEMP 97.6–98; O2SAT 91–100
[2025-10-08] MEDS: DEXTROSE (50%) 50ML SYRG IV PRN (01:23)
[2025-10-08 07:19] LABS: Hematocrit 29.4 % (41.0-53.0); Hemoglobin 9.5 g/dL (13.5-17.5); Mean Corpuscular Hemoglobin 24.5 pg (28.0-32.0); Mean Corpuscular Volume 75.9 fL (80.0-100.0); Nucleated Red Blood Cells % 0.0 %
[2025-10-08 07:21] LABS: Potassium 4.7 mmol/L (3.5-5.1); Sodium 136 mmol/L (136-145)
[2025-10-08 07:22] LABS: Anion Gap 13 (5-15); Calcium 8.7 mg/dL (8.7-10.4); Carbon Dioxide 26 mmol/L (20-31)
[2025-10-08 07:27] LABS: BUN/Creatinine Ratio 17.3 (10.0-20.0)
[2025-10-08 07:29] LABS: Chloride 97 mmol/L (98-107); Glucose 123 mg/dL (74-106)
[2025-10-08 07:31] LABS: Blood Urea Nitrogen 94 mg/dL (9-23)
--- NOTE | 2025-10-08 07:50 | ECG ---
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
[2025-10-08] MEDS: HEPARIN SODIUM (PORCINE) 5000 UNITS/ML 1ML VIAL ONE (10:48)
[2025-10-08] MEDS: LIDOCAINE 2%HCL (LOCAL ANESTH.) INJ 20ML MDV ONE (10:48)
[2025-10-08] MEDS: ceFAZolin 1GM/50ML 50 ML IV ONE (11:30)
--- NOTE | 2025-10-08 11:44 | DVH ---
XY Insertion of Venous Cath, HISTORY: HD CATH PL PROCEDURE: Informed consent was obtained. The patient was placed supine on the interventional table. A limited localization ultrasound of the right neck base was obtained. The right neck base and upper chest were prepped with chlorhexidine which was allowed to dry and draped in the usual sterile fashion. Time out was performed. IV sedation was administered. The skin and the soft tissues were infiltrated with 1% Lidocaine. With real-time ultrasound guidance, the internal jugular vein was accessed with a micropuncture kit, and an image documenting patency was recorded to PACS. A subcutaneous tunneled tract was created from the right upper chest to the venotomy site. A 14.5 [place] Worley Path, 23 cm long hemodialysis catheter was advanced through the tunneled tract. Fluoroscopy was used to advance a guidewire through the internal jugular vein into the inferior vena cava. Following serial dilatation, a 15 [place] peel-away sheath was introduced, though which was advanced the catheter into the right atrium. The catheter tip position was confirmed with fluoroscopy. There was satisfactory flow in both lumens. The catheter lumens were flushed with saline and heparin was left indwelling in the catheter. A post-procedure image of the chest was obtained. The neck incision site was closed with a Dermabond and dressed sterilely. The catheter was sutured at the skin surface and exit site also dressed sterilely. No immediate complication was identified. DAP 73 FLUOROSCOPY TIME: 0.8 minutes. SEDATION: Dr. Yuri Das was personally responsible for the administration of moderate sedation during the procedure performed, including the use of an independent trained observer who had no other duties during the procedure. The drugs utilized were IV fentanyl and versed (see nursing log for details). The total time of supervision by the attending physician was approximately 20 minutes. FINDINGS: Widely patent right IJV. Post procedure image demonstrates smooth course of the hemodialysis catheter with the tip in the right atrium. IMPRESSION: Successful placement of 14.5 al[place]ian Worley Path, 23 cm long hemodialysis catheter through right internal jugular vein. Plan: Please contact IR for removal when no longer needed.
[2025-10-08 12:07] LABS: Albumin, Body Fluid 0.6 g/dL (Not Estab.); Glucose, Body Fluid 122.0 mg/dL (.); LD, Body Fluid 56.0 IU/L (.)
--- NOTE | 2025-10-08 13:58 | DVHPNRES ---
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 He reports persistent elevated blood glucose readings over the past several days associated with nausea, vomiting, poor appetite, and unintentional weight loss for approximately three weeks. He states this symptoms feel similar to prior episodes of DKA. He denies dizziness, syncope, chest pain, palpitations, shortness of breath, fevers, or other acute symptoms. In the ED, initial lab shows a serum glucose of 409 mg/dL, an anion gap of 20, CO2 of 22, creatinine 3.54 with a GFR of 17, and elevated high sensitivity troponins trending from 748-1328. Significant past medical history includes PAD status post bilateral AKA, diabetes type 2, hypertension, CKD, anemia of chronic disease. Past Medical History * Type 2 diabetes mellitus, uncontrolled (HbA1c 10.7%) * Chronic kidney disease (baseline Cr ~3.2) * LEXA on CKD * Peripheral arterial disease s/p bilateral above-knee amputations * Hypertension * HFrEF (prior EF 4550%), now EF 25% * Chronic anemia of CKD/iron deficiency * Pulmonary embolism (prior) * Severe pulmonary hypertension (RVSP 6570 mmHg) * Cavitary lung lesion (remote) Past Surgical History * Bilateral above-knee amputations Past Social History * Former smoker: 20 years, quit 5 years ago * Quit alcohol 15 years ago * Lives with family * No illicit drug use 09/30/25 * Patient downgraded from ICU to TELE. * On 3 L nasal cannula, FiO2 3032%, saturating 01588%, no work of breathing. * Nausea/vomiting improving, but weight loss suspected to be chronic ? GI consult placed today. * Troponins continue to trend upward and now downtrending without chest pain; cardiology following for NSTEMI type 1 vs type 2 demand ischemia and CHF exacerbation. * Echocardiogram (yesterday): EF 25%, global hypokinesis, moderatesevere RV dysfunction, severe pulmonary hypertension (RVSP 6570 mmHg). * LEXA persists: Cr 3.33 (baseline ~3.28), UOP 0.35 mL/kg/hr. * Hypernatremia (148) improving slowly with D5W per nephrology. * EKG: Sinus rhythm with nonspecific anterior/inferior/lateral repolarization abnormalities; QT prolonged ? Zofran avoided. * Started DuoNeb Q6H, chest physiotherapy, chest X-ray ordered. * GI consulted for chronic nausea, vomiting, weight loss. 10/01/25 This 75-year-old male with history of CKD stage 45, acute on chronic systolic heart failure (EF 25%), severe pulmonary hypertension, PAD s/p bilateral above- knee amputations, T2DM (A1c 10.7%), recent DKA (resolved), history of PE, and poor PO intake continues to report severe anorexia, unable to tolerate solids, only tolerated a peach today. He denies chest pain. Mild shortness of breath persists. He has had fluctuating tachycardia (max 151 bpm), mild hypoxia (SpO2 9097% on 2 L NC), and worsening pulmonary congestion on chest X-ray compared to 09/29. WBC count continues to improve. He remains afebrile.The patient and the Family has now given informed consent for coronary angiography with left heart catheterization scheduled for tomorrow because the procedure is tomorrow morning, D5W is being continued at 60 mL/hr for procedure. Fluid plan will be re-evaluated post-procedure depending on renal function and volume status. GI consult is still pending for persistent nausea, poor intake, and weight loss. 10/02/25 The patient undergoing coronary angiography with left heart catheterization today. Hypoxia episode today: While on 3 L NC, SpO2 transiently dropped to 70s. He was placed on 4 L NC, now stabilizing between 8890%. RR remains 1420. GI was consulted yesterday and plans EGD + colonoscopy once medically optimized. They also recommend Ensure High Protein TID for nutritional supplementation. Valverde catheter continues leaking despite replacement; bladder scan shows 8 mL consistent with severe BPH causing leakage around the catheter. Urology medications Flomax + Finasteride ordered. D5W discontinued due to adequate sodium correction and worsening pulmonary congestion. Patient started on PO liquids + renal diabetic cardiac low sodium diet. Abdominal CT (non-contrast) reveals: * Severe atherosclerotic disease * Severe prostatomegaly * Valverde catheter in bladder but incompletely decompressing bladder. * Nodular soft tissue thickening anterior abdominal wall (due to prior insulin injection sites) * Moderate bilateral pleural effusions 10/03/25 Overnight, he developed worsening hypoxia requiring BiPAP, with transient improvement. Today, oxygen needs remain elevated, and he is currently on an Oxymizer at 8 L/min because of fluctuating saturations 8691%. He denies chest pain but reports persistent weakness, fatigue, poor appetite, and inability to tolerate solid foods. No bowel movement reported for several days. Mild abdominal discomfort without vomiting. He is hemodynamically stable but remains volume positive. The patient underwent left & right coronary angiography yesterday, revealing severe triple-vessel disease with heavily calcified lesions: * LAD ~80% stenosis * Left circumflex ~95% stenosis * RCA ~80% stenosis * Severe calcifications, poor PCI candidacy Cardiology recommends: * CT surgery evaluation for CABG * But patient is NOT an ideal surgical candidate due to frailty, CKD, HFrEF, severe comorbidities * May require mechanical circulatory support (Impella/MCS) * Hold P2Y12 inhibitors until CT surgery decision A higher-level transfer to [facility] was initiated and is still pending. Valverde catheter continues to leak despite repositioning and replacement, consistent with severe BPH. No BM today. Abdominal X-ray ordered to rule out obstruction. If normal start Miralax and continue GI plan. 10/04/25 Overnight: * On full-face BiPAP (FiO2 60%). * When he removed BiPAP, sats dropped to 70%; placed back on BiPAP with sats 8892%. This morning: * Transitioned to Oximizer, now requiring 15 L/min, saturating 8890%. * Complains of dyspnea, chest tightness, and generalized weakness. * No bowel movement since last Tuesday. * Valverde catheter leaking around the urethra; poor drainage due to severe prostatomegaly. Procedures Today: * Bilateral thoracentesis performed due to worsening respiratory distress and pleural effusions: * Left pleural space: 1.0 L removed. * Right pleural space: 2.0 L removed. Family updated. Antibiotics: * Sputum culture showing moderate gram-positive cocci in chains and pairs. * Started ceftriaxone 1 g IV daily today. Imaging: * Abdominal X-ray: Non-obstructive bowel gas pattern. * Plan: Miralax started. * Still pending transfer to [facility] for higher level of cardiac surgical evaluation (CABG vs MCS). Overall Status Today: * Continues in acute hypoxic respiratory failure requiring high-flow/oximizer support. * Positive fluid balance +900 mL with very low urine output (0.1 mL/kg/hr) concerning for cardiorenal syndrome and worsening CKD. * BNP previously elevated (4,800s). * Hemoglobin downtrending to 9.8 g/dL. * Creatinine increased to 3.05 (from 2.86). * Persistent severe constipation. Todays Plan * Continue high-flow O2 via Oximizer; BiPAP PRN for hypoxia. * Monitor post-thoracentesis; send pleural fluid studies. * Continue ceftriaxone for suspected bacterial pneumonia. * Strict I/O, daily weights; evaluate diuretic strategy after thoracentesis (Bumex previously). * Address Valverde malfunction; consider urology consult. * Continue Miralax bowel regimen. * Follow GI recommendations for EGD/colonoscopy once medically stable. * Continue transfer process to [facility] for CABG vs MCS evaluation. * Monitor renal function closely. 10/05 25: Patient seen and examined at bedside, continue current medical treatment. 10/06/25 Overnight, the patient remained hemodynamically stable. He denies chest pain, dizziness, nausea, vomiting, or acute distress. He endorses generalized fatigue and diminished appetite but no active shortness of breath at rest. He remains on 3 L NC, saturating 97%, titrated down to 2 L NC. No respiratory distress observed this morning. He reports no bowel movement for several days, so bowel regimen intensified today. Valverde output continues to be low at 375 mL in 24 hrs, though valverde remains in place without major leakage today. * SpO2 37048% on 3 L titrated to 2 L NC (FiO2 32%) * I/O: Intake 1417 mL, Output 375 mL +1042 mL * UOP: 0.29 mL/kg/hr (oliguric) * CXR: Worsening pulmonary congestion ? CHF exacerbation Summary of Todays Changes: * LEXA progressing Cr 4.57 * Worsening fluid overload with oliguria positive balance +1042 mL * CHF exacerbation on CXR * Miralax increased to BID + Colace BID * NC 3 titrated to 2 L * Continue Bumex IV 1 mg BID, dopamine support * Transfer to [facility] still pending due to bed availability * Continue oxygen titration * Continue transfer process for CABG/MCS evaluation 10/07/25 * The patient reports ongoing fatigue but no chest pain, palpitations, dizziness, or syncope. * Breathing comfortably on 2 L nasal cannula with FiO? 28%; saturations 12388%. * No respiratory distress noted today. * Denies abdominal pain, nausea, vomiting. * No bowel movement yet - bowel regimen intensified. * Valverde remains in place with improved containment, low but adequate tracking of urine output. * Remains hemodynamically stable on low-dose dopamine infusion. * Nephrology evaluated . patient consented for tunneled IJ hemodialysis catheter. * Hemodialysis planned after catheter placement due to rising creatinine (now 4.83), worsening GFR (12), low UOP. Antibiotics: Ceftriaxone discontinued yesterday; doxycycline PO started for suspected atypical / gram-positive pneumonia based on sputum Gram stain. * Oxygenation stable on NC 2 L. * Hyponatremia yesterday improved with fluid restriction. * Stable Hgb around 10. * Transfer to [facility] remains pending due to bed availability. 10/08/25 Overnight Events: * Had hypoglycemic episode, glucose dropped to 52 mg/dL.Long-acting insulin Lantus reduced from 15 units ? 10 units nightly. * No chest pain, dizziness, or syncope. * Breathing comfortably on 2 L NC with stable oxygen saturations 79774%. * No shortness of breath reported today. * No bowel movement; GI ordered a Fleet enema. * Valverde catheter draining adequately. Procedures Today: * Successfully underwent placement of a 4.5 Spanish, 23 cm tunneled right internal jugular hemodialysis catheter under fluoroscopic guidance without complications. Transfer Status: * Patient accepted to [facility] for higher level of cardiac care; awaiting bed availability. Objective vital signs Vital Sign Date Time Temp Pulse Resp B/P (MAP) Pulse Ox O2 Delivery O2 Flow Rate FiO2 10/08/25 12:30 88 14 111/78 (89) 97 10/08/25 11:24 98.0 98.0 10/08/25 07:21 Nasal Cannula 2.0 10/08/25 07:21 28 Total Intake and Output 10/07/25 10/07/25 10/08/25 15:00 23:00 07:00 Intake Total 850 ml 400 ml Output Total 900 ml 0 ml Balance -50 ml 400 ml medications Current Medications Medications Dose Ordered Sig/Conrado Route Start Time Stop Time Status Last Admin Dose Admin Insulin Glargine 15 units DAILY SC 09/30/25 10:00 10/07/25 10:04 15 UNITS Ondansetron HCl 4 mg Q4HP PRN IV 09/29/25 12:30 Cancel Enoxaparin Sodium 40 mg DAILY SC 09/30/25 10:00 UNV Aspirin 81 mg DAILY PO 09/30/25 10:00 10/07/25 10:01 81 MG Metoprolol Succinate 50 mg DAILY PO 09/30/25 10:00 10/07/25 10:01 50 MG Heparin Sodium (Porcine) 5,000 units Q12HR SC 09/29/25 22:00 10/07/25 21:19 5,000 UNITS Atorvastatin Calcium 40 mg HS PO 09/29/25 22:00 10/07/25 21:20 40 MG Dopamine HCl/ Dextrose 250 ml @ 2.213 mls/ hr Q24H IV 09/30/25 14:45 10/07/25 22:49 2.213 MLS/HR Diagnostic Test (Pha) 1 strip ACHS 10/01/25 11:30 10/08/25 05:41 1 STRIP Insulin Human Regular ACHS SC 10/01/25 11:30 10/07/25 12:57 2 UNITS Dextrose 50 ml UD PRN IV 10/01/25 09:30 10/08/25 01:23 50 ML Levothyroxine Sodium 100 mcg QAM@0600 PO 10/02/25 06:00 10/07/25 05:38 100 MCG Albuterol 2.5 mg Q6HWA BANNER 10/02/25 12:00 10/08/25 07:21 2.5 MG Ipratropium Crum 0.5 mg Q6HWA NEB 10/02/25 12:00 10/08/25 12:11 0.5 MG Tamsulosin HCl 0.4 mg QPM PO 10/02/25 18:00 10/07/25 19:22 0.4 MG Finasteride 5 mg DAILY PO 10/03/25 10:00 10/07/25 10:01 5 MG Acetaminophen 650 mg Q6HP PRN PO 10/02/25 20:45 Hold 10/04/25 17:42 650 MG Pantoprazole Sodium 40 mg DAILY@0600 PO 10/05/25 06:00 10/07/25 05:38 40 MG Bumetanide 1 mg DAILY IV 10/06/25 10:00 10/07/25 10:01 1 MG Polyethylene Glycol 17 gm BIDP PRN PO 10/06/25 14:00 Docusate Sodium 100 mg BIDPRN PRN PO 10/06/25 14:00 10/07/25 21:34 100 MG Acetaminophen/ Hydrocodone Bitart 1 tab Q12HR PRN PO 10/06/25 17:30 10/07/25 10:28 1 TAB Doxycycline Monohydrate 100 mg Q12HR PO 10/07/25 22:00 10/07/25 21:20 100 MG Examination General: Alert, awake, chronically ill appearing. Neuro: A&O3; normal cognition. CV: RRR; no murmurs; normal peripheral pulses. Resp: Breath sounds diminished at bases; no wheezing; no respiratory distress. GI: Soft, non-tender; no distention. : Valverde catheter draining; no suprapubic tenderness. Extremities: Bilateral AKA; no edema. Skin: Warm, intact. Access: New right IJ hemodialysis catheter in place, clean/dry/intact. laboratory and microbiology Laboratory Tests 10/08/25 05:18 Test 10/08/25 05:18 Range/Units Serum Glucose 123 H 74-106 mg/dL Microbiology Date/Time Source Procedure Growth Status 10/04/25 13:46 Thoracic Fluid Gram Stain - Final Resulted 10/04/25 13:46 Thoracic Fluid Aerobic Culture - Preliminary No growth Resulted 10/02/25 06:37 Sputum Gram Stain - Final Complete 10/02/25 06:37 Sputum Respiratory Culture - Final Complete 09/29/25 20:30 Nose MRSA Screen - Final Complete Problem List/Assessment/Plan Problem List/Assessment/Plan 1. NEUROLOGY Assessment * No sedation * No delirium * No focal deficits Plan * Avoid sedatives * Maintain normal oxygenation and glucose 2. CARDIOVASCULAR A. Acute on chronic systolic HF (HFrEF), EF 25%, NYHA Class IIIACUTE DECOMPENSATION Differentials: Ischemic cardiomyopathy, Tachyarrhythmia, Volume overload, Myocardial injury Plan: * Continue Bumex 1 mg IV BID * Continue metoprolol succinate 50 mg daily * Avoid MYNOR/ARB/ARNI/SGLT2 due to LEXA and hypernatremia * Fluid restriction 1.5 L/day * Repeat CXR tomorrow * Strict I/Os and daily weights * Cardiology following B. Elevated troponins NSTEMI Type 1 vs Type 2 demand ischemia Severe triple-vessel coronary artery disease (LAD 80%, LCx 95%, RCA 80%) Hyperlipidemia * Troponin rising to 3924 now downtrending * EKG: Sinus rhythm with repolarization abnormalities * No chest pain * High surgical risk for CABG * CT surgery consult pending * Needs advanced cardiac center ([facility]) * Await transfer to [facility] for CABG vs Impella evaluation. * Hold P2Y12 until surgical decision Plan: * Continue Aspirin 81 mg * Continue Atorvastatin 40 mg * Maintain Metoprolol * Await CT surgery evaluation * Transfer request to [facility]. continue escalation Continue heparin 5000 units SC Q12h, atorvastatin 40 mg po hs * Telemetry monitoring * Repeat troponin trending C. Severe pulmonary hypertension (RVSP 6570 mmHg) Plan: * Maintain oxygenation * Avoid fluid overload * (left-sided HF likely) Peripheral arterial disease s/p bilateral above-knee amputations Hypertension Continue metoprolol succinate 50 mg daily 3. RESPIRATORY SYSTEM Assessment * Pleural effusions due to CHF Exercabation * Acute hypoxic respiratory failure * RLL atelectasis * Mild hypoxemia High oxygen requirement (BiPAP overnight, now Oximizer 15 L). ABG shows persistent hypoxemia. Underwent bilateral thoracentesis today (1 L left, 2 L right). Plan * Continue 2 L NC, wean as tolerated, target SpO2 > 90%. * BiPAP PRN if SpO2 < 88% or RR > 22 * Continue DuoNeb Q6H * Chest physiotherapy * Daily pulse oximetry * Follow-up CXR 4. GASTROINTESTINAL Assessment * Chronic nausea/vomiting * Weight loss several months * Risk for gastroparesis vs malignancy vs chronic GI dysmotility * Severe constipation * No BM for several days Plan * GI planning EGD + colonoscopy once stable Abdominal X-ray is non-obstructive. * Start Miralax, docusate daily. * Add senna if no BM in 24 hours. * Continue glucerna High Protein TID * PO clear liquids, renal diabetic , cardiac, low Na diet * Avoid Zofran due to QT prolongation * Monitor for bowel movement * GI ordered Fleet enema 5. GENITOURINARY * BPH with urinary obstruction * Chronic Valverde with malfunction * Acute urinary retention * Leak around catheter; bladder scan 8 mL Plan: * Continue Valverde for strict I/Os * Monitor UA and cultures * Start Flomax + Finasteride * Avoid nephrotoxic medications 6. RENAL (NEPHROLOGY) Acute Kidney Injury due to VMN with superimposed CKD (Stage 45), hemodynamically mediated, Low urinary sodium:- improving Contrast-induced nephropathy Cardiorenal syndrome AG METABOLIC ACIDOSIS RESOLVED hypernatremia Improving metabolic alkalosis Right sided Nephrolithiasis non obstructive Hyponatremia Plan: * Nephrology following * Continue fluid restriction * Continue dopamine 0.99 * Avoid MYNOR inhibitors, ARBs, NSAIDs, Continue Bumex 1mg IV daily * Daily BMP * Strict I/Os * Renal-dose medications * Right IJ tunneled HD catheter placed today * Begin hemodialysis once site cleared 7. INFECTIOUS DISEASE Assessment * bacterial pneumonia * Gram-positive cocci on sputum * Pneumonia (effusions) MRSA :- NEGATIVE Plan: * Blood cultures 2, * Ceftriaxone discontinued yesterday * Start doxycycline PO * Follow sputum cultures pleural cultures negative. * Monitor WBC, fever curve. * WBC improving (12.9) * Start antibiotics ONLY if infectious source identified or clinical deterioration 8. ENDOCRINE A. DKA RESOLVED uncontrolled T2DM (A1c 10.7%) * AG closed * B-hydroxybutyrate decreasing (0.449 - 0.213) * Insulin drip off since 09/29 Hypoglycemia episode Plan: * Continue Lantus 10 units daily * Continue correctional insulin * Glucose goal 041008 B. Hypothyroidism Plan: * Continue levothyroxine 100 mcg daily 9. 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 PSYCHIATRY * Patient calm, cooperative * No acute psychiatric symptoms 11. NUTRITION * Renal-friendly, cardiac, carbohydrate-controlled diet * Calorie counts * Consult nutrition placed today. 12. LINES / TUBES * Valverde catheter (in place) * Right IJ tunneled HD catheter (placed today) 13. PROPHYLAXIS * DVT: Heparin 5000 units SQ q12h * GI: pantoprazole 40 PO * Fall & skin precautions * Pressure ulcer prevention 14. PT SOCIAL WORK * PT/OT evaluation ordered * Social work involved for transfer to [facility] For higher level of care. CRITICAL CARE TIME A total of 83 minutes of critical care time was spent today in the evaluation, management, data review, coordination of care, and direct bedside care of this critically ill patient, excluding procedures. CODE STATUS Full Code. Greater than 20 minutes spent discussing code status and goals of care with patient and family. Family at bedside; plan discussed with Dr. Willard. Case discussed in detail with the attending physician , including the clinical presentation, diagnostic workup, and comprehensive management plan. The patient was present for the discussion and demonstrated understanding of his condition and the proposed plan. Plan discussed with: Spouse, Other (RN) My Orders My Orders Orders - CLIFF BRUCE RESIDENT Procedure Category Date Status Time Doxycycline Tablet PHA 10/07/25 In Process (Vibramycin Tablet) 22:00 Insertion Of Venous XY 10/08/25 Resulted Cath 11:33 Dietary Evaluation Review Comments: Nutrition Recommendation: 1) Nephro-thalia 1 tab daily, Musa 1 pk daily 2) Monitor PO intake, lab values, weight trend, and I/O Expected Outcomes/Goals: Wound to improve Intake to meet >75% estimated needs FU 3-5 days Visit Coding STANDARD RES Billing Provider: HOLLI WILLARD MD Date of Service if different f: Oct 08, 2025 CLIFF BRUCE RESIDENT Oct 08, 2025 13:58
--- NOTE | 2025-10-08 15:54 | DVHPN2 ---
Progress Note Date Seen: Oct 08, 2025 Has the PT tested + for MRSA If YES, has PT been informed?: No Medical Necessity Reason Pt with a Central, PICC or Fol: Yes The following are medically ne: Valverde Catheter Reason for valverde catheter: Bladder Retention/Obstruc, Strict I&O Subjective Other Systems: Patient seen and examined by myself today in follow-up Objective vital signs Vital Sign Date Time Temp Pulse Resp B/P (MAP) Pulse Ox O2 Delivery O2 Flow Rate FiO2 10/08/25 12:30 88 14 111/78 (89) 97 10/08/25 11:24 98.0 98.0 10/08/25 07:21 Nasal Cannula 2.0 10/08/25 07:21 28 Total Intake and Output 10/07/25 10/07/25 10/08/25 15:00 23:00 07:00 Intake Total 850 ml 400 ml Output Total 900 ml 0 ml Balance -50 ml 400 ml medications Current Medications Medications Dose Ordered Sig/Conrado Route Start Time Stop Time Status Last Admin Dose Admin Ondansetron HCl 4 mg Q4HP PRN IV 09/29/25 12:30 Cancel Enoxaparin Sodium 40 mg DAILY SC 09/30/25 10:00 UNV Aspirin 81 mg DAILY PO 09/30/25 10:00 10/07/25 10:01 81 MG Metoprolol Succinate 50 mg DAILY PO 09/30/25 10:00 10/07/25 10:01 50 MG Heparin Sodium (Porcine) 5,000 units Q12HR SC 09/29/25 22:00 10/07/25 21:19 5,000 UNITS Atorvastatin Calcium 40 mg HS PO 09/29/25 22:00 10/07/25 21:20 40 MG Dopamine HCl/ Dextrose 250 ml @ 2.213 mls/ hr Q24H IV 09/30/25 14:45 10/07/25 22:49 2.213 MLS/HR Diagnostic Test (Pha) 1 strip ACHS 10/01/25 11:30 10/08/25 05:41 1 STRIP Insulin Human Regular ACHS SC 10/01/25 11:30 10/07/25 12:57 2 UNITS Dextrose 50 ml UD PRN IV 10/01/25 09:30 10/08/25 01:23 50 ML Levothyroxine Sodium 100 mcg QAM@0600 PO 10/02/25 06:00 10/07/25 05:38 100 MCG Albuterol 2.5 mg Q6HWA NEB 10/02/25 12:00 10/08/25 07:21 2.5 MG Ipratropium [place] 0.5 mg Q6HWA NEB 10/02/25 12:00 10/08/25 11:08 0.5 MG Tamsulosin HCl 0.4 mg QPM PO 10/02/25 18:00 10/07/25 19:22 0.4 MG Finasteride 5 mg DAILY PO 10/03/25 10:00 10/07/25 10:01 5 MG Acetaminophen 650 mg Q6HP PRN PO 10/02/25 20:45 Hold 10/04/25 17:42 650 MG Pantoprazole Sodium 40 mg DAILY@0600 PO 10/05/25 06:00 10/07/25 05:38 40 MG Bumetanide 1 mg DAILY IV 10/06/25 10:00 10/07/25 10:01 1 MG Polyethylene Glycol 17 gm BIDP PRN PO 10/06/25 14:00 Docusate Sodium 100 mg BIDPRN PRN PO 10/06/25 14:00 10/07/25 21:34 100 MG Acetaminophen/ Hydrocodone Bitart 1 tab Q12HR PRN PO 10/06/25 17:30 10/07/25 10:28 1 TAB Doxycycline Monohydrate 100 mg Q12HR PO 10/07/25 22:00 10/07/25 21:20 100 MG Insulin Glargine 10 units DAILY SC 10/09/25 10:00 Examination: LUNGS:Normal, CVS:Normal laboratory and microbiology Laboratory Tests 10/08/25 05:18 Test 10/08/25 05:18 Range/Units Serum Glucose 123 H 74-106 mg/dL Microbiology Date/Time Source Procedure Growth Status 10/04/25 13:46 Thoracic Fluid Gram Stain - Final Resulted 10/04/25 13:46 Thoracic Fluid Aerobic Culture - Preliminary No growth Resulted 10/02/25 06:37 Sputum Gram Stain - Final Complete 10/02/25 06:37 Sputum Respiratory Culture - Final Complete 09/29/25 20:30 Nose MRSA Screen - Final Complete Problem List/Assessment/Plan Problem List/Assessment/Plan Acute kidney injury superimposed Chronic Kidney Disease secondary hemodynamic mediated, feNa < 1% Acute respiratory failure, O2 supplement Congestive heart failure exacerbation NSTEMI Diabetes mellitus type 2, controlled Diabetic ketoacidosis Nonobstructing kidney stone Hypertension Peripheral arterial disease Bilateral below knee amputation Anemia of chronic kidney disease Hyponatremia due to excess H2O Recommendations Hemodialysis tomorrow Epogen 60843 subQ 3 times weekly Strict I&Os Kidney ultrasound reported nonobstructing kidney stone Insulin sliding scale Fluid restriction Low-dose dopamine Bumex 1 mg IV daily KCL replacement Cardiology consult bowling floor manager for outpatient hemodialysis chair time We will continue to follow Plan discussed with: Patient My Orders My Orders Orders - JEN JAIMES MD Procedure Category Date Status Time Hemodialysis Orders ORDERS 10/09/25 Verified 07:00 Dietary Evaluation Review Comments: Nutrition Recommendation: 1) Nephro-thalia 1 tab daily, Musa 1 pk daily 2) Monitor PO intake, lab values, weight trend, and I/O Expected Outcomes/Goals: Wound to improve Intake to meet >75% estimated needs FU 3-5 days JEN JAIMES MD Oct 08, 2025 15:54
--- NOTE | 2025-10-08 17:12 | DVHPN2 ---
Progress Note Date Seen: Oct 08, 2025 Resident Creating Document: JULIAN ROTHMAN RESIDENT Has the PT tested + for MRSA If YES, has PT been informed?: No Medical Necessity Reason Pt with a Central, PICC or Fol: Yes The following are medically ne: Valverde Catheter Reason for valverde catheter: Bladder Retention/Obstruc, Strict I&O Subjective Review of Systems 75-year-old male who is hospital course has been prolonged secondary to acute on chronic systolic heart failure exacerbation, EF 25%, NSTEMI, severe pulmonary hypertension, nausea and vomiting and LEXA superimposed on CKD Reports chronic nausea and vomiting, loss of appetite and early satiety. He reports having EGD/colonoscopy almost 10 years back. Does not know the findings. 10/03--not passing gas or bm, normoacive, f/u with kub 10/04-passing gas. No bowel movement. On BiPAP. KUB shows nonobstructive bowel gas pattern. 10/08-passing gas still no bowel movement. Abdomen soft, nontender, normoactive. Fleet enema ordered Objective vital signs Vital Sign Date Time Temp Pulse Resp B/P (MAP) Pulse Ox O2 Delivery O2 Flow Rate FiO2 10/08/25 12:30 88 14 111/78 (89) 97 10/08/25 11:24 98.0 98.0 10/08/25 07:21 Nasal Cannula 2.0 10/08/25 07:21 28 Total Intake and Output 10/07/25 10/07/25 10/08/25 15:00 23:00 07:00 Intake Total 850 ml 400 ml Output Total 900 ml 0 ml Balance -50 ml 400 ml medications Current Medications Medications Dose Ordered Sig/Conrado Route Start Time Stop Time Status Last Admin Dose Admin Ondansetron HCl 4 mg Q4HP PRN IV 09/29/25 12:30 Cancel Enoxaparin Sodium 40 mg DAILY SC 09/30/25 10:00 UNV Aspirin 81 mg DAILY PO 09/30/25 10:00 10/07/25 10:01 81 MG Metoprolol Succinate 50 mg DAILY PO 09/30/25 10:00 10/07/25 10:01 50 MG Heparin Sodium (Porcine) 5,000 units Q12HR SC 09/29/25 22:00 10/07/25 21:19 5,000 UNITS Atorvastatin Calcium 40 mg HS PO 09/29/25 22:00 10/07/25 21:20 40 MG Dopamine HCl/ Dextrose 250 ml @ 2.213 mls/ hr Q24H IV 09/30/25 14:45 10/07/25 22:49 2.213 MLS/HR Diagnostic Test (Pha) 1 strip ACHS 10/01/25 11:30 10/08/25 05:41 1 STRIP Insulin Human Regular ACHS SC 10/01/25 11:30 10/07/25 12:57 2 UNITS Dextrose 50 ml UD PRN IV 10/01/25 09:30 10/08/25 01:23 50 ML Levothyroxine Sodium 100 mcg QAM@0600 PO 10/02/25 06:00 10/07/25 05:38 100 MCG Albuterol 2.5 mg Q6HWA NEB 10/02/25 12:00 10/08/25 07:21 2.5 MG Ipratropium [place] 0.5 mg Q6HWA NEB 10/02/25 12:00 10/08/25 11:08 0.5 MG Tamsulosin HCl 0.4 mg QPM PO 10/02/25 18:00 10/07/25 19:22 0.4 MG Finasteride 5 mg DAILY PO 10/03/25 10:00 10/07/25 10:01 5 MG Acetaminophen 650 mg Q6HP PRN PO 10/02/25 20:45 Hold 10/04/25 17:42 650 MG Pantoprazole Sodium 40 mg DAILY@0600 PO 10/05/25 06:00 10/07/25 05:38 40 MG Bumetanide 1 mg DAILY IV 10/06/25 10:00 10/07/25 10:01 1 MG Polyethylene Glycol 17 gm BIDP PRN PO 10/06/25 14:00 Docusate Sodium 100 mg BIDPRN PRN PO 10/06/25 14:00 10/07/25 21:34 100 MG Acetaminophen/ Hydrocodone Bitart 1 tab Q12HR PRN PO 10/06/25 17:30 10/07/25 10:28 1 TAB Doxycycline Monohydrate 100 mg Q12HR PO 10/07/25 22:00 10/07/25 21:20 100 MG Insulin Glargine 10 units DAILY SC 10/09/25 10:00 Examination Thin frail-appearing elderly male lying in the bed comfortabl General: Thin, afebrile, palor, mucosae are moist Cardiovascular: Regular S1 and S2. No murmurs, gallops or rubs. No JVD elevation. No pedal edema Respiratory: Decreased breath sounds, heard on auscultation, on BiPAP. Abdomen: Soft, nontender, nondistended, normoactive bowel sounds, no rebound tenderness, no organomegaly, no masses Genitourinary: Deferred laboratory and microbiology Laboratory Tests 10/08/25 05:18 Test 10/08/25 05:18 Range/Units Serum Glucose 123 H 74-106 mg/dL Microbiology Date/Time Source Procedure Growth Status 10/04/25 13:46 Thoracic Fluid Gram Stain - Final Resulted 10/04/25 13:46 Thoracic Fluid Aerobic Culture - Preliminary No growth Resulted 10/02/25 06:37 Sputum Gram Stain - Final Complete 10/02/25 06:37 Sputum Respiratory Culture - Final Complete 09/29/25 20:30 Nose MRSA Screen - Final Complete Labs and/or images reviewed: Labs reviewed by me, Image(s) reviewed by me Problem List/Assessment/Plan Problem List/Assessment/Plan Early satiety, chronic nausea and vomiting Unintentional weight loss / rule out malignancy Anemia likely iron-deficiency Acute on chronic systolic CHF exacerbation-EF 25% Rule out ischemic cardiomyopathy NSTEMI type 1 versus type 2 Severe pulmonary hypertension Acute kidney injury superimposed on CKD Diabetic ketoacidosis resolving Severe prostatomegaly Plan: Recommendation: Dr. Rivera Patient has triple vessel significant CAD. Patient is not a suitable candidate for any GI intervention at this time. He will benefit from upper and lower endoscopy once medically stabilized. We will continue to follow up. KUB showing nonobstructive bowel, advanced diet as tolerated. BUN/creatinine improving, nephrology recommendations appreciated Recommend IV iron supplementation, 10/01 and 10/02 Iron profile shows iron- deficiency anemia CT abdomen without contrast shows prostatomegaly severe, severe atherosclerotic disease with diffuse calcification. Nodular soft tissue thickening and anterior abdominal wall. Moderate bilateral pleural effusion. Avoid NSAIDs Recommend high-protein drinks Tap water enema ordered Cea level 6.8 We will continue to follow up Thank you for consulting GI Plan discussed with Dr. Rivera Plan discussed with: Patient My Orders My Orders Orders - JULIAN ROTHMAN RESIDENT Procedure Category Date Status Time Electrocardigram EKG 10/07/25 Resulted 19:38 Dietary Evaluation Review Comments: Nutrition Recommendation: 1) Nephro-thalia 1 tab daily, Musa 1 pk daily 2) Monitor PO intake, lab values, weight trend, and I/O Expected Outcomes/Goals: Wound to improve Intake to meet >75% estimated needs FU 3-5 days JULIAN ROTHMAN RESIDENT Oct 08, 2025 17:12
[2025-10-08] MEDS ORDERED: FLEET ENEMA(ADULT) 135 ML PR ONE (17:15)
[2025-10-08] MEDS ORDERED: EPOETIN ALFA-EPBX 4,000 UNIT/ML VIAL SC ONE (21:00)
[2025-10-09] VITALS (15 sets, daily range): BP systolic 115–142; BP diastolic 61–88; PULSE 72–102; RESP 15–18; TEMP 97–98.3; O2SAT 86–98
[2025-10-09 05:44] LABS: Nucleated Red Blood Cells % 0.0 %
[2025-10-09 05:46] LABS: Hematocrit 31.0 % (41.0-53.0); Hemoglobin 9.9 g/dL (13.5-17.5); Mean Corpuscular Hemoglobin 24.3 pg (28.0-32.0); Mean Corpuscular Volume 76.3 fL (80.0-100.0)
[2025-10-09 06:15] LABS: Anion Gap 13 (5-15); Carbon Dioxide 25 mmol/L (20-31); Chloride 97 mmol/L (98-107); Potassium 5.2 mmol/L (3.5-5.1); Sodium 135 mmol/L (136-145)
[2025-10-09 06:16] LABS: Calcium 8.6 mg/dL (8.7-10.4)
[2025-10-09 06:20] LABS: BUN/Creatinine Ratio 20.0 (10.0-20.0); Magnesium 2.4 mg/dL (1.6-2.6)
[2025-10-09 06:28] LABS: Glucose 240 mg/dL (74-106)
[2025-10-09 06:35] LABS: Blood Urea Nitrogen 98 mg/dL (9-23)
--- NOTE | 2025-10-09 11:20 | DVHPNRES ---
Progress Note Date Seen: Oct 09, 2025 Resident Creating Document: CLIFF BRUCE RESIDENT Has the PT tested + for MRSA If YES, has PT been informed?: No Medical Necessity Reason Pt with a Central, PICC or Fol: Yes The following are medically ne: Valverde Catheter Reason for valverde catheter: Bladder Retention/Obstruc, Strict I&O Subjective Review of Systems 75-year-old male presents to the ED via EMS with complaint of hyperglycemia. He reports persistent elevated blood glucose readings over the past several days associated with nausea, vomiting, poor appetite, and unintentional weight loss for approximately three weeks. He states this symptoms feel similar to prior episodes of DKA. He denies dizziness, syncope, chest pain, palpitations, shortness of breath, fevers, or other acute symptoms. In the ED, initial lab shows a serum glucose of 409 mg/dL, an anion gap of 20, CO2 of 22, creatinine 3.54 with a GFR of 17, and elevated high sensitivity troponins trending from 748-1328. Significant past medical history includes PAD status post bilateral AKA, diabetes type 2, hypertension, CKD, anemia of chronic disease. Past Medical History * Type 2 diabetes mellitus, uncontrolled (HbA1c 10.7%) * Chronic kidney disease (baseline Cr ~3.2) * LEXA on CKD * Peripheral arterial disease s/p bilateral above-knee amputations * Hypertension * HFrEF (prior EF 4550%), now EF 25% * Chronic anemia of CKD/iron deficiency * Pulmonary embolism (prior) * Severe pulmonary hypertension (RVSP 6570 mmHg) * Cavitary lung lesion (remote) Past Surgical History * Bilateral above-knee amputations Past Social History * Former smoker: 20 years, quit 5 years ago * Quit alcohol 15 years ago * Lives with family * No illicit drug use 09/30/25 * Patient downgraded from ICU to TELE. * On 3 L nasal cannula, FiO2 3032%, saturating 28069%, no work of breathing. * Nausea/vomiting improving, but weight loss suspected to be chronic ? GI consult placed today. * Troponins continue to trend upward and now downtrending without chest pain; cardiology following for NSTEMI type 1 vs type 2 demand ischemia and CHF exacerbation. * Echocardiogram (yesterday): EF 25%, global hypokinesis, moderatesevere RV dysfunction, severe pulmonary hypertension (RVSP 6570 mmHg). * LEXA persists: Cr 3.33 (baseline ~3.28), UOP 0.35 mL/kg/hr. * Hypernatremia (148) improving slowly with D5W per nephrology. * EKG: Sinus rhythm with nonspecific anterior/inferior/lateral repolarization abnormalities; QT prolonged ? Zofran avoided. * Started DuoNeb Q6H, chest physiotherapy, chest X-ray ordered. * GI consulted for chronic nausea, vomiting, weight loss. 10/01/25 This 75-year-old male with history of CKD stage 45, acute on chronic systolic heart failure (EF 25%), severe pulmonary hypertension, PAD s/p bilateral above- knee amputations, T2DM (A1c 10.7%), recent DKA (resolved), history of PE, and poor PO intake continues to report severe anorexia, unable to tolerate solids, only tolerated a peach today. He denies chest pain. Mild shortness of breath persists. He has had fluctuating tachycardia (max 151 bpm), mild hypoxia (SpO2 9097% on 2 L NC), and worsening pulmonary congestion on chest X-ray compared to 09/29. WBC count continues to improve. He remains afebrile.The patient and the Family has now given informed consent for coronary angiography with left heart catheterization scheduled for tomorrow because the procedure is tomorrow morning, D5W is being continued at 60 mL/hr for procedure. Fluid plan will be re-evaluated post-procedure depending on renal function and volume status. GI consult is still pending for persistent nausea, poor intake, and weight loss. 10/02/25 The patient undergoing coronary angiography with left heart catheterization today. Hypoxia episode today: While on 3 L NC, SpO2 transiently dropped to 70s. He was placed on 4 L NC, now stabilizing between 8890%. RR remains 1420. GI was consulted yesterday and plans EGD + colonoscopy once medically optimized. They also recommend Ensure High Protein TID for nutritional supplementation. Valverde catheter continues leaking despite replacement; bladder scan shows 8 mL consistent with severe BPH causing leakage around the catheter. Urology medications Flomax + Finasteride ordered. D5W discontinued due to adequate sodium correction and worsening pulmonary congestion. Patient started on PO liquids + renal diabetic cardiac low sodium diet. Abdominal CT (non-contrast) reveals: * Severe atherosclerotic disease * Severe prostatomegaly * Valverde catheter in bladder but incompletely decompressing bladder. * Nodular soft tissue thickening anterior abdominal wall (due to prior insulin injection sites) * Moderate bilateral pleural effusions 10/03/25 Overnight, he developed worsening hypoxia requiring BiPAP, with transient improvement. Today, oxygen needs remain elevated, and he is currently on an Oxymizer at 8 L/min because of fluctuating saturations 8691%. He denies chest pain but reports persistent weakness, fatigue, poor appetite, and inability to tolerate solid foods. No bowel movement reported for several days. Mild abdominal discomfort without vomiting. He is hemodynamically stable but remains volume positive. The patient underwent left & right coronary angiography yesterday, revealing severe triple-vessel disease with heavily calcified lesions: * LAD ~80% stenosis * Left circumflex ~95% stenosis * RCA ~80% stenosis * Severe calcifications, poor PCI candidacy Cardiology recommends: * CT surgery evaluation for CABG * But patient is NOT an ideal surgical candidate due to frailty, CKD, HFrEF, severe comorbidities * May require mechanical circulatory support (Impella/MCS) * Hold P2Y12 inhibitors until CT surgery decision A higher-level transfer to [place] was initiated and is still pending. Valverde catheter continues to leak despite repositioning and replacement, consistent with severe BPH. No BM today. Abdominal X-ray ordered to rule out obstruction. If normal start Miralax and continue GI plan. 10/04/25 Overnight: * On full-face BiPAP (FiO2 60%). * When he removed BiPAP, sats dropped to 70%; placed back on BiPAP with sats 8892%. This morning: * Transitioned to Oximizer, now requiring 15 L/min, saturating 8890%. * Complains of dyspnea, chest tightness, and generalized weakness. * No bowel movement since last Tuesday. * Valverde catheter leaking around the urethra; poor drainage due to severe prostatomegaly. Procedures Today: * Bilateral thoracentesis performed due to worsening respiratory distress and pleural effusions: * Left pleural space: 1.0 L removed. * Right pleural space: 2.0 L removed. Family updated. Antibiotics: * Sputum culture showing moderate gram-positive cocci in chains and pairs. * Started ceftriaxone 1 g IV daily today. Imaging: * Abdominal X-ray: Non-obstructive bowel gas pattern. * Plan: Miralax started. * Still pending transfer to [place] for higher level of cardiac surgical evaluation (CABG vs MCS). Overall Status Today: * Continues in acute hypoxic respiratory failure requiring high-flow/oximizer support. * Positive fluid balance +900 mL with very low urine output (0.1 mL/kg/hr) concerning for cardiorenal syndrome and worsening CKD. * BNP previously elevated (4,800s). * Hemoglobin downtrending to 9.8 g/dL. * Creatinine increased to 3.05 (from 2.86). * Persistent severe constipation. Todays Plan * Continue high-flow O2 via Oximizer; BiPAP PRN for hypoxia. * Monitor post-thoracentesis; send pleural fluid studies. * Continue ceftriaxone for suspected bacterial pneumonia. * Strict I/O, daily weights; evaluate diuretic strategy after thoracentesis (Bumex previously). * Address Valverde malfunction; consider urology consult. * Continue Miralax bowel regimen. * Follow GI recommendations for EGD/colonoscopy once medically stable. * Continue transfer process to [place] for CABG vs MCS evaluation. * Monitor renal function closely. 10/05 25: Patient seen and examined at bedside, continue current medical treatment. 10/06/25 Overnight, the patient remained hemodynamically stable. He denies chest pain, dizziness, nausea, vomiting, or acute distress. He endorses generalized fatigue and diminished appetite but no active shortness of breath at rest. He remains on 3 L NC, saturating 97%, titrated down to 2 L NC. No respiratory distress observed this morning. He reports no bowel movement for several days, so bowel regimen intensified today. Valverde output continues to be low at 375 mL in 24 hrs, though valverde remains in place without major leakage today. * SpO2 23161% on 3 L titrated to 2 L NC (FiO2 32%) * I/O: Intake 1417 mL, Output 375 mL +1042 mL * UOP: 0.29 mL/kg/hr (oliguric) * CXR: Worsening pulmonary congestion ? CHF exacerbation Summary of Todays Changes: * LEXA progressing Cr 4.57 * Worsening fluid overload with oliguria positive balance +1042 mL * CHF exacerbation on CXR * Miralax increased to BID + Colace BID * NC 3 titrated to 2 L * Continue Bumex IV 1 mg BID, dopamine support * Transfer to [place] still pending due to bed availability * Continue oxygen titration * Continue transfer process for CABG/MCS evaluation 10/07/25 * The patient reports ongoing fatigue but no chest pain, palpitations, dizziness, or syncope. * Breathing comfortably on 2 L nasal cannula with FiO? 28%; saturations 95001%. * No respiratory distress noted today. * Denies abdominal pain, nausea, vomiting. * No bowel movement yet - bowel regimen intensified. * Valverde remains in place with improved containment, low but adequate tracking of urine output. * Remains hemodynamically stable on low-dose dopamine infusion. * Nephrology evaluated . patient consented for tunneled IJ hemodialysis catheter. * Hemodialysis planned after catheter placement due to rising creatinine (now 4.83), worsening GFR (12), low UOP. Antibiotics: Ceftriaxone discontinued yesterday; doxycycline PO started for suspected atypical / gram-positive pneumonia based on sputum Gram stain. * Oxygenation stable on NC 2 L. * Hyponatremia yesterday improved with fluid restriction. * Stable Hgb around 10. * Transfer to [place] remains pending due to bed availability. 10/08/25 Overnight Events: * Had hypoglycemic episode, glucose dropped to 52 mg/dL.Long-acting insulin Lantus reduced from 15 units ? 10 units nightly. * No chest pain, dizziness, or syncope. * Breathing comfortably on 2 L NC with stable oxygen saturations 21645%. * No shortness of breath reported today. * No bowel movement; GI ordered a Fleet enema. * Valverde catheter draining adequately. Procedures Today: * Successfully underwent placement of a 4.5 Georgian, 23 cm tunneled right internal jugular hemodialysis catheter under fluoroscopic guidance without complications. Transfer Status: * Patient accepted to [place] for higher level of cardiac care; awaiting bed availability. 10/09/25 Overnight / 24-Hour Interval Events: * Patient stable on 4 L nasal cannula, FiO2 ~36% with oxygen saturation 96%. * Transfer to [place] remains pending due to lack of bed availability; patient has been accepted. * Sodium 135 (improved from 134) * Potassium 5.2 (mild hyperkalemia) * Had a bowel movement today after prolonged constipation, good response to bowel regimen. * Treat mild hyperkalemia with Lokelma. * Prepare for hemodialysis initiation. * Continue cardiac optimization and monitoring. * Continue bowel regimen. * Continue transfer coordination with [place]. Objective vital signs Vital Sign Date Time Temp Pulse Resp B/P (MAP) Pulse Ox O2 Delivery O2 Flow Rate FiO2 10/09/25 11:11 90 Nasal Cannula* 4 36 10/09/25 11:11 101 16 10/09/25 10:55 119/74 10/09/25 09:00 97.0 97.0 Total Intake and Output 10/08/25 10/08/25 10/09/25 15:00 23:00 07:00 Intake Total 150 ml 150 ml Output Total 200 ml 400 ml Balance -50 ml -250 ml medications Current Medications Medications Dose Ordered Sig/Conrado Route Start Time Stop Time Status Last Admin Dose Admin Ondansetron HCl 4 mg Q4HP PRN IV 09/29/25 12:30 Cancel Enoxaparin Sodium 40 mg DAILY SC 09/30/25 10:00 UNV Aspirin 81 mg DAILY PO 09/30/25 10:00 10/09/25 10:53 81 MG Metoprolol Succinate 50 mg DAILY PO 09/30/25 10:00 10/09/25 10:53 50 MG Heparin Sodium (Porcine) 5,000 units Q12HR SC 09/29/25 22:00 10/09/25 10:56 5,000 UNITS Atorvastatin Calcium 40 mg HS PO 09/29/25 22:00 10/08/25 22:02 40 MG Dopamine HCl/ Dextrose 250 ml @ 2.213 mls/ hr Q24H IV 09/30/25 14:45 10/07/25 22:49 2.213 MLS/HR Diagnostic Test (Pha) 1 strip ACHS 10/01/25 11:30 10/09/25 05:42 1 STRIP Insulin Human Regular ACHS SC 10/01/25 11:30 10/07/25 12:57 2 UNITS Dextrose 50 ml UD PRN IV 10/01/25 09:30 10/08/25 01:23 50 ML Levothyroxine Sodium 100 mcg QAM@0600 PO 10/02/25 06:00 10/09/25 05:39 100 MCG Albuterol 2.5 mg Q6HWA NEB 10/02/25 12:00 10/09/25 11:11 2.5 MG Ipratropium Staley 0.5 mg Q6HWA NEB 10/02/25 12:00 10/09/25 11:11 0.5 MG Tamsulosin HCl 0.4 mg QPM PO 10/02/25 18:00 10/08/25 18:27 0.4 MG Finasteride 5 mg DAILY PO 10/03/25 10:00 10/09/25 10:54 5 MG Acetaminophen 650 mg Q6HP PRN PO 10/02/25 20:45 Hold 10/04/25 17:42 650 MG Pantoprazole Sodium 40 mg DAILY@0600 PO 10/05/25 06:00 10/09/25 05:39 40 MG Bumetanide 1 mg DAILY IV 10/06/25 10:00 10/09/25 10:55 1 MG Polyethylene Glycol 17 gm BIDP PRN PO 10/06/25 14:00 Docusate Sodium 100 mg BIDPRN PRN PO 10/06/25 14:00 10/07/25 21:34 100 MG Acetaminophen/ Hydrocodone Bitart 1 tab Q12HR PRN PO 10/06/25 17:30 10/07/25 10:28 1 TAB Doxycycline Monohydrate 100 mg Q12HR PO 10/07/25 22:00 10/09/25 10:54 100 MG Insulin Glargine 10 units DAILY SC 10/09/25 10:00 Examination General: Alert, awake, chronically ill appearing. Neuro: A&O3; normal cognition. CV: RRR; no murmurs; normal peripheral pulses. Resp: Breath sounds diminished at bases; no wheezing; no respiratory distress. GI: Soft, non-tender; no distention. : Valverde catheter draining; no suprapubic tenderness. Extremities: Bilateral AKA; no edema. Skin: Warm, intact. Access: New right IJ hemodialysis catheter in place, clean/dry/intact. laboratory and microbiology Laboratory Tests 10/09/25 05:03 Test 10/09/25 05:03 Range/Units Serum Glucose 240 #H 74-106 mg/dL Microbiology Date/Time Source Procedure Growth Status 10/04/25 13:46 Thoracic Fluid Gram Stain - Final Complete 10/04/25 13:46 Thoracic Fluid Aerobic Culture - Final Complete 10/02/25 06:37 Sputum Gram Stain - Final Complete 10/02/25 06:37 Sputum Respiratory Culture - Final Complete 09/29/25 20:30 Nose MRSA Screen - Final Complete Problem List/Assessment/Plan Problem List/Assessment/Plan 1. NEUROLOGY Assessment * No sedation * No delirium * No focal deficits Plan * Avoid sedatives * Maintain normal oxygenation and glucose 2. CARDIOVASCULAR A. Acute on chronic systolic HF (HFrEF), EF 25%, NYHA Class IIIACUTE DECOMPENSATION Differentials: Ischemic cardiomyopathy, Tachyarrhythmia, Volume overload, Myocardial injury Plan: * Continue Bumex 1 mg IV BID * Continue metoprolol succinate 50 mg daily * Avoid MYNOR/ARB/ARNI/SGLT2 due to LEXA and hypernatremia * Fluid restriction 1.5 L/day * Repeat CXR tomorrow * Strict I/Os and daily weights * Cardiology following B. Elevated troponins NSTEMI Type 1 vs Type 2 demand ischemia Severe triple-vessel coronary artery disease (LAD 80%, LCx 95%, RCA 80%) Hyperlipidemia * Troponin rising to 3924 now downtrending * EKG: Sinus rhythm with repolarization abnormalities * No chest pain * High surgical risk for CABG * CT surgery consult pending * Needs advanced cardiac center ([place]) * Await transfer to [place] for CABG vs Impella evaluation. * Hold P2Y12 until surgical decision Plan: * Continue Aspirin 81 mg * Continue Atorvastatin 40 mg * Maintain Metoprolol * Await CT surgery evaluation * Transfer request to [place]. continue escalation Continue heparin 5000 units SC Q12h, atorvastatin 40 mg po hs * Telemetry monitoring * Repeat troponin trending C. Severe pulmonary hypertension (RVSP 6570 mmHg) Plan: * Maintain oxygenation * Avoid fluid overload * (left-sided HF likely) Peripheral arterial disease s/p bilateral above-knee amputations Hypertension Continue metoprolol succinate 50 mg daily 3. RESPIRATORY SYSTEM Assessment * Pleural effusions due to CHF Exercabation * Acute hypoxic respiratory failure * RLL atelectasis * Mild hypoxemia High oxygen requirement (BiPAP overnight, now Oximizer 15 L). ABG shows persistent hypoxemia. Underwent bilateral thoracentesis today (1 L left, 2 L right). Plan * Continue 2 L NC, wean as tolerated, target SpO2 > 90%. * BiPAP PRN if SpO2 < 88% or RR > 22 * Continue DuoNeb Q6H * Chest physiotherapy * Daily pulse oximetry * Follow-up CXR 4. GASTROINTESTINAL Assessment * Chronic nausea/vomiting * Weight loss several months * Risk for gastroparesis vs malignancy vs chronic GI dysmotility * Severe constipation * No BM for several days Plan * GI planning EGD + colonoscopy once stable Abdominal X-ray is non-obstructive. * Start Miralax, docusate daily. * Add senna if no BM in 24 hours. * Continue glucerna High Protein TID * PO clear liquids, renal diabetic , cardiac, low Na diet * Avoid Zofran due to QT prolongation * Monitor for bowel movement * GI ordered Fleet enema 5. GENITOURINARY * BPH with urinary obstruction * Chronic Valverde with malfunction * Acute urinary retention * Leak around catheter; bladder scan 8 mL Plan: * Continue Valverde for strict I/Os * Monitor UA and cultures * Start Flomax + Finasteride * Avoid nephrotoxic medications 6. RENAL (NEPHROLOGY) Acute Kidney Injury due to VMN with superimposed CKD (Stage 45), hemodynamically mediated, Low urinary sodium:- improving Contrast-induced nephropathy Cardiorenal syndrome AG METABOLIC ACIDOSIS RESOLVED hypernatremia resolved metabolic alkalosis Right sided Nephrolithiasis non obstructive Hyponatremia Hyperkalemia Plan: * Nephrology following * Continue fluid restriction * Continue dopamine 0.99 * Avoid MYNOR inhibitors, ARBs, NSAIDs, Continue Bumex 1mg IV daily * Daily BMP * Strict I/Os * Renal-dose medications * Right IJ tunneled HD catheter placed * Begin hemodialysis once site cleared * Lokelma 10 g now * Repeat K in 4 hours 7. INFECTIOUS DISEASE Assessment * bacterial pneumonia * Gram-positive cocci on sputum * Pneumonia (effusions) MRSA :- NEGATIVE Plan: * Blood cultures 2, * Ceftriaxone discontinued yesterday * Start doxycycline PO * Follow sputum cultures pleural cultures negative. * Monitor WBC, fever curve. * WBC improving (12.9) * Start antibiotics ONLY if infectious source identified or clinical deterioration 8. ENDOCRINE A. DKA RESOLVED uncontrolled T2DM (A1c 10.7%) * AG closed * B-hydroxybutyrate decreasing (0.449 - 0.213) * Insulin drip off since 09/29 Hypoglycemia episode Plan: * Continue Lantus 13 units daily * Continue correctional insulin * Glucose goal [id number] B. Hypothyroidism Plan: * Continue levothyroxine 100 mcg daily 9. HEMATOLOGY Iron deficiency anemia + anemia of chronic disease Plan: * IV iron * Monitor CBC daily * Transfuse Hgb <7 MUSCULOSKELETAL / SKIN / WOUNDS s/p bilateral above-knee amputations * Left hip grade 1 ulcer * Left stump small superficial wound healing Plan: * nnps daily * Offloading * Zinc oxide barrier cream 10. PSYCHIATRY * Patient calm, cooperative * No acute psychiatric symptoms 11. NUTRITION * Renal-friendly, cardiac, carbohydrate-controlled diet * Calorie counts * Consult nutrition placed today. 12. LINES / TUBES * Valverde catheter (in place) * Right IJ tunneled HD catheter (placed today) 13. PROPHYLAXIS * DVT: Heparin 5000 units SQ q12h * GI: pantoprazole 40 PO * Fall & skin precautions * Pressure ulcer prevention 14. PT SOCIAL WORK * PT/OT evaluation ordered * Social work involved for transfer to [facility] For higher level of care. CRITICAL CARE TIME A total of 83 minutes of critical care time was spent today in the evaluation, management, data review, coordination of care, and direct bedside care of this critically ill patient, excluding procedures. CODE STATUS Full Code. Greater than 20 minutes spent discussing code status and goals of care with patient and family. Family at bedside; plan discussed with Dr. Willard. Case discussed in detail with the attending physician , including the clinical presentation, diagnostic workup, and comprehensive management plan. The patient was present for the discussion and demonstrated understanding of his condition and the proposed plan. Plan discussed with: Spouse, Other (RN) My Orders My Orders Orders - CLIFF BRUCE RESIDENT Procedure Category Date Status Time Insertion Of Venous XY 10/08/25 Resulted Cath 11:33 Insulin Lantus PHA 10/09/25 In Process (Glargine) (Lantus) 10:00 Renal DIET 10/08/25 Transmitted Standard(2gna,3gk,Lopho) Dinner Dietary Evaluation Review Comments: Nutrition Recommendation: 1) Nephro-thalia 1 tab daily, Musa 1 pk daily 2) Monitor PO intake, lab values, weight trend, and I/O Expected Outcomes/Goals: Wound to improve Intake to meet >75% estimated needs FU 3-5 days Visit Coding STANDARD RES Billing Provider: HOLLI WILLARD MD Date of Service if different f: Oct 09, 2025 CLIFF BRUCE RESIDENT Oct 09, 2025 11:20
[2025-10-09] MEDS: INSULIN LANTUS (GLARGINE) 1 /0.01ml (100units/ml) SC SCH ×2 (11:26→15:00)
[2025-10-09] MEDS: SODIUM ZIRCONIUM CYCL 10 GM PAK PO ONE (11:35)
[2025-10-09] MEDS: POLYETHYLENE GLYCOL 17 GM PWDR PO SCH (16:18)
[2025-10-09] MEDS ORDERED: ALBUMIN 25% 100 ML IV STA (16:44)
--- NOTE | 2025-10-09 16:45 | DVHPN2 ---
Progress Note Date Seen: Oct 09, 2025 Has the PT tested + for MRSA If YES, has PT been informed?: No Medical Necessity Reason Pt with a Central, PICC or Fol: Yes The following are medically ne: Valverde Catheter Reason for valverde catheter: Bladder Retention/Obstruc, Strict I&O Subjective Patient reports: No new complaints Other Systems: Patient examined on HD, BP stable Objective vital signs Vital Sign Date Time Temp Pulse Resp B/P (MAP) Pulse Ox O2 Delivery O2 Flow Rate FiO2 10/09/25 14:47 111/76 10/09/25 13:06 101 18 92 4.0 36 10/09/25 13:00 97.7 97.7 10/09/25 11:11 Nasal Cannula* Total Intake and Output 10/08/25 10/08/25 10/09/25 15:00 23:00 07:00 Intake Total 150 ml 150 ml Output Total 200 ml 400 ml Balance -50 ml -250 ml medications Current Medications Medications Dose Ordered Sig/Conrado Route Start Time Stop Time Status Last Admin Dose Admin Ondansetron HCl 4 mg Q4HP PRN IV 09/29/25 12:30 Cancel Enoxaparin Sodium 40 mg DAILY SC 09/30/25 10:00 UNV Aspirin 81 mg DAILY PO 09/30/25 10:00 10/09/25 10:53 81 MG Metoprolol Succinate 50 mg DAILY PO 09/30/25 10:00 10/09/25 10:53 50 MG Heparin Sodium (Porcine) 5,000 units Q12HR SC 09/29/25 22:00 10/09/25 10:56 5,000 UNITS Atorvastatin Calcium 40 mg HS PO 09/29/25 22:00 10/08/25 22:02 40 MG Dopamine HCl/ Dextrose 250 ml @ 2.213 mls/ hr Q24H IV 09/30/25 14:45 10/09/25 14:47 2.213 MLS/HR Diagnostic Test (Pha) 1 strip ACHS 10/01/25 11:30 10/09/25 11:19 1 STRIP Insulin Human Regular ACHS SC 10/01/25 11:30 10/09/25 11:26 8 UNITS Dextrose 50 ml UD PRN IV 10/01/25 09:30 10/08/25 01:23 50 ML Levothyroxine Sodium 100 mcg QAM@0600 PO 10/02/25 06:00 10/09/25 05:39 100 MCG Albuterol 2.5 mg Q6HWA NEB 10/02/25 12:00 10/09/25 11:11 2.5 MG Ipratropium [place] 0.5 mg Q6HWA NEB 10/02/25 12:00 10/09/25 11:11 0.5 MG Tamsulosin HCl 0.4 mg QPM PO 10/02/25 18:00 10/08/25 18:27 0.4 MG Finasteride 5 mg DAILY PO 10/03/25 10:00 10/09/25 10:54 5 MG Pantoprazole Sodium 40 mg DAILY@0600 PO 10/05/25 06:00 10/09/25 05:39 40 MG Bumetanide 1 mg DAILY IV 10/06/25 10:00 10/09/25 10:55 1 MG Polyethylene Glycol 17 gm BIDP PRN PO 10/06/25 14:00 Cancel Docusate Sodium 100 mg BIDPRN PRN PO 10/06/25 14:00 10/07/25 21:34 100 MG Doxycycline Monohydrate 100 mg Q12HR PO 10/07/25 22:00 10/09/25 10:54 100 MG Insulin Glargine 13 units DAILY SC 10/09/25 15:00 Polyethylene Glycol 17 gm DAILY PO 10/09/25 15:33 10/09/25 16:18 17 GM Promethazine HCl 12.5 mg Q6HP PRN PO 10/09/25 15:15 Acetaminophen 650 mg Q6HP PRN PO 10/09/25 16:45 UNV Acetaminophen/ Hydrocodone Bitart 1 tab Q8HPRN PRN PO 10/09/25 16:45 UNV Examination: LUNGS:Normal, CVS:Normal laboratory and microbiology Laboratory Tests 10/09/25 05:03 Test 10/09/25 05:03 Range/Units Serum Glucose 240 #H 74-106 mg/dL Microbiology Date/Time Source Procedure Growth Status 10/04/25 13:46 Thoracic Fluid Gram Stain - Final Complete 10/04/25 13:46 Thoracic Fluid Aerobic Culture - Final Complete 10/02/25 06:37 Sputum Gram Stain - Final Complete 10/02/25 06:37 Sputum Respiratory Culture - Final Complete 09/29/25 20:30 Nose MRSA Screen - Final Complete Problem List/Assessment/Plan Problem List/Assessment/Plan Acute kidney injury superimposed Chronic Kidney Disease secondary hemodynamic mediated, feNa < 1% Acute respiratory failure, O2 supplement Congestive heart failure exacerbation NSTEMI Diabetes mellitus type 2, controlled Diabetic ketoacidosis Nonobstructing kidney stone Hypertension Peripheral arterial disease Bilateral below knee amputation Anemia of chronic kidney disease Hyponatremia due to excess H2O Recommendations Continue with UF 1-2 L as tolerated Epogen 70427 subQ 3 times weekly Strict I&Os Kidney ultrasound reported nonobstructing kidney stone Insulin sliding scale Fluid restriction Low-dose dopamine Bumex 1 mg IV daily KCL replacement Cardiology consult manager actuarial for outpatient hemodialysis chair time We will continue to follow Plan discussed with: Patient Dietary Evaluation Review Comments: Nutrition Recommendation: 1) Nephro-thalia 1 tab daily, Musa 1 pk daily 2) Monitor PO intake, lab values, weight trend, and I/O Expected Outcomes/Goals: Wound to improve Intake to meet >75% estimated needs FU 3-5 days JEN JAIMES MD Oct 09, 2025 16:45
--- NOTE | 2025-10-09 17:21 | DVHPN2 ---
Progress Note Date Seen: Oct 09, 2025 Resident Creating Document: JULIAN ROTHMAN RESIDENT Has the PT tested + for MRSA If YES, has PT been informed?: No Medical Necessity Reason Pt with a Central, PICC or Fol: Yes The following are medically ne: Valverde Catheter Reason for vavlerde catheter: Bladder Retention/Obstruc, Strict I&O Subjective Review of Systems 75-year-old male who is hospital course has been prolonged secondary to acute on chronic systolic heart failure exacerbation, EF 25%, NSTEMI, severe pulmonary hypertension, nausea and vomiting and LEXA superimposed on CKD Reports chronic nausea and vomiting, loss of appetite and early satiety. He reports having EGD/colonoscopy almost 10 years back. Does not know the findings. 10/03--not passing gas or bm, normoacive, f/u with kub 10/04-passing gas. No bowel movement. On BiPAP. KUB shows nonobstructive bowel gas pattern. 10/08-passing gas still no bowel movement. Abdomen soft, nontender, normoactive. Fleet enema ordered 10/09-patient had a bowel movement. Abdomen soft, nontender. MiraLax scheduled, promethazine for nausea. QTC prolonged. Objective vital signs Vital Sign Date Time Temp Pulse Resp B/P (MAP) Pulse Ox O2 Delivery O2 Flow Rate FiO2 10/09/25 17:00 98.1 92 16 142/82 (102) 91 98.1 10/09/25 13:06 4.0 36 10/09/25 11:11 Nasal Cannula* Total Intake and Output 10/08/25 10/08/25 10/09/25 15:00 23:00 07:00 Intake Total 150 ml 150 ml Output Total 200 ml 400 ml Balance -50 ml -250 ml medications Current Medications Medications Dose Ordered Sig/Conrado Route Start Time Stop Time Status Last Admin Dose Admin Ondansetron HCl 4 mg Q4HP PRN IV 09/29/25 12:30 Cancel Enoxaparin Sodium 40 mg DAILY SC 09/30/25 10:00 UNV Aspirin 81 mg DAILY PO 09/30/25 10:00 10/09/25 10:53 81 MG Metoprolol Succinate 50 mg DAILY PO 09/30/25 10:00 10/09/25 10:53 50 MG Heparin Sodium (Porcine) 5,000 units Q12HR SC 09/29/25 22:00 10/09/25 10:56 5,000 UNITS Atorvastatin Calcium 40 mg HS PO 09/29/25 22:00 10/08/25 22:02 40 MG Dopamine HCl/ Dextrose 250 ml @ 2.213 mls/ hr Q24H IV 09/30/25 14:45 10/09/25 14:47 2.213 MLS/HR Diagnostic Test (Pha) 1 strip ACHS 10/01/25 11:30 10/09/25 11:19 1 STRIP Insulin Human Regular ACHS SC 10/01/25 11:30 10/09/25 11:26 8 UNITS Dextrose 50 ml UD PRN IV 10/01/25 09:30 10/08/25 01:23 50 ML Levothyroxine Sodium 100 mcg QAM@0600 PO 10/02/25 06:00 10/09/25 05:39 100 MCG Albuterol 2.5 mg Q6HWA NEB 10/02/25 12:00 10/09/25 11:11 2.5 MG Ipratropium [place] 0.5 mg Q6HWA NEB 10/02/25 12:00 10/09/25 11:11 0.5 MG Tamsulosin HCl 0.4 mg QPM PO 10/02/25 18:00 10/08/25 18:27 0.4 MG Finasteride 5 mg DAILY PO 10/03/25 10:00 10/09/25 10:54 5 MG Pantoprazole Sodium 40 mg DAILY@0600 PO 10/05/25 06:00 10/09/25 05:39 40 MG Bumetanide 1 mg DAILY IV 10/06/25 10:00 10/09/25 10:55 1 MG Polyethylene Glycol 17 gm BIDP PRN PO 10/06/25 14:00 Cancel Docusate Sodium 100 mg BIDPRN PRN PO 10/06/25 14:00 10/07/25 21:34 100 MG Doxycycline Monohydrate 100 mg Q12HR PO 10/07/25 22:00 10/09/25 10:54 100 MG Insulin Glargine 13 units DAILY SC 10/09/25 15:00 Polyethylene Glycol 17 gm DAILY PO 10/09/25 15:33 10/09/25 16:18 17 GM Promethazine HCl 12.5 mg Q6HP PRN PO 10/09/25 15:15 Acetaminophen 650 mg Q6HP PRN PO 10/09/25 16:45 Acetaminophen/ Hydrocodone Bitart 1 tab Q8HPRN PRN PO 10/09/25 16:45 Albumin Human 100 ml @ 100 mls/hr Q1HR STAT IV 10/09/25 16:44 10/09/25 17:43 Examination Thin frail-appearing elderly male lying in the bed comfortabl General: Thin, afebrile, palor, mucosae are moist Cardiovascular: Regular S1 and S2. No murmurs, gallops or rubs. No JVD elevation. No pedal edema Respiratory: Decreased breath sounds, heard on auscultation, on BiPAP. Abdomen: Soft, nontender, nondistended, normoactive bowel sounds, no rebound tenderness, no organomegaly, no masses Genitourinary: Deferred laboratory and microbiology Laboratory Tests 10/09/25 05:03 Test 10/09/25 05:03 Range/Units Serum Glucose 240 #H 74-106 mg/dL Microbiology Date/Time Source Procedure Growth Status 10/04/25 13:46 Thoracic Fluid Gram Stain - Final Complete 10/04/25 13:46 Thoracic Fluid Aerobic Culture - Final Complete 10/02/25 06:37 Sputum Gram Stain - Final Complete 10/02/25 06:37 Sputum Respiratory Culture - Final Complete 09/29/25 20:30 Nose MRSA Screen - Final Complete Labs and/or images reviewed: Labs reviewed by me, Image(s) reviewed by me Problem List/Assessment/Plan Problem List/Assessment/Plan Early satiety, chronic nausea and vomiting Unintentional weight loss / rule out malignancy Anemia likely iron-deficiency Acute on chronic systolic CHF exacerbation-EF 25% Rule out ischemic cardiomyopathy NSTEMI type 1 versus type 2 Severe pulmonary hypertension Acute kidney injury superimposed on CKD Diabetic ketoacidosis resolving Severe prostatomegaly QTC prolongation Plan: Recommendation: Dr. Rivera Patient has triple vessel significant CAD. Patient is not a suitable candidate for any GI intervention at this time. He will benefit from upper and lower endoscopy once medically stabilized. We will continue to follow up. KUB showing nonobstructive bowel, advanced diet as tolerated. Continue MiraLax daily Promethazine for nausea, QTC prolongation BUN/creatinine improving, nephrology recommendations appreciated Recommend IV iron supplementation, 10/01 and 10/02 Iron profile shows iron- deficiency anemia CT abdomen without contrast shows prostatomegaly severe, severe atherosclerotic disease with diffuse calcification. Nodular soft tissue thickening and anterior abdominal wall. Moderate bilateral pleural effusion. Avoid NSAIDs Recommend high-protein drinks Tap water enema ordered Cea level 6.8 We will continue to follow up Thank you for consulting GI Plan discussed with Dr. Rivera Plan discussed with: Patient My Orders My Orders Orders - JULIAN ROTHMAN Procedure Category Date Status Time Mrsa Screen DANIA 10/09/25 Logged 10:00 Melatonin (Melatonin) PHA 10/09/25 In Process 22:00 Promethazine Plain PHA 10/09/25 In Process Syrup (Phenergan Plai 15:15 Polyethylene Glycol PHA 10/09/25 In Process 17g Powder (Miralax 15:33 Electrocardigram EKG 10/09/25 Logged 14:50 Dietary Evaluation Review Comments: Nutrition Recommendation: 1) Nephro-thalia 1 tab daily, Musa 1 pk daily 2) Monitor PO intake, lab values, weight trend, and I/O Expected Outcomes/Goals: Wound to improve Intake to meet >75% estimated needs FU 3-5 days JULIAN ROTHMAN RESIDENT Oct 09, 2025 17:21
[2025-10-09] MEDS: ACETAMINOPHEN 325 MG TAB PO PRN (17:24)
[2025-10-09] MEDS: ALBUMIN 25% 100 ML IV ONE (21:24)
[2025-10-09] MEDS: HYDROcodone-ACET 5/325MG TAB PO PRN (22:02)
[2025-10-09] MEDS: MELATONIN 5 MG TAB PO ONE (22:19)
[2025-10-10] VITALS (16 sets, daily range): BP systolic 105–143; BP diastolic 54–87; PULSE 72–98; RESP 16–18; TEMP 97.7–99.4; O2SAT 7–99
[2025-10-10 05:26] LABS: Hematocrit 29.4 % (41.0-53.0); Hemoglobin 9.5 g/dL (13.5-17.5); Mean Corpuscular Hemoglobin 24.4 pg (28.0-32.0); Mean Corpuscular Volume 75.6 fL (80.0-100.0); Nucleated Red Blood Cells % 0.1 %
[2025-10-10 05:29] LABS: Anion Gap 11 (5-15); Carbon Dioxide 29 mmol/L (20-31); Chloride 101 mmol/L (98-107); Potassium 4.1 mmol/L (3.5-5.1); Sodium 141 mmol/L (136-145)
[2025-10-10 05:31] LABS: Calcium 9.0 mg/dL (8.7-10.4)
[2025-10-10 05:36] LABS: BUN/Creatinine Ratio 14.6 (10.0-20.0)
[2025-10-10 05:39] LABS: Blood Urea Nitrogen 45 mg/dL (9-23); Glucose 156 mg/dL (74-106)
[2025-10-10] MEDS: MAGNESIUM CITRATE SOLUTION 300 ML BTL PO ONE (10:45)
--- NOTE | 2025-10-10 11:40 | DVHPN2 ---
Progress Note Date Seen: Oct 10, 2025 Resident Creating Document: JULIAN ROTHMAN RESIDENT Has the PT tested + for MRSA If YES, has PT been informed?: No Medical Necessity Reason Pt with a Central, PICC or Fol: Yes The following are medically ne: Valverde Catheter Reason for valverde catheter: Bladder Retention/Obstruc, Strict I&O Subjective Review of Systems 75-year-old male who is hospital course has been prolonged secondary to acute on chronic systolic heart failure exacerbation, EF 25%, NSTEMI, severe pulmonary hypertension, nausea and vomiting and LEXA superimposed on CKD Reports chronic nausea and vomiting, loss of appetite and early satiety. He reports having EGD/colonoscopy almost 10 years back. Does not know the findings. 10/03--not passing gas or bm, normoacive, f/u with kub 10/04-passing gas. No bowel movement. On BiPAP. KUB shows nonobstructive bowel gas pattern. 10/08-passing gas still no bowel movement. Abdomen soft, nontender, normoactive. Fleet enema ordered 10/09-patient had a bowel movement. Abdomen soft, nontender. MiraLax scheduled, promethazine for nausea. QTC prolonged. 10/10-patient seen and examined. Abdomen soft nontender. Objective vital signs Vital Sign Date Time Temp Pulse Resp B/P (MAP) Pulse Ox O2 Delivery O2 Flow Rate FiO2 10/10/25 10:25 142/85 10/10/25 10:24 94 10/10/25 09:35 92 Nasal Cannula 3.0 10/10/25 09:35 32 10/10/25 09:00 97.7 18 97.7 Total Intake and Output 10/09/25 10/09/25 10/10/25 15:00 23:00 07:00 Intake Total 300 ml 230 ml Output Total 350 ml 100 ml Balance -50 ml 130 ml medications Current Medications Medications Dose Ordered Sig/Conrado Route Start Time Stop Time Status Last Admin Dose Admin Ondansetron HCl 4 mg Q4HP PRN IV 09/29/25 12:30 Cancel Enoxaparin Sodium 40 mg DAILY SC 09/30/25 10:00 UNV Aspirin 81 mg DAILY PO 09/30/25 10:00 10/10/25 10:25 81 MG Metoprolol Succinate 50 mg DAILY PO 09/30/25 10:00 10/10/25 10:24 50 MG Heparin Sodium (Porcine) 5,000 units Q12HR SC 09/29/25 22:00 10/10/25 10:29 5,000 UNITS Atorvastatin Calcium 40 mg HS PO 09/29/25 22:00 10/09/25 22:19 40 MG Dopamine HCl/ Dextrose 250 ml @ 2.213 mls/ hr Q24H IV 09/30/25 14:45 10/09/25 14:47 2.213 MLS/HR Diagnostic Test (Pha) 1 strip ACHS 10/01/25 11:30 10/09/25 22:00 1 STRIP Insulin Human Regular ACHS SC 10/01/25 11:30 10/09/25 11:26 8 UNITS Dextrose 50 ml UD PRN IV 10/01/25 09:30 10/08/25 01:23 50 ML Levothyroxine Sodium 100 mcg QAM@0600 PO 10/02/25 06:00 10/10/25 05:39 100 MCG Albuterol 2.5 mg Q6HWA NEB 10/02/25 12:00 10/10/25 07:00 2.5 MG Ipratropium [place] 0.5 mg Q6HWA NEB 10/02/25 12:00 10/10/25 07:01 0.5 MG Tamsulosin HCl 0.4 mg QPM PO 10/02/25 18:00 10/09/25 17:24 0.4 MG Finasteride 5 mg DAILY PO 10/03/25 10:00 10/10/25 10:24 5 MG Pantoprazole Sodium 40 mg DAILY@0600 PO 10/05/25 06:00 10/10/25 05:39 40 MG Bumetanide 1 mg DAILY IV 10/06/25 10:00 10/10/25 10:25 1 MG Polyethylene Glycol 17 gm BIDP PRN PO 10/06/25 14:00 Cancel Docusate Sodium 100 mg BIDPRN PRN PO 10/06/25 14:00 10/07/25 21:34 100 MG Doxycycline Monohydrate 100 mg Q12HR PO 10/07/25 22:00 10/10/25 10:24 100 MG Insulin Glargine 13 units DAILY SC 10/09/25 15:00 10/10/25 10:29 13 UNITS Polyethylene Glycol 17 gm DAILY PO 10/09/25 15:33 10/10/25 10:25 17 GM Promethazine HCl 12.5 mg Q6HP PRN PO 10/09/25 15:15 Acetaminophen 650 mg Q6HP PRN PO 10/09/25 16:45 10/09/25 17:24 650 MG Acetaminophen/ Hydrocodone Bitart 1 tab Q8HPRN PRN PO 10/09/25 16:45 10/10/25 10:44 1 TAB Examination Thin frail-appearing elderly male lying in the bed comfortabl General: Thin, afebrile, palor, mucosae are moist Cardiovascular: Regular S1 and S2. No murmurs, gallops or rubs. No JVD elevation. No pedal edema Respiratory: Decreased breath sounds, heard on auscultation, on BiPAP. Abdomen: Soft, nontender, nondistended, normoactive bowel sounds, no rebound tenderness, no organomegaly, no masses Genitourinary: Deferred laboratory and microbiology Laboratory Tests 10/10/25 04:55 Test 10/10/25 04:55 Range/Units Serum Glucose 156 H 74-106 mg/dL Microbiology Date/Time Source Procedure Growth Status 10/04/25 13:46 Thoracic Fluid Gram Stain - Final Complete 10/04/25 13:46 Thoracic Fluid Aerobic Culture - Final Complete 10/02/25 06:37 Sputum Gram Stain - Final Complete 10/02/25 06:37 Sputum Respiratory Culture - Final Complete 09/29/25 20:30 Nose MRSA Screen - Final Complete Labs and/or images reviewed: Labs reviewed by me, Image(s) reviewed by me Problem List/Assessment/Plan Problem List/Assessment/Plan Early satiety, chronic nausea and vomiting Unintentional weight loss / rule out malignancy Anemia likely iron-deficiency Acute on chronic systolic CHF exacerbation-EF 25% Rule out ischemic cardiomyopathy NSTEMI type 1 versus type 2 Severe pulmonary hypertension Acute kidney injury superimposed on CKD Diabetic ketoacidosis resolving Severe prostatomegaly QTC prolongation Plan: Recommendation: Dr. Rivera Patient has triple vessel significant CAD. Patient is not a suitable candidate for any GI intervention at this time. He will benefit from upper and lower endoscopy once medically stabilized. GI will sign off. Please reconsult us if deemed necessary. KUB showing nonobstructive bowel, advanced diet as tolerated. Continue MiraLax daily Promethazine for nausea, QTC prolongation Avoid NSAIDs Recommend high-protein drinks Cea level 6.8 We will continue to follow up Thank you for consulting GI Plan discussed with Dr. Rivera Plan discussed with: Patient My Orders My Orders Orders - JULIAN ROTHMAN RESIDENT Procedure Category Date Status Time Promethazine Plain PHA 10/09/25 In Process Syrup (Phenergan Plai 15:15 Polyethylene Glycol PHA 10/09/25 In Process 17g Powder (Miralax 15:33 Electrocardigram EKG 10/09/25 Logged 14:50 Dietary Evaluation Review Comments: Nutrition Recommendation: 1) Nephro-thalia 1 tab daily, Musa 1 pk daily 2) Monitor PO intake, lab values, weight trend, and I/O Expected Outcomes/Goals: Wound to improve Intake to meet >75% estimated needs FU 3-5 days JULIAN ROTHMAN RESIDENT Oct 10, 2025 11:40
--- NOTE | 2025-10-10 14:16 | DVHPNRES ---
Progress Note Date Seen: Oct 10, 2025 Resident Creating Document: CLIFF BRUCE RESIDENT Has the PT tested + for MRSA If YES, has PT been informed?: No Medical Necessity Reason Pt with a Central, PICC or Fol: Yes The following are medically ne: Valverde Catheter Reason for valverde catheter: Bladder Retention/Obstruc, Strict I&O Subjective Review of Systems Review of Systems 75-year-old male presents to the ED via EMS with complaint of hyperglycemia. He reports persistent elevated blood glucose readings over the past several days associated with nausea, vomiting, poor appetite, and unintentional weight loss for approximately three weeks. He states this symptoms feel similar to prior episodes of DKA. He denies dizziness, syncope, chest pain, palpitations, shortness of breath, fevers, or other acute symptoms. In the ED, initial lab shows a serum glucose of 409 mg/dL, an anion gap of 20, CO2 of 22, creatinine 3.54 with a GFR of 17, and elevated high sensitivity troponins trending from 748-1328. Significant past medical history includes PAD status post bilateral AKA, diabetes type 2, hypertension, CKD, anemia of chronic disease. Past Medical History * Type 2 diabetes mellitus, uncontrolled (HbA1c 10.7%) * Chronic kidney disease (baseline Cr ~3.2) * LEXA on CKD * Peripheral arterial disease s/p bilateral above-knee amputations * Hypertension * HFrEF (prior EF 4550%), now EF 25% * Chronic anemia of CKD/iron deficiency * Pulmonary embolism (prior) * Severe pulmonary hypertension (RVSP 6570 mmHg) * Cavitary lung lesion (remote) Past Surgical History * Bilateral above-knee amputations Past Social History * Former smoker: 20 years, quit 5 years ago * Quit alcohol 15 years ago * Lives with family * No illicit drug use 09/30/25 * Patient downgraded from ICU to TELE. * On 3 L nasal cannula, FiO2 3032%, saturating 67508%, no work of breathing. * Nausea/vomiting improving, but weight loss suspected to be chronic ? GI consult placed today. * Troponins continue to trend upward and now downtrending without chest pain; cardiology following for NSTEMI type 1 vs type 2 demand ischemia and CHF exacerbation. * Echocardiogram (yesterday): EF 25%, global hypokinesis, moderatesevere RV dysfunction, severe pulmonary hypertension (RVSP 6570 mmHg). * LEXA persists: Cr 3.33 (baseline ~3.28), UOP 0.35 mL/kg/hr. * Hypernatremia (148) improving slowly with D5W per nephrology. * EKG: Sinus rhythm with nonspecific anterior/inferior/lateral repolarization abnormalities; QT prolonged ? Zofran avoided. * Started DuoNeb Q6H, chest physiotherapy, chest X-ray ordered. * GI consulted for chronic nausea, vomiting, weight loss. 10/01/25 This 75-year-old male with history of CKD stage 45, acute on chronic systolic heart failure (EF 25%), severe pulmonary hypertension, PAD s/p bilateral above- knee amputations, T2DM (A1c 10.7%), recent DKA (resolved), history of PE, and poor PO intake continues to report severe anorexia, unable to tolerate solids, only tolerated a peach today. He denies chest pain. Mild shortness of breath persists. He has had fluctuating tachycardia (max 151 bpm), mild hypoxia (SpO2 9097% on 2 L NC), and worsening pulmonary congestion on chest X-ray compared to 09/29. WBC count continues to improve. He remains afebrile.The patient and the Family has now given informed consent for coronary angiography with left heart catheterization scheduled for tomorrow because the procedure is tomorrow morning, D5W is being continued at 60 mL/hr for procedure. Fluid plan will be re-evaluated post-procedure depending on renal function and volume status. GI consult is still pending for persistent nausea, poor intake, and weight loss. 10/02/25 The patient undergoing coronary angiography with left heart catheterization today. Hypoxia episode today: While on 3 L NC, SpO2 transiently dropped to 70s. He was placed on 4 L NC, now stabilizing between 8890%. RR remains 1420. GI was consulted yesterday and plans EGD + colonoscopy once medically optimized. They also recommend Ensure High Protein TID for nutritional supplementation. Valverde catheter continues leaking despite replacement; bladder scan shows 8 mL consistent with severe BPH causing leakage around the catheter. Urology medications Flomax + Finasteride ordered. D5W discontinued due to adequate sodium correction and worsening pulmonary congestion. Patient started on PO liquids + renal diabetic cardiac low sodium diet. Abdominal CT (non-contrast) reveals: * Severe atherosclerotic disease * Severe prostatomegaly * Valverde catheter in bladder but incompletely decompressing bladder. * Nodular soft tissue thickening anterior abdominal wall (due to prior insulin injection sites) * Moderate bilateral pleural effusions 10/03/25 Overnight, he developed worsening hypoxia requiring BiPAP, with transient improvement. Today, oxygen needs remain elevated, and he is currently on an Oxymizer at 8 L/min because of fluctuating saturations 8691%. He denies chest pain but reports persistent weakness, fatigue, poor appetite, and inability to tolerate solid foods. No bowel movement reported for several days. Mild abdominal discomfort without vomiting. He is hemodynamically stable but remains volume positive. The patient underwent left & right coronary angiography yesterday, revealing severe triple-vessel disease with heavily calcified lesions: * LAD ~80% stenosis * Left circumflex ~95% stenosis * RCA ~80% stenosis * Severe calcifications, poor PCI candidacy Cardiology recommends: * CT surgery evaluation for CABG * But patient is NOT an ideal surgical candidate due to frailty, CKD, HFrEF, severe comorbidities * May require mechanical circulatory support (Impella/MCS) * Hold P2Y12 inhibitors until CT surgery decision A higher-level transfer to [place] was initiated and is still pending. Valverde catheter continues to leak despite repositioning and replacement, consistent with severe BPH. No BM today. Abdominal X-ray ordered to rule out obstruction. If normal start Miralax and continue GI plan. 10/04/25 Overnight: * On full-face BiPAP (FiO2 60%). * When he removed BiPAP, sats dropped to 70%; placed back on BiPAP with sats 8892%. This morning: * Transitioned to Oximizer, now requiring 15 L/min, saturating 8890%. * Complains of dyspnea, chest tightness, and generalized weakness. * No bowel movement since last Tuesday. * Valverde catheter leaking around the urethra; poor drainage due to severe prostatomegaly. Procedures Today: * Bilateral thoracentesis performed due to worsening respiratory distress and pleural effusions: * Left pleural space: 1.0 L removed. * Right pleural space: 2.0 L removed. Family updated. Antibiotics: * Sputum culture showing moderate gram-positive cocci in chains and pairs. * Started ceftriaxone 1 g IV daily today. Imaging: * Abdominal X-ray: Non-obstructive bowel gas pattern. * Plan: Miralax started. * Still pending transfer to [place] for higher level of cardiac surgical evaluation (CABG vs MCS). Overall Status Today: * Continues in acute hypoxic respiratory failure requiring high-flow/oximizer support. * Positive fluid balance +900 mL with very low urine output (0.1 mL/kg/hr) concerning for cardiorenal syndrome and worsening CKD. * BNP previously elevated (4,800s). * Hemoglobin downtrending to 9.8 g/dL. * Creatinine increased to 3.05 (from 2.86). * Persistent severe constipation. Todays Plan * Continue high-flow O2 via Oximizer; BiPAP PRN for hypoxia. * Monitor post-thoracentesis; send pleural fluid studies. * Continue ceftriaxone for suspected bacterial pneumonia. * Strict I/O, daily weights; evaluate diuretic strategy after thoracentesis (Bumex previously). * Address Valverde malfunction; consider urology consult. * Continue Miralax bowel regimen. * Follow GI recommendations for EGD/colonoscopy once medically stable. * Continue transfer process to [place] for CABG vs MCS evaluation. * Monitor renal function closely. 10/05 25: Patient seen and examined at bedside, continue current medical treatment. 10/06/25 Overnight, the patient remained hemodynamically stable. He denies chest pain, dizziness, nausea, vomiting, or acute distress. He endorses generalized fatigue and diminished appetite but no active shortness of breath at rest. He remains on 3 L NC, saturating 97%, titrated down to 2 L NC. No respiratory distress observed this morning. He reports no bowel movement for several days, so bowel regimen intensified today. Valverde output continues to be low at 375 mL in 24 hrs, though valverde remains in place without major leakage today. * SpO2 11355% on 3 L titrated to 2 L NC (FiO2 32%) * I/O: Intake 1417 mL, Output 375 mL +1042 mL * UOP: 0.29 mL/kg/hr (oliguric) * CXR: Worsening pulmonary congestion ? CHF exacerbation Summary of Todays Changes: * LEXA progressing Cr 4.57 * Worsening fluid overload with oliguria positive balance +1042 mL * CHF exacerbation on CXR * Miralax increased to BID + Colace BID * NC 3 titrated to 2 L * Continue Bumex IV 1 mg BID, dopamine support * Transfer to [place] still pending due to bed availability * Continue oxygen titration * Continue transfer process for CABG/MCS evaluation 12/01/25 * The patient reports ongoing fatigue but no chest pain, palpitations, dizziness, or syncope. * Breathing comfortably on 2 L nasal cannula with FiO? 28%; saturations 13112%. * No respiratory distress noted today. * Denies abdominal pain, nausea, vomiting. * No bowel movement yet - bowel regimen intensified. * Valverde remains in place with improved containment, low but adequate tracking of urine output. * Remains hemodynamically stable on low-dose dopamine infusion. * Nephrology evaluated . patient consented for tunneled IJ hemodialysis catheter. * Hemodialysis planned after catheter placement due to rising creatinine (now 4.83), worsening GFR (12), low UOP. Antibiotics: Ceftriaxone discontinued yesterday; doxycycline PO started for suspected atypical / gram-positive pneumonia based on sputum Gram stain. * Oxygenation stable on NC 2 L. * Hyponatremia yesterday improved with fluid restriction. * Stable Hgb around 10. * Transfer to [place] remains pending due to bed availability. 10/08/25 Overnight Events: * Had hypoglycemic episode, glucose dropped to 52 mg/dL.Long-acting insulin Lantus reduced from 15 units ? 10 units nightly. * No chest pain, dizziness, or syncope. * Breathing comfortably on 2 L NC with stable oxygen saturations 05780%. * No shortness of breath reported today. * No bowel movement; GI ordered a Fleet enema. * Valverde catheter draining adequately. Procedures Today: * Successfully underwent placement of a 4.5 Bengali, 23 cm tunneled right internal jugular hemodialysis catheter under fluoroscopic guidance without complications. Transfer Status: * Patient accepted to [place] for higher level of cardiac care; awaiting bed availability. 10/09/25 Overnight / 24-Hour Interval Events: * Patient stable on 4 L nasal cannula, FiO2 ~36% with oxygen saturation 96%. * Transfer to [place] remains pending due to lack of bed availability; patient has been accepted. * Sodium 135 (improved from 134) * Potassium 5.2 (mild hyperkalemia) * Had a bowel movement today after prolonged constipation, good response to bowel regimen. * Treat mild hyperkalemia with Lokelma. * Prepare for hemodialysis initiation. * Continue cardiac optimization and monitoring. * Continue bowel regimen. * Continue transfer coordination with [facility]. 10/10/25 * Transfer to [place] remains approved but still pending bed availability. * Currently on 3 L NC, FiO2 2832% with O2 saturation 9296%. * Underwent 1.8 L hemodialysis yesterday tolerated procedure. * Plan for HD again today as tolerated. * Mag Citrate/Magnesium citrate solution prescribed for constipation, Promethazine ordered for nausea/vomiting. * No acute distress reported today. * Continue NC oxygen, target SpO2 > 92%. * HD today per nephrology. * Continue bowel regimen and GI nausea control. * Ongoing transfer coordination to [place] once bed opens. Objective vital signs Vital Sign Date Time Temp Pulse Resp B/P (MAP) Pulse Ox O2 Delivery O2 Flow Rate FiO2 10/10/25 11:41 90 17 97 10/10/25 11:35 Nasal Cannula* 3 32 10/10/25 10:25 142/85 10/10/25 09:00 97.7 97.7 Total Intake and Output 10/09/25 10/09/25 10/10/25 14:59 22:59 06:59 Intake Total 300 ml 230 ml Output Total 350 ml 100 ml Balance -50 ml 130 ml medications Current Medications Medications Dose Ordered Sig/Conrado Route Start Time Stop Time Status Last Admin Dose Admin Ondansetron HCl 4 mg Q4HP PRN IV 09/29/25 12:30 Cancel Enoxaparin Sodium 40 mg DAILY SC 09/30/25 10:00 UNV Aspirin 81 mg DAILY PO 09/30/25 10:00 10/10/25 10:25 81 MG Metoprolol Succinate 50 mg DAILY PO 09/30/25 10:00 10/10/25 10:24 50 MG Heparin Sodium (Porcine) 5,000 units Q12HR SC 09/29/25 22:00 10/10/25 10:29 5,000 UNITS Atorvastatin Calcium 40 mg HS PO 09/29/25 22:00 10/09/25 22:19 40 MG Dopamine HCl/ Dextrose 250 ml @ 2.213 mls/ hr Q24H IV 09/30/25 14:45 10/09/25 14:47 2.213 MLS/HR Diagnostic Test (Pha) 1 strip ACHS 10/01/25 11:30 10/10/25 11:44 1 STRIP Insulin Human Regular ACHS SC 10/01/25 11:30 10/10/25 12:22 4 UNITS Dextrose 50 ml UD PRN IV 10/01/25 09:30 10/08/25 01:23 50 ML Levothyroxine Sodium 100 mcg QAM@0600 PO 10/02/25 06:00 10/10/25 05:39 100 MCG Albuterol 2.5 mg Q6HWA [facility] 10/02/25 12:00 10/10/25 11:35 2.5 MG Ipratropium Crosby 0.5 mg Q6HWA [facility] 10/02/25 12:00 10/10/25 11:35 0.5 MG Tamsulosin HCl 0.4 mg QPM PO 10/02/25 18:00 10/09/25 17:24 0.4 MG Finasteride 5 mg DAILY PO 10/03/25 10:00 10/10/25 10:24 5 MG Pantoprazole Sodium 40 mg DAILY@0600 PO 10/05/25 06:00 10/10/25 05:39 40 MG Bumetanide 1 mg DAILY IV 10/06/25 10:00 10/10/25 10:25 1 MG Polyethylene Glycol 17 gm BIDP PRN PO 10/06/25 14:00 Cancel Docusate Sodium 100 mg BIDPRN PRN PO 10/06/25 14:00 10/07/25 21:34 100 MG Doxycycline Monohydrate 100 mg Q12HR PO 10/07/25 22:00 10/10/25 10:24 100 MG Insulin Glargine 13 units DAILY SC 10/09/25 15:00 10/10/25 10:29 13 UNITS Polyethylene Glycol 17 gm DAILY PO 10/09/25 15:33 10/10/25 10:25 17 GM Promethazine HCl 12.5 mg Q6HP PRN PO 10/09/25 15:15 Acetaminophen 650 mg Q6HP PRN PO 10/09/25 16:45 10/09/25 17:24 650 MG Acetaminophen/ Hydrocodone Bitart 1 tab Q8HPRN PRN PO 10/09/25 16:45 10/10/25 10:44 1 TAB Examination General: Alert, awake, chronically ill appearing. Neuro: A&O3; normal cognition. CV: RRR; no murmurs; normal peripheral pulses. Resp: Breath sounds diminished at bases; no wheezing; no respiratory distress. GI: Soft, non-tender; no distention. : Vlaverde catheter draining; no suprapubic tenderness. Extremities: Bilateral AKA; no edema. Skin: Warm, intact. Access: right IJ hemodialysis catheter in place, clean/dry/intact. laboratory and microbiology Laboratory Tests 10/10/25 04:55 Test 10/10/25 04:55 Range/Units Serum Glucose 156 H 74-106 mg/dL Microbiology Date/Time Source Procedure Growth Status 10/04/25 13:46 Thoracic Fluid Gram Stain - Final Complete 10/04/25 13:46 Thoracic Fluid Aerobic Culture - Final Complete 10/02/25 06:37 Sputum Gram Stain - Final Complete 10/02/25 06:37 Sputum Respiratory Culture - Final Complete 09/29/25 20:30 Nose MRSA Screen - Final Complete Problem List/Assessment/Plan Problem List/Assessment/Plan 1. NEUROLOGY Assessment * No sedation * No delirium * No focal deficits Plan * Avoid sedatives * Maintain normal oxygenation and glucose 2. CARDIOVASCULAR A. Acute on chronic systolic HF (HFrEF), EF 25%, NYHA Class IIIACUTE DECOMPENSATION Differentials: Ischemic cardiomyopathy, Tachyarrhythmia, Volume overload, Myocardial injury Plan: * Continue Bumex 1 mg IV BID * Continue metoprolol succinate 50 mg daily * Avoid MYNOR/ARB/ARNI/SGLT2 due to LEXA and hypernatremia * Fluid restriction 1.5 L/day * Repeat CXR tomorrow * Strict I/Os and daily weights * Cardiology following B. Elevated troponins NSTEMI Type 1 vs Type 2 demand ischemia Severe triple-vessel coronary artery disease (LAD 80%, LCx 95%, RCA 80%) Hyperlipidemia * Troponin rising to 3924 now downtrending * EKG: Sinus rhythm with repolarization abnormalities * No chest pain * High surgical risk for CABG * CT surgery consult pending * Needs advanced cardiac center ([place]) * Await transfer to [place] for CABG vs Impella evaluation. * Hold P2Y12 until surgical decision Plan: * Continue Aspirin 81 mg * Continue Atorvastatin 40 mg * Maintain Metoprolol * Await CT surgery evaluation * Transfer request to [place]. continue escalation Continue heparin 5000 units SC Q12h, atorvastatin 40 mg po hs * Telemetry monitoring * Repeat troponin trending C. Severe pulmonary hypertension (RVSP 6570 mmHg) Plan: * Maintain oxygenation * Avoid fluid overload * (left-sided HF likely) Peripheral arterial disease s/p bilateral above-knee amputations Hypertension Continue metoprolol succinate 50 mg daily 3. RESPIRATORY SYSTEM Assessment * Pleural effusions due to CHF Exercabation * Acute hypoxic respiratory failure * RLL atelectasis * Mild hypoxemia High oxygen requirement (BiPAP overnight, now Oximizer 15 L). ABG shows persistent hypoxemia. Underwent bilateral thoracentesis today (1 L left, 2 L right). Plan * Continue 2 L NC, wean as tolerated, target SpO2 > 90%. * BiPAP PRN if SpO2 < 88% or RR > 22 * Continue DuoNeb Q6H * Chest physiotherapy * Daily pulse oximetry * Follow-up CXR 4. GASTROINTESTINAL Assessment * Chronic nausea/vomiting * Weight loss several months * Risk for gastroparesis vs malignancy vs chronic GI dysmotility * Severe constipation * No BM for several days Plan * GI planning EGD + colonoscopy once stable Abdominal X-ray is non-obstructive. * Start Miralax, docusate daily. * Add senna if no BM in 24 hours. * Continue glucerna High Protein TID * PO clear liquids, renal diabetic , cardiac, low Na diet * Magnesium citrate oral solution given today * Promethazine PRN for nausea/vomiting * Monitor for bowel movement 5. GENITOURINARY * BPH with urinary obstruction * Chronic Valverde with malfunction * Acute urinary retention * Leak around catheter; bladder scan 8 mL Plan: * Continue Valverde for strict I/Os * Monitor UA and cultures * Start Flomax + Finasteride * Avoid nephrotoxic medications 6. RENAL (NEPHROLOGY) Acute Kidney Injury due to VMN with superimposed CKD (Stage 45), hemodynamically mediated, Low urinary sodium:- improving Contrast-induced nephropathy Cardiorenal syndrome AG METABOLIC ACIDOSIS RESOLVED hypernatremia resolved metabolic alkalosis Right sided Nephrolithiasis non obstructive Hyponatremia improving Hyperkalemia Plan: * Nephrology following * Continue fluid restriction * Continue dopamine 0.99 * Avoid MYNOR inhibitors, ARBs, NSAIDs, Continue Bumex 1mg IV daily * Daily BMP * Strict I/Os * Renal-dose medications * Right IJ tunneled HD catheter placed * Hemodialysis as tolerated * Strict I&O + daily renal panels * Renal diet, low potassium, fluid restriction 7. INFECTIOUS DISEASE Assessment * bacterial pneumonia * Gram-positive cocci on sputum * Pneumonia (effusions) MRSA :- NEGATIVE Plan: * Blood cultures 2, * Ceftriaxone discontinued yesterday * Start doxycycline PO * Follow sputum cultures pleural cultures negative. * Monitor WBC, fever curve. * WBC improving (12.9) * Start antibiotics ONLY if infectious source identified or clinical deterioration 8. ENDOCRINE A. DKA RESOLVED uncontrolled T2DM (A1c 10.7%) * AG closed * B-hydroxybutyrate decreasing (0.449 - 0.213) * Insulin drip off since 09/29 Hypoglycemia episode Plan: * Continue Lantus 13 units daily * Continue correctional insulin * Glucose goal [id number] B. Hypothyroidism Plan: * Continue levothyroxine 100 mcg daily 9. HEMATOLOGY Iron deficiency anemia + anemia of chronic disease Plan: * IV iron * Monitor CBC daily * Transfuse Hgb <7 MUSCULOSKELETAL / SKIN / WOUNDS s/p bilateral above-knee amputations * Left hip grade 1 ulcer * Left stump small superficial wound healing Plan: * invoicing specialist daily * Offloading * Zinc oxide barrier cream Beckemeyer 5 Q8H PRN for chronic pain 10. PSYCHIATRY * Patient calm, cooperative * No acute psychiatric symptoms 11. NUTRITION * Renal-friendly, cardiac, carbohydrate-controlled diet * Calorie counts * Consult nutrition placed today. 12. LINES / TUBES * Valverde catheter (in place) * Right IJ tunneled HD catheter (10/08) 13. PROPHYLAXIS * DVT: Heparin 5000 units SQ q12h * GI: pantoprazole 40 PO * Fall & skin precautions * Pressure ulcer prevention 14. PT SOCIAL WORK * PT/OT evaluation ordered * Social work involved for transfer to [facility] For higher level of care. CRITICAL CARE TIME A total of 83 minutes of critical care time was spent today in the evaluation, management, data review, coordination of care, and direct bedside care of this critically ill patient, excluding procedures. CODE STATUS Full Code. Greater than 20 minutes spent discussing code status and goals of care with patient and family. Family at bedside; plan discussed with Dr. Willard. Case discussed in detail with the attending physician , including the clinical presentation, diagnostic workup, and comprehensive management plan. The patient was present for the discussion and demonstrated understanding of his condition and the proposed plan. Plan discussed with: Patient, Spouse, Other My Orders My Orders Orders - CLIFF BRUCE RESIDENT Procedure Category Date Status Time Mrsa Screen DANIA 10/09/25 In Process 10:50 Communication Order ORDERS 10/09/25 Transmitted 14:38 Insulin Lantus PHA 10/09/25 In Process (Glargine) (Lantus) 15:00 Acetaminophen Tablet PHA 10/09/25 In Process (Tylenol Tablet) 16:45 Hydrocodone-Acet PHA 10/09/25 In Process 5/325mg Tab (Beckemeyer 16:45 Dietary Evaluation Review Comments: Nutrition Recommendation: 1) Nephro-thalia 1 tab daily, Musa 1 pk daily 2) Monitor PO intake, lab values, weight trend, and I/O Expected Outcomes/Goals: Wound to improve Intake to meet >75% estimated needs FU 3-5 days Visit Coding STANDARD RES Billing Provider: TANI MORALES RESIDENT Date of Service if different f: Oct 10, 2025 CLIFF BRUCE RESIDENT Oct 10, 2025 14:16
--- NOTE | 2025-10-10 14:20 | DVHPN2 ---
Progress Note Date Seen: Oct 10, 2025 Has the PT tested + for MRSA If YES, has PT been informed?: No Medical Necessity Reason Pt with a Central, PICC or Fol: Yes The following are medically ne: Valverde Catheter Reason for valvedre catheter: Bladder Retention/Obstruc, Strict I&O Subjective Patient reports: No new complaints Other Systems: Patient seen and examined by myself today in follow-up Patient tolerated 1st hemodialysis well yesterday Objective vital signs Vital Sign Date Time Temp Pulse Resp B/P (MAP) Pulse Ox O2 Delivery O2 Flow Rate FiO2 10/10/25 11:41 90 17 97 10/10/25 11:35 Nasal Cannula* 3 32 10/10/25 10:25 142/85 10/10/25 09:00 97.7 97.7 Total Intake and Output 10/09/25 10/09/25 10/10/25 15:00 23:00 07:00 Intake Total 300 ml 230 ml Output Total 350 ml 100 ml Balance -50 ml 130 ml medications Current Medications Medications Dose Ordered Sig/Conrado Route Start Time Stop Time Status Last Admin Dose Admin Ondansetron HCl 4 mg Q4HP PRN IV 09/29/25 12:30 Cancel Enoxaparin Sodium 40 mg DAILY SC 09/30/25 10:00 UNV Aspirin 81 mg DAILY PO 09/30/25 10:00 10/10/25 10:25 81 MG Metoprolol Succinate 50 mg DAILY PO 09/30/25 10:00 10/10/25 10:24 50 MG Heparin Sodium (Porcine) 5,000 units Q12HR SC 09/29/25 22:00 10/10/25 10:29 5,000 UNITS Atorvastatin Calcium 40 mg HS PO 09/29/25 22:00 10/09/25 22:19 40 MG Dopamine HCl/ Dextrose 250 ml @ 2.213 mls/ hr Q24H IV 09/30/25 14:45 10/09/25 14:47 2.213 MLS/HR Diagnostic Test (Pha) 1 strip ACHS 10/01/25 11:30 10/10/25 11:44 1 STRIP Insulin Human Regular ACHS SC 10/01/25 11:30 10/10/25 12:22 4 UNITS Dextrose 50 ml UD PRN IV 10/01/25 09:30 10/08/25 01:23 50 ML Levothyroxine Sodium 100 mcg QAM@0600 PO 10/02/25 06:00 10/10/25 05:39 100 MCG Albuterol 2.5 mg Q6HWA NEB 10/02/25 12:00 10/10/25 11:35 2.5 MG Ipratropium [place] 0.5 mg Q6HWA NEB 10/02/25 12:00 10/10/25 11:35 0.5 MG Tamsulosin HCl 0.4 mg QPM PO 10/02/25 18:00 10/09/25 17:24 0.4 MG Finasteride 5 mg DAILY PO 10/03/25 10:00 10/10/25 10:24 5 MG Pantoprazole Sodium 40 mg DAILY@0600 PO 10/05/25 06:00 10/10/25 05:39 40 MG Bumetanide 1 mg DAILY IV 10/06/25 10:00 10/10/25 10:25 1 MG Polyethylene Glycol 17 gm BIDP PRN PO 10/06/25 14:00 Cancel Docusate Sodium 100 mg BIDPRN PRN PO 10/06/25 14:00 10/07/25 21:34 100 MG Doxycycline Monohydrate 100 mg Q12HR PO 10/07/25 22:00 10/10/25 10:24 100 MG Insulin Glargine 13 units DAILY SC 10/09/25 15:00 10/10/25 10:29 13 UNITS Polyethylene Glycol 17 gm DAILY PO 10/09/25 15:33 10/10/25 10:25 17 GM Promethazine HCl 12.5 mg Q6HP PRN PO 10/09/25 15:15 Acetaminophen 650 mg Q6HP PRN PO 10/09/25 16:45 10/09/25 17:24 650 MG Acetaminophen/ Hydrocodone Bitart 1 tab Q8HPRN PRN PO 10/09/25 16:45 10/10/25 10:44 1 TAB Examination: LUNGS:Normal, CVS:Normal, MSK:Abnormal laboratory and microbiology Laboratory Tests 10/10/25 04:55 Test 10/10/25 04:55 Range/Units Serum Glucose 156 H 74-106 mg/dL Microbiology Date/Time Source Procedure Growth Status 10/09/25 10:50 Nose MRSA Screen - Final Complete 10/04/25 13:46 Thoracic Fluid Gram Stain - Final Complete 10/04/25 13:46 Thoracic Fluid Aerobic Culture - Final Complete 10/02/25 06:37 Sputum Gram Stain - Final Complete 10/02/25 06:37 Sputum Respiratory Culture - Final Complete Problem List/Assessment/Plan Problem List/Assessment/Plan Acute kidney injury superimposed Chronic Kidney Disease secondary hemodynamic mediated, feNa < 1% Acute respiratory failure, O2 supplement Congestive heart failure exacerbation NSTEMI Diabetes mellitus type 2, controlled Diabetic ketoacidosis Nonobstructing kidney stone Hypertension Peripheral arterial disease Bilateral below knee amputation Anemia of chronic kidney disease Hyponatremia due to excess H2O Recommendations Hemodialysis tomorrow Epogen 01223 subQ 3 times weekly Strict I&Os Kidney ultrasound reported nonobstructing kidney stone Insulin sliding scale Fluid restriction Low-dose dopamine Bumex 1 mg IV daily KCL replacement Cardiology consult case resource manager for outpatient hemodialysis chair time We will continue to follow Plan discussed with: Patient Dietary Evaluation Review Comments: Nutrition Recommendation: 1) Nephro-thalia 1 tab daily, Musa 1 pk daily 2) Monitor PO intake, lab values, weight trend, and I/O Expected Outcomes/Goals: Wound to improve Intake to meet >75% estimated needs FU 3-5 days JEN JAIMES MD Oct 10, 2025 14:20
[2025-10-10] MEDS: SODIUM CHL 0.9% 1000 ML BAG XX ONE (15:41)
[2025-10-10] MEDS: LIDOCAINE 5% TOPICAL PATCH TOP ONE (15:41)
--- NOTE | 2025-10-10 23:54 | DVHPN2 ---
Subjective DOS: 10/10/2025 Patient seen and examined at bedside. Currently on supplemental oxygen Overnight events reviewed. Changes from previous H/P or p: No Changes Gastrointestinal: Nausea, Vomiting Objective Vitals Vital Signs Date Time Temp Pulse Resp B/P (MAP) Pulse Ox O2 Delivery O2 Flow Rate FiO2 10/10/25 21:00 98.3 77 17 105/57 (73) 97 98.3 10/10/25 19:14 Nasal Cannula 3.0 10/10/25 19:14 32 Intake/Output Intake and Output 10/10/25 07:00 Intake Total 530 ml Output Total 450 ml Balance 80 ml Intake Oral 430 ml IV Total 100 ml Output Urine Total 450 ml Exam Gen.: Patient lying in bed in no apparent distress. On supplemental oxygen. Head: Normocephalic, atraumatic. Eyes: EOMI/PERRLA. Ears: Normal hearing. Normal anatomy. Neck/trachea: Trachea midline, supple. Nose: Normal external anatomy. Mouth: Moist mucous membranes. Chest: Decreased air entry bilaterally. No wheezing or rhonchi. Cardiovascular: Positive S1, positive S2. Regular rate and rhythm. Abdomen: Positive bowel sounds in all 4 quadrants. Soft, non-tender, non- distended. : Deferred. Rectal: Deferred. Skin: Warm, dry. Intact. Extremities: 2+ radial pulses bilaterally. Bilateral above-knee amputations Neuro: Awake, alert, oriented x3. No gross motor or sensory deficits. Cranial nerves II through XII intact. Gait not assessed. Medications Current Medications Medications Dose Ordered Sig/Conrado Route Start Time Stop Time Status Last Admin Dose Admin Ondansetron HCl 4 mg Q4HP PRN IV 09/29/25 12:30 Cancel Enoxaparin Sodium 40 mg DAILY SC 09/30/25 10:00 UNV Aspirin 81 mg DAILY PO 09/30/25 10:00 10/10/25 10:25 81 MG Metoprolol Succinate 50 mg DAILY PO 09/30/25 10:00 10/10/25 10:24 50 MG Heparin Sodium (Porcine) 5,000 units Q12HR SC 09/29/25 22:00 10/10/25 21:48 5,000 UNITS Atorvastatin Calcium 40 mg HS PO 09/29/25 22:00 10/10/25 21:43 40 MG Diagnostic Test (Pha) 1 strip ACHS 10/01/25 11:30 12/4/25 21:50 1 STRIP Insulin Human Regular ACHS SC 10/01/25 11:30 10/10/25 12:22 4 UNITS Dextrose 50 ml UD PRN IV 10/01/25 09:30 10/08/25 01:23 50 ML Levothyroxine Sodium 100 mcg QAM@0600 PO 10/02/25 06:00 10/10/25 05:39 100 MCG Albuterol 2.5 mg Q6HWA NEB 10/02/25 12:00 10/10/25 19:14 2.5 MG Ipratropium [place] 0.5 mg Q6HWA NEB 10/02/25 12:00 10/10/25 19:14 0.5 MG Tamsulosin HCl 0.4 mg QPM PO 10/02/25 18:00 10/10/25 17:36 0.4 MG Finasteride 5 mg DAILY PO 10/03/25 10:00 10/10/25 10:24 5 MG Pantoprazole Sodium 40 mg DAILY@0600 PO 10/05/25 06:00 10/10/25 05:39 40 MG Bumetanide 1 mg DAILY IV 10/06/25 10:00 10/10/25 10:25 1 MG Polyethylene Glycol 17 gm BIDP PRN PO 10/06/25 14:00 Cancel Docusate Sodium 100 mg BIDPRN PRN PO 10/06/25 14:00 10/07/25 21:34 100 MG Doxycycline Monohydrate 100 mg Q12HR PO 10/07/25 22:00 10/10/25 21:44 100 MG Insulin Glargine 13 units DAILY SC 10/09/25 15:00 10/10/25 10:29 13 UNITS Polyethylene Glycol 17 gm DAILY PO 10/09/25 15:33 10/10/25 10:25 17 GM Promethazine HCl 12.5 mg Q6HP PRN PO 10/09/25 15:15 Acetaminophen 650 mg Q6HP PRN PO 10/09/25 16:45 10/09/25 17:24 650 MG Acetaminophen/ Hydrocodone Bitart 1 tab Q8HPRN PRN PO 10/09/25 16:45 10/10/25 21:44 1 TAB Laboratory Results Laboratory Tests 10/10/25 04:55 Chemistry Test 10/10/25 04:55 Calcium Level 9.0 mg/dL (8.7-10.4) Urinalysis Test 09/29/25 11:20 Urine Color Light-yellow (Yellow) Urine Clarity Clear (Clear) Urine pH 5.0 (5.0-9.0) Urine Specific [place] 1.012 (1.001-1.035) Urine Protein 1+ (Negative) H Urine Ketones 1+ (Negative) H Urine Blood 2+ /uL (Negative) H Urine Nitrite Negative (Negative) Urine Bilirubin Negative (Negative) Urine Urobilinogen Normal mg/dL (Negative) Urine Leukocyte Esterase Negative /uL (Negative) Urine RBC 39 /hpf (0 - 3) Urine Microscopic WBC 2 /HPF (0-3) Urine Squamous Epithelial Cells Few /hpf (<5) Urine Bacteria None seen /hpf (None Seen) Urine Hyaline Casts Few /lpf (0 - 2) Urine Creatinine 60.50 mg/dL (30.0-125.0) Urine Sodium 16 mmol/L (40-220) L Urine Glucose 4+ mg/dL (Normal) H Microbiology Microbiology Date/Time Source Procedure Growth Status 10/09/25 10:50 Nose MRSA Screen - Final Complete 10/04/25 13:46 Thoracic Fluid Gram Stain - Final Complete 10/04/25 13:46 Thoracic Fluid Aerobic Culture - Final Complete 10/02/25 06:37 Sputum Gram Stain - Final Complete 10/02/25 06:37 Sputum Respiratory Culture - Final Complete Assessment/Plan Assessment/Plan Impression: Acute hypoxic respiratory failure Pneumonia Pleural effusions Atelectasis Severe pulmonary HTN - RVSP 65-70 mmHg Acute on chronic systolic CHF DKA, resolved Uncontrolled diabetes mellitus Iron deficiency anemia S/p bilateral above-knee amputations Acute kidney injury Plan: Supplemental oxygen Titrate to keep O2 sats above 92%. On 3 LPM NC Taper O2 as tolerated. Continue bronchodilators. Continue antibiotics Incentive spirometry Underwent 1.8 L hemodialysis yesterday, tolerated procedure. Plan for HD again today as tolerated. Follow up Cardiology recs On dopamine 1 mcg/min for renal perfusion HD per Nephrology Monitor renal function. Monitor electrolytes. Supplement as necessary. Monitor ins and outs. Accu-Cheks, ISS. Wound care Continue bowel regimen and nausea control. Follow up GI recs Monitor hemoglobin Transfuse if less than 7.0 g/dL. Plan for Transfer to [place] for cardiac catheterization vs. CABG- still pending bed availability. DVT prophylaxis. Prognosis: Poor given patient's multiple co-morbidities. Rest of plan per hospitalist and other consultants. Thank you, Dr. Smith, for allowing me to participate in this patient's care. Further recommendations will depend on the patient's clinical course. Please do not hesitate to contact me if you have any questions or concerns. This medical document was created using an electronic medical record system with [employer] dictation system. Although these documentations are being carefully reviewed, there may still be some phonetic and typographical changes. The errors are purely typographical, due to imperfection on the software program, and do not reflect any compromise in the patient's medical care. Plan discussed with: Other (ZAIRA Bush) Visit Coding Pulmonary Billing Provider: TANI MORALES MD Date of Service if different f: Oct 10, 2025 Common Visit Codes: 90875-[id number] INP/OBS CARE(HIGH) TANI MORALES MD Oct 10, 2025 23:54
[2025-10-11] VITALS (12 sets, daily range): BP systolic 108–149; BP diastolic 53–64; PULSE 72–85; RESP 16–20; TEMP 96.8–98.1; O2SAT 92–98
[2025-10-11] MEDS ORDERED: MELATONIN 5 MG TAB PO ONE (00:30)
[2025-10-11 07:48] LABS: Anion Gap 11 (5-15); Carbon Dioxide 28 mmol/L (20-31); Chloride 102 mmol/L (98-107); Potassium 4.4 mmol/L (3.5-5.1); Sodium 141 mmol/L (136-145)
[2025-10-11 07:49] LABS: Calcium 8.8 mg/dL (8.7-10.4)
[2025-10-11 07:50] LABS: Hemoglobin 9.4 g/dL (13.5-17.5); Nucleated Red Blood Cells % 0.1 %
[2025-10-11 07:53] LABS: Hematocrit 29.2 % (41.0-53.0); Mean Corpuscular Hemoglobin 24.8 pg (28.0-32.0); Mean Corpuscular Volume 77.0 fL (80.0-100.0)
[2025-10-11 07:54] LABS: BUN/Creatinine Ratio 11.4 (10.0-20.0)
[2025-10-11 07:55] LABS: Blood Urea Nitrogen 41 mg/dL (9-23); Glucose 54 mg/dL (74-106); Magnesium 2.2 mg/dL (1.6-2.6)
--- NOTE | 2025-10-11 09:52 | DVHPNRES ---
Progress Note Date Seen: Oct 11, 2025 Resident Creating Document: ROHINI BHAKTA RESIDENT Has the PT tested + for MRSA If YES, has PT been informed?: No Medical Necessity Reason Pt with a Central, PICC or Fol: Yes The following are medically ne: Valverde Catheter Reason for valverde catheter: Bladder Retention/Obstruc, Strict I&O Subjective Review of Systems 75-year-old male presents to the ED via EMS with complaint of hyperglycemia. He reports persistent elevated blood glucose readings over the past several days associated with nausea, vomiting, poor appetite, and unintentional weight loss for approximately three weeks. He states this symptoms feel similar to prior episodes of DKA. He denies dizziness, syncope, chest pain, palpitations, shortness of breath, fevers, or other acute symptoms. In the ED, initial lab shows a serum glucose of 409 mg/dL, an anion gap of 20, CO2 of 22, creatinine 3.54 with a GFR of 17, and elevated high sensitivity troponins trending from [id number]. Significant past medical history includes PAD status post bilateral AKA, diabetes type 2, hypertension, CKD, anemia of chronic disease. Past Medical History * Type 2 diabetes mellitus, uncontrolled (HbA1c 10.7%) * Chronic kidney disease (baseline Cr ~3.2) * LEXA on CKD * Peripheral arterial disease s/p bilateral above-knee amputations * Hypertension * HFrEF (prior EF 4550%), now EF 25% * Chronic anemia of CKD/iron deficiency * Pulmonary embolism (prior) * Severe pulmonary hypertension (RVSP 6570 mmHg) * Cavitary lung lesion (remote) Past Surgical History * Bilateral above-knee amputations Past Social History * Former smoker: 20 years, quit 5 years ago * Quit alcohol 15 years ago * Lives with family * No illicit drug use 09/30/25 * Patient downgraded from ICU to TELE. * On 3 L nasal cannula, FiO2 3032%, saturating 06100%, no work of breathing. * Nausea/vomiting improving, but weight loss suspected to be chronic ? GI consult placed today. * Troponins continue to trend upward and now downtrending without chest pain; cardiology following for NSTEMI type 1 vs type 2 demand ischemia and CHF exacerbation. * Echocardiogram (yesterday): EF 25%, global hypokinesis, moderatesevere RV dysfunction, severe pulmonary hypertension (RVSP 6570 mmHg). * LEXA persists: Cr 3.33 (baseline ~3.28), UOP 0.35 mL/kg/hr. * Hypernatremia (148) improving slowly with D5W per nephrology. * EKG: Sinus rhythm with nonspecific anterior/inferior/lateral repolarization abnormalities; QT prolonged ? Zofran avoided. * Started DuoNeb Q6H, chest physiotherapy, chest X-ray ordered. * GI consulted for chronic nausea, vomiting, weight loss. 10/01/25 This 75-year-old male with history of CKD stage 45, acute on chronic systolic heart failure (EF 25%), severe pulmonary hypertension, PAD s/p bilateral above- knee amputations, T2DM (A1c 10.7%), recent DKA (resolved), history of PE, and poor PO intake continues to report severe anorexia, unable to tolerate solids, only tolerated a peach today. He denies chest pain. Mild shortness of breath persists. He has had fluctuating tachycardia (max 151 bpm), mild hypoxia (SpO2 9097% on 2 L NC), and worsening pulmonary congestion on chest X-ray compared to 09/29. WBC count continues to improve. He remains afebrile.The patient and the Family has now given informed consent for coronary angiography with left heart catheterization scheduled for tomorrow because the procedure is tomorrow morning, D5W is being continued at 60 mL/hr for procedure. Fluid plan will be re-evaluated post-procedure depending on renal function and volume status. GI consult is still pending for persistent nausea, poor intake, and weight loss. 10/02/25 The patient undergoing coronary angiography with left heart catheterization today. Hypoxia episode today: While on 3 L NC, SpO2 transiently dropped to 70s. He was placed on 4 L NC, now stabilizing between 8890%. RR remains 1420. GI was consulted yesterday and plans EGD + colonoscopy once medically optimized. They also recommend Ensure High Protein TID for nutritional supplementation. Valverde catheter continues leaking despite replacement; bladder scan shows 8 mL consistent with severe BPH causing leakage around the catheter. Urology medications Flomax + Finasteride ordered. D5W discontinued due to adequate sodium correction and worsening pulmonary congestion. Patient started on PO liquids + renal diabetic cardiac low sodium diet. Abdominal CT (non-contrast) reveals: * Severe atherosclerotic disease * Severe prostatomegaly * Valverde catheter in bladder but incompletely decompressing bladder. * Nodular soft tissue thickening anterior abdominal wall (due to prior insulin injection sites) * Moderate bilateral pleural effusions 10/03/25 Overnight, he developed worsening hypoxia requiring BiPAP, with transient improvement. Today, oxygen needs remain elevated, and he is currently on an Oxymizer at 8 L/min because of fluctuating saturations 8691%. He denies chest pain but reports persistent weakness, fatigue, poor appetite, and inability to tolerate solid foods. No bowel movement reported for several days. Mild abdominal discomfort without vomiting. He is hemodynamically stable but remains volume positive. The patient underwent left & right coronary angiography yesterday, revealing severe triple-vessel disease with heavily calcified lesions: * LAD ~80% stenosis * Left circumflex ~95% stenosis * RCA ~80% stenosis * Severe calcifications, poor PCI candidacy Cardiology recommends: * CT surgery evaluation for CABG * But patient is NOT an ideal surgical candidate due to frailty, CKD, HFrEF, severe comorbidities * May require mechanical circulatory support (Impella/MCS) * Hold P2Y12 inhibitors until CT surgery decision A higher-level transfer to [place] was initiated and is still pending. Valverde catheter continues to leak despite repositioning and replacement, consistent with severe BPH. No BM today. Abdominal X-ray ordered to rule out obstruction. If normal start Miralax and continue GI plan. 10/04/25 Overnight: * On full-face BiPAP (FiO2 60%). * When he removed BiPAP, sats dropped to 70%; placed back on BiPAP with sats 8892%. This morning: * Transitioned to Oximizer, now requiring 15 L/min, saturating 8890%. * Complains of dyspnea, chest tightness, and generalized weakness. * No bowel movement since last Tuesday. * Valverde catheter leaking around the urethra; poor drainage due to severe prostatomegaly. Procedures Today: * Bilateral thoracentesis performed due to worsening respiratory distress and pleural effusions: * Left pleural space: 1.0 L removed. * Right pleural space: 2.0 L removed. Family updated. Antibiotics: * Sputum culture showing moderate gram-positive cocci in chains and pairs. * Started ceftriaxone 1 g IV daily today. Imaging: * Abdominal X-ray: Non-obstructive bowel gas pattern. * Plan: Miralax started. * Still pending transfer to [place] for higher level of cardiac surgical evaluation (CABG vs MCS). Overall Status Today: * Continues in acute hypoxic respiratory failure requiring high-flow/oximizer support. * Positive fluid balance +900 mL with very low urine output (0.1 mL/kg/hr) concerning for cardiorenal syndrome and worsening CKD. * BNP previously elevated (4,800s). * Hemoglobin downtrending to 9.8 g/dL. * Creatinine increased to 3.05 (from 2.86). * Persistent severe constipation. Todays Plan * Continue high-flow O2 via Oximizer; BiPAP PRN for hypoxia. * Monitor post-thoracentesis; send pleural fluid studies. * Continue ceftriaxone for suspected bacterial pneumonia. * Strict I/O, daily weights; evaluate diuretic strategy after thoracentesis (Bumex previously). * Address Valverde malfunction; consider urology consult. * Continue Miralax bowel regimen. * Follow GI recommendations for EGD/colonoscopy once medically stable. * Continue transfer process to [place] for CABG vs MCS evaluation. * Monitor renal function closely. 10/05 25: Patient seen and examined at bedside, continue current medical treatment. 10/06/25 Overnight, the patient remained hemodynamically stable. He denies chest pain, dizziness, nausea, vomiting, or acute distress. He endorses generalized fatigue and diminished appetite but no active shortness of breath at rest. He remains on 3 L NC, saturating 97%, titrated down to 2 L NC. No respiratory distress observed this morning. He reports no bowel movement for several days, so bowel regimen intensified today. Valverde output continues to be low at 375 mL in 24 hrs, though valverde remains in place without major leakage today. * SpO2 68808% on 3 L titrated to 2 L NC (FiO2 32%) * I/O: Intake 1417 mL, Output 375 mL +1042 mL * UOP: 0.29 mL/kg/hr (oliguric) * CXR: Worsening pulmonary congestion ? CHF exacerbation Summary of Todays Changes: * LEXA progressing Cr 4.57 * Worsening fluid overload with oliguria positive balance +1042 mL * CHF exacerbation on CXR * Miralax increased to BID + Colace BID * NC 3 titrated to 2 L * Continue Bumex IV 1 mg BID, dopamine support * Transfer to [place] still pending due to bed availability * Continue oxygen titration * Continue transfer process for CABG/MCS evaluation 10/07/25 * The patient reports ongoing fatigue but no chest pain, palpitations, dizziness, or syncope. * Breathing comfortably on 2 L nasal cannula with FiO? 28%; saturations 26165%. * No respiratory distress noted today. * Denies abdominal pain, nausea, vomiting. * No bowel movement yet - bowel regimen intensified. * Valverde remains in place with improved containment, low but adequate tracking of urine output. * Remains hemodynamically stable on low-dose dopamine infusion. * Nephrology evaluated . patient consented for tunneled IJ hemodialysis catheter. * Hemodialysis planned after catheter placement due to rising creatinine (now 4.83), worsening GFR (12), low UOP. Antibiotics: Ceftriaxone discontinued yesterday; doxycycline PO started for suspected atypical / gram-positive pneumonia based on sputum Gram stain. * Oxygenation stable on NC 2 L. * Hyponatremia yesterday improved with fluid restriction. * Stable Hgb around 10. * Transfer to [place] remains pending due to bed availability. 10/08/25 Overnight Events: * Had hypoglycemic episode, glucose dropped to 52 mg/dL.Long-acting insulin Lantus reduced from 15 units ? 10 units nightly. * No chest pain, dizziness, or syncope. * Breathing comfortably on 2 L NC with stable oxygen saturations 06764%. * No shortness of breath reported today. * No bowel movement; GI ordered a Fleet enema. * Valverde catheter draining adequately. Procedures Today: * Successfully underwent placement of a 4.5 Cameroonian, 23 cm tunneled right internal jugular hemodialysis catheter under fluoroscopic guidance without complications. Transfer Status: * Patient accepted to [place] for higher level of cardiac care; awaiting bed availability. 10/09/25 Overnight / 24-Hour Interval Events: * Patient stable on 4 L nasal cannula, FiO2 ~36% with oxygen saturation 96%. * Transfer to [place] remains pending due to lack of bed availability; patient has been accepted. * Sodium 135 (improved from 134) * Potassium 5.2 (mild hyperkalemia) * Had a bowel movement today after prolonged constipation, good response to bowel regimen. * Treat mild hyperkalemia with Lokelma. * Prepare for hemodialysis initiation. * Continue cardiac optimization and monitoring. * Continue bowel regimen. * Continue transfer coordination with [place]. 10/10/25 * Transfer to [place] remains approved but still pending bed availability. * Currently on 3 L NC, FiO2 2832% with O2 saturation 9296%. * Underwent 1.8 L hemodialysis yesterday tolerated procedure. * Plan for HD again today as tolerated. * Mag Citrate/Magnesium citrate solution prescribed for constipation, Promethazine ordered for nausea/vomiting. * No acute distress reported today. * Continue NC oxygen, target SpO2 > 92%. * HD today per nephrology. * Continue bowel regimen and GI nausea control. * Ongoing transfer coordination to [place] once bed opens. 10/11/25: Patient seen and examined at bedside, overnight events reviewed, patient is awaiting for transfer to [place]. Objective vital signs Vital Sign Date Time Temp Pulse Resp B/P (MAP) Pulse Ox O2 Delivery O2 Flow Rate FiO2 10/11/25 07:42 75 20 98 10/11/25 07:32 Nasal Cannula* 4 36 10/11/25 05:00 98.1 131/56 (81) 98.1 Total Intake and Output 10/10/25 10/10/25 10/11/25 15:00 23:00 07:00 Intake Total 560 ml 500 ml Output Total 500 ml 600 ml Balance 60 ml -100 ml medications Current Medications Medications Dose Ordered Sig/Conrado Route Start Time Stop Time Status Last Admin Dose Admin Ondansetron HCl 4 mg Q4HP PRN IV 09/29/25 12:30 Cancel Enoxaparin Sodium 40 mg DAILY SC 09/30/25 10:00 UNV Aspirin 81 mg DAILY PO 09/30/25 10:00 10/10/25 10:25 81 MG Metoprolol Succinate 50 mg DAILY PO 09/30/25 10:00 10/10/25 10:24 50 MG Heparin Sodium (Porcine) 5,000 units Q12HR SC 09/29/25 22:00 10/10/25 21:48 5,000 UNITS Atorvastatin Calcium 40 mg HS PO 09/29/25 22:00 10/10/25 21:43 40 MG Diagnostic Test (Pha) 1 strip ACHS 10/01/25 11:30 10/11/25 06:36 1 STRIP Insulin Human Regular ACHS SC 10/01/25 11:30 10/10/25 12:22 4 UNITS Dextrose 50 ml UD PRN IV 10/01/25 09:30 10/08/25 01:23 50 ML Levothyroxine Sodium 100 mcg QAM@0600 PO 10/02/25 06:00 10/11/25 06:36 100 MCG Albuterol 2.5 mg Q6HWA NEB 10/02/25 12:00 10/11/25 07:32 2.5 MG Ipratropium [place] 0.5 mg Q6HWA NEB 10/02/25 12:00 10/11/25 07:32 0.5 MG Tamsulosin HCl 0.4 mg QPM PO 10/02/25 18:00 10/10/25 17:36 0.4 MG Finasteride 5 mg DAILY PO 10/03/25 10:00 10/10/25 10:24 5 MG Pantoprazole Sodium 40 mg DAILY@0600 PO 10/05/25 06:00 10/11/25 06:36 40 MG Bumetanide 1 mg DAILY IV 10/06/25 10:00 10/10/25 10:25 1 MG Polyethylene Glycol 17 gm BIDP PRN PO 10/06/25 14:00 Cancel Docusate Sodium 100 mg BIDPRN PRN PO 10/06/25 14:00 10/07/25 21:34 100 MG Doxycycline Monohydrate 100 mg Q12HR PO 10/07/25 22:00 10/10/25 21:44 100 MG Insulin Glargine 13 units DAILY SC 10/09/25 15:00 10/10/25 10:29 13 UNITS Polyethylene Glycol 17 gm DAILY PO 10/09/25 15:33 10/10/25 10:25 17 GM Promethazine HCl 12.5 mg Q6HP PRN PO 10/09/25 15:15 Acetaminophen 650 mg Q6HP PRN PO 10/09/25 16:45 10/09/25 17:24 650 MG Acetaminophen/ Hydrocodone Bitart 1 tab Q8HPRN PRN PO 10/09/25 16:45 10/10/25 21:44 1 TAB Examination General: Alert, awake, chronically ill appearing. Neuro: A&O3; normal cognition. CV: RRR; no murmurs; normal peripheral pulses. Resp: Breath sounds diminished at bases; no wheezing; no respiratory distress. GI: Soft, non-tender; no distention. : Valverde catheter draining; no suprapubic tenderness. Extremities: Bilateral AKA; no edema. Skin: Warm, intact. Access: right IJ hemodialysis catheter in place, clean/dry/intact. laboratory and microbiology Laboratory Tests 10/11/25 06:43 Test 10/11/25 06:43 Range/Units Serum Glucose 54 #L 74-106 mg/dL Microbiology Date/Time Source Procedure Growth Status 10/09/25 10:50 Nose MRSA Screen - Final Complete 10/04/25 13:46 Thoracic Fluid Gram Stain - Final Complete 10/04/25 13:46 Thoracic Fluid Aerobic Culture - Final Complete 10/02/25 06:37 Sputum Gram Stain - Final Complete 10/02/25 06:37 Sputum Respiratory Culture - Final Complete Problem List/Assessment/Plan Problem List/Assessment/Plan 1. NEUROLOGY Assessment * No sedation * No delirium * No focal deficits Plan * Avoid sedatives * Maintain normal oxygenation and glucose 2. CARDIOVASCULAR A. Acute on chronic systolic HF (HFrEF), EF 25%, NYHA Class IIIACUTE DECOMPENSATION Differentials: Ischemic cardiomyopathy, Tachyarrhythmia, Volume overload, Myocardial injury Plan: * Continue Bumex 1 mg IV BID * Continue metoprolol succinate 50 mg daily * Avoid MYNOR/ARB/ARNI/SGLT2 due to LEXA and hypernatremia * Fluid restriction 1.5 L/day * Repeat CXR tomorrow * Strict I/Os and daily weights * Cardiology following B. Elevated troponins NSTEMI Type 1 vs Type 2 demand ischemia Severe triple-vessel coronary artery disease (LAD 80%, LCx 95%, RCA 80%) Hyperlipidemia * Troponin rising to 3924 now downtrending * EKG: Sinus rhythm with repolarization abnormalities * No chest pain * High surgical risk for CABG * CT surgery consult pending * Needs advanced cardiac center ([place]) * Await transfer to [place] for CABG vs Impella evaluation. * Hold P2Y12 until surgical decision Plan: * Continue Aspirin 81 mg * Continue Atorvastatin 40 mg * Maintain Metoprolol * Await CT surgery evaluation * Transfer request to [place]. continue escalation Continue heparin 5000 units SC Q12h, atorvastatin 40 mg po hs * Telemetry monitoring * Repeat troponin trending C. Severe pulmonary hypertension (RVSP 6570 mmHg) Plan: * Maintain oxygenation * Avoid fluid overload * (left-sided HF likely) Peripheral arterial disease s/p bilateral above-knee amputations Hypertension Continue metoprolol succinate 50 mg daily 3. RESPIRATORY SYSTEM Assessment * Pleural effusions due to CHF Exercabation * Acute hypoxic respiratory failure * RLL atelectasis * Mild hypoxemia High oxygen requirement (BiPAP overnight, now Oximizer 15 L). ABG shows persistent hypoxemia. Underwent bilateral thoracentesis today (1 L left, 2 L right). Plan * Continue 2 L NC, wean as tolerated, target SpO2 > 90%. * BiPAP PRN if SpO2 < 88% or RR > 22 * Continue DuoNeb Q6H * Chest physiotherapy * Daily pulse oximetry * Follow-up CXR 4. GASTROINTESTINAL Assessment * Chronic nausea/vomiting * Weight loss several months * Risk for gastroparesis vs malignancy vs chronic GI dysmotility * Severe constipation * No BM for several days Plan * GI planning EGD + colonoscopy once stable Abdominal X-ray is non-obstructive. * Start Miralax, docusate daily. * Add senna if no BM in 24 hours. * Continue glucerna High Protein TID * PO clear liquids, renal diabetic , cardiac, low Na diet * Magnesium citrate oral solution given today * Promethazine PRN for nausea/vomiting * Monitor for bowel movement 5. GENITOURINARY * BPH with urinary obstruction * Chronic Valverde with malfunction * Acute urinary retention * Leak around catheter; bladder scan 8 mL Plan: * Continue Valverde for strict I/Os * Monitor UA and cultures * Start Flomax + Finasteride * Avoid nephrotoxic medications 6. RENAL (NEPHROLOGY) Acute Kidney Injury due to VMN with superimposed CKD (Stage 45), hemodynamically mediated, Low urinary sodium:- improving Contrast-induced nephropathy Cardiorenal syndrome AG METABOLIC ACIDOSIS RESOLVED hypernatremia resolved metabolic alkalosis Right sided Nephrolithiasis non obstructive Hyponatremia improving Hyperkalemia Plan: * Nephrology following * Continue fluid restriction * Continue dopamine 0.99 * Avoid MYNOR inhibitors, ARBs, NSAIDs, Continue Bumex 1mg IV daily * Daily BMP * Strict I/Os * Renal-dose medications * Right IJ tunneled HD catheter placed * Hemodialysis as tolerated * Strict I&O + daily renal panels * Renal diet, low potassium, fluid restriction 7. INFECTIOUS DISEASE Assessment * bacterial pneumonia * Gram-positive cocci on sputum * Pneumonia (effusions) MRSA :- NEGATIVE Plan: * Blood cultures 2, * Ceftriaxone discontinued yesterday * Start doxycycline PO * Follow sputum cultures pleural cultures negative. * Monitor WBC, fever curve. * WBC improving (12.9) * Start antibiotics ONLY if infectious source identified or clinical deterioration 8. ENDOCRINE A. DKA RESOLVED uncontrolled T2DM (A1c 10.7%) * AG closed * B-hydroxybutyrate decreasing (0.449 - 0.213) * Insulin drip off since 09/29 Hypoglycemia episode Plan: * Continue Lantus 13 units daily * Continue correctional insulin * Glucose goal 820255 B. Hypothyroidism Plan: * Continue levothyroxine 100 mcg daily 9. 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 PSYCHIATRY * Patient calm, cooperative * No acute psychiatric symptoms 11. NUTRITION * Renal-friendly, cardiac, carbohydrate-controlled diet * Calorie counts * Consult nutrition placed today. 12. LINES / TUBES * Valverde catheter (in place) * Right IJ tunneled HD catheter (10/08) 13. PROPHYLAXIS * DVT: Heparin 5000 units SQ q12h * GI: pantoprazole 40 PO * Fall & skin precautions * Pressure ulcer prevention 14. PT SOCIAL WORK * PT/OT evaluation ordered * Social work involved for transfer to [facility] For higher level of care. CODE STATUS Full Code. Greater than 20 minutes spent discussing code status and goals of care with patient and family. Case discussed with Dr. Foster Plan discussed with: Patient Dietary Evaluation Review Comments: Nutrition Recommendation: 1) Nephro-thalia 1 tab daily, Musa 1 pk daily 2) Monitor PO intake, lab values, weight trend, and I/O Expected Outcomes/Goals: Wound to improve Intake to meet >75% estimated needs FU 3-5 days ROHINI BHAKTA RESIDENT Oct 11, 2025 09:52
--- NOTE | 2025-10-11 11:50 | DVHPN2 ---
Progress Note Date Seen: Oct 11, 2025 Has the PT tested + for MRSA If YES, has PT been informed?: No Medical Necessity Reason Pt with a Central, PICC or Fol: Yes The following are medically ne: Valverde Catheter Reason for valverde catheter: Bladder Retention/Obstruc, Strict I&O Subjective Review of Systems: RESPIRATORY:Abnormal Other Systems: Patient seen and examined by myself in follow-up Patient examined hemodialysis, blood pressure stable Objective vital signs Vital Sign Date Time Temp Pulse Resp B/P (MAP) Pulse Ox O2 Delivery O2 Flow Rate FiO2 10/11/25 07:51 85 10/11/25 07:42 20 98 10/11/25 07:32 Nasal Cannula* 4 36 10/11/25 05:00 98.1 131/56 (81) 98.1 Total Intake and Output 10/10/25 10/10/25 10/11/25 15:00 23:00 07:00 Intake Total 560 ml 500 ml Output Total 500 ml 600 ml Balance 60 ml -100 ml medications Current Medications Medications Dose Ordered Sig/Conrado Route Start Time Stop Time Status Last Admin Dose Admin Ondansetron HCl 4 mg Q4HP PRN IV 09/29/25 12:30 Cancel Enoxaparin Sodium 40 mg DAILY SC 09/30/25 10:00 UNV Aspirin 81 mg DAILY PO 09/30/25 10:00 10/10/25 10:25 81 MG Metoprolol Succinate 50 mg DAILY PO 09/30/25 10:00 10/10/25 10:24 50 MG Heparin Sodium (Porcine) 5,000 units Q12HR SC 09/29/25 22:00 10/10/25 21:48 5,000 UNITS Atorvastatin Calcium 40 mg HS PO 09/29/25 22:00 10/10/25 21:43 40 MG Diagnostic Test (Pha) 1 strip ACHS 10/01/25 11:30 10/11/25 06:36 1 STRIP Insulin Human Regular ACHS SC 10/01/25 11:30 10/10/25 12:22 4 UNITS Dextrose 50 ml UD PRN IV 10/01/25 09:30 10/08/25 01:23 50 ML Levothyroxine Sodium 100 mcg QAM@0600 PO 10/02/25 06:00 10/11/25 06:36 100 MCG Albuterol 2.5 mg Q6HWA NEB 10/02/25 12:00 10/11/25 07:32 2.5 MG Ipratropium [place] 0.5 mg Q6HWA NEB 10/02/25 12:00 10/11/25 07:32 0.5 MG Tamsulosin HCl 0.4 mg QPM PO 10/02/25 18:00 10/10/25 17:36 0.4 MG Finasteride 5 mg DAILY PO 10/03/25 10:00 10/10/25 10:24 5 MG Pantoprazole Sodium 40 mg DAILY@0600 PO 10/05/25 06:00 10/11/25 06:36 40 MG Bumetanide 1 mg DAILY IV 10/06/25 10:00 10/10/25 10:25 1 MG Polyethylene Glycol 17 gm BIDP PRN PO 10/06/25 14:00 Cancel Docusate Sodium 100 mg BIDPRN PRN PO 10/06/25 14:00 10/07/25 21:34 100 MG Doxycycline Monohydrate 100 mg Q12HR PO 10/07/25 22:00 10/10/25 21:44 100 MG Insulin Glargine 13 units DAILY SC 10/09/25 15:00 10/10/25 10:29 13 UNITS Polyethylene Glycol 17 gm DAILY PO 10/09/25 15:33 10/10/25 10:25 17 GM Promethazine HCl 12.5 mg Q6HP PRN PO 10/09/25 15:15 Acetaminophen 650 mg Q6HP PRN PO 10/09/25 16:45 10/09/25 17:24 650 MG Acetaminophen/ Hydrocodone Bitart 1 tab Q8HPRN PRN PO 10/09/25 16:45 10/10/25 21:44 1 TAB Examination: LUNGS:Normal, CVS:Normal, MSK:Abnormal laboratory and microbiology Laboratory Tests 10/11/25 06:43 Test 10/11/25 06:43 Range/Units Serum Glucose 54 #L 74-106 mg/dL Microbiology Date/Time Source Procedure Growth Status 10/09/25 10:50 Nose MRSA Screen - Final Complete 10/04/25 13:46 Thoracic Fluid Gram Stain - Final Complete 10/04/25 13:46 Thoracic Fluid Aerobic Culture - Final Complete 10/02/25 06:37 Sputum Gram Stain - Final Complete 10/02/25 06:37 Sputum Respiratory Culture - Final Complete Problem List/Assessment/Plan Problem List/Assessment/Plan Acute kidney injury superimposed Chronic Kidney Disease stage IV secondary hemodynamic mediated, feNa < 1% Acute respiratory failure, O2 supplement Congestive heart failure exacerbation NSTEMI Diabetes mellitus type 2, controlled Diabetic ketoacidosis Nonobstructing kidney stone Hypertension Peripheral arterial disease Bilateral below knee amputation Anemia of chronic kidney disease Hyponatremia due to excess H2O Recommendations He has UF to 3 L as tolerated Epogen 17057 subQ 3 times weekly Strict I&Os Kidney ultrasound reported nonobstructing kidney stone Insulin sliding scale Fluid restriction Low-dose dopamine Bumex 1 mg IV daily KCL replacement Cardiology consult recovery manager for outpatient hemodialysis chair time We will continue to follow Plan discussed with: Patient My Orders My Orders Orders - JEN JAIMES MD Procedure Category Date Status Time Hemodialysis Orders ORDERS 10/11/25 Transmitted 07:00 Dialysis Nursing NIURKA 10/11/25 In Process Message 07:00 Document Fluid Input NIURKA 10/11/25 In Process And Outpu 07:00 Epoetin Duncan-Epbx PHA 10/11/25 In Process (Retacrit) 21:00 Dietary Evaluation Review Comments: Nutrition Recommendation: 1) Nephro-thalia 1 tab daily, Musa 1 pk daily 2) Monitor PO intake, lab values, weight trend, and I/O Expected Outcomes/Goals: Wound to improve Intake to meet >75% estimated needs FU 3-5 days JEN JAIMES MD Oct 11, 2025 11:50
[2025-10-11] MEDS: SODIUM CHL 0.9% 1000 ML BAG XX ONE (15:15)
[2025-10-11] MEDS: PROMETHAZINE HCL 6.25 MG/5 ML ORAL SYRUP PO PRN (16:18)
[2025-10-11] MEDS ORDERED: EPOETIN ALFA-EPBX 10,000 UNIT/1ML VIAL SC ONE (21:00)
--- NOTE | 2025-10-11 23:12 | DVHPN2 ---
Subjective DOS: 10/11/2025 Patient seen and examined at bedside. Currently on supplemental oxygen Overnight events reviewed. Changes from previous H/P or p: No Changes Gastrointestinal: Nausea, Vomiting Objective Vitals Vital Signs Date Time Temp Pulse Resp B/P (MAP) Pulse Ox O2 Delivery O2 Flow Rate FiO2 10/11/25 18:21 95 Nasal Cannula* 4 36 10/11/25 17:51 97.8 82 16 10/11/25 17:00 149/63 (91) Intake/Output Intake and Output 10/11/25 07:00 Intake Total 1060 ml Output Total 1100 ml Balance -40 ml Intake Oral 1060 ml Output Urine Total 1100 ml Exam Gen.: Patient lying in bed in no apparent distress. On supplemental oxygen. Head: Normocephalic, atraumatic. Eyes: EOMI/PERRLA. Ears: Normal hearing. Normal anatomy. Neck/trachea: Trachea midline, supple. Nose: Normal external anatomy. Mouth: Moist mucous membranes. Chest: Decreased air entry bilaterally. No wheezing or rhonchi. Cardiovascular: Positive S1, positive S2. Regular rate and rhythm. Abdomen: Positive bowel sounds in all 4 quadrants. Soft, non-tender, non- distended. : Deferred. Rectal: Deferred. Skin: Warm, dry. Intact. Extremities: 2+ radial pulses bilaterally. Bilateral above-knee amputations Neuro: Awake, alert, oriented x3. No gross motor or sensory deficits. Cranial nerves II through XII intact. Gait not assessed. Medications Current Medications Medications Dose Ordered Sig/Conrado Route Start Time Stop Time Status Last Admin Dose Admin Ondansetron HCl 4 mg Q4HP PRN IV 09/29/25 12:30 Cancel Enoxaparin Sodium 40 mg DAILY SC 09/30/25 10:00 UNV Polyethylene Glycol 17 gm BIDP PRN PO 10/06/25 14:00 Cancel Laboratory Results Laboratory Tests 10/11/25 06:43 Chemistry Test 10/11/25 06:43 Calcium Level 8.8 mg/dL (8.7-10.4) Magnesium Level 2.2 mg/dL (1.6-2.6) Urinalysis Test 09/29/25 11:20 Urine Color Light-yellow (Yellow) Urine Clarity Clear (Clear) Urine pH 5.0 (5.0-9.0) Urine Specific [place] 1.012 (1.001-1.035) Urine Protein 1+ (Negative) H Urine Ketones 1+ (Negative) H Urine Blood 2+ /uL (Negative) H Urine Nitrite Negative (Negative) Urine Bilirubin Negative (Negative) Urine Urobilinogen Normal mg/dL (Negative) Urine Leukocyte Esterase Negative /uL (Negative) Urine RBC 39 /hpf (0 - 3) Urine Microscopic WBC 2 /HPF (0-3) Urine Squamous Epithelial Cells Few /hpf (<5) Urine Bacteria None seen /hpf (None Seen) Urine Hyaline Casts Few /lpf (0 - 2) Urine Creatinine 60.50 mg/dL (30.0-125.0) Urine Sodium 16 mmol/L (40-220) L Urine Glucose 4+ mg/dL (Normal) H Microbiology Microbiology Date/Time Source Procedure Growth Status 10/09/25 10:50 Nose MRSA Screen - Final Complete 10/04/25 13:46 Thoracic Fluid Gram Stain - Final Complete 10/04/25 13:46 Thoracic Fluid Aerobic Culture - Final Complete 10/02/25 06:37 Sputum Gram Stain - Final Complete 10/02/25 06:37 Sputum Respiratory Culture - Final Complete Assessment/Plan Assessment/Plan Impression: Acute hypoxic respiratory failure Pneumonia Pleural effusions Atelectasis Severe pulmonary HTN - RVSP 65-70 mmHg Acute on chronic systolic CHF DKA, resolved Uncontrolled diabetes mellitus Iron deficiency anemia S/p bilateral above-knee amputations Acute kidney injury Events: Remains on supplemental oxygen On 4 LPM NC Taper O2 as tolerated Plan for hemodialysis today. Follow up Nephrology recs Awaiting higher level of care at [facility] for cardiac catheterization vs CABG Cardiology recs appreciated. Continue bronchodilators Continue antibiotics Incentive spirometry Labs and imaging reviewed. Rest of plan as noted below. Plan: Supplemental oxygen Titrate to keep O2 sats above 92%. Continue bronchodilators. Continue antibiotics Incentive spirometry Follow up Cardiology recs On dopamine 1 mcg/min for renal perfusion HD per Nephrology Monitor renal function. Monitor electrolytes. Supplement as necessary. Monitor ins and outs. Accu-Cheks, ISS. Wound care Continue bowel regimen and nausea control. Follow up GI recs Monitor hemoglobin Transfuse if less than 7.0 g/dL. Plan for Transfer to [place] for cardiac catheterization vs. CABG- still pending bed availability. DVT prophylaxis. Prognosis: Poor given patient's multiple co-morbidities. Rest of plan per hospitalist and other consultants. Thank you, Dr. Smith, for allowing me to participate in this patient's care. Further recommendations will depend on the patient's clinical course. Please do not hesitate to contact me if you have any questions or concerns. This medical document was created using an electronic medical record system with [employer] dictation system. Although these documentations are being carefully reviewed, there may still be some phonetic and typographical changes. The errors are purely typographical, due to imperfection on the software program, and do not reflect any compromise in the patient's medical care. Plan discussed with: Other (ZAIRA Bush) Visit Coding Pulmonary Billing Provider: TANI MORALES MD Date of Service if different f: Oct 11, 2025 Common Visit Codes: [id number] INP/OBS CARE(HIGH) TANI MORALES MD Oct 11, 2025 23:12
--- NOTE | 2025-10-12 10:36 | ECG ---
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
--- NOTE | 2025-10-12 12:31 | DVHDSRES ---
Discharge Summary Date of Admission Resident Creating Document: ROHINI BHAKTA RESIDENT Sep 29, 2025 at 12:20 Date of Discharge: Oct 11, 2025 Labs/Diagnostic Data: Laboratory Results Test 10/11/25 17:29 10/11/25 06:43 10/07/25 04:42 10/04/25 18:42 POC Glucose 126 mg/dl (70-106) White Blood Count 6.7 10^3/uL (4.4-10.8) Red Blood Count 3.79 10^6/uL (4.5-5.90) Hemoglobin 9.4 g/dL (13.5-17.5) Hematocrit 29.2 % (41.0-53.0) Mean Corpuscular Volume 77.0 fL (80.0-100.0) Mean Corpuscular Hemoglobin 24.8 pg (28.0-32.0) Mean Corpuscular Hemoglobin Concent 32.2 g/dL (32.0-36.0) Red Cell Distribution Width 19.6 % (11.8-14.3) Platelet Count 161 10^3/uL (140-450) Mean Platelet Volume 8.4 fL (6.9-10.8) Neutrophils (%) (Auto) 76.0 % (37.0-80.0) Lymphocytes (%) (Auto) 10.5 % (10.0-50.0) Monocytes (%) (Auto) 10.4 % (0.0-12.0) Eosinophils (%) (Auto) 2.2 % (0.0-7.0) Basophils (%) (Auto) 0.9 % (0.0-2.0) Neutrophils # (Auto) 5.1 10 ^3/uL (1.6-8.6) Lymphocytes # (Auto) 0.7 10 ^3/uL (0.4-5.4) Monocytes # (Auto) 0.7 10 ^3/uL (0-1.3) Eosinophils # (Auto) 0.1 10 ^3/uL (0-0.8) Basophils # (Auto) 0.1 10 ^3/uL (0-0.2) Nucleated Red Blood Cells 0.1 % Sodium Level 141 mmol/L (136-145) Potassium Level 4.4 mmol/L (3.5-5.1) Chloride Level 102 mmol/L (98-107) Carbon Dioxide Level 28 mmol/L (20-31) Anion Gap 11 (5-15) Blood Urea Nitrogen 41 mg/dL (9-23) Creatinine 3.59 mg/dL (0.700-1.30) Glomerular Filtration Rate Calc 17 mL/min (>90) BUN/Creatinine Ratio 11.4 (10.0-20.0) Serum Glucose 54 mg/dL (74-106) Calcium Level 8.8 mg/dL (8.7-10.4) Magnesium Level 2.2 mg/dL (1.6-2.6) Carcinoembryonic Antigen 6.85 ng/mL (<=5.0) HIV-1 RNA (PCR) <20 copies/mL (.) HIV-1 RNA (PCR) log10 Value (.) Test 10/04/25 15:08 10/04/25 13:46 10/04/25 13:13 10/03/25 06:49 Hepatitis A IgM Antibody Negative Hepatitis B Surface Antigen Negative (Negative) Hepatitis B Core IgM Antibody Negative (Negative) Hepatitis C Antibody Negative (Negative) HIV (1&2) Antibody Negative (Negative) Body Fluid Source Pleural fluid Body Fluid pH 8.0 Body Fluid WBC (Manual) 132 CUMM (0-200) Body Fluid RBC (Manual) 142 CUMM (0-2000) Body Fluid Mononuclear Cells 33 % Body Fluid Polymorphonuclear Cells 67 % (0-25) Body Fluid Glucose 122 mg/dL (.) Body Fluid Total Protein 1.1 g/dL (.) Body Fluid Albumin 0.6 g/dL (Not Estab.) Body Fluid Lactate Dehydrogenase 56 IU/L (.) Blood Gas Specimen Type Arterial Blood Gas Sample Site Right radial Blood Gas Patient Temperature 37.0 Arterial Blood Date Drawn [id number] Arterial Blood pH 7.415 (7.350-7.450) Arterial Blood Partial Pressure CO2 43.2 mmHg (35.0-48.0) Arterial Blood Partial Pressure O2 58.8 mmHg (83.0-108.0) Arterial Blood HCO3 27.1 mmol/L (21.0-28.0) Arterial Blood Oxygen Saturation 89.7 % (94.0-98.0) Arterial Blood Base Excess 2.2 mmol/L (-2.0-3.0) Arterial Blood Oxyhemoglobin 89.1 % (94.0-98.0) Arterial Blood Carboxyhemoglobin 0.3 % (0.5-1.5) Arterial Blood Methemoglobin 0.4 % (0.0-1.5) Arterial Blood Deoxyhemoglobin 10.2 % (0.0-5.0) Arsenio Test Modified Blood Gas Total Hemoglobin 11.00 g/dL (13.5-17.5) Blood Gas Modality Mask - bipap FiO2 % 50.0 Blood Gas EPAP 5 Blood Gas IPAP 12 Blood Gas Critical Value Read Back Yes Blood Gas Notified Whom Valerie tony md Blood Gas Notified Time [id number] Blood Gas Notified By Shingle Weaver brock mckeon Test 10/03/25 04:45 10/02/25 05:11 10/01/25 05:07 09/30/25 15:55 Total Bilirubin 1.0 mg/dL (0.2-1.0) Aspartate Amino Transferase (AST) 15 U/L (13-40) Alanine Aminotransferase (ALT) 20 U/L (7-40) Alkaline Phosphatase 140 U/L (46-116) Total Protein 6.5 g/dL (5.7-8.2) Albumin 3.5 g/dL (3.2-4.8) Prothrombin Time 11.9 sec (9.3-11.8) Prothrombin Time INR 1.14 (0.9-1.15) Activated Partial Thromboplast Time 31.4 SEC (24.5-34.5) Phosphorus Level 4.4 mg/dL (2.4-5.1) Troponin I High Sensitivity 1064 ng/L (</=54) Test 09/30/25 10:48 09/30/25 10:22 09/29/25 12:45 09/29/25 11:20 Iron Level 20 ug/dL (65-175) Total Iron Binding Capacity 363 ug/dL (250-425) Percent Iron Saturation 5.5 % (20-55) Ferritin 17.0 ng/mL (22-322) Beta-Hydroxybutyric Acid 0.213 mmol/L (< 0.4) Free Thyroxine (T4) Calculated 1.03 ng/dL (0.89-1.76) Thyroxine (T4) 6.5 ug/dL (4.5-12.0) Free Triiodothyronine (T3) pg/mL 1.58 pg/mL (2.3-4.2) Total Triiodothyronine (TT3) 0.49 ng/mL (0.60-1.81) Blood Gas Liter Flow 3.00 Triglycerides Level 109 mg/dL (< 150) Cholesterol Level 241 mg/dL (< 200) LDL Cholesterol 171 mg/dL (< 100) HDL Cholesterol 62 mg/dL (40-59) Thyroid Stimulating Hormone (TSH) 10.33 uIU/mL (0.55-4.78) Urine Color Light-yellow (Yellow) Urine Clarity Clear (Clear) Urine pH 5.0 (5.0-9.0) Urine Specific [place] 1.012 (1.001-1.035) Urine Protein 1+ (Negative) Urine Ketones 1+ (Negative) Urine Blood 2+ /uL (Negative) Urine Nitrite Negative (Negative) Urine Bilirubin Negative (Negative) Urine Urobilinogen Normal mg/dL (Negative) Urine Leukocyte Esterase Negative /uL (Negative) Urine RBC 39 /hpf (0 - 3) Urine Microscopic WBC 2 /HPF (0-3) Urine Squamous Epithelial Cells Few /hpf (<5) Urine Bacteria None seen /hpf (None Seen) Urine Hyaline Casts Few /lpf (0 - 2) Urine Creatinine 60.50 mg/dL (30.0-125.0) Urine Sodium 16 mmol/L (40-220) Urine Glucose 4+ mg/dL (Normal) Test 09/29/25 09:39 Hemoglobin A1c 10.7 % A1C (<5.7) B-Type Natriuretic Peptide 4870.07 pg/mL (0-100) Other Laboratory Tests 10/11/25 06:43 Brief Hx & Hospital Course: 75-year-old male with history of CKD stage 45, acute on chronic systolic heart failure (EF 25%), severe pulmonary hypertension, PAD s/p bilateral above-knee amputations, T2DM (A1c 10.7%), recent DKA (resolved), history of PE, and poor PO intake continues to report severe anorexia, unable to tolerate solids, only tolerated a peach today. He denies chest pain. Mild shortness of breath persists. also has complaint of hyperglycemia. He reports persistent elevated blood glucose readings over the past several days associated with nausea, vomiting, poor appetite, and unintentional weight loss for approximately three weeks. He states this symptoms feel similar to prior episodes of DKA. He denies dizziness, syncope, chest pain, palpitations, shortness of breath, fevers, or other acute symptoms. In the ED, initial lab shows a serum glucose of 409 mg/dL, an anion gap of 20, CO2 of 22, creatinine 3.54 with a GFR of 17, and elevated high sensitivity troponins trending from [id number]. Significant past medical history includes PAD status post bilateral AKA, diabetes type 2, hypertension, CKD, anemia of chronic disease. EKG: Sinus rhythm with nonspecific anterior/inferior/lateral repolarization abnormalities; QT prolonged, Echocardiogram (09/29/25): EF 25%, global hypokinesis, moderatesevere RV dysfunction, severe pulmonary hypertension (RVSP 6570 mmHg). Hypernatremia (148) improving slowly with D5W per nephrology. Abdominal CT (non-contrast) reveals: Severe atherosclerotic disease with diffuse calcifications. Patency of the vessels evaluated on this noncontrast study. Severe prostatomegaly. On 10/03/27 patient underwent left & right coronary angiography yesterday, revealing severe triple-vessel disease with heavily calcified lesions: LAD ~80% stenosis, Left circumflex ~95% stenosis, RCA ~80% stenosis, Severe calcifications, poor PCI candidacy, CT surgery evaluation for CABG, A higher-level transfer to [facility] was initiated, patient was transferred to [facility] yesterday. Condition at Discharge: Fair Final Diagnosis/Problems List Acute on chronic systolic HF (HFrEF), EF 25%, NYHA Class IIIACUTE DECOMPENSATION Ischemic cardiomyopathy, Elevated troponins NSTEMI Type 1 vs Type 2 demand ischemia Severe triple-vessel coronary artery disease (LAD 80%, LCx 95%, RCA 80%) Severe pulmonary hypertension (RVSP 6570 mmHg) Peripheral arterial disease s/p bilateral above-knee amputations. Pleural effusions due to CHF Exercabation Acute hypoxic respiratory failure due to CHF Exercabation Severe constipation BPH with urinary obstruction, Acute urinary retention Acute Kidney Injury due to VMN with superimposed CKD (Stage 45), hemodynamically mediated, Low urinary sodium:- improving, Cardiorenal syndrome AG METABOLIC ACIDOSIS RESOLVED hypernatremia resolved metabolic alkalosis Right sided Nephrolithiasis non obstructive Hyponatremia improving Hyperkalemia Discharge Disposition: Acute Care Facility SNF Discharge Will this Physician continue t: No Discharge Instruct/Medications Diet: Cardiac 2g Na,low cholest Activity: Bed rest Follow Up/Referral: Per referral papers Medications: Per referral papers Scheduled Aspirin (Aspirin Low Dose), 81 MG PO DAILY Atorvastatin Calcium (Atorvastatin Calcium), 40 MG PO HS Metoprolol Succinate (Toprol Xl), 50 MG PO DAILY Discharge Statement: "Patient was advised to return to the ER or call 911 if any headaches, dizziness, shortness of breath, chest pain, abdominal pain, bleeding, fevers, or worsening of medical condition. Patient was counseled about treatment plan, medications, possible side effects, patientverbalized understanding. All questions were answered to the best of my ability. This discharge took greater then 30 minutes in planning, reviewing documentation, counseling the patient, and discussing with other team members." ASSESSMENT ASSESSMENT Assessment THREE-VESSEL SIGNIFICANT NOTED PULMONARY DISEASE Visit Coding STANDARD RES Billing Provider: TANI MORALES MD Date of Service if different f: Oct 12, 2025 Common Visit Codes: [id number] CARE 30-74 MIN ROHINI BHAKTA RESIDENT Oct 12, 2025 12:31
== END 2025-10-11 19:28 | disposition short-term general hospital (02) | DRG 280 ==
LOC: ER 08:49 → EDBD 08:49 → OVERFLOW 12:20 → ICU WEST 20:08 → TELE-WESTW 09-30 15:57
PROVIDERS: ADMIT Internal Medicine Pulmonary Disease; ATTEND Internal Medicine Pulmonary Disease
PROC: 4A023N7 Measurement of Cardiac Sampling and Pressure, Left Heart, Percutaneous Approach (ICD-10-PCS; 2025-10-02)
PROC: B211YZZ Fluoroscopy of Multiple Coronary Arteries using Other Contrast (ICD-10-PCS; 2025-10-02)
PROC: 5A09357 Assistance with Respiratory Ventilation, Less than 24 Consecutive Hours, Continuous Positive Airway Pressure (ICD-10-PCS; 2025-10-03)
PROC: 0W9B3ZZ Drainage of Left Pleural Cavity, Percutaneous Approach (ICD-10-PCS; 2025-10-04)
PROC: 0W993ZZ Drainage of Right Pleural Cavity, Percutaneous Approach (ICD-10-PCS; 2025-10-04)
PROC: 5A09357 Assistance with Respiratory Ventilation, Less than 24 Consecutive Hours, Continuous Positive Airway Pressure (ICD-10-PCS; 2025-10-04)
PROC: 0JH63XZ Insertion of Tunneled Vascular Access Device into Chest Subcutaneous Tissue and Fascia, Percutaneous Approach (ICD-10-PCS; 2025-10-08)
PROC: 02H633Z Insertion of Infusion Device into Right Atrium, Percutaneous Approach (ICD-10-PCS; 2025-10-08)
PROC: B5181ZA Fluoroscopy of Superior Vena Cava using Low Osmolar Contrast, Guidance (ICD-10-PCS; 2025-10-08)
PROC: B548ZZA Ultrasonography of Superior Vena Cava, Guidance (ICD-10-PCS; 2025-10-08)
PROC: 5A1D70Z Performance of Urinary Filtration, Intermittent, Less than 6 Hours Per Day (ICD-10-PCS; principal; 2025-10-09)
PROC: 5A1D70Z Performance of Urinary Filtration, Intermittent, Less than 6 Hours Per Day (ICD-10-PCS; 2025-10-09)
DX: I21.4 Non-ST elevation (NSTEMI) myocardial infarction (principal); E11.10 Type 2 diabetes mellitus with ketoacidosis without coma; I50.23 Acute on chronic systolic (congestive) heart failure; J96.01 Acute respiratory failure with hypoxia; N17.0 Acute kidney failure with tubular necrosis; J15.9 Unspecified bacterial pneumonia; I13.2 Hypertensive heart and chronic kidney disease with heart failure and with stage 5 chronic kidney disease, or end stage renal disease; E87.1 Hypo-osmolality and hyponatremia; E87.3 Alkalosis; D63.1 Anemia in chronic kidney disease; N18.5 Chronic kidney disease, stage 5; I27.20 Pulmonary hypertension, unspecified; E11.22 Type 2 diabetes mellitus with diabetic chronic kidney disease; E03.9 Hypothyroidism, unspecified; J98.11 Atelectasis; N13.8 Other obstructive and reflux uropathy; T83.018A Breakdown (mechanical) of other urinary catheter, initial encounter; E11.65 Type 2 diabetes mellitus with hyperglycemia; E11.51 Type 2 diabetes mellitus with diabetic peripheral angiopathy without gangrene; E86.0 Dehydration; N20.0 Calculus of kidney; R62.7 Adult failure to thrive; D50.9 Iron deficiency anemia, unspecified; N40.1 Benign prostatic hyperplasia with lower urinary tract symptoms; R33.8 Other retention of urine; I25.10 Atherosclerotic heart disease of native coronary artery without angina pectoris; K59.00 Constipation, unspecified; N14.11 Contrast-induced nephropathy; T50.8X5A Adverse effect of diagnostic agents, initial encounter; E87.5 Hyperkalemia; I25.5 Ischemic cardiomyopathy; Z68.22 Body mass index [BMI] 22.0-22.9, adult; Z89.611 Acquired absence of right leg above knee; Z89.612 Acquired absence of left leg above knee; Z86.711 Personal history of pulmonary embolism; Z89.512 Acquired absence of left leg below knee; Z89.511 Acquired absence of right leg below knee; Z87.891 Personal history of nicotine dependence; Z79.82 Long term (current) use of aspirin; Y92.89 Other specified places as the place of occurrence of the external cause
CPT/HCPCS: 32555; 36415; 36558; 36600; 71045; 74018; 74176; 76775; 80048; 80053; 80061; 80074; 81001; 82010; 82378; 82570; 82728; 82805; 82962; 83036; 83540; 83550; 83735; 83880; 83986; 84100; 84300; 84436; 84439; 84443; 84480; 84481; 84484; 85025; 85610; 85730; 86703; 86803; 87070; 87081; 87205; 87536; 89051; 90935; 93005; 93306; 93458; 94640; 94660; 94668; 96374; 99152; 99291; C1894; G0378; J1642; J1756; J1815; J2250; P9047